=== PATIENT | female | born 1955 | race African-American/Black ===

== ENCOUNTER 2017-05-17 08:24 | Inpatient (IN) ==
--- NOTE | 2017-05-17 09:33 | History and Physical Update ---
History and Physical Update - History and Physical H&P was reviewed, the patient examined and there: are no changes in the patients condition since last H&P was completed.
[2017-05-17] MEDS: LACTATED RINGERS 1,000 ML IV SCH ×3 (09:47→17:18)
[2017-05-17] MEDS ORDERED: ceFAZolin 1,000 MG VIAL ONE (10:00)
[2017-05-17] MEDS ORDERED: SODIUM CHLORIDE 0.9% 100 ML IV ONE (10:00)
[2017-05-17] MEDS ORDERED: ROPIVACAINE 0.5% 30 ML VIAL ONE (10:16)
[2017-05-17] MEDS ORDERED: MIDAZOLAM 2 MG/2 ML VIAL ONE (10:41)
[2017-05-17] MEDS ORDERED: fentaNYL 100 MCG/2 ML VIAL ONE (10:42)
[2017-05-17] MEDS ORDERED: GENTAMICIN 80 MG/2 ML VIAL ONE ×2 (12:04→13:50)
[2017-05-17] MEDS ORDERED: PROPOFOL 200 MG/20 ML VIAL IV ONE (12:48)
[2017-05-17] MEDS ORDERED: PHENYLEPHRINE 1 MG/10 ML SYRINGE IV ONE (12:48)
[2017-05-17] MEDS ORDERED: HYDROCORTISONE 100 MG VIAL ONE (12:48)
[2017-05-17] MEDS ORDERED: PHENYLEPHRINE 50 MG/5 ML VIAL ONE (12:48)
[2017-05-17] MEDS ORDERED: LIDOCAINE 1% 5 ML VIAL ONE (12:48)
[2017-05-17] MEDS ORDERED: ONDANSETRON 4 MG/2 ML VIAL ONE (12:48)
[2017-05-17] MEDS ORDERED: TRANEXAMIC ACID 1,000 MG/10 ML VIAL IV ONE (15:31)
[2017-05-17] MEDS ORDERED: BACITRACIN OINT 0.9 GM PACK TOP ONE (15:32)
[2017-05-17] MEDS ORDERED: ALBUTEROL/IPRATROPIUM 3 ML NEB RESP TX PRN (15:46)
[2017-05-17] MEDS ORDERED: MORPHINE 2 MG/1 ML SYRINGE IV PRN (15:47)
[2017-05-17] MEDS: HYDROmorphone 2 MG/1 ML VIAL IV PRN ×3 (15:55→16:05)
[2017-05-17] MEDS ORDERED: HYDROmorphone 2 MG/1 ML VIAL ONE (15:56)
--- NOTE | 2017-05-17 16:01 | Operative Note ---
Date of procedure: 05/17/17 Procedure: DIAGNOSIS: Left hindfoot arthrosis, pes planus deformity and instability. Achilles tendon contracture PROCEDURE: Left triple arthrodesis. Triple cut heel cord lengthening SURGEON: Ilene ANESTHESIA: General and popliteal block PROCEDURE and FINDINGS: After adequate anesthesia was induced, her left lower exam was prepped and draped in usual sterile fashion. The limb was exsanguinated with Esmarch. Tourniquet was inflated to 300 mmHg. Estimated tourniquet time was 90 minutes. A longitudinal incision was made in line with the tip of her fibula and fourth ray. Skin, subcutaneous tissue was incised. Extensor digitorum brevis was elevated from the sinus tarsi. Contents of the sinus tarsi were excised. Longitudinal capsulotomy was made at the calcaneocuboid joint and extended through the subtalar joint.. The subtalar and calcaneocuboid joint joints were exposed, denuded of cartilage and subchondral bone using curettes, rongeurs and a bur. The lateral half of the talonavicular joint was exposed. She had hard sclerotic bone. A bur was used to denude but back down to bleeding cancellus bone. A medial incision was made exposing the medial half of the talonavicular joint. Cancellus bone was exposed. Pins were introduced sequentially. The calcaneus was positioned in slight valgus. The subtalar joint was stabilized with 2 6.5 partially-threaded , cannulated screws introduced through the heel. The talonavicular and calcaneocuboid joints were secured with 2 4.0 partially-threaded, cancellus, cannulated screws each. Image intensification was used multiple planes to foreign exchange trader adequacy of pin and screw placement. The joints were packed with normal saline soaked, cancellus allograft bone chips. The wounds were irrigated, closed deep with 0 Vicryl and superficially with 3-0 Vicryl. Nylon was used to close skin. The patient still had a residual Achilles tendon contracture. A triple cut, Achilles tendon lengthening was performed with 3 cuts with two laterally and one medially. Skin was closed with nylon. Bacitracin, sterile dressings and short leg splint with stirrups was applied. She was extubated and transferred recovery room in stable condition. Surgeon / Physician: Selwyn Odom Jr. Discharge Plan - Discharge Medications No Action Multivit-Min/FA/Lycopen/Lutein [Centrum Silver Tablet] 1 tablet PO DAILY Sucralfate Tab [Carafate Tab] 1 gm PO BIDAC Ergocalciferol (Vitamin D2) [Vitamin D2] 400 unit PO BID Clopidogrel [Plavix] 75 mg PO DAILY Omeprazole [Prilosec] 20 mg PO BID Folic Acid Tab 400 mcg PO DAILY Albuterol/Ipratropium Neb [Duoneb] 3 ml RESP TX QID PRN PRN Reason: Shortness Of Breath/Wheezing Duloxetine HCl [Cymbalta] 60 mg PO DAILY Furosemide 20 mg PO DAILY Calcium Carbonate/Vitamin D3 [Calcium 500 + Vit D Caplet] 1 each PO BID Metoprolol Tartrate 25 mg PO BID Beclomethasone 80 Mcg Inhaler [Qvar 80 Mcg] 80 mcg INH BID cycloSPORINE OPH EMUL [Restasis] 1 drop BOTH EYES Q12HR Magnesium Chloride [Mag Delay] 128 mg PO BID Spironolactone [Spironolactone] 25 mg PO BID Tocilizumab [Actemra] 0.9 ml SUBCUT TU Topiramate [Topamax] 100 mg PO BID Cholestyramine/Aspartame [Questran Light] 4 gm PO BID Gabapentin [Gabapentin] 300 mg PO BEDTIME predniSONE TAB [PredniSONE] 9 mg PO DAILY Colestipol [Colestid] 2 gm PO BID Acyclovir [Acyclovir Cap/Tab] 400 mg PO BID - Follow Up or Referral - Forms/Instructions
[2017-05-17] MEDS ORDERED: SODIUM CHLORIDE 0.9% 250 ML IV ONE (16:06)
[2017-05-17] MEDS ORDERED: ePHEDrine 50 MG/ML AMP ONE (16:06)
[2017-05-17] MEDS ORDERED: SEVOFLURANE 1 UNIT/15 MINUTE INH ONE (16:06)
[2017-05-17] MEDS ORDERED: ONDANSETRON 4 MG/2 ML VIAL IV PRN (16:07)
[2017-05-17] MEDS ORDERED: LACTATED RINGERS 1,000 ML IV SCH (16:30)
--- NOTE | 2017-05-17 16:57 | Anesthesia Post-Op ---
Anesthesia Post OP - Post Ansesthetic Evaluation Patient seen in post op: Yes Resp: within normal limits CV: within normal limits Mental: within normal limits Temp: within normal limits [id number]: within normal limits Nausea and Vomiting: within normal limits Pain: within normal limits
--- NOTE | 2017-05-17 17:17 | XRay Report ---
XR foot 3V LT Indication: Intraoperative C-arm fluoroscopy. Comparison: None. Technique: A total of 11 images were obtained intraoperatively using C-arm fluoroscopy. Findings: Images were reviewed and deemed satisfactory by the operative physician. Total fluoroscopy time was 27 seconds. Impression: 1. C-arm usage as detailed. 05/17/2017 5:14 PM PROCEDURE INTERPRETED AT [facility] DEPARTMENT OF RADIOLOGY Final Report Signed by: Dr. Israel Elliott
[2017-05-17] MEDS: SUCRALFATE 1 GM TABLET PO SCH (17:37)
[2017-05-17] MEDS: COLESTIPOL 1 GM TABLET PO SCH (20:54)
[2017-05-17] MEDS: GABAPENTIN 300 MG CAPSULE PO SCH (20:55)
[2017-05-17] MEDS: MAGNESIUM CHLORIDE 64 MG TABLET PO SCH (20:55)
[2017-05-17] MEDS: ACYCLOVIR 200 MG CAPSULE PO SCH (20:55)
[2017-05-17] MEDS: TOPIRAMATE 100 MG TABLET PO SCH (20:55)
[2017-05-17] MEDS: CALCIUM (CARBONATE)/VITAMIN D 500 MG-200 UNIT TABLET PO SCH (20:55)
[2017-05-17] MEDS: PANTOPRAZOLE 40 MG TABLET PO SCH (20:56)
[2017-05-17] MEDS: cycloSPORINE OPH EMUL 1 VIAL BOTH EYES SCH (20:56)
[2017-05-17] MEDS: CHOLECALCIFEROL 400 UNIT TABLET PO SCH (20:56)
[2017-05-17] MEDS: CHOLESTYRAMINE/ASPARTAME 4 GM PACK PO SCH (20:57)
[2017-05-17] MEDS: SPIRONOLACTONE 25 MG TABLET PO SCH (20:58)
[2017-05-17] MEDS: METOPROLOL TARTRATE 25 MG TABLET PO SCH (20:59)
[2017-05-17] MEDS: BECLOMETHASONE 80 MCG/PUFF INHALER 8.7 GM INH SCH (20:59)
[2017-05-18] MEDS: LACTATED RINGERS 1,000 ML IV SCH (03:12)
[2017-05-18] MEDS: ONDANSETRON 4 MG/2 ML VIAL IV PRN ×3 (03:56→20:35)
[2017-05-18 05:42] LABS: Basophils % 0.5 % (0.0-0.8); Eosinophils # 0.1 10*3/uL (0.0-0.87); Eosinophils % 0.9 % (0.00-10.9); Hematocrit 35.5 VOL% (35.7-47.0); Hemoglobin 11.6 GM/DL (12.0-16.0); Immature Granulocytes % 0.3 %; Immature Granulocytes Absolute 0.02 #; Lymphocytes # 1.7 10*3/uL (1.4-4.0); Lymphocytes % 28.7 % (21.3-54.2); Mean Corpuscular HGB Conc 32.7 GM/DL (32-36); Mean Corpuscular Hemoglobin 34 PG (27-34); Mean Corpuscular Volume 103.2 FL (87-102); Mean Platelet Volume 8.9 FL (9.6-12.0); Monocytes # 0.8 10*3/uL (0.11-0.8); Monocytes % 14.1 % (1.7-12.7); Neutrophils # 3.2 10*3/uL (1.4-7.4); Neutrophils % 55.5 % (38.7-73.9); Platelet Count 198 T/CUMM (130-400); Red Blood Count 3.44 MC/CUMM (3.8-5.5); Red Cell Distribution Width 13.4 % (9.3-17.3); White Blood Count 5.8 T/CUMM (4-12)
[2017-05-18 06:18] LABS: Calcium 8.4 MG/DL (8.5-10.1); Potassium 3.8 MMOL/L (3.5-5.1)
--- NOTE | 2017-05-18 08:26 | Internal Medicine Consult Note ---
Assessment and Plan (1) HTN (hypertension) Status: Chronic Assessment and plan: 62-year-old female admitted to acute care * Status post left triple arthrodesis. Patient is doing well with surgery. Treatment per Dr. Odom * Hypertension. Blood pressure is stable * Status post CVA. Continue current treatment * Rheumatoid arthritis. Stable. She is being tapered off prednisone * Depression. Continue current treatment * GERD. Stable * I will follow her for medical problems Current Visit: No Qualifiers: Hypertension type: essential hypertension Qualified Code(s): I10 - Essential (primary) hypertension (2) GERD (gastroesophageal reflux disease) Status: Chronic Current Visit: No (3) Lupus Status: Chronic Current Visit: No (4) Rheumatoid arthritis Status: Chronic Current Visit: No (5) Sleep apnea in adult Status: Chronic Current Visit: No History of Present Illness - Data of Consult Patient: known to practice within the last 3 years - Consult Narrative Reason for consult: Medical management History of present illness: Ms. Sellers is a 62 year old female with history of multiple medical problems including essential hypertension, CHF, gastroesophageal reflux disease, migraine , obstructive sleep apnea, rheumatoid arthritis, lupus, chronic back and cervical spine arthritis who has been admitted to acute care after undergoing left foot triple arthrodesis. She is doing fairly well after surgery. Her main complaint is the pain in her foot. She denies any chest pain or shortness of breath. She denies any nausea vomiting or diarrhea. She denies any fever or chills. She lives alone at home and had a health care aide. Patient is a non- smoker CC: Selwyn Odom Jr., - Home Medications and Allergies Home Medications: Home Medications Medication Instructions Recorded Confirmed Type Clopidogrel [Plavix] 75 mg PO DAILY 09/13/15 05/17/17 History Ergocalciferol (Vitamin D2) 400 unit PO BID 09/13/15 05/17/17 History [Vitamin D2] Multivit-Min/FA/Lycopen/Lutein 1 tablet PO DAILY 09/13/15 05/17/17 History [Centrum Silver Tablet] Omeprazole [Prilosec] 20 mg PO BID 09/13/15 05/17/17 History Sucralfate Tab [Carafate Tab] 1 gm PO BIDAC 09/13/15 05/17/17 History Albuterol/Ipratropium Neb [Duoneb] 3 ml RESP TX QID PRN 11/13/15 05/17/17 History Calcium Carbonate/Vitamin D3 1 each PO BID 11/13/15 05/17/17 History [Calcium 500 + Vit D Caplet] Duloxetine HCl [Cymbalta] 60 mg PO DAILY 11/13/15 05/17/17 History Folic Acid Tab 400 mcg PO DAILY 11/13/15 05/17/17 History Furosemide 20 mg PO DAILY 11/13/15 05/17/17 History Metoprolol Tartrate 25 mg PO BID 11/13/15 05/17/17 History Beclomethasone 80 Mcg Inhaler 80 mcg INH BID 12/25/15 05/17/17 History [Qvar 80 Mcg] cycloSPORINE OPH EMUL [Restasis] 1 drop BOTH EYES Q12HR 12/25/15 05/17/17 History Magnesium Chloride [Mag Delay] 128 mg PO BID 12/31/15 05/17/17 History Acyclovir [Acyclovir Cap/Tab] 400 mg PO BID 12/22/16 05/17/17 History Cholestyramine/Aspartame [Questran 4 gm PO BID 12/22/16 05/17/17 History Light] Colestipol [Colestid] 2 gm PO BID 12/22/16 05/17/17 History Gabapentin [Gabapentin] 200 mg PO BEDTIME 12/22/16 05/17/17 History Spironolactone [Spironolactone] 25 mg PO BID 12/22/16 05/17/17 History Tocilizumab [Actemra] 0.9 ml SUBCUT TU 12/22/16 05/17/17 History Topiramate [Topamax] 100 mg PO BID 12/22/16 05/17/17 History Cetirizine HCl [ZyrTEC Cap] 10 mg PO DAILY 05/17/17 05/17/17 History Levocetirizine Dihydrochloride 5 mg PO BEDTIME 05/17/17 05/17/17 History [Xyzal] Melatonin/Pyridoxine HCl (B6) 1 each PO BEDTIME PRN 05/17/17 05/17/17 History [Melatonin 3 mg Tablet] guaiFENesin ER TAB [Mucinex] 600 mg PO BID PRN 05/17/17 05/17/17 History predniSONE TAB [PredniSONE] 9 mg PO DAILY 05/17/17 05/17/17 History Allergies/Adverse Reactions: Allergies Allergy/AdvReac Type Severity Reaction Status Date / Time azathioprine [From Imuran] Allergy Mild RASH Verified 05/17/17 08:43 Hydroxychloroquine Allergy Mild RASH Verified 05/17/17 08:43 [From Plaquenil] methotrexate Allergy Mild RASH Verified 05/17/17 08:43 naproxen Allergy Mild RASH Verified 05/17/17 08:43 niacin Allergy Mild RASH Verified 05/17/17 08:43 Sulfadiazine Allergy Mild RASH Verified 05/17/17 08:43 sulfamethoxazole Allergy Mild RASH Verified 05/17/17 08:43 [From Bactrim] sumatriptan [From Treximet] Allergy Mild RASH Verified 05/17/17 08:43 trimethoprim [From Bactrim] Allergy Mild RASH Verified 05/17/17 08:43 12 point system: reviewed and no additional remarkable complaints except as stated (As mentioned in HPI) Medical,Surgical,& Family Hx - Medical History Cardio: History of: Aneurysm, Cardiac Dysrhythmia, Cerebrovascular Disease, CHF , Hypertension, Cardiovascular Problems (DR ZAMARRIPA IN PAST.) No history of: Congenital Heart Disease, CAD, [place], Pacemaker, PVD, Valvular Heart Disease Psychological: History of: Depression Neurology: History of: Cerebrovascular Accident, Migraine (OCCASIONAL), TIA ( 2012 DR HART.) No history of: Brain Aneurysm, Cerebral Hemorrhage, Cerebral Palsy, Dementia , Multiple Sclerosis, Parkinson's Disease, Peripheral Neuropathy, Seizures, Vertigo, Neurologocal Cancer HEENT: History of: Ear Problem (PASCUA YAQUI AND EAR PAIN), Eye Problem (GLASSES), Dental Problems (UPPER PARTIAL) Endocrine: History of: Diabetes Mellitus (NIDDM) (PT HAS LOW BLOOD SUGAR), Dyslipidemia Rheumatology: History of;: Rheumatoid Arthritis, Systemic Lupus Erythematosus, Rheumatological Problems Respiratory: History of: Asthma, COPD (DR POPE.), Intubation, Obstructive Sleep Apnea (cpap, has not been using lately. PT USES 2L OXYGEN AT NIGHT.), Respiratory Problems (FLU VAC-YES; PNEU VAC- YES.) Renal: History of: Renal Problems (kidney infaction DR CANDACE PARKER) Genitourinary: History of: Bladder Problem (INCONTIENCE.), Recurring Urinary Tract Infections Gastrointestinal: History of: Diverticulitis/ Diverticulosis, GERD, Pancreatitis , Polyps (?), GI Problems (CONSTIPATION AND DIARRHEA) Musculoskeletal: History of: Back/Neck Problems (NECK AND CHRONIC BACK PAIN. NECK DR TINEO INJ 04/2017.), Herniated Disk, Osteoporosis Hematology: History of: Anemia Other: History of: Miscellaneous Medical Problems (EXT WEAKNESS.) - Surgical History Cardiac Surgeries: Sugical HX of: Cardiac Catheterization Patient Denies: Femoral-Popliteal Bypass Graft, Cardiac Surgery, Carotid Endarterectomy, Internal Defibrillator, Vascular Access Devices Thoracic Surgeries: Patient denies;: Organ Transplant, Lobectomy Neurologic Surgeries: Patient denies: Brain Aneurysm, Cerebral Hemorrhage, Neurologic Surgery HEENT Surgeries: Surgical HX of: Eye Surgery (CATARACT SURERY) Patient denies: Carotid Endarterectomy, Tonsilectomy & Adenoidectomy Abdominal Surgeries: Surgical HX of: Abdominal Surgery, Appendectomy, Cholecystectomy, Colonoscopy, EGD Patient denies: Splenectomy Reproductive Surgeries: Patient denies;: Genitourinary Surgery Orthopedic Surgeries: Surgical HX of;: Orthopedic Surgery (NECK SURGERY 10 YRS AGO. RT CARPAL TUNNEL.) - Family History Family History: Reports;: Family Cancer, Family Diabetes, Family Heart Disease, Family Hypertension, Family Stroke Denies;: Family Anesthesia Reaction, Family Psychiatric Problems - Social History Smoking Status: Never smoker Frequency of Alcohol Use: None Type of Drug Use: None Marital Status: Lives With:: Alone Functional capacity: uses cane/walker Exam (Progress Note) - Constitutional Vitals: Period Temp Pulse Resp BP Sys/Viveros Pulse Ox Last 24 Hr 97.0 F-98.1 F 74-94 16-20 92-149/49-110 98-100 Exam: Examination: GENERAL: NAD. HEENT: PERRLA. EOMI. Mucous membranes are moist. NECK: Neck is supple. No JVD. No carotid bruit. No thyromegaly. CVS: Regular rate and rhythm. S1 and S2 are normal. RESPIRATORY: Lungs are clear. No rales or rhonchi. ABDOMEN: Soft and nontender. Bowel sounds are present. No hepatosplenomegaly. 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 Cranial nerves II through XII are grossly intact. 3-4/5 SKIN: Warm and dry. MSK: No obvious deformity. Results - Labs CBC & BMP: 05/18/17 05:13 05/18/17 05:13 Lab Results: I have reviewed the past 24 hour labs
--- NOTE | 2017-05-18 08:53 | Orthopedic Progress Note ---
Orthopedics - Subjective Interval history: Ms. Sellers is uncomfortable this morning. She is just received IV pain medicine. She states that the block seems to have worn off about midnight last night. Her splint shows some slight serosanguineous drainage. It has been overwrapped. Capillary refills less than 2 seconds. Plan: Encourage the use of pain medicine and elevation. We will start physical therapy. Stop IV fluids. Discharge planning anticipating swing bed placement at [facility]. Exam - Constitutional Vitals: Period Temp Pulse Resp BP Sys/Viveros Pulse Ox Last 24 Hr 97.0 F-98.1 F 74-94 16-20 92-149/49-110 98-100 Results - Labs CBC & BMP: 05/18/17 05:13 05/18/17 05:13 Quality Measures - VTE Contraindication to Pharmacological VTE Prophylaxis: Already on Theraputic Agent , No Prophylaxis Needed
[2017-05-18] MEDS: FOLIC ACID 0.4 MG TABLET PO SCH (09:02)
[2017-05-18] MEDS: PANTOPRAZOLE 40 MG TABLET PO SCH ×2 (09:02→20:23)
[2017-05-18] MEDS: FUROSEMIDE 20 MG TABLET PO SCH (09:03)
[2017-05-18] MEDS: SUCRALFATE 1 GM TABLET PO SCH ×2 (09:03→15:37)
[2017-05-18] MEDS: TOPIRAMATE 100 MG TABLET PO SCH ×2 (09:03→20:23)
[2017-05-18] MEDS: DULoxetine 30 MG CAPSULE PO SCH (09:04)
[2017-05-18] MEDS: SPIRONOLACTONE 25 MG TABLET PO SCH ×2 (09:04→20:23)
[2017-05-18] MEDS: METOPROLOL TARTRATE 25 MG TABLET PO SCH ×2 (09:04→20:23)
[2017-05-18] MEDS: MULTIVITAMIN (CENTRUM) TABLET PO SCH (09:05)
[2017-05-18] MEDS: CHOLECALCIFEROL 400 UNIT TABLET PO SCH ×2 (09:05→20:24)
[2017-05-18] MEDS: ACYCLOVIR 200 MG CAPSULE PO SCH ×2 (09:05→20:22)
[2017-05-18] MEDS: COLESTIPOL 1 GM TABLET PO SCH ×2 (09:06→20:23)
[2017-05-18] MEDS: CALCIUM (CARBONATE)/VITAMIN D 500 MG-200 UNIT TABLET PO SCH ×2 (09:06→20:23)
[2017-05-18] MEDS: CHOLESTYRAMINE/ASPARTAME 4 GM PACK PO SCH ×2 (09:12→20:24)
[2017-05-18] MEDS: BECLOMETHASONE 80 MCG/PUFF INHALER 8.7 GM INH SCH ×2 (09:19→20:28)
[2017-05-18] MEDS: cycloSPORINE OPH EMUL 1 VIAL BOTH EYES SCH ×2 (09:21→20:27)
[2017-05-18] MEDS: MAGNESIUM CHLORIDE 64 MG TABLET PO SCH ×2 (10:20→20:23)
[2017-05-18] MEDS: MORPHINE 2 MG/1 ML SYRINGE IV PRN ×2 (10:21→15:20)
[2017-05-18] MEDS: predniSONE 1 MG TABLET PO SCH (12:35)
[2017-05-18] MEDS: predniSONE 5 MG TABLET PO SCH (12:35)
[2017-05-18] MEDS: traMADol 50 MG TABLET PO PRN (12:35)
[2017-05-18] MEDS: GABAPENTIN 300 MG CAPSULE PO SCH (20:22)
[2017-05-18] MEDS: ACETAMINOPHEN 325 MG TABLET PO PRN (20:33)
--- NOTE | 2017-05-19 07:08 | Internal Med Progress Note ---
Assessment and Plan (1) HTN (hypertension) Status: Chronic Assessment and plan: 62-year-old female admitted to acute care * Status post left triple arthrodesis. Patient is doing well with surgery. * Hypertension. Blood pressure is stable * Status post CVA. Continue current treatment * Rheumatoid arthritis. Stable. She is being tapered off prednisone * Depression. Continue current treatment * GERD. Stable * Dysuria. Will check urinalysis * Patient to go to swing bed after acute care Current Visit: No Qualifiers: Hypertension type: essential hypertension Qualified Code(s): I10 - Essential (primary) hypertension (2) GERD (gastroesophageal reflux disease) Status: Chronic Current Visit: No (3) Lupus Status: Chronic Current Visit: No (4) Rheumatoid arthritis Status: Chronic Current Visit: No (5) Sleep apnea in adult Status: Chronic Current Visit: No Internal Medicine - PN: Subj Interval history: Her pain is better controlled. She was up during the night with increased frequency and urgency. She denies any chest pain or shortness of breath Exam (Progress Note) - Constitutional Vitals: Period Temp Pulse Resp BP Sys/Viveros Pulse Ox Last 24 Hr 97.2 F-99.4 F 71-105 17-20 132-154/76-90 96-100 Exam: Examination: GENERAL: NAD. HEENT: PERRLA. EOMI. NECK: Neck is supple. CVS: Regular rate and rhythm. S1 and S2 are normal. RESPIRATORY: Lungs are clear. ABDOMEN: Soft and nontender. 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 Motor strength 3-4/5 SKIN: Warm and dry. MSK: No obvious deformity. Results - Labs CBC & BMP: 05/18/17 05:13 05/18/17 05:13 Lab Results: I have reviewed the past 24 hour labs Quality Measures - VTE Contraindication to Pharmacological VTE Prophylaxis: Already on Theraputic Agent , No Prophylaxis Needed
--- NOTE | 2017-05-19 07:52 | Orthopedic Progress Note ---
Orthopedics - Subjective Interval history: Ms. Sellers' pain is better controlled this morning. She has a urinalysis pending for increased urinary frequency. Splint is intact. She can flex and extend her toes. Capillary refills less than 2 seconds. Sensations intact to light touch to her toes. Plan: Continue physical therapy. Swing bed placement when bed available. Exam - Constitutional Vitals: Period Temp Pulse Resp BP Sys/Viveros Pulse Ox Last 24 Hr 97.2 F-99.4 F 71-105 17-20 109-154/75-90 96-100 Results - Labs CBC & BMP: 05/18/17 05:13 05/18/17 05:13 Quality Measures - VTE Contraindication to Pharmacological VTE Prophylaxis: Already on Theraputic Agent , No Prophylaxis Needed
[2017-05-19] MEDS: BECLOMETHASONE 80 MCG/PUFF INHALER 8.7 GM INH SCH ×2 (10:00→20:58)
[2017-05-19] MEDS: cycloSPORINE OPH EMUL 1 VIAL BOTH EYES SCH ×2 (11:23→21:01)
[2017-05-19] MEDS: ONDANSETRON 4 MG/2 ML VIAL IV PRN (11:31)
[2017-05-19] MEDS: MAGNESIUM HYDROXIDE SUSP 30 ML UDCUP PO PRN ×2 (11:31→17:49)
[2017-05-19] MEDS: CHOLESTYRAMINE/ASPARTAME 4 GM PACK PO SCH ×2 (12:00→21:21)
[2017-05-19] MEDS: ACETAMINOPHEN 325 MG TABLET PO PRN ×2 (13:18→21:20)
[2017-05-19] MEDS: COLESTIPOL 1 GM TABLET PO SCH ×2 (13:21→20:58)
[2017-05-19] MEDS: MAGNESIUM CHLORIDE 64 MG TABLET PO SCH ×2 (13:22→21:00)
[2017-05-19] MEDS: ACYCLOVIR 200 MG CAPSULE PO SCH ×2 (13:24→21:00)
[2017-05-19] MEDS: DULoxetine 30 MG CAPSULE PO SCH (13:31)
[2017-05-19] MEDS: CLOPIDOGREL 75 MG TABLET PO SCH (13:32)
[2017-05-19] MEDS: CHOLECALCIFEROL 400 UNIT TABLET PO SCH ×2 (13:32→21:00)
[2017-05-19] MEDS: MULTIVITAMIN (CENTRUM) TABLET PO SCH (13:32)
[2017-05-19] MEDS: FOLIC ACID 0.4 MG TABLET PO SCH (13:33)
[2017-05-19] MEDS: TOPIRAMATE 100 MG TABLET PO SCH ×2 (13:34→20:58)
[2017-05-19] MEDS: SUCRALFATE 1 GM TABLET PO SCH ×2 (13:35→17:49)
[2017-05-19] MEDS: FUROSEMIDE 20 MG TABLET PO SCH (13:35)
[2017-05-19] MEDS: CALCIUM (CARBONATE)/VITAMIN D 500 MG-200 UNIT TABLET PO SCH ×2 (13:36→21:00)
[2017-05-19] MEDS: predniSONE 5 MG TABLET PO SCH (13:37)
[2017-05-19] MEDS: PANTOPRAZOLE 40 MG TABLET PO SCH ×2 (13:37→21:00)
[2017-05-19] MEDS: SPIRONOLACTONE 25 MG TABLET PO SCH ×2 (13:37→21:00)
[2017-05-19] MEDS: predniSONE 1 MG TABLET PO SCH (13:38)
[2017-05-19] MEDS: METOPROLOL TARTRATE 25 MG TABLET PO SCH ×2 (13:50→20:58)
[2017-05-19 16:17] LABS: Apearance,Urine CLEAR (Clear); Bilirubin,Urine Negative (Negative); Blood, Urine Negative (Negative); Glucose,Urine (UA) Negative (Negative); Hyaline Casts,Urine 2 /LPF (0-3); Ketones,Urine Negative (Negative); Mucus,Urine Occasional /LPF (Occasional); Nitrite,Urine Negative (Negative); Protein,Urine Negative; RBC,Urine <1 /HPF (0-4); Squamous Epithelial Cell,Urine Occasional /HPF (0-10); Urine Color Yellow (Yellow); Urine Specific Gravity 1.006 (1.001-1.035); Urine Urobilinogen < 2.0 EU/DL (0.2-1.0); WBC,Urine 2 /HPF (0-6)
[2017-05-19] MEDS ORDERED: BISACODYL 10 MG SUPP RECTAL PRN (18:55)
[2017-05-19] MEDS: GABAPENTIN 300 MG CAPSULE PO SCH (20:58)
--- NOTE | 2017-05-20 08:15 | Orthopedic Progress Note ---
Orthopedics - Subjective Interval history: She is somnolent. # days postop left foot and ankle surgery. Nurses report she is awaiting placement Lab stable. V/S stable. dressing and splint clean and dry. Rec: Continue same orthopaedic treatment plan Exam - Constitutional Vitals: Period Temp Pulse Resp BP Sys/Viveros Pulse Ox Last 24 Hr 97.9 F-99.2 F 92-123 18-22 101-119/60-86 93-100 Results - Labs CBC & BMP: 05/18/17 05:13 05/18/17 05:13 Quality Measures - VTE Contraindication to Pharmacological VTE Prophylaxis: Already on Theraputic Agent , No Prophylaxis Needed
--- NOTE | 2017-05-20 08:32 | Family Practice Progress Note ---
Family Practice - PN: Subj Interval history: Medicine consult: Patient seen and examined on the third floor, Does not give any complaints today, overall feeling better. No fever, nausea, vomiting, chest pain, shortness of breath, headaches or dizziness. No overnight events reported by the nurse. Is status post left foot triple arthrodesis. Awaiting swing bed placement. Exam (Progress Note) - Constitutional Vitals: Period Temp Pulse Resp BP Sys/Viveros Pulse Ox Last 24 Hr 97.9 F-99.2 F 92-123 18-22 101-119/60-86 93-100 Exam: GENERAL APPEARANCE: alert and oriented, pleasant, in no acute distress, lying in the bed HEENT: Normal EYES: extraocular movement intact (EOMI), conjunctiva clear, normal. NECK/THYROID: neck supple, full range of motion, no cervical lymphadenopathy, no thyromegaly. HEART: regular rate and rhythm, no murmurs, rubs, gallops. LUNGS: clear to auscultation bilaterally, no wheezes, rales, rhonchi. ABDOMEN: soft, nontender, nondistended, no organomegaly , bowel sounds present. EXTREMITIES: Dressing over left foot present. NEUROLOGIC: alert and oriented, cranial nerves 2-12 grossly intact, Results - Labs CBC & BMP: 05/18/17 05:13 05/18/17 05:13 Lab Results: I have reviewed the past 24 hour labs Assessment and Plan (1) Arthrosis of left foot Status: Chronic Assessment and plan: Status post left triple arthrodesis surgery, pain controlled, Follow recommendations of orthopedics, awaiting swing bed. 2. Hypertension, stable. 3. Rheumatoid arthritis, stable. 4. Lupus, stable, 5. GERD, stable on Protonix Current Visit: Yes (2) HTN (hypertension) Status: Chronic Current Visit: Yes Qualifiers: Hypertension type: essential hypertension Qualified Code(s): I10 - Essential (primary) hypertension (3) Lupus Status: Chronic Current Visit: Yes (4) GERD (gastroesophageal reflux disease) Status: Chronic Current Visit: Yes (5) Rheumatoid arthritis Status: Chronic Current Visit: Yes (6) Sleep apnea in adult Status: Chronic Current Visit: Yes Quality Measures - VTE Contraindication to Pharmacological VTE Prophylaxis: Already on Theraputic Agent , No Prophylaxis Needed
[2017-05-20] MEDS: CHOLESTYRAMINE/ASPARTAME 4 GM PACK PO SCH ×2 (11:07→21:13)
[2017-05-20] MEDS: predniSONE 1 MG TABLET PO SCH (11:07)
[2017-05-20] MEDS: COLESTIPOL 1 GM TABLET PO SCH ×2 (11:08→21:12)
[2017-05-20] MEDS: CLOPIDOGREL 75 MG TABLET PO SCH (11:09)
[2017-05-20] MEDS: MAGNESIUM CHLORIDE 64 MG TABLET PO SCH ×2 (11:09→21:13)
[2017-05-20] MEDS: SPIRONOLACTONE 25 MG TABLET PO SCH ×2 (11:10→21:13)
[2017-05-20] MEDS: FUROSEMIDE 20 MG TABLET PO SCH (11:10)
[2017-05-20] MEDS: CALCIUM (CARBONATE)/VITAMIN D 500 MG-200 UNIT TABLET PO SCH ×2 (11:10→21:13)
[2017-05-20] MEDS: TOPIRAMATE 100 MG TABLET PO SCH ×2 (11:11→21:12)
[2017-05-20] MEDS: cycloSPORINE OPH EMUL 1 VIAL BOTH EYES SCH ×2 (11:11→21:17)
[2017-05-20] MEDS: PANTOPRAZOLE 40 MG TABLET PO SCH ×2 (11:11→21:13)
[2017-05-20] MEDS: DULoxetine 30 MG CAPSULE PO SCH (11:13)
[2017-05-20] MEDS: ACYCLOVIR 200 MG CAPSULE PO SCH ×2 (11:13→21:12)
[2017-05-20] MEDS: MULTIVITAMIN (CENTRUM) TABLET PO SCH (11:13)
[2017-05-20] MEDS: CHOLECALCIFEROL 400 UNIT TABLET PO SCH ×2 (11:14→21:12)
[2017-05-20] MEDS: predniSONE 5 MG TABLET PO SCH (11:14)
[2017-05-20] MEDS: SUCRALFATE 1 GM TABLET PO SCH ×2 (11:14→17:06)
[2017-05-20] MEDS: FOLIC ACID 0.4 MG TABLET PO SCH (11:14)
[2017-05-20] MEDS: BECLOMETHASONE 80 MCG/PUFF INHALER 8.7 GM INH SCH ×2 (11:17→21:14)
[2017-05-20] MEDS: METOPROLOL TARTRATE 25 MG TABLET PO SCH ×2 (11:18→21:19)
[2017-05-20] MEDS: ACETAMINOPHEN 325 MG TABLET PO PRN ×2 (14:18→21:11)
[2017-05-20] MEDS: GABAPENTIN 300 MG CAPSULE PO SCH (21:13)
[2017-05-21] MEDS: METOPROLOL TARTRATE 25 MG TABLET PO SCH ×2 (08:25→20:43)
[2017-05-21] MEDS: CHOLESTYRAMINE/ASPARTAME 4 GM PACK PO SCH ×2 (08:39→20:44)
[2017-05-21] MEDS: CHOLECALCIFEROL 400 UNIT TABLET PO SCH ×2 (08:40→20:42)
[2017-05-21] MEDS: ACETAMINOPHEN 325 MG TABLET PO PRN ×2 (08:40→20:42)
[2017-05-21] MEDS: ACYCLOVIR 200 MG CAPSULE PO SCH ×2 (08:40→20:44)
[2017-05-21] MEDS: PANTOPRAZOLE 40 MG TABLET PO SCH ×2 (08:40→20:44)
[2017-05-21] MEDS: FOLIC ACID 0.4 MG TABLET PO SCH (08:40)
[2017-05-21] MEDS: CALCIUM (CARBONATE)/VITAMIN D 500 MG-200 UNIT TABLET PO SCH ×2 (08:40→20:43)
[2017-05-21] MEDS: predniSONE 1 MG TABLET PO SCH (08:40)
[2017-05-21] MEDS: COLESTIPOL 1 GM TABLET PO SCH ×2 (08:41→20:42)
[2017-05-21] MEDS: DULoxetine 30 MG CAPSULE PO SCH (08:41)
[2017-05-21] MEDS: MAGNESIUM CHLORIDE 64 MG TABLET PO SCH ×2 (08:42→20:43)
[2017-05-21] MEDS: SPIRONOLACTONE 25 MG TABLET PO SCH ×2 (08:42→20:42)
[2017-05-21] MEDS: SUCRALFATE 1 GM TABLET PO SCH ×2 (08:42→16:47)
[2017-05-21] MEDS: TOPIRAMATE 100 MG TABLET PO SCH ×2 (08:42→20:44)
[2017-05-21] MEDS: predniSONE 5 MG TABLET PO SCH (08:42)
[2017-05-21] MEDS: MULTIVITAMIN (CENTRUM) TABLET PO SCH (08:42)
[2017-05-21] MEDS: FUROSEMIDE 20 MG TABLET PO SCH (08:42)
[2017-05-21] MEDS: CLOPIDOGREL 75 MG TABLET PO SCH (08:42)
[2017-05-21] MEDS: cycloSPORINE OPH EMUL 1 VIAL BOTH EYES SCH ×2 (08:55→20:46)
[2017-05-21] MEDS: BECLOMETHASONE 80 MCG/PUFF INHALER 8.7 GM INH SCH ×2 (08:55→20:46)
--- NOTE | 2017-05-21 09:17 | Family Practice Progress Note ---
Family Practice - PN: Subj Interval history: Medicine consult: Patient seen and examined on the third floor, overall feeling better. Occasionally feels pain in the leg and back No fever, nausea, vomiting, chest pain, shortness of breath, headaches or dizziness. No overnight events reported by the nurse. Is status post left foot triple arthrodesis. Awaiting swing bed placement. Exam (Progress Note) - Constitutional Vitals: Period Temp Pulse Resp BP Sys/Viveros Pulse Ox Last 24 Hr 97.1 F-98.6 F 87-113 16-20 86-109/61-78 99-100 Exam: GENERAL APPEARANCE: alert and oriented, pleasant, in no acute distress, lying in the bed HEENT: Normal EYES: extraocular movement intact (EOMI), conjunctiva clear, normal. NECK/THYROID: neck supple, full range of motion, no cervical lymphadenopathy, no thyromegaly. HEART: regular rate and rhythm, no murmurs, rubs, gallops. LUNGS: clear to auscultation bilaterally, no wheezes, rales, rhonchi. ABDOMEN: soft, nontender, nondistended, no organomegaly , bowel sounds present. EXTREMITIES: Dressing over left foot present. NEUROLOGIC: alert and oriented, cranial nerves 2-12 grossly intact, Results - Labs CBC & BMP: 05/18/17 05:13 05/18/17 05:13 Lab Results: I have reviewed the past 24 hour labs Assessment and Plan (1) Arthrosis of left foot Status: Chronic Assessment and plan: Status post left triple arthrodesis surgery, pain controlled, Follow recommendations of orthopedics, awaiting swing bed. 2. Hypertension, stable. 3. Rheumatoid arthritis, stable. 4. Lupus, stable, 5. GERD, stable on Protonix Current Visit: Yes (2) HTN (hypertension) Status: Chronic Current Visit: Yes Qualifiers: Hypertension type: essential hypertension Qualified Code(s): I10 - Essential (primary) hypertension (3) Lupus Status: Chronic Current Visit: Yes (4) GERD (gastroesophageal reflux disease) Status: Chronic Current Visit: Yes (5) Rheumatoid arthritis Status: Chronic Current Visit: Yes (6) Sleep apnea in adult Status: Chronic Current Visit: Yes Quality Measures - VTE Contraindication to Pharmacological VTE Prophylaxis: Already on Theraputic Agent , No Prophylaxis Needed
--- NOTE | 2017-05-21 10:31 | Orthopedic Progress Note ---
Orthopedics - Subjective Interval history: This lady is 4 days postoperative foot and ankle surgery. She is alert oriented and stable. She is not able to care for herself and arrangements are being made to transfer her to swing bed unit probably Monday Exam - Constitutional Vitals: Period Temp Pulse Resp BP Sys/Viveros Pulse Ox Last 24 Hr 97.1 F-98.6 F 87-113 16-20 86-109/61-78 99-100 Results - Labs CBC & BMP: 05/18/17 05:13 05/18/17 05:13 Quality Measures - VTE Contraindication to Pharmacological VTE Prophylaxis: Already on Theraputic Agent , No Prophylaxis Needed
[2017-05-21] MEDS: traMADol 50 MG TABLET PO PRN (14:26)
[2017-05-21] MEDS: GABAPENTIN 300 MG CAPSULE PO SCH (20:42)
--- NOTE | 2017-05-22 06:37 | Discharge Summary ---
Hospital Course - Hospital Course Hospital Course: Ms. Sellers was admitted after undergoing a left foot triple arthrodesis and Achilles tendon lengthening. She received perioperative DVT prophylaxis and physical therapy. The patient has significant difficulty taking care of herself at home. She was transferred to [facility] in stable condition. Discharge Plan - Discharge Data Disposition: Disch/Xfer to Snf Discharge Diet: advance to your usual diet - Discharge Medications New traMADol TAB [Ultram] 100 mg PO Q6H PRN tablet PRN Reason: Pain Continue Multivit-Min/FA/Lycopen/Lutein [Centrum Silver Tablet] 1 tablet PO DAILY Sucralfate Tab [Carafate Tab] 1 gm PO BIDAC Ergocalciferol (Vitamin D2) [Vitamin D2] 400 unit PO BID Clopidogrel [Plavix] 75 mg PO DAILY Omeprazole [Prilosec] 20 mg PO BID Folic Acid Tab 400 mcg PO DAILY Albuterol/Ipratropium Neb [Duoneb] 3 ml RESP TX QID PRN PRN Reason: Shortness Of Breath/Wheezing Duloxetine HCl [Cymbalta] 60 mg PO DAILY Furosemide 20 mg PO DAILY Calcium Carbonate/Vitamin D3 [Calcium 500 + Vit D Caplet] 1 each PO BID Metoprolol Tartrate 25 mg PO BID Beclomethasone 80 Mcg Inhaler [Qvar 80 Mcg] 80 mcg INH BID cycloSPORINE OPH EMUL [Restasis] 1 drop BOTH EYES Q12HR Magnesium Chloride [Mag Delay] 128 mg PO BID Spironolactone 25 mg PO BID Topiramate [Topamax] 100 mg PO BID Cholestyramine/Aspartame [Questran Light] 4 gm PO BID Gabapentin 200 mg PO BEDTIME predniSONE TAB [PredniSONE] 9 mg PO DAILY guaiFENesin ER TAB [Mucinex] 600 mg PO BID PRN PRN Reason: Congestion Colestipol [Colestid] 2 gm PO BID Acyclovir [Acyclovir Cap/Tab] 400 mg PO BID Cetirizine HCl [ZyrTEC Cap] 10 mg PO DAILY Melatonin/Pyridoxine HCl (B6) [Melatonin 3 mg Tablet] 1 each PO BEDTIME PRN PRN Reason: sleep aid Discontinued Tocilizumab [Actemra] 0.9 ml SUBCUT TU Levocetirizine Dihydrochloride [Xyzal] 5 mg PO BEDTIME - Follow Up or Referral - Forms/Instructions Additional Discharge Instructions: Resume Xyzal and Actemra on June 05, 2017. Follow-up appointment in 10-14 days. Keep splint clean, dry and intact. Elevate 6 inches over heart level. Strict nonweightbearing left lower extremity. Exam - Constitutional Vitals: Period Temp Pulse Resp BP Sys/Viveros Pulse Ox Last 24 Hr 97.1 F-98.4 F 90-98 16-18 86-108/58-78 98-100 DS: Provider Date of admission: 05/17/17 15:47 Attending physician on admission: Selwyn Odom Jr., Consults: 05/17/17 15:47 Consult to Physical Therapy [CONS] Routine Reason for Physical Therapy: Evaluate and Treat Consult Comment: reyna llcoral 05/17/17 15:49 Consult to Case Mgmt/Social Srvs [CONS] Routine Reason for Case Mgmt/Social Srvs: Home Health Rehab Equipment Consult Comment: swing bed Consult to Occupational Therapy [CONS] Routine Reason for Occupational Therapy: Evaluate and Treat 05/17/17 15:50 Consult to Physician [CONS] Routine Comment: 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 Bourgeois saw Date Notified: 05/18/17 Time Notified: 08:09 Discharging clinician: Selwyn Odom Jr., Expected date of discharge: 05/22/17
[2017-05-22] MEDS: METOPROLOL TARTRATE 25 MG TABLET PO SCH (08:13)
--- NOTE | 2017-05-22 08:26 | Internal Med Progress Note ---
Assessment and Plan (1) HTN (hypertension) Status: Chronic Assessment and plan: 62-year-old female admitted to acute care * Status post left triple arthrodesis. She will require physical therapy and Occupational Therapy * Hypertension. Blood pressure is low at times. * Status post CVA. Continue current treatment * Rheumatoid arthritis. Stable. She is being tapered off prednisone * Depression. Continue current treatment * GERD. Stable Current Visit: Yes Qualifiers: Hypertension type: essential hypertension Qualified Code(s): I10 - Essential (primary) hypertension (2) GERD (gastroesophageal reflux disease) Status: Chronic Current Visit: Yes (3) Lupus Status: Chronic Current Visit: Yes (4) Rheumatoid arthritis Status: Chronic Current Visit: Yes (5) Sleep apnea in adult Status: Chronic Current Visit: Yes Internal Medicine - PN: Subj Interval history: She is feeling better this morning. She is ready to go to the swing bed. Patient will be nonweightbearing for 6 weeks Exam (Progress Note) - Constitutional Vitals: Period Temp Pulse Resp BP Sys/Viveros Pulse Ox Last 24 Hr 97.2 F-98.4 F 86-98 16-20 96-108/58-70 98-100 Exam: Examination: GENERAL: NAD. HEENT: PERRLA. EOMI. NECK: Neck is supple. CVS: Regular rate and rhythm. S1 and S2 are normal. RESPIRATORY: Lungs are clear. ABDOMEN: Soft and nontender. 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 Motor strength 3-4/5 SKIN: Warm and dry. MSK: No obvious deformity. Results - Labs CBC & BMP: 05/18/17 05:13 05/18/17 05:13 Lab Results: I have reviewed the past 24 hour labs Quality Measures - VTE Contraindication to Pharmacological VTE Prophylaxis: Already on Theraputic Agent , No Prophylaxis Needed
[2017-05-22] MEDS: predniSONE 1 MG TABLET PO SCH (09:27)
[2017-05-22] MEDS: MAGNESIUM CHLORIDE 64 MG TABLET PO SCH (09:28)
[2017-05-22] MEDS: ACYCLOVIR 200 MG CAPSULE PO SCH (09:28)
[2017-05-22] MEDS: CLOPIDOGREL 75 MG TABLET PO SCH (09:28)
[2017-05-22] MEDS: ACETAMINOPHEN 325 MG TABLET PO PRN (09:28)
[2017-05-22] MEDS: predniSONE 5 MG TABLET PO SCH (09:28)
[2017-05-22] MEDS: MULTIVITAMIN (CENTRUM) TABLET PO SCH (09:29)
[2017-05-22] MEDS: SPIRONOLACTONE 25 MG TABLET PO SCH (09:29)
[2017-05-22] MEDS: DULoxetine 30 MG CAPSULE PO SCH (09:29)
[2017-05-22] MEDS: SUCRALFATE 1 GM TABLET PO SCH (09:29)
[2017-05-22] MEDS: COLESTIPOL 1 GM TABLET PO SCH (09:29)
[2017-05-22] MEDS: CALCIUM (CARBONATE)/VITAMIN D 500 MG-200 UNIT TABLET PO SCH (09:29)
[2017-05-22] MEDS: TOPIRAMATE 100 MG TABLET PO SCH (09:29)
[2017-05-22] MEDS: PANTOPRAZOLE 40 MG TABLET PO SCH (09:29)
[2017-05-22] MEDS: FUROSEMIDE 20 MG TABLET PO SCH (09:29)
[2017-05-22] MEDS: FOLIC ACID 0.4 MG TABLET PO SCH (09:29)
[2017-05-22] MEDS: BECLOMETHASONE 80 MCG/PUFF INHALER 8.7 GM INH SCH (09:30)
[2017-05-22] MEDS: CHOLECALCIFEROL 400 UNIT TABLET PO SCH (09:30)
[2017-05-22] MEDS: CHOLESTYRAMINE/ASPARTAME 4 GM PACK PO SCH (09:30)
[2017-05-22 11:32] VITALS: BP 124/66
[2017-05-22] MEDS: cycloSPORINE OPH EMUL 1 VIAL BOTH EYES SCH (12:42)
[2017-05-22] MEDS: traMADol 50 MG TABLET PO PRN (12:45)
== END 2017-05-22 14:00 | disposition swing bed (61) | DRG 502 ==
LOC: N.OR 08:24 → N.SDSINP 08:27 → N.3E 15:47
PROVIDERS: ADMIT Orthopaedic Surgery; ATTEND Orthopaedic Surgery

== ENCOUNTER 2017-06-24 15:38 | Observation (INO) ==
--- NOTE | 2017-06-24 16:21 | Emergency Department Note ---
Arrival - Arrival Chief Complaint: Chest Pain Stated Complaint: Chest pain ED Nursing Triage Note: C/o having "weak spells" and left side chest pain-onset 3 days ago. States she has already seen Dr. Bourgeois for this, but that she was instructed to come to the ER over the weekend if she had any issues. Mode of Arrival: Wheelchair Limitations: No Limitations Source: Patient, RN Notes Reviewed Time Seen by Provider: 06/24/17 16:19 - History of Present Illness HPI Narrative: Patient is a 62-year-old black female routinely followed by Dr. Bourgeois who is seen today complaining of left-sided chest pain which began about 4 this morning. Patient complains of sharp chest pain associated with diaphoresis and nausea along with shortness of breath. Patient does have a history of lupus. She was seen at least 2 times this past week by Dr. Bourgeois the clinic and had a Holter monitor placed which was taken off this morning. Patient states that she has been having some weak spells. Onset (ago): hour(s) (12) Date of Last Menstrual Period: menopause Allergies/Adverse Reactions: Allergies Allergy/AdvReac Type Severity Reaction Status Date / Time azathioprine [From Imuran] Allergy Mild RASH Verified 05/17/17 08:43 Hydroxychloroquine Allergy Mild RASH Verified 05/17/17 08:43 [From Plaquenil] methotrexate Allergy Mild RASH Verified 05/17/17 08:43 naproxen Allergy Mild RASH Verified 05/17/17 08:43 niacin Allergy Mild RASH Verified 05/17/17 08:43 Sulfadiazine Allergy Mild RASH Verified 05/17/17 08:43 sulfamethoxazole Allergy Mild RASH Verified 05/17/17 08:43 [From Bactrim] sumatriptan [From Treximet] Allergy Mild RASH Verified 05/17/17 08:43 trimethoprim [From Bactrim] Allergy Mild RASH Verified 05/17/17 08:43 Shrimp Allergy Unknown Verified 05/18/17 11:11 Home Medications: Home Medications Medication Instructions Recorded Confirmed Type Clopidogrel [Plavix] 75 mg PO DAILY 09/13/15 05/22/17 History Ergocalciferol (Vitamin D2) 400 unit PO BID 09/13/15 05/22/17 History [Vitamin D2] Multivit-Min/FA/Lycopen/Lutein 1 tablet PO DAILY 09/13/15 05/22/17 History [Centrum Silver Tablet] Omeprazole [Prilosec] 20 mg PO BID 09/13/15 05/22/17 History Sucralfate Tab [Carafate Tab] 1 gm PO BIDAC 09/13/15 05/22/17 History Albuterol/Ipratropium Neb [Duoneb] 3 ml RESP TX QID PRN 11/13/15 05/22/17 History Calcium Carbonate/Vitamin D3 1 each PO BID 11/13/15 05/22/17 History [Calcium 500 + Vit D Caplet] Duloxetine HCl [Cymbalta] 60 mg PO DAILY 11/13/15 05/22/17 History Folic Acid Tab 400 mcg PO DAILY 11/13/15 05/22/17 History Furosemide 20 mg PO DAILY 11/13/15 05/22/17 History Metoprolol Tartrate 25 mg PO BID 11/13/15 05/22/17 History Beclomethasone 80 Mcg Inhaler 80 mcg INH BID 12/25/15 05/22/17 History [Qvar 80 Mcg] cycloSPORINE OPH EMUL [Restasis] 1 drop BOTH EYES Q12HR 12/25/15 05/22/17 History Magnesium Chloride [Mag Delay] 128 mg PO BID 12/31/15 05/22/17 History Acyclovir [Acyclovir Cap/Tab] 400 mg PO BID 12/22/16 05/22/17 History Cholestyramine/Aspartame [Questran 4 gm PO BID 12/22/16 05/22/17 History Light] Colestipol [Colestid] 2 gm PO BID 12/22/16 05/22/17 History Gabapentin 200 mg PO BEDTIME 12/22/16 05/22/17 History Spironolactone 25 mg PO BID 12/22/16 05/22/17 History Topiramate [Topamax] 100 mg PO BID 12/22/16 05/22/17 History Cetirizine HCl [ZyrTEC Cap] 10 mg PO DAILY 05/17/17 05/22/17 History Melatonin/Pyridoxine HCl (B6) 1 each PO BEDTIME PRN 05/17/17 05/22/17 History [Melatonin 3 mg Tablet] guaiFENesin ER TAB [Mucinex] 600 mg PO BID PRN 05/17/17 05/22/17 History traMADol TAB [Ultram] 100 mg PO Q6H PRN tablet 05/22/17 05/22/17 Rx predniSONE TAB [PredniSONE] 10 mg PO DAILY tablet 06/06/17 Rx Review of System - Review of System 12 point system: reviewed and no additional remarkable complaints except as stated - Review of System Constitutional: Absent: chills, fever Respiratory: Present: cough. Absent: respiratory distress, wheezing Cardiovascular: Present: chest pain, palpitations, dyspnea on exertion Gastrointestinal: Present: nausea. Absent: abdominal pain, vomiting Medical,Surgical,& Family Hx - Medical History Cardio: History of: Aneurysm, Cardiac Dysrhythmia, Cerebrovascular Disease, CHF , Hypertension, Cardiovascular Problems No history of: Congenital Heart Disease, CAD, [place], Pacemaker, PVD, Valvular Heart Disease Psychological: History of: Depression Neurology: History of: Cerebrovascular Accident, Migraine, TIA (2012 DR HART. ) No history of: Brain Aneurysm, Cerebral Hemorrhage, Cerebral Palsy, Dementia , Multiple Sclerosis, Parkinson's Disease, Peripheral Neuropathy, Seizures, Vertigo, Neurologocal Cancer HEENT: History of: Ear Problem ([place] AND EAR PAIN) Endocrine: History of: Dyslipidemia Rheumatology: History of;: Rheumatoid Arthritis, Systemic Lupus Erythematosus, Rheumatological Problems Respiratory: History of: Asthma, COPD (DR POPE.), Intubation, Obstructive Sleep Apnea (cpap, has not been using lately. PT USES 2L OXYGEN AT NIGHT.) Renal: History of: Renal Problems (kidney infaction DR CANDACE PARKER) Genitourinary: History of: Recurring Urinary Tract Infections Gastrointestinal: History of: GERD, Pancreatitis Musculoskeletal: History of: Osteoporosis - Surgical History Cardiac Surgeries: Sugical HX of: Cardiac Catheterization Patient Denies: Femoral-Popliteal Bypass Graft, Cardiac Surgery, Carotid Endarterectomy, Internal Defibrillator, Vascular Access Devices Thoracic Surgeries: Patient denies;: Organ Transplant, Lobectomy Neurologic Surgeries: Patient denies: Brain Aneurysm, Cerebral Hemorrhage, Neurologic Surgery HEENT Surgeries: Surgical HX of: Eye Surgery (CATARACT SURERY) Patient denies: Carotid Endarterectomy, Tonsilectomy & Adenoidectomy Abdominal Surgeries: Surgical HX of: Abdominal Surgery, Appendectomy, Cholecystectomy Patient denies: Splenectomy Reproductive Surgeries: Patient denies;: Genitourinary Surgery Orthopedic Surgeries: Surgical HX of;: Orthopedic Surgery (NECK SURGERY 10 YRS AGO. RT CARPAL TUNNEL.) - Family History Family History: Reports;: Family Cancer, Family Diabetes, Family Heart Disease, Family Hypertension, Family Stroke Denies;: Family Anesthesia Reaction, Family Psychiatric Problems - Social History Smoking Status: Never smoker Exam Vital Signs: Vital Signs Temperature 97.9 F 06/24/17 16:56 Pulse Rate 87 06/24/17 16:56 Respiratory Rate 18 06/24/17 16:56 Blood Pressure 98/58 06/24/17 16:56 O2 Sat by Pulse Oximetry 98 06/24/17 15:43 GENERAL: This is a well-nourished well-developed chronically ill-appearing black female in no apparent distress. VITAL SIGNS: Reviewed HEENT: Head is atraumatic and normocephalic. Pupils are equal round react to light. Extraocular movements are intact. Oropharynx is benign with moist mucous membranes. NECK: Neck is soft and supple without tenderness. There are no masses. There is no lymphadenopathy. LUNGS: Lungs are clear to auscultation. Chest rises symmetrically. There is no chest wall tenderness. CV: Heart is regular rate and rhythm without murmurs rubs or gallops. ABDOMEN: Abdomen is soft, nontender to palpation. There are no abdominal abnormal masses palpated. There is no organomegaly. Bowel sounds are present and active. SKIN: Skin is warm and dry. No rash. EXTREMITIES: Patient has full range of motion without tenderness. There is no pedal edema. NEUROLOGIC: Awake alert and oriented 4. Cranial nerves II through XII are intact. Motor is 5 over 5 in all extremities bilaterally. Course - Consultations Consultation #1: Discussed with Dr. Murphy environmental advisor for Dr. Bourgeois. Patient will be admitted to his service. Initial orders written for him. He will assume patient's care upon arrival to the [facility] Time: 17:14 Results - Labs CBC & BMP: 06/24/17 16:27 06/24/17 16:27 Lab Results: I have reviewed the patients labs Labs: Laboratory Tests 06/24/17 16:27 Troponin I < 0.015 - EKG EKG results: interpreted by ERMD - Impressions EKG: Normal sinus rhythm with a short [place], nonspecific ST-T wave changes, rate 85 - Diagnostic Findings Procedure: Chest x-ray: image reviewed by me (No infiltrates, no pleural effusions.) Disposition Clinical Impression: Chest pain, SLE (systemic lupus erythematosus) Case discussed with: patient Disposition: Still a Patient Condition: Stable Time of Disposition: 16:55
[2017-06-24 16:41] LABS: Basophils % 0.5 % (0.0-0.8); Eosinophils % 0.2 % (0.00-10.9); Hematocrit 40.6 VOL% (35.7-47.0); Immature Granulocytes % 0.5 %; Immature Granulocytes Absolute 0.02 #; Lymphocytes # 1.1 10*3/uL (1.4-4.0); Lymphocytes % 26.9 % (21.3-54.2); Mean Corpuscular HGB Conc 34.5 GM/DL (32-36); Mean Corpuscular Hemoglobin 35 PG (27-34); Mean Platelet Volume 8.7 FL (9.6-12.0); Monocytes # 0.3 10*3/uL (0.11-0.8); Monocytes % 6.2 % (1.7-12.7); Neutrophils # 2.8 10*3/uL (1.4-7.4); Neutrophils % 65.7 % (38.7-73.9); Platelet Count 285 T/CUMM (130-400); Red Blood Count 3.98 MC/CUMM (3.8-5.5); Red Cell Distribution Width 12.7 % (9.3-17.3); White Blood Count 4.2 T/CUMM (4-12)
--- NOTE | 2017-06-24 16:47 | XRay Report ---
2 view chest. Indication: Chest pain. Comparison: December 22, 2016. The heart is normal in size. There are rib fractures present bilaterally, which were seen on the previous study. Postsurgical changes are noted in the lower neck. No pneumothorax. No pleural effusion. No consolidation. Surgical clips in the right upper quadrant. Impression: Multiple previous rib fractures. No acute abnormality. PROCEDURE INTERPRETED AT [facility] DEPARTMENT OF RADIOLOGY Final Report Signed by: Dr. Shanae Phipps
[2017-06-24 16:51] LABS: PT Patient Result 10.3 SECS; Partial Thromboplastin Time 24.1 SECS (0-40)
[2017-06-24 17:00] LABS: Alanine Aminotransferase 41 U/L (13-56); Alkaline Phosphatase 57 U/L (45-117); Aspartate Amino Transferase 30 U/L (0-37); Bilirubin,Total < 0.39 MG/DL (0.2-1.0); Blood Urea Nitrogen 28 MG/DL (7-18); Glucose 126 MG/DL (74-106); Osmolality,Calculated 286.4 MOS/KG (273-304); Potassium 3.7 MMOL/L (3.5-5.1); Sodium 140 MMOL/L (136-145); Total Protein 7.3 G/DL (6.4-8.3)
[2017-06-24] MEDS ORDERED: MAGNESIUM SULF RIDER 2 GM in PREMIX 1 EACH IV PRN (18:11)
[2017-06-24] MEDS ORDERED: MAGNESIUM SULF RIDER 4 GM in PREMIX 1 EACH IV PRN (18:11)
[2017-06-24] MEDS: SODIUM CHLORIDE 0.9% 1,000 ML IV SCH (18:35)
[2017-06-24 19:02] LABS: Apearance,Urine CLEAR (Clear); Bilirubin,Urine Negative (Negative); Blood, Urine Negative (Negative); Glucose,Urine (UA) Negative (Negative); Ketones,Urine Negative (Negative); Mucus,Urine Occasional /LPF (Occasional); Nitrite,Urine Negative (Negative); Protein,Urine Negative; Squamous Epithelial Cell,Urine Occasional /HPF (0-10); Urine Color Straw (Yellow); Urine Specific Gravity 1.006 (1.001-1.035); Urine Urobilinogen < 2.0 EU/DL (0.2-1.0)
[2017-06-24 19:27] LABS: Barbiturates Screen,Urine Negative (Negative); Benzodiazepines Screen,Urine Negative (Negative); Cannabinoid Screen,Urine Negative (Negative); Opiate Screen,Urine Negative (Negative); Phencyclidine Screen,Urine Negative (Negative)
[2017-06-24] MEDS ORDERED: GABAPENTIN 100 MG CAPSULE PO SCH (21:00)
[2017-06-24] MEDS ORDERED: ALBUTEROL/IPRATROPIUM 3 ML NEB RESP TX PRN (21:17)
[2017-06-24] MEDS ORDERED: traMADol 50 MG TABLET PO PRN (21:17)
[2017-06-24] MEDS ORDERED: TOCILIZUMAB 162 MG SUBCUT SCH (21:30)
[2017-06-24] MEDS ORDERED: ENOXAPARIN 30 MG/0.3 ML SYRINGE SUBCUT SCH (21:30)
[2017-06-24] MEDS: METOPROLOL TARTRATE 25 MG TABLET PO SCH ×2 (22:22→22:31)
[2017-06-24] MEDS: PANTOPRAZOLE 40 MG TABLET PO SCH ×2 (22:22→22:31)
[2017-06-24] MEDS: METHENAMINE HIPPURATE 1 GM TABLET PO SCH ×2 (22:22→22:31)
[2017-06-24] MEDS: MAGNESIUM CHLORIDE 64 MG TABLET PO SCH ×2 (22:22→22:31)
[2017-06-24] MEDS: TOPIRAMATE 100 MG TABLET PO SCH (22:31)
[2017-06-24] MEDS: SUCRALFATE 1 GM TABLET PO SCH (22:31)
[2017-06-24] MEDS: CETIRIZINE 10 MG TABLET PO SCH (22:31)
[2017-06-24] MEDS: SPIRONOLACTONE 25 MG TABLET PO SCH (22:32)
[2017-06-24] MEDS: ACETAMINOPHEN 500 MG TABLET PO SCH (23:15)
[2017-06-24] MEDS: CHOLESTYRAMINE/ASPARTAME 4 GM PACK PO SCH (23:15)
[2017-06-24] MEDS: CALCIUM (CARBONATE)/VITAMIN D 500 MG-200 UNIT TABLET PO SCH (23:16)
[2017-06-24] MEDS: ACYCLOVIR 200 MG CAPSULE PO SCH (23:16)
[2017-06-24] MEDS: COLESTIPOL 1 GM TABLET PO SCH (23:17)
[2017-06-24] MEDS: CHOLECALCIFEROL 400 UNIT TABLET PO SCH (23:18)
[2017-06-24] MEDS: GABAPENTIN 300 MG CAPSULE PO SCH (23:58)
[2017-06-24] MEDS: CLOPIDOGREL 75 MG TABLET PO SCH (23:59)
[2017-06-24] MEDS: CENTRUM PO SCH (23:59)
[2017-06-24] MEDS: predniSONE 5 MG TABLET PO SCH (23:59)
[2017-06-24] MEDS: FOLIC ACID 0.4 MG TABLET PO SCH (23:59)
[2017-06-25] MEDS: cycloSPORINE OPH EMUL 1 VIAL BOTH EYES SCH ×3 (00:51→21:11)
--- NOTE | 2017-06-25 07:08 | EKG Report ---
Stationary ECG Study [facility] ER Test Date: 06/24/2017 3:47:27 PM Pat Name: DHARA GARCIA Department: Room: 245 Gender: F Quilter Fixer: : 1955 Requested by: Carlos Pittman Order Number: [id number] Reading MD: ELVIRA CELESTE Intervals [place] Rate: 85 P: 60 [place]: 113 QRS: 61 QRSD: 80 T: 56 QT: 362 QTc: 404 Interpretive Statements SINUS RHYTHM WITH SHORT [place] INTERVAL NONSPECIFIC T-WAVE ABNORMALITY Electronically Signed On 06-25-17 15:46:36 CDT by ELVIRA CELESTE [email or web address]
[2017-06-25] MEDS ORDERED: NON-FORMULARY MEDICATION (Fluticasone/Vilanterol [Breo Ellipta 200-25 Mcg Inh] 1 PUFF) INH SCH (09:00)
[2017-06-25] MEDS: SPIRONOLACTONE 25 MG TABLET PO SCH ×2 (09:58→21:09)
[2017-06-25] MEDS: POLYVINYL ALCOHOL 1.4% OPH SOLN 15 ML BOTTLE BOTH EYES SCH ×2 (09:58→21:09)
[2017-06-25] MEDS: BECLOMETHASONE 80 MCG/PUFF INHALER 8.7 GM INH SCH ×2 (09:58→21:16)
[2017-06-25] MEDS: COLESTIPOL 1 GM TABLET PO SCH ×2 (09:58→21:14)
[2017-06-25] MEDS: predniSONE 10 MG TABLET PO SCH (09:59)
[2017-06-25] MEDS: METOPROLOL TARTRATE 25 MG TABLET PO SCH ×2 (09:59→21:13)
[2017-06-25] MEDS: ACETAMINOPHEN 500 MG TABLET PO SCH ×2 (09:59→21:11)
[2017-06-25] MEDS: METHENAMINE HIPPURATE 1 GM TABLET PO SCH ×2 (09:59→21:13)
[2017-06-25] MEDS: PANTOPRAZOLE 40 MG TABLET PO SCH ×2 (09:59→21:17)
[2017-06-25] MEDS: CALCIUM (CARBONATE)/VITAMIN D 500 MG-200 UNIT TABLET PO SCH ×2 (10:00→21:28)
[2017-06-25] MEDS: FLUTICASONE 50 MCG NASAL SPRAY 16 GM BOTTLE BOTH NARES SCH (10:01)
[2017-06-25] MEDS: CHOLECALCIFEROL 400 UNIT TABLET PO SCH ×2 (10:01→21:16)
[2017-06-25] MEDS: CETIRIZINE 10 MG TABLET PO SCH ×2 (10:01→21:13)
[2017-06-25] MEDS: MAGNESIUM CHLORIDE 64 MG TABLET PO SCH ×2 (10:01→21:12)
[2017-06-25] MEDS: CHOLESTYRAMINE/ASPARTAME 4 GM PACK PO SCH ×2 (10:01→21:17)
[2017-06-25] MEDS: DULoxetine 30 MG CAPSULE PO SCH (10:02)
[2017-06-25] MEDS: FUROSEMIDE 20 MG TABLET PO SCH (10:02)
[2017-06-25] MEDS: ACYCLOVIR 200 MG CAPSULE PO SCH ×2 (10:03→21:10)
--- NOTE | 2017-06-25 10:06 | Family Practice History&Phys ---
Assessment and Plan (1) Chest pain Status: Acute Assessment and plan: 06/25/2017: This is a very atypical and her isoenzymes are negative. She is not having any chest pain this morning. Current Visit: Yes (2) SLE (systemic lupus erythematosus) Status: Acute Assessment and plan: 06/25/2017: Continuing on her current medicines which are very very numerous. Current Visit: Yes History of Present Illness Chief complaint: Atypical chest pain, shortness of breath, generalized weakness History of present illness: Ms. Sellers is a 62 year old female Came to the emergency room who has been having some "weak spells" over the last 4-5 days. She had seen her primary Dr. Dr. Bourgeois not and apparently was told if she had any further issues go to the emergency room. She came in yesterday with left-sided chest pain describing it as sharp. She admitted that she had been a little diaphoretic but states that she is always this way and had a little nausea as well. She does have some chronic shortness of breath which may have worsened a little bit, however she has a long history of lupus. History includes lupus as mentioned, CVA, vasculitis, myopathy, C. difficile colitis, asthma, previous syncopal episodes, chest pain, dehydration, rheumatoid arthritis, and urinary tract infections. At this time she is alert and oriented. She is able to sit up in bed. Not having any crow chest pains and her initial 2 sets of cardiac ulcers have been completely normal. I do not believe this is cardiac origin at this time, could be a lupus flare. Nonetheless I am going to have her admitted and put her on her current regular medicines, michelle hydration and have her primary doctor see her in the morning. Of note, her CBC is totally normal. INR is 1. Chemistry is normal including a creatinine of 1.1 and a normal glucose. Her liver function and enzymes are normal. Her urine is completely normal and toxicology screen is negative. In general she is a very pleasant lady to talk with. Home Medications Medication Instructions Recorded Confirmed Type Clopidogrel [Plavix] 75 mg PO BEDTIME 09/13/15 06/24/17 History Ergocalciferol (Vitamin D2) 400 unit PO BID 09/13/15 06/24/17 History [Vitamin D2] Multivit-Min/FA/Lycopen/Lutein 1 tablet PO BEDTIME 09/13/15 06/24/17 History [Centrum Silver Tablet] Omeprazole [Prilosec] 20 mg PO BID 09/13/15 06/24/17 History Sucralfate Tab [Carafate Tab] 1 gm PO BIDAC 09/13/15 06/24/17 History Albuterol/Ipratropium Neb [Duoneb] 3 ml RESP TX QID PRN 11/13/15 06/24/17 History Calcium Carbonate/Vitamin D3 1 each PO BID 11/13/15 06/24/17 History [Calcium 500 + Vit D Caplet] Duloxetine HCl [Cymbalta] 60 mg PO DAILY 11/13/15 06/24/17 History Folic Acid Tab 400 mcg PO BEDTIME 11/13/15 06/24/17 History Furosemide 20 mg PO DAILY 11/13/15 06/24/17 History Metoprolol Tartrate 25 mg PO BID 11/13/15 06/24/17 History Beclomethasone 80 Mcg Inhaler 80 mcg INH BID 12/25/15 06/24/17 History [Qvar 80 Mcg] cycloSPORINE OPH EMUL [Restasis] 1 drop BOTH EYES Q12HR 12/25/15 06/24/17 History Magnesium Chloride [Mag Delay] 128 mg PO BID 12/31/15 06/24/17 History Acyclovir [Acyclovir Cap/Tab] 400 mg PO BID 12/22/16 06/24/17 History Cholestyramine/Aspartame [Questran 4 gm PO BID 12/22/16 06/24/17 History Light] Colestipol [Colestid] 2 gm PO BID 12/22/16 06/24/17 History Gabapentin 300 mg PO BEDTIME 12/22/16 06/24/17 History Spironolactone 25 mg PO BID 12/22/16 06/24/17 History Topiramate [Topamax] 100 mg PO BID 12/22/16 06/24/17 History Cetirizine HCl [ZyrTEC Cap] 10 mg PO DAILY 05/17/17 06/24/17 History guaiFENesin ER TAB [Mucinex] 600 mg PO BID 05/17/17 06/24/17 History traMADol TAB [Ultram] 100 mg PO Q6H PRN tablet 05/22/17 06/24/17 Rx predniSONE TAB [PredniSONE] 10 mg PO DAILY tablet 06/06/17 06/24/17 Rx Acetaminophen 1,000 mg PO BID 06/24/17 06/24/17 History Fluticasone 50 Mcg Nasal [place] 2 spray BOTH NARES DAILY 06/24/17 06/24/17 History [Flonase Nasal [place]] Fluticasone/Vilanterol [Breo 1 puff INH DAILY 06/24/17 06/24/17 History Ellipta 200-25 Mcg INH] Levocetirizine Dihydrochloride 5 mg PO BEDTIME 06/24/17 06/24/17 History [Xyzal] Methenamine Hippurate [Hiprex] 1 gm PO BID 06/24/17 06/24/17 History Polyvinyl Alcohol [Artificial 1 drop BOTH EYES BID 06/24/17 06/24/17 History Tears] Tocilizumab [Actemra] 162 mg SUBCUT Q7D 06/24/17 06/24/17 History prednisoLONE TAB [prednisoLONE Tab] 5 mg PO BEDTIME 06/24/17 06/24/17 History Allergies Allergy/AdvReac Type Severity Reaction Status Date / Time azathioprine [From Imuran] Allergy Mild RASH Verified 05/17/17 08:43 Hydroxychloroquine Allergy Mild RASH Verified 05/17/17 08:43 [From Plaquenil] methotrexate Allergy Mild RASH Verified 05/17/17 08:43 naproxen Allergy Mild RASH Verified 05/17/17 08:43 niacin Allergy Mild RASH Verified 05/17/17 08:43 Sulfadiazine Allergy Mild RASH Verified 05/17/17 08:43 sulfamethoxazole Allergy Mild RASH Verified 05/17/17 08:43 [From Bactrim] sumatriptan [From Treximet] Allergy Mild RASH Verified 05/17/17 08:43 trimethoprim [From Bactrim] Allergy Mild RASH Verified 05/17/17 08:43 Shrimp Allergy Unknown Verified 05/18/17 11:11 12 point system: reviewed and no additional remarkable complaints except as stated (That mentioned in the history and physical) Medical,Surgical,& Family Hx - Medical History Cardio: History of: Cardiac Dysrhythmia, Cerebrovascular Disease, CHF, Hypertension, Cardiovascular Problems No history of: Aneurysm, Congenital Heart Disease, CAD, [place], Pacemaker, PVD, Valvular Heart Disease Psychological: History of: Depression Neurology: History of: Cerebrovascular Accident (2 mini strokes 2012), Migraine , TIA (2013 DR HART.) No history of: Brain Aneurysm, Cerebral Hemorrhage, Cerebral Palsy, Dementia , Multiple Sclerosis, Parkinson's Disease, Peripheral Neuropathy, Seizures, Vertigo, Neurologocal Cancer HEENT: History of: Ear Problem ([place] AND EAR PAIN) Endocrine: History of: Dyslipidemia Rheumatology: History of;: Rheumatoid Arthritis, Systemic Lupus Erythematosus, Rheumatological Problems Respiratory: History of: Asthma, COPD (DR POPE.), Obstructive Sleep Apnea ( cpap, has not been using lately. PT USES 2L OXYGEN AT NIGHT.), Pneumonia No history of: Intubation, Pulmonary Embolism Renal: History of: Renal Problems (kidney infaction DR CANDACE PARKER) Genitourinary: History of: Bladder Problem, Recurring Urinary Tract Infections Gastrointestinal: History of: Clostridium Difficile, Diverticulitis/ Diverticulosis, GERD, Pancreatitis Musculoskeletal: History of: Back/Neck Problems, Osteoporosis - Surgical History Cardiac Surgeries: Sugical HX of: Cardiac Catheterization Patient Denies: Femoral-Popliteal Bypass Graft, Cardiac Surgery, Carotid Endarterectomy, Internal Defibrillator, Vascular Access Devices Thoracic Surgeries: Patient denies;: Organ Transplant, Lobectomy Neurologic Surgeries: Patient denies: Brain Aneurysm, Cerebral Hemorrhage, Neurologic Surgery HEENT Surgeries: Surgical HX of: Eye Surgery (CATARACT SURERY) Patient denies: Carotid Endarterectomy, Tonsilectomy & Adenoidectomy Abdominal Surgeries: Surgical HX of: Abdominal Surgery, Appendectomy, Cholecystectomy, Colonoscopy, EGD Patient denies: Splenectomy Reproductive Surgeries: Patient denies;: Genitourinary Surgery Orthopedic Surgeries: Surgical HX of;: Orthopedic Surgery (NECK SURGERY 10 YRS AGO. RT CARPAL TUNNEL.) - Family History Family History: Reports;: Family Cancer, Family Diabetes, Family Heart Disease, Family Hypertension, Family Stroke Denies;: Family Anesthesia Reaction, Family Psychiatric Problems - Social History Smoking Status: Never smoker Frequency of Alcohol Use: None Exam - Constitutional Vitals: Period Temp Pulse Resp BP Sys/Viveros Pulse Ox Last 24 Hr 96.8 F-98 F 73-92 16-22 96-127/54-85 95-100 Exam: On general he somewhat small lady. Is very pleasant, oriented and alert. HEENT neck is supple trachea midline Cardiovascular rate is regular at present no gallop or rub there is 1 out of 6 systolic ejection murmur Abdomen soft patient does not have any significant tenderness. Extremities no complaints of significant pain present Results - Labs CBC & BMP: 06/24/17 16:27 06/24/17 16:27 Quality Measures - Stroke Symptom Onset Unknown: No
[2017-06-25] MEDS: TOPIRAMATE 100 MG TABLET PO SCH ×2 (10:11→21:09)
[2017-06-25] MEDS: SUCRALFATE 1 GM TABLET PO SCH ×2 (10:11→16:57)
[2017-06-25] MEDS: SODIUM CHLORIDE 0.9% 1,000 ML IV SCH ×4 (10:50→19:44)
--- NOTE | 2017-06-25 12:41 | Cardiology Consult Note ---
Assessment and Plan (1) Abdominal pain Status: Acute Assessment and plan: 62-year-old black female, history of SLE, RA, obesity, TIA. Admitted with left- sided chest pain, epigastric pain, resolved with GI regimen. No ACS, pulmonary hypertension or cardiomyopathy on prior evaluation. -The chest pain is likely from GI origin. Her borderline repol changes are chronic. -The indication for clopidogrel is unclear. She had no CAD on LHC, no evidence of ischemic lesion on MRI, when she had TIA/suspected CVA. Recommend to follow- up with neurology, if this is still indicated. -Blood pressure, heart rate are controlled. -She was going to see Dr. Frye, recommend set a follow-up with him in the clinic. -Recurrent presyncope. Obtain the results of the Holter from Dr. Bourgeois's office and forward it to [facility]. I doubt this is hypoglycemia, as her symptoms happen with normal blood sugar. Not suggestive of orthostatic or vasovagal origin. If noninvasive testing unremarkable, we can consider an ILR. I will sign off, please call for questions. Current Visit: No (2) Vasculitis Status: Chronic Current Visit: No History of Present Illness - Data of Consult Patient: new to practice Consult date: 06/25/17 - Consult Narrative Reason for consult: CP History of present illness: Ms. Sellers is a 62 year old BF, who was followed by Dr. Buchanan. She was admitted with chest pain, which started at night, woke her up, initially it was left-sided below her breast, pressure-like, then epigastric sharp. This lasted for a few hours and resolved, when she got her usual GI regimen. Cardiac biomarkers normal, EKG with borderline nonspecific repol changes, no significant change of prior EKG. History of SLE, for which she is receiving active treatment with prednisone and immunosuppressant. She had chest pain in the past, which was evaluated by Dr. Buchanan, she had cardiac catheterization in 2013, which showed normal systolic function, no CAD. Normal pulmonary pressuress. Since then, she underwent yearly stress tests, which she was told were normal. She had several spells of presyncope, usually preceded by shakiness, weakness, mostly in the morning. She thinks that this is due to low blood sugar, however , when they checked it it was usually in the 70s-90s. No history of diabetes or documented severe hypoglycemia. 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 She was wearing a Holter monitor yesterday. She had suspected TIAs around 2012, was seen by Dr. Rivera, MRI did not show evidence of acute disease. She is now feeling better. No chest pain, she still feels some indigestion. No leg swelling, shortness of breath, chest pain right now. CC: Jimmy Bourgeois MD - Home Medications and Allergies Home Medications: Home Medications Medication Instructions Recorded Confirmed Type Clopidogrel [Plavix] 75 mg PO BEDTIME 09/13/15 06/24/17 History Ergocalciferol (Vitamin D2) 400 unit PO BID 09/13/15 06/24/17 History [Vitamin D2] Multivit-Min/FA/Lycopen/Lutein 1 tablet PO BEDTIME 09/13/15 06/24/17 History [Centrum Silver Tablet] Omeprazole [Prilosec] 20 mg PO BID 09/13/15 06/24/17 History Sucralfate Tab [Carafate Tab] 1 gm PO BIDAC 09/13/15 06/24/17 History Albuterol/Ipratropium Neb [Duoneb] 3 ml RESP TX QID PRN 11/13/15 06/24/17 History Calcium Carbonate/Vitamin D3 1 each PO BID 11/13/15 06/24/17 History [Calcium 500 + Vit D Caplet] Duloxetine HCl [Cymbalta] 60 mg PO DAILY 11/13/15 06/24/17 History Folic Acid Tab 400 mcg PO BEDTIME 11/13/15 06/24/17 History Furosemide 20 mg PO DAILY 11/13/15 06/24/17 History Metoprolol Tartrate 25 mg PO BID 11/13/15 06/24/17 History Beclomethasone 80 Mcg Inhaler 80 mcg INH BID 12/25/15 06/24/17 History [Qvar 80 Mcg] cycloSPORINE OPH EMUL [Restasis] 1 drop BOTH EYES Q12HR 12/25/15 06/24/17 History Magnesium Chloride [Mag Delay] 128 mg PO BID 12/31/15 06/24/17 History Acyclovir [Acyclovir Cap/Tab] 400 mg PO BID 12/22/16 06/24/17 History Cholestyramine/Aspartame [Questran 4 gm PO BID 12/22/16 06/24/17 History Light] Colestipol [Colestid] 2 gm PO BID 12/22/16 06/24/17 History Gabapentin 300 mg PO BEDTIME 12/22/16 06/24/17 History Spironolactone 25 mg PO BID 12/22/16 06/24/17 History Topiramate [Topamax] 100 mg PO BID 12/22/16 06/24/17 History Cetirizine HCl [ZyrTEC Cap] 10 mg PO DAILY 05/17/17 06/24/17 History guaiFENesin ER TAB [Mucinex] 600 mg PO BID 05/17/17 06/24/17 History traMADol TAB [Ultram] 100 mg PO Q6H PRN tablet 05/22/17 06/24/17 Rx predniSONE TAB [PredniSONE] 10 mg PO DAILY tablet 06/06/17 06/24/17 Rx Acetaminophen 1,000 mg PO BID 06/24/17 06/24/17 History Fluticasone 50 Mcg Nasal [place] 2 spray BOTH NARES DAILY 06/24/17 06/24/17 History [Flonase Nasal [place]] Fluticasone/Vilanterol [Breo 1 puff INH DAILY 06/24/17 06/24/17 History Ellipta 200-25 Mcg INH] Levocetirizine Dihydrochloride 5 mg PO BEDTIME 06/24/17 06/24/17 History [Xyzal] Methenamine Hippurate [Hiprex] 1 gm PO BID 06/24/17 06/24/17 History Polyvinyl Alcohol [Artificial 1 drop BOTH EYES BID 06/24/17 06/24/17 History Tears] Tocilizumab [Actemra] 162 mg SUBCUT Q7D 06/24/17 06/24/17 History prednisoLONE TAB [prednisoLONE Tab] 5 mg PO BEDTIME 06/24/17 06/24/17 History Allergies/Adverse Reactions: Allergies Allergy/AdvReac Type Severity Reaction Status Date / Time azathioprine [From Imuran] Allergy Mild RASH Verified 05/17/17 08:43 Hydroxychloroquine Allergy Mild RASH Verified 05/17/17 08:43 [From Plaquenil] methotrexate Allergy Mild RASH Verified 05/17/17 08:43 naproxen Allergy Mild RASH Verified 05/17/17 08:43 niacin Allergy Mild RASH Verified 05/17/17 08:43 Sulfadiazine Allergy Mild RASH Verified 05/17/17 08:43 sulfamethoxazole Allergy Mild RASH Verified 05/17/17 08:43 [From Bactrim] sumatriptan [From Treximet] Allergy Mild RASH Verified 05/17/17 08:43 trimethoprim [From Bactrim] Allergy Mild RASH Verified 05/17/17 08:43 Shrimp Allergy Unknown Verified 05/18/17 11:11 12 point system: reviewed and no additional remarkable complaints except as stated Medical,Surgical,& Family Hx - Medical History Cardio: History of: Cardiac Dysrhythmia, Cerebrovascular Disease, CHF, Hypertension, Cardiovascular Problems No history of: Aneurysm, Congenital Heart Disease, CAD, MS, Pacemaker, PVD, Valvular Heart Disease Psychological: History of: Depression Neurology: History of: Cerebrovascular Accident (2 mini strokes 2012), Migraine , TIA (2012 DR HART.) No history of: Brain Aneurysm, Cerebral Hemorrhage, Cerebral Palsy, Dementia , Multiple Sclerosis, Parkinson's Disease, Peripheral Neuropathy, Seizures, Vertigo, Neurologocal Cancer HEENT: History of: Ear Problem ([place] AND EAR PAIN) Endocrine: History of: Dyslipidemia Rheumatology: History of;: Rheumatoid Arthritis, Systemic Lupus Erythematosus, Rheumatological Problems Respiratory: History of: Asthma, COPD (DR POPE.), Obstructive Sleep Apnea ( cpap, has not been using lately. PT USES 2L OXYGEN AT NIGHT.), Pneumonia No history of: Intubation, Pulmonary Embolism Renal: History of: Renal Problems (kidney infaction DR CANDACE PARKER) Genitourinary: History of: Bladder Problem, Recurring Urinary Tract Infections Gastrointestinal: History of: Clostridium Difficile, Diverticulitis/ Diverticulosis, GERD, Pancreatitis Musculoskeletal: History of: Back/Neck Problems, Osteoporosis - Surgical History Cardiac Surgeries: Sugical HX of: Cardiac Catheterization Patient Denies: Femoral-Popliteal Bypass Graft, Cardiac Surgery, Carotid Endarterectomy, Internal Defibrillator, Vascular Access Devices Thoracic Surgeries: Patient denies;: Organ Transplant, Lobectomy Neurologic Surgeries: Patient denies: Brain Aneurysm, Cerebral Hemorrhage, Neurologic Surgery HEENT Surgeries: Surgical HX of: Eye Surgery (CATARACT SURERY) Patient denies: Carotid Endarterectomy, Tonsilectomy & Adenoidectomy Abdominal Surgeries: Surgical HX of: Abdominal Surgery, Appendectomy, Cholecystectomy, Colonoscopy, EGD Patient denies: Splenectomy Reproductive Surgeries: Patient denies;: Genitourinary Surgery Orthopedic Surgeries: Surgical HX of;: Orthopedic Surgery (NECK SURGERY 10 YRS AGO. RT CARPAL TUNNEL.) - Family History Family History: Reports;: Family Cancer, Family Diabetes, Family Heart Disease, Family Hypertension, Family Stroke Denies;: Family Anesthesia Reaction, Family Psychiatric Problems - Social History Smoking Status: Never smoker Frequency of Alcohol Use: None Physical Examination Vital Signs Temp Pulse Resp BP Pulse Ox 97.9 F 87 18 98/58 98 06/24/17 15:43 06/24/17 15:43 06/24/17 15:43 06/24/17 15:43 06/24/17 15:43 General: Present: No Apparent Distress, Other (Obese) HEENT: Present: Normocephaly, Mucus Membranes Moist Neck: Present: No JVD/HJR Cardiac: Present: Reg Rate and Rhythm, S1/S2 Lungs: Present: Clear Ascult./Percussion, Normal Breath Sounds, No Wheeze, Rales , Rhonchi Neuro: Present: Grossly Intact Abdomen: Present: Soft, Active Bowel Sounds Skin: Present: Clear, Black. Absent: Rash Musculoskeletal: Present: No Pain, Normal Range of Motion Gait: Present: Normal Gait Extremities: Present: No Clubbing, No Cyanosis, No Edema Result/EKG - Labs CBC & BMP: 06/24/17 16:27 06/24/17 16:27 Lab Results: I have reviewed the past 24 hour labs Labs: Laboratory Results - last 24 hr 06/24/17 06/24/17 06/24/17 16:20 16:27 16:27 WBC 4.2 RBC 3.98 Hgb 14.0 Hct 40.6 MCV 102.0 MCH 35 H MCHC 34.5 RDW 12.7 Plt Count 285 MPV 8.7 L Neut % (Auto) 65.7 Lymph % (Auto) 26.9 [place] % (Auto) 6.2 Eos % (Auto) 0.2 Baso % (Auto) 0.5 Neut # (Auto) 2.8 Lymph # (Auto) 1.1 L [place] # (Auto) 0.3 Eos # (Auto) 0.0 Baso # (Auto) 0.0 Immature Gran % 0.5 Nucleated RBC % 0.0 Immature Gran # 0.02 Nucleated RBCs # 0.00 Immature Plt Fraction 0.0 INR PT Patient/Control Mix Circ Anticoag PTT Sodium 140 Potassium 3.7 Chloride 110 H Carbon Dioxide 19 L Anion Gap 14.7 BUN 28 H Creatinine 1.10 H GFR Calculation 54 BUN/Creatinine Ratio 25.00 H Glucose 126 H POC Glucose Calculated Osmolality 286.4 Calcium 9.0 Magnesium Total Bilirubin < 0.39 AST 30 ALT 41 Alkaline Phosphatase 57 Troponin I Total Protein 7.3 Albumin 4.0 Globulin 3.3 Albumin/Globulin Ratio 1.2 Urine Color Straw Urine Appearance Clear Urine pH 5.0 Ur Specific [place] 1.006 Urine Protein Negative Urine Glucose (UA) Negative Urine Ketones Negative Urine Blood Negative Urine Nitrate Negative Urine Bilirubin Negative Urine Urobilinogen < 2.0 H Urine Leukocytes Negative Ur Squamous Epith Cells Occasional Urine Mucus Occasional Ur Culture Indicated? Not indicated Urine Opiates Screen Ur Barbiturates Screen Ur Phencyclidine Scrn U Amphetamine/Methamph U Benzodiazepines Scrn U Cocaine Metab Screen U Cannabinoids Screen 06/24/17 06/24/17 06/24/17 16:27 16:27 16:27 WBC RBC Hgb Hct MCV MCH MCHC RDW Plt Count MPV Neut % (Auto) Lymph % (Auto) [place] % (Auto) Eos % (Auto) Baso % (Auto) Neut # (Auto) Lymph # (Auto) [place] # (Auto) Eos # (Auto) Baso # (Auto) Immature Gran % Nucleated RBC % Immature Gran # Nucleated RBCs # Immature Plt Fraction INR 1.0 PT Patient/Control Mix 10.3 Circ Anticoag PTT 24.1 Sodium Potassium Chloride Carbon Dioxide Anion Gap BUN Creatinine GFR Calculation BUN/Creatinine Ratio Glucose POC Glucose Calculated Osmolality Calcium Magnesium 2.2 Total Bilirubin AST ALT Alkaline Phosphatase Troponin I < 0.015 Total Protein Albumin Globulin Albumin/Globulin Ratio Urine Color Urine Appearance Urine pH Ur Specific [place] Urine Protein Urine Glucose (UA) Urine Ketones Urine Blood Urine Nitrate Urine Bilirubin Urine Urobilinogen Urine Leukocytes Ur Squamous Epith Cells Urine Mucus Ur Culture Indicated? Urine Opiates Screen Ur Barbiturates Screen Ur Phencyclidine Scrn U Amphetamine/Methamph U Benzodiazepines Scrn U Cocaine Metab Screen U Cannabinoids Screen 06/24/17 06/24/17 06/24/17 18:16 19:23 20:34 WBC RBC Hgb Hct MCV MCH MCHC RDW Plt Count MPV Neut % (Auto) Lymph % (Auto) [place] % (Auto) Eos % (Auto) Baso % (Auto) Neut # (Auto) Lymph # (Auto) [place] # (Auto) Eos # (Auto) Baso # (Auto) Immature Gran % Nucleated RBC % Immature Gran # Nucleated RBCs # Immature Plt Fraction INR PT Patient/Control Mix Circ Anticoag PTT Sodium Potassium Chloride Carbon Dioxide Anion Gap BUN Creatinine GFR Calculation BUN/Creatinine Ratio Glucose POC Glucose 137 H Calculated Osmolality Calcium Magnesium Total Bilirubin AST ALT Alkaline Phosphatase Troponin I < 0.015 Total Protein Albumin Globulin Albumin/Globulin Ratio Urine Color Urine Appearance Urine pH Ur Specific [place] Urine Protein Urine Glucose (UA) Urine Ketones Urine Blood Urine Nitrate Urine Bilirubin Urine Urobilinogen Urine Leukocytes Ur Squamous Epith Cells Urine Mucus Ur Culture Indicated? Urine Opiates Screen Negative Ur Barbiturates Screen Negative Ur Phencyclidine Scrn Negative U Amphetamine/Methamph Negative U Benzodiazepines Scrn Negative U Cocaine Metab Screen Negative U Cannabinoids Screen Negative 06/24/17 22:36 WBC RBC Hgb Hct MCV MCH MCHC RDW Plt Count MPV Neut % (Auto) Lymph % (Auto) [place] % (Auto) Eos % (Auto) Baso % (Auto) Neut # (Auto) Lymph # (Auto) [place] # (Auto) Eos # (Auto) Baso # (Auto) Immature Gran % Nucleated RBC % Immature Gran # Nucleated RBCs # Immature Plt Fraction INR PT Patient/Control Mix Circ Anticoag PTT Sodium Potassium Chloride Carbon Dioxide Anion Gap BUN Creatinine GFR Calculation BUN/Creatinine Ratio Glucose POC Glucose Calculated Osmolality Calcium Magnesium Total Bilirubin AST ALT Alkaline Phosphatase Troponin I < 0.015 Total Protein Albumin Globulin Albumin/Globulin Ratio Urine Color Urine Appearance Urine pH Ur Specific [place] Urine Protein Urine Glucose (UA) Urine Ketones Urine Blood Urine Nitrate Urine Bilirubin Urine Urobilinogen Urine Leukocytes Ur Squamous Epith Cells Urine Mucus Ur Culture Indicated? Urine Opiates Screen Ur Barbiturates Screen Ur Phencyclidine Scrn U Amphetamine/Methamph U Benzodiazepines Scrn U Cocaine Metab Screen U Cannabinoids Screen - EKG EKG results: interpreted by me Quality Measures - Stroke Symptom Onset Unknown: No
[2017-06-25] MEDS: CENTRUM PO SCH (21:13)
[2017-06-25] MEDS: GABAPENTIN 300 MG CAPSULE PO SCH (21:14)
[2017-06-25] MEDS: FOLIC ACID 0.4 MG TABLET PO SCH (21:15)
[2017-06-25] MEDS: CLOPIDOGREL 75 MG TABLET PO SCH (21:15)
[2017-06-25] MEDS: predniSONE 5 MG TABLET PO SCH (21:28)
[2017-06-26] MEDS: SODIUM CHLORIDE 0.9% 1,000 ML IV SCH (03:45)
--- NOTE | 2017-06-26 08:51 | Internal Med Progress Note ---
Assessment and Plan (1) Chest pain Status: Acute Assessment and plan: 62-year-old female admitted to acute care * Chest pain. Noncardiac. Will evaluate for GI origin. * Hypertension. Blood pressure is stable * Lupus. Continue current treatment * Weak spells. Etiology is unclear. * She will continue prednisone for now. * Will check labs today. Holter is pending. Current Visit: Yes (2) SLE (systemic lupus erythematosus) Status: Acute Current Visit: Yes Internal Medicine - PN: Subj Interval history: Patient seen and examined. Her chart was reviewed. She feels better this morning. She has not had any further episodes of chest pain. She denies any nausea or vomiting. She denies any fever or chills. She is still having venous episodes in which she becomes clammy and feels she is going to pass out. Exam (Progress Note) - Constitutional Vitals: Period Temp Pulse Resp BP Sys/Viveros Pulse Ox Last 24 Hr 97.1 F-98.5 F 65-83 18-20 100-132/70-79 93-98 Exam: Examination: GENERAL: NAD. HEENT: PERRLA. EOMI. NECK: Neck is supple. CVS: Regular rate and rhythm. S1 and S2 are normal. RESPIRATORY: Lungs are clear. No rales or rhonchi. ABDOMEN: Soft and nontender. Bowel sounds are present. No hepatosplenomegaly. EXT: No edema. Splint on the left lower extremity. PORCELAIN WAXER: Patient is awake, alert and oriented to time place and person. Cranial nerves II through XII are grossly intact. Motor strength is 3-4 over SKIN: Warm and dry. MSK: No obvious deformity. Results - Labs CBC & BMP: 06/24/17 16:27 06/24/17 16:27 Quality Measures - Stroke Symptom Onset Unknown: No
[2017-06-26] MEDS ORDERED: SODIUM CHLORIDE 0.9% 1,000 ML IV SCH (09:00)
[2017-06-26] MEDS: SUCRALFATE 1 GM TABLET PO SCH (09:08)
[2017-06-26] MEDS: FLUTICASONE 50 MCG NASAL SPRAY 16 GM BOTTLE BOTH NARES SCH (09:08)
[2017-06-26] MEDS: BECLOMETHASONE 80 MCG/PUFF INHALER 8.7 GM INH SCH (09:09)
[2017-06-26] MEDS: cycloSPORINE OPH EMUL 1 VIAL BOTH EYES SCH (09:09)
[2017-06-26 09:29] LABS: Basophils % 0.8 % (0.0-0.8); Eosinophils # 0.1 10*3/uL (0.0-0.87); Eosinophils % 1.5 % (0.00-10.9); Hematocrit 38.6 VOL% (35.7-47.0); Hemoglobin 12.8 GM/DL (12.0-16.0); Immature Granulocytes % 0.5 %; Immature Granulocytes Absolute 0.02 #; Lymphocytes # 1.5 10*3/uL (1.4-4.0); Lymphocytes % 36.9 % (21.3-54.2); Mean Corpuscular HGB Conc 33.2 GM/DL (32-36); Mean Corpuscular Hemoglobin 34 PG (27-34); Mean Corpuscular Volume 103.8 FL (87-102); Mean Platelet Volume 8.9 FL (9.6-12.0); Monocytes # 0.5 10*3/uL (0.11-0.8); Monocytes % 12.9 % (1.7-12.7); Neutrophils # 1.9 10*3/uL (1.4-7.4); Neutrophils % 47.4 % (38.7-73.9); Platelet Count 239 T/CUMM (130-400); Red Blood Count 3.72 MC/CUMM (3.8-5.5)
[2017-06-26 09:55] LABS: Blood Urea Nitrogen 15 MG/DL (7-18); Calcium 8.7 MG/DL (8.5-10.1); Glucose 84 MG/DL (74-106); Osmolality,Calculated 287.7 MOS/KG (273-304); Potassium 3.8 MMOL/L (3.5-5.1); Sodium 145 MMOL/L (136-145)
[2017-06-26] MEDS: METOPROLOL TARTRATE 25 MG TABLET PO SCH (10:41)
[2017-06-26] MEDS: COLESTIPOL 1 GM TABLET PO SCH (10:42)
[2017-06-26] MEDS: SPIRONOLACTONE 25 MG TABLET PO SCH (10:42)
[2017-06-26] MEDS: DULoxetine 30 MG CAPSULE PO SCH (10:43)
[2017-06-26] MEDS: METHENAMINE HIPPURATE 1 GM TABLET PO SCH (10:43)
[2017-06-26] MEDS: FUROSEMIDE 20 MG TABLET PO SCH (10:43)
[2017-06-26] MEDS: PANTOPRAZOLE 40 MG TABLET PO SCH (10:44)
[2017-06-26] MEDS: predniSONE 10 MG TABLET PO SCH (10:44)
[2017-06-26] MEDS: CALCIUM (CARBONATE)/VITAMIN D 500 MG-200 UNIT TABLET PO SCH (10:44)
[2017-06-26] MEDS: CHOLESTYRAMINE/ASPARTAME 4 GM PACK PO SCH (10:45)
[2017-06-26] MEDS: TOPIRAMATE 100 MG TABLET PO SCH (10:45)
[2017-06-26] MEDS: MAGNESIUM CHLORIDE 64 MG TABLET PO SCH (10:45)
[2017-06-26] MEDS: ACETAMINOPHEN 500 MG TABLET PO SCH (10:46)
[2017-06-26] MEDS: ACYCLOVIR 200 MG CAPSULE PO SCH (10:47)
[2017-06-26] MEDS: CHOLECALCIFEROL 400 UNIT TABLET PO SCH (10:48)
[2017-06-26] MEDS: CETIRIZINE 10 MG TABLET PO SCH (10:48)
[2017-06-26] MEDS: POLYVINYL ALCOHOL 1.4% OPH SOLN 15 ML BOTTLE BOTH EYES SCH (10:53)
[2017-06-26 11:04] LABS: Sedimentation Rate-Westergren 6 MM/HR (0-30)
[2017-06-26 11:36] VITALS: BP 131/79
--- NOTE | 2017-06-26 12:42 | Discharge Summary ---
Hospital Course - Hospital Course Hospital Course: Patient is 62-year-old female with multiple medical problems including lupus, rheumatoid arthritis, hypertension, history of TIA, migraine headaches, chronic steroid therapy who was admitted with chest pain. It was sharp and appeared to be atypical in nature. Patient was seen in consultation by cardiology who thought the pain was noncardiac. Her enzymes were negative. Patient was given IV fluids. She has been having these episodes in which she feels she is going to pass out her Holter monitor has been pending. Her monitor did not show any arrhythmia. It was felt that she may require an EGD. Patient has been on Plavix which will be discontinued. She will be set up for an EGD per Dr. Ibrahim. She will be discharged to home today. I will see her on next scheduled appointment Diagnosis - Discharge Diagnosis (1) Chest pain Status: Acute (2) SLE (systemic lupus erythematosus) Status: Acute Specialty Discharge - Follow Up or Referrals Follow up with: Kurtis Ibrahim MD [Physician] - 06/30/17 10:30 am (REPORT TO ADMISSIONS DEPT IN THE EMERGENCY ROOM AT 9:45 A.M. DO NOT TAKE IRON PILLS FOR 3 DAYS AND YOUR PLAVIX (BLOOD THINNER) FOR 5 DAYS. DO NOT EAT OR DRINK ANYTHING AFTER MIDNIGHT THURS.) Discharge Plan - Discharge Data Disposition: Disch To Home/Self Care Condition at Discharge: Stable Discharge Diet: advance to your usual diet Activity: resume usual activities as tolerated - Discharge Medications New predniSONE TAB [PredniSONE] 5 mg PO BEDTIME tablet Continue Multivit-Min/FA/Lycopen/Lutein [Centrum Silver Tablet] 1 tablet PO BEDTIME Sucralfate Tab [Carafate Tab] 1 gm PO BIDAC Ergocalciferol (Vitamin D2) [Vitamin D2] 400 unit PO BID Omeprazole [Prilosec] 20 mg PO BID Folic Acid Tab 400 mcg PO BEDTIME Albuterol/Ipratropium Neb [Duoneb] 3 ml RESP TX QID PRN PRN Reason: Shortness Of Breath/Wheezing Duloxetine HCl [Cymbalta] 60 mg PO DAILY Furosemide 20 mg PO DAILY Calcium Carbonate/Vitamin D3 [Calcium 500 + Vit D Caplet] 1 each PO BID Metoprolol Tartrate 25 mg PO BID Beclomethasone 80 Mcg Inhaler [Qvar 80 Mcg] 80 mcg INH BID cycloSPORINE OPH EMUL [Restasis] 1 drop BOTH EYES Q12HR Magnesium Chloride [Mag Delay] 128 mg PO BID Spironolactone 25 mg PO BID Topiramate [Topamax] 100 mg PO BID Cholestyramine/Aspartame [Questran Light] 4 gm PO BID Gabapentin 300 mg PO BEDTIME guaiFENesin ER TAB [Mucinex] 600 mg PO BID Polyvinyl Alcohol [Artificial Tears] 1 drop BOTH EYES BID Fluticasone 50 Mcg Nasal [place] [Flonase Nasal [place]] 2 spray BOTH NARES DAILY Tocilizumab [Actemra] 162 mg SUBCUT Q7D Methenamine Hippurate [Hiprex] 1 gm PO BID Fluticasone/Vilanterol [Breo Ellipta 200-25 Mcg INH] 1 puff INH DAILY Colestipol [Colestid] 2 gm PO BID Acyclovir [Acyclovir Cap/Tab] 400 mg PO BID Cetirizine HCl [ZyrTEC Cap] 10 mg PO DAILY traMADol TAB [Ultram] 100 mg PO Q6H PRN tablet PRN Reason: Pain Acetaminophen 1,000 mg PO BID Levocetirizine Dihydrochloride [Xyzal] 5 mg PO BEDTIME prednisoLONE TAB [prednisoLONE Tab] 5 mg PO BEDTIME predniSONE TAB [PredniSONE] 10 mg PO DAILY tablet Discontinued Clopidogrel [Plavix] 75 mg PO BEDTIME - Follow Up or Referral Follow Up: Kurtis Ibrahim MD [Physician] - 06/30/17 10:30 am (REPORT TO ADMISSIONS DEPT IN THE EMERGENCY ROOM AT 9:45 A.M. DO NOT TAKE IRON PILLS FOR 3 DAYS AND YOUR PLAVIX (BLOOD THINNER) FOR 5 DAYS. DO NOT EAT OR DRINK ANYTHING AFTER MIDNIGHT THURS.) - Forms/Instructions Additional Discharge Instructions: Keep next scheduled appointment at the office Exam - Constitutional Vitals: Period Temp Pulse Resp BP Sys/Viveros Pulse Ox Last 24 Hr 97.1 F-98.5 F 65-83 18-20 110-132/74-79 95-99 Exam: Examination: GENERAL: NAD. HEENT: PERRLA. EOMI. NECK: Neck is supple. CVS: Regular rate and rhythm. S1 and S2 are normal. RESPIRATORY: Lungs are clear. No rales or rhonchi. ABDOMEN: Soft and nontender. Bowel sounds are present. No hepatosplenomegaly. EXT: No edema. Splint on the left lower extremity. IMPORT COORDINATOR: Patient is awake, alert and oriented to time place and person. Cranial nerves II through XII are grossly intact. Motor strength is 3-4 over SKIN: Warm and dry. MSK: No obvious deformity. Discharge Results Procedures and tests throughout hospitalization: Pending Orders 06/26/17 09:15 Blood Culture Routine Labs on day of discharge: Labs from last 24 hours 06/26/17 06/26/17 09:16 09:16 WBC 4.0 RBC 3.72 L Hgb 12.8 Hct 38.6 MCV 103.8 H MCH 34 MCHC 33.2 RDW 13.0 Plt Count 239 MPV 8.9 L Neut % (Auto) 47.4 Lymph % (Auto) 36.9 [place] % (Auto) 12.9 H Eos % (Auto) 1.5 Baso % (Auto) 0.8 Neut # (Auto) 1.9 Lymph # (Auto) 1.5 [place] # (Auto) 0.5 Eos # (Auto) 0.1 Baso # (Auto) 0.0 Immature Gran % 0.5 Nucleated RBC % 0.0 Immature Gran # 0.02 Nucleated RBCs # 0.00 Immature Plt Fraction 0.0 ESR [place] 6 Sodium 145 Potassium 3.8 Chloride 114 H Carbon Dioxide 22 Anion Gap 12.8 BUN 15 Creatinine 0.70 GFR Calculation 95 BUN/Creatinine Ratio 21.00 H Glucose 84 Calculated Osmolality 287.7 Calcium 8.7 C-Reactive Protein < 0.29 DS: Provider Date of admission: 06/24/17 17:15 Primary care physician: . No PCP Attending physician on admission: Jimmy Bourgeois MD Consults: 06/24/17 18:11 Consult to Physician [CONS] Routine Comment: chest pain Consulting Provider: Beto Russell Person Notified: [email or web address] Date Notified: 06/25/17 Time Notified: 08:24 Consult Notification Comment: will see pt 06/25/17 08:23 Consult to Physician [CONS] Routine Comment: Consulting Provider: 06/26/17 08:39 Consult to Physician [CONS] Routine Comment: Possible EGD today Consulting Provider: Kurtis Ibrahim 06/26/17 08:44 Consult to Physician [CONS] Routine Comment: Right ear pain Consulting Provider: Devonte Yap Person Notified: [email or web address] Discharging clinician: Jimmy Bourgeois MD
== END 2017-06-26 13:53 | disposition home or self-care (01) ==
LOC: N.EDINP 15:38 → N.ED 15:38 → N.EDINP 17:57 → N.2E 18:08
PROVIDERS: ADMIT Internal Medicine; ATTEND Internal Medicine

== ENCOUNTER 2018-01-02 05:49 | Inpatient (IN) ==
[2018-01-02] MEDS ORDERED: IPRATROPIUM 500 MCG/2.5 ML NEB RESP TX ONE (06:00)
[2018-01-02] MEDS ORDERED: ceFAZolin 1,000 MG in SYRINGE 1 EACH IV ONE (06:00)
[2018-01-02] MEDS ORDERED: ALBUTEROL 2.5 MG/3 ML NEB RESP TX ONE (06:00)
[2018-01-02] MEDS ORDERED: FAMOTIDINE 20 MG TABLET PO ONE (06:00)
[2018-01-02] MEDS ORDERED: DIAZEPAM 5 MG TABLET PO ONE (06:00)
[2018-01-02] MEDS: LACTATED RINGERS 1,000 ML IV SCH ×2 (08:05→22:57)
[2018-01-02] MEDS ORDERED: ceFAZolin 1,000 MG VIAL ONE (08:20)
[2018-01-02] MEDS ORDERED: FAMOTIDINE 20 MG TABLET ONE (08:21)
[2018-01-02] MEDS ORDERED: DIAZEPAM 5 MG TABLET ONE (08:21)
[2018-01-02] MEDS ORDERED: POLYVINYL ALCOHOL 1.4% OPH SOLN 15 ML BOTTLE BOTH EYES PRN (08:35)
[2018-01-02] MEDS ORDERED: METHOCARBAMOL 750 MG TABLET PO PRN (08:35)
[2018-01-02] MEDS ORDERED: ALBUTEROL/IPRATROPIUM 3 ML NEB RESP TX PRN (08:35)
[2018-01-02] MEDS ORDERED: MECLIZINE 25 MG TABLET PO PRN (08:35)
[2018-01-02] MEDS ORDERED: MAGNESIUM HYDROXIDE SUSP 30 ML UDCUP PO PRN (08:38)
[2018-01-02] MEDS ORDERED: MORPHINE 2 MG/1 ML SYRINGE IV PRN ×2 (08:40)
[2018-01-02] MEDS ORDERED: ONDANSETRON 4 MG/2 ML VIAL IV PRN (08:40)
[2018-01-02] MEDS ORDERED: LACTATED RINGERS 1,000 ML IV SCH (09:00)
[2018-01-02] MEDS ORDERED: GENTAMICIN 80 MG/2 ML VIAL ONE (09:30)
[2018-01-02] MEDS ORDERED: ROPIVACAINE 0.5% 30 ML VIAL ONE ×2 (10:25→10:59)
[2018-01-02] MEDS ORDERED: BACITRACIN OINT 0.9 GM PACK TOP ONE (10:34)
[2018-01-02] MEDS ORDERED: MIDAZOLAM 2 MG/2 ML VIAL ONE (11:00)
[2018-01-02] MEDS ORDERED: SEVOFLURANE 1 UNIT/15 MINUTE INH ONE (11:00)
[2018-01-02] MEDS ORDERED: PROPOFOL 200 MG/20 ML VIAL IV ONE (11:00)
[2018-01-02] MEDS ORDERED: ONDANSETRON 4 MG/2 ML VIAL ONE (11:01)
[2018-01-02] MEDS ORDERED: fentaNYL 100 MCG/2 ML VIAL ONE (11:01)
[2018-01-02] MEDS: IPRATROPIUM 500 MCG/2.5 ML NEB RESP TX SCH (11:15)
[2018-01-02] MEDS: GABAPENTIN 100 MG CAPSULE PO SCH ×2 (12:52→21:11)
[2018-01-02] MEDS: predniSONE 10 MG TABLET PO SCH ×2 (12:52→21:11)
[2018-01-02] MEDS: SPIRONOLACTONE 25 MG TABLET PO SCH ×2 (12:52→21:12)
[2018-01-02] MEDS: OXYBUTYNIN 5 MG TABLET PO SCH ×2 (12:52→21:13)
[2018-01-02] MEDS: MAGNESIUM CHLORIDE 64 MG TABLET PO SCH ×2 (12:53→21:11)
[2018-01-02] MEDS: PANTOPRAZOLE 40 MG TABLET PO SCH (12:53)
[2018-01-02] MEDS: ACYCLOVIR 800 MG TABLET PO SCH ×2 (12:53→21:22)
[2018-01-02] MEDS: cycloSPORINE OPH EMUL 1 VIAL BOTH EYES SCH ×2 (12:53→21:19)
[2018-01-02] MEDS: METOPROLOL TARTRATE 25 MG TABLET PO SCH ×2 (12:54→21:13)
[2018-01-02] MEDS: CALCIUM (CARBONATE)/VITAMIN D 500 MG-200 UNIT TABLET PO SCH ×2 (12:54→21:12)
[2018-01-02] MEDS: CHOLECALCIFEROL 400 UNIT TABLET PO SCH ×2 (12:54→21:11)
[2018-01-02] MEDS: DULoxetine 30 MG CAPSULE PO SCH ×2 (12:54→21:12)
[2018-01-02] MEDS: CETIRIZINE 10 MG TABLET PO SCH ×2 (12:54→21:12)
[2018-01-02] MEDS: ACETAMINOPHEN 325 MG TABLET PO PRN (14:37)
[2018-01-02] MEDS: ceFAZolin 1,000 MG in SYRINGE 1 EACH IV SCH ×2 (14:38→22:36)
[2018-01-02] MEDS: SUCRALFATE 1 GM TABLET PO SCH (16:56)
[2018-01-02] MEDS: KETOROLAC 15 MG/1 ML VIAL IV PRN (18:07)
[2018-01-02] MEDS: FOLIC ACID 0.4 MG TABLET PO SCH (21:13)
[2018-01-03 04:52] LABS: Basophils % 0.3 % (0.0-0.8); Eosinophils % 0.3 % (0.00-10.9); Hematocrit 38.3 VOL% (35.7-47.0); Hemoglobin 11.9 GM/DL (12.0-16.0); Immature Granulocytes % 0.9 %; Immature Granulocytes Absolute 0.06 #; Lymphocytes # 0.6 10*3/uL (1.4-4.0); Lymphocytes % 9.5 % (21.3-54.2); Mean Corpuscular HGB Conc 31.1 GM/DL (32-36); Mean Corpuscular Hemoglobin 33 PG (27-34); Mean Corpuscular Volume 106.7 FL (87-102); Mean Platelet Volume 8.7 FL (9.6-12.0); Monocytes # 0.6 10*3/uL (0.11-0.8); Monocytes % 8.2 % (1.7-12.7); Neutrophils # 5.4 10*3/uL (1.4-7.4); Neutrophils % 80.8 % (38.7-73.9); Platelet Count 210 T/CUMM (130-400); Red Blood Count 3.59 MC/CUMM (3.8-5.5); Red Cell Distribution Width 13.7 % (9.3-17.3); White Blood Count 6.7 T/CUMM (4-12)
[2018-01-03 05:21] LABS: Calcium 8.7 MG/DL (8.5-10.1); Osmolality,Calculated 287.8 MOS/KG (273-304); Potassium 4.1 MMOL/L (3.5-5.1)
[2018-01-03] MEDS ORDERED: methylPREDNISolone SOD SUC 40 MG/1 ML VIAL IV ONE (08:30)
[2018-01-03] MEDS: CHOLESTYRAMINE/ASPARTAME 4 GM PACK PO SCH (08:37)
[2018-01-03] MEDS: ACETAMINOPHEN 325 MG TABLET PO PRN ×2 (08:37→23:59)
[2018-01-03] MEDS: GABAPENTIN 100 MG CAPSULE PO SCH (08:38)
[2018-01-03] MEDS: COLESTIPOL 1 GM TABLET PO SCH (08:39)
[2018-01-03] MEDS: ACYCLOVIR 800 MG TABLET PO SCH (08:39)
[2018-01-03] MEDS: PANTOPRAZOLE 40 MG TABLET PO SCH (08:39)
[2018-01-03] MEDS: CALCIUM (CARBONATE)/VITAMIN D 500 MG-200 UNIT TABLET PO SCH (08:39)
[2018-01-03] MEDS: SUCRALFATE 1 GM TABLET PO SCH ×2 (08:39→16:46)
[2018-01-03] MEDS: MAGNESIUM CHLORIDE 64 MG TABLET PO SCH (08:39)
[2018-01-03] MEDS: CHOLECALCIFEROL 400 UNIT TABLET PO SCH (08:39)
[2018-01-03] MEDS: predniSONE 10 MG TABLET PO SCH (08:39)
[2018-01-03] MEDS: MULTIVITAMIN (CENTRUM) TABLET PO SCH (08:40)
[2018-01-03] MEDS: CLOPIDOGREL 75 MG TABLET PO SCH ×2 (08:40→08:43)
[2018-01-03] MEDS: FUROSEMIDE 40 MG TABLET PO SCH (08:40)
[2018-01-03] MEDS: METOPROLOL TARTRATE 25 MG TABLET PO SCH (08:40)
[2018-01-03] MEDS: OXYBUTYNIN 5 MG TABLET PO SCH (08:40)
[2018-01-03] MEDS: SPIRONOLACTONE 25 MG TABLET PO SCH (08:40)
[2018-01-03] MEDS: DULoxetine 30 MG CAPSULE PO SCH (08:40)
[2018-01-03] MEDS: ASPIRIN EC 81 MG TABLET PO SCH (08:41)
[2018-01-03] MEDS: cycloSPORINE OPH EMUL 1 VIAL BOTH EYES SCH (09:10)
[2018-01-03] MEDS: IPRATROPIUM 500 MCG/2.5 ML NEB RESP TX SCH (11:03)
[2018-01-04] MEDS: predniSONE 10 MG TABLET PO SCH ×3 (00:01→23:07)
[2018-01-04] MEDS: GABAPENTIN 100 MG CAPSULE PO SCH ×3 (00:02→23:04)
[2018-01-04] MEDS: FOLIC ACID 0.4 MG TABLET PO SCH ×2 (00:03→23:07)
[2018-01-04] MEDS: CHOLECALCIFEROL 400 UNIT TABLET PO SCH ×3 (00:03→23:04)
[2018-01-04] MEDS: MAGNESIUM CHLORIDE 64 MG TABLET PO SCH ×3 (00:03→23:06)
[2018-01-04] MEDS: COLESTIPOL 1 GM TABLET PO SCH ×3 (00:04→23:03)
[2018-01-04] MEDS: CALCIUM (CARBONATE)/VITAMIN D 500 MG-200 UNIT TABLET PO SCH ×3 (00:04→23:06)
[2018-01-04] MEDS: MULTIVITAMIN (CENTRUM) TABLET PO SCH ×2 (00:04→23:04)
[2018-01-04] MEDS: ACYCLOVIR 800 MG TABLET PO SCH ×3 (00:04→23:04)
[2018-01-04] MEDS: OXYBUTYNIN 5 MG TABLET PO SCH ×3 (00:05→23:12)
[2018-01-04] MEDS: SPIRONOLACTONE 25 MG TABLET PO SCH ×3 (00:05→23:07)
[2018-01-04] MEDS: cycloSPORINE OPH EMUL 1 VIAL BOTH EYES SCH ×2 (00:05→09:15)
[2018-01-04] MEDS: CHOLESTYRAMINE/ASPARTAME 4 GM PACK PO SCH ×2 (00:05→09:16)
[2018-01-04] MEDS: METOPROLOL TARTRATE 25 MG TABLET PO SCH ×3 (00:05→23:07)
[2018-01-04] MEDS: IPRATROPIUM 500 MCG/2.5 ML NEB RESP TX SCH (06:53)
[2018-01-04] MEDS: CLOPIDOGREL 75 MG TABLET PO SCH (09:13)
[2018-01-04] MEDS: SUCRALFATE 1 GM TABLET PO SCH ×2 (09:14→16:27)
[2018-01-04] MEDS: DIVALPROEX 250 MG TABLET PO SCH (09:14)
[2018-01-04] MEDS: FUROSEMIDE 40 MG TABLET PO SCH (09:14)
[2018-01-04] MEDS: DULoxetine 30 MG CAPSULE PO SCH ×3 (09:14→23:06)
[2018-01-04] MEDS: PANTOPRAZOLE 40 MG TABLET PO SCH (09:15)
[2018-01-04] MEDS: ASPIRIN EC 81 MG TABLET PO SCH (09:15)
[2018-01-04] MEDS: ACETAMINOPHEN 325 MG TABLET PO PRN ×2 (09:38→23:08)
[2018-01-04] MEDS: HYDROCORTISONE 2.5% RECTAL CREAM 30 GM TUBE TOP SCH (23:00)
[2018-01-04] MEDS: DIVALPROEX ER 500 MG TABLET PO SCH ×2 (23:06)
[2018-01-04] MEDS: CETIRIZINE 10 MG TABLET PO SCH ×2 (23:08)
[2018-01-04] MEDS: KETOROLAC 15 MG/1 ML VIAL IV PRN (23:52)
[2018-01-05] MEDS: cycloSPORINE OPH EMUL 1 VIAL BOTH EYES SCH ×2 (00:17→09:32)
[2018-01-05] MEDS: CHOLESTYRAMINE/ASPARTAME 4 GM PACK PO SCH ×2 (00:17→09:23)
[2018-01-05] MEDS: IPRATROPIUM 500 MCG/2.5 ML NEB RESP TX SCH (06:50)
[2018-01-05 08:02] VITALS: BP 126/79
[2018-01-05] MEDS: CHOLECALCIFEROL 400 UNIT TABLET PO SCH (09:18)
[2018-01-05] MEDS: DIVALPROEX 250 MG TABLET PO SCH (09:18)
[2018-01-05] MEDS: CLOPIDOGREL 75 MG TABLET PO SCH (09:18)
[2018-01-05] MEDS: CALCIUM (CARBONATE)/VITAMIN D 500 MG-200 UNIT TABLET PO SCH (09:18)
[2018-01-05] MEDS: COLESTIPOL 1 GM TABLET PO SCH (09:18)
[2018-01-05] MEDS: GABAPENTIN 100 MG CAPSULE PO SCH (09:19)
[2018-01-05] MEDS: DULoxetine 30 MG CAPSULE PO SCH (09:19)
[2018-01-05] MEDS: ACYCLOVIR 800 MG TABLET PO SCH (09:19)
[2018-01-05] MEDS: SPIRONOLACTONE 25 MG TABLET PO SCH (09:20)
[2018-01-05] MEDS: OXYBUTYNIN 5 MG TABLET PO SCH (09:20)
[2018-01-05] MEDS: SUCRALFATE 1 GM TABLET PO SCH (09:20)
[2018-01-05] MEDS: FUROSEMIDE 40 MG TABLET PO SCH (09:21)
[2018-01-05] MEDS: ASPIRIN EC 81 MG TABLET PO SCH (09:21)
[2018-01-05] MEDS: PANTOPRAZOLE 40 MG TABLET PO SCH (09:21)
[2018-01-05] MEDS: MAGNESIUM CHLORIDE 64 MG TABLET PO SCH (09:21)
[2018-01-05] MEDS: predniSONE 10 MG TABLET PO SCH (09:21)
[2018-01-05] MEDS: METOPROLOL TARTRATE 25 MG TABLET PO SCH (09:21)
[2018-01-05] MEDS: HYDROCORTISONE 2.5% RECTAL CREAM 30 GM TUBE TOP SCH (09:32)
[2018-01-05] MEDS ORDERED: MORPHINE 4 MG/1 ML VIAL IV PRN ×2 (11:26→11:27)
== END 2018-01-05 10:55 | disposition swing bed (61) | DRG 497 ==
LOC: N.OR 05:49 → N.SDSINP 05:50 → N.3E 09:19
PROVIDERS: ADMIT Orthopaedic Surgery; ATTEND Orthopaedic Surgery

== ENCOUNTER 2018-04-15 16:02 | Inpatient (IN) ==
[2018-04-19 10:25] VITALS: BP 110/78
== END 2018-04-19 10:20 | DRG 372 ==
LOC: EDUNIT# → EDBD → N.EDINP 16:02 → N.ED 16:02 → N.EDINP 18:59 → N.5E 19:11
PROVIDERS: ADMIT Internal Medicine; ATTEND Internal Medicine

== ENCOUNTER 2018-05-28 20:22 | Inpatient (IN) ==
[2018-05-28 21:27] LABS: Basophils % 0.5 % (0.0-0.8); Eosinophils # 0.1 10*3/uL (0.0-0.87); Eosinophils % 1.4 % (0.00-10.9); Hematocrit 36.4 VOL% (35.7-47.0); Hemoglobin 12.1 GM/DL (12.0-16.0); Immature Granulocytes % 0.3 %; Immature Granulocytes Absolute 0.02 #; Lymphocytes # 1.9 10*3/uL (1.4-4.0); Lymphocytes % 29.3 % (21.3-54.2); Mean Corpuscular HGB Conc 33.2 GM/DL (32-36); Mean Corpuscular Hemoglobin 34 PG (27-34); Mean Corpuscular Volume 101.1 FL (87-102); Monocytes # 0.9 10*3/uL (0.11-0.8); Neutrophils # 3.5 10*3/uL (1.4-7.4); Neutrophils % 54.5 % (38.7-73.9); Platelet Count 247 T/CUMM (130-400); Red Cell Distribution Width 12.5 % (9.3-17.3); White Blood Count 6.5 T/CUMM (4-12)
[2018-05-28 21:43] LABS: PT Patient Result 10.1 SECS; Partial Thromboplastin Time 22.9 SECS (0-40)
[2018-05-28 22:09] LABS: Alanine Aminotransferase 27 U/L (13-56); Albumin 3.8 G/DL (3.4-5.0); Alkaline Phosphatase 109 U/L (45-117); Aspartate Amino Transferase 20 U/L (0-37); Bilirubin,Total < 0.39 MG/DL (0.2-1.0); Blood Urea Nitrogen 22 MG/DL (7-18); Calcium 9.4 MG/DL (8.5-10.1); Glucose 115 MG/DL (74-106); Osmolality,Calculated 278.7 MOS/KG (273-304); Potassium 3.4 MMOL/L (3.5-5.1); Sodium 138 MMOL/L (136-145)
[2018-05-28] MEDS ORDERED: ACETAMINOPHEN 500 MG TABLET PO PRN (22:42)
[2018-05-28] MEDS ORDERED: ONDANSETRON 4 MG/2 ML VIAL IV PRN (22:42)
[2018-05-29 00:16] LABS: Apearance,Urine Slightly Hazy (Clear); Bacteria,Urine Few /HPF (Few); Bilirubin,Urine Negative (Negative); Blood, Urine Negative (Negative); Glucose,Urine (UA) Negative (Negative); Hyaline Casts,Urine 1 /LPF (0-3); Ketones,Urine Negative (Negative); Nitrite,Urine Positive (Negative); Protein,Urine Negative; RBC,Urine 1 /HPF (0-4); Squamous Epithelial Cell,Urine Occasional /HPF (0-10); Urine Color Yellow (Yellow); Urine Specific Gravity 1.004 (1.001-1.035); Urine Urobilinogen < 2.0 EU/DL (0.2-1.0); WBC,Urine 88 /HPF (0-6)
[2018-05-29] MEDS: ALBUTEROL/IPRATROPIUM 3 ML NEB RESP TX SCH ×4 (01:12→18:59)
[2018-05-29] MEDS ORDERED: DULoxetine 30 MG CAPSULE PO SCH (09:00)
[2018-05-29] MEDS ORDERED: PANTOPRAZOLE 40 MG TABLET PO SCH (09:00)
[2018-05-29] MEDS ORDERED: ASPIRIN EC 81 MG TABLET PO SCH (09:00)
[2018-05-29] MEDS ORDERED: levETIRAcetam 500 MG TABLET PO SCH (09:00)
[2018-05-29] MEDS ORDERED: SPIRONOLACTONE 25 MG TABLET PO SCH (09:00)
[2018-05-29] MEDS ORDERED: CYCLOBENZAPRINE 10 MG TABLET PO PRN (09:47)
[2018-05-29] MEDS ORDERED: ACETAMINOPHEN 500 MG TABLET PO PRN (09:47)
[2018-05-29] MEDS: NITROFURANTOIN MACRO/MONO 100 MG CAPSULE PO SCH ×2 (10:14→21:22)
[2018-05-29] MEDS: METOPROLOL TARTRATE 25 MG TABLET PO SCH ×2 (10:15→21:24)
[2018-05-29] MEDS: GABAPENTIN 400 MG CAPSULE PO SCH ×3 (10:15→21:24)
[2018-05-29] MEDS: CHOLESTYRAMINE 4 GM PACK PO SCH ×2 (10:15→23:53)
[2018-05-29] MEDS: predniSONE 10 MG TABLET PO SCH (10:15)
[2018-05-29] MEDS: DICYCLOMINE 10 MG CAPSULE PO SCH ×2 (11:32→16:47)
[2018-05-29] MEDS: FUROSEMIDE 40 MG TABLET PO SCH (15:09)
[2018-05-29] MEDS: SPIRONOLACTONE 25 MG TABLET PO SCH (15:13)
[2018-05-29] MEDS: POTASSIUM CHLORIDE 10 MEQ TABLET PO SCH ×2 (15:14→21:24)
[2018-05-29] MEDS: CLOPIDOGREL 75 MG TABLET PO SCH (16:47)
[2018-05-29] MEDS: PANTOPRAZOLE 40 MG TABLET PO SCH (16:47)
[2018-05-29] MEDS: CETIRIZINE 10 MG TABLET PO SCH (21:21)
[2018-05-29] MEDS: DULoxetine 30 MG CAPSULE PO SCH (21:21)
[2018-05-29] MEDS: CALCIUM (CARBONATE)/VITAMIN D 500 MG-200 UNIT TABLET PO SCH (21:22)
[2018-05-29] MEDS: MAGNESIUM CHLORIDE 64 MG TABLET PO SCH (21:22)
[2018-05-29] MEDS: CHOLECALCIFEROL 400 UNIT TABLET PO SCH (21:23)
[2018-05-29] MEDS: levETIRAcetam 500 MG TABLET PO SCH (21:23)
[2018-05-29] MEDS: MULTIVITAMIN (CENTRUM) TABLET PO SCH (21:23)
[2018-05-29] MEDS: TOPIRAMATE 200 MG TABLET PO SCH (21:32)
[2018-05-30] MEDS: ALBUTEROL/IPRATROPIUM 3 ML NEB RESP TX SCH ×4 (00:32→19:42)
[2018-05-30 05:33] LABS: Basophils % 0.8 % (0.0-0.8); Eosinophils # 0.1 10*3/uL (0.0-0.87); Eosinophils % 2.2 % (0.00-10.9); Hematocrit 38.2 VOL% (35.7-47.0); Hemoglobin 12.1 GM/DL (12.0-16.0); Immature Granulocytes % 0.3 %; Immature Granulocytes Absolute 0.01 #; Lymphocytes # 1.3 10*3/uL (1.4-4.0); Lymphocytes % 36.4 % (21.3-54.2); Mean Corpuscular HGB Conc 31.7 GM/DL (32-36); Mean Corpuscular Hemoglobin 33 PG (27-34); Mean Corpuscular Volume 105.5 FL (87-102); Mean Platelet Volume 9.2 FL (9.6-12.0); Monocytes # 0.8 10*3/uL (0.11-0.8); Monocytes % 21.4 % (1.7-12.7); Neutrophils # 1.4 10*3/uL (1.4-7.4); Neutrophils % 38.9 % (38.7-73.9); Platelet Count 238 T/CUMM (130-400); Red Blood Count 3.62 MC/CUMM (3.8-5.5); Red Cell Distribution Width 12.6 % (9.3-17.3); White Blood Count 3.6 T/CUMM (4-12)
[2018-05-30 05:45] LABS: Calcium 10.3 MG/DL (8.5-10.1); Osmolality,Calculated 289.7 MOS/KG (273-304); Potassium 3.7 MMOL/L (3.5-5.1)
[2018-05-30 05:50] LABS: Albumin 3.7 G/DL (3.4-5.0); Bilirubin,Total 0.7 MG/DL (0.2-1.0); Calcium 10.2 MG/DL (8.5-10.1); Total Protein 6.6 G/DL (6.4-8.3)
[2018-05-30 05:51] LABS: Osmolality,Calculated 288.7 MOS/KG (273-304); Potassium 3.7 MMOL/L (3.5-5.1)
[2018-05-30 06:04] LABS: Band Neutrophils 1 % (0-10); Eosinophils 4 % (0-10); Hypochromasia 1+; Lymphocytes 39 % (20-55); Platelet Estimate Adequate; Segmented Neutrophils 42 % (50-85); Total Cells Counted 100
[2018-05-30 06:05] LABS: Atypical Lymphocytes Few
[2018-05-30] MEDS ORDERED: ALBUTEROL/IPRATROPIUM 3 ML NEB RESP TX SCH (07:00)
[2018-05-30] MEDS: CHOLESTYRAMINE 4 GM PACK PO SCH ×2 (09:38→22:35)
[2018-05-30] MEDS: NITROFURANTOIN MACRO/MONO 100 MG CAPSULE PO SCH ×2 (09:39→21:59)
[2018-05-30] MEDS: FUROSEMIDE 40 MG TABLET PO SCH (09:39)
[2018-05-30] MEDS: DULoxetine 30 MG CAPSULE PO SCH ×2 (09:39→21:58)
[2018-05-30] MEDS: levETIRAcetam 500 MG TABLET PO SCH ×2 (09:39→21:58)
[2018-05-30] MEDS: MAGNESIUM CHLORIDE 64 MG TABLET PO SCH ×2 (09:40→21:58)
[2018-05-30] MEDS: TOPIRAMATE 200 MG TABLET PO SCH ×2 (09:40→21:59)
[2018-05-30] MEDS: POTASSIUM CHLORIDE 10 MEQ TABLET PO SCH ×3 (09:40→22:00)
[2018-05-30] MEDS: FOLIC ACID 1 MG TABLET PO SCH (09:40)
[2018-05-30] MEDS: GABAPENTIN 400 MG CAPSULE PO SCH ×3 (09:40→21:58)
[2018-05-30] MEDS: DICYCLOMINE 10 MG CAPSULE PO SCH ×3 (09:40→16:41)
[2018-05-30] MEDS: SPIRONOLACTONE 25 MG TABLET PO SCH ×2 (09:41→14:00)
[2018-05-30] MEDS: PANTOPRAZOLE 40 MG TABLET PO SCH ×2 (09:41→16:41)
[2018-05-30] MEDS: ASPIRIN EC 81 MG TABLET PO SCH (09:41)
[2018-05-30] MEDS: METOPROLOL TARTRATE 25 MG TABLET PO SCH ×2 (09:41→21:59)
[2018-05-30] MEDS: CHOLECALCIFEROL 400 UNIT TABLET PO SCH ×2 (09:41→21:59)
[2018-05-30] MEDS: predniSONE 10 MG TABLET PO SCH (09:41)
[2018-05-30] MEDS: CALCIUM (CARBONATE)/VITAMIN D 500 MG-200 UNIT TABLET PO SCH ×2 (09:41→21:59)
[2018-05-30] MEDS: CLOPIDOGREL 75 MG TABLET PO SCH (09:59)
[2018-05-30] MEDS ORDERED: CLOPIDOGREL 75 MG TABLET PO SCH ×2 (21:00)
[2018-05-30] MEDS: MULTIVITAMIN (CENTRUM) TABLET PO SCH (21:58)
[2018-05-30] MEDS: CETIRIZINE 10 MG TABLET PO SCH (22:00)
[2018-05-31] MEDS: ALBUTEROL/IPRATROPIUM 3 ML NEB RESP TX SCH ×2 (00:51→07:36)
[2018-05-31] MEDS ORDERED: TUBERCULIN SKIN TEST 0.1 ML SYRINGE INTRADERM ONE (07:02)
[2018-05-31 08:35] VITALS: BP 99/70
[2018-05-31] MEDS: CHOLESTYRAMINE 4 GM PACK PO SCH (08:45)
[2018-05-31] MEDS ORDERED: NEOMYCIN/POLYMYXIN/HC OTIC SOLN 10 ML BOTTLE RIGHT EAR SCH (09:00)
[2018-05-31] MEDS: DICYCLOMINE 10 MG CAPSULE PO SCH (10:32)
[2018-05-31] MEDS: levETIRAcetam 500 MG TABLET PO SCH (10:32)
[2018-05-31] MEDS: GABAPENTIN 400 MG CAPSULE PO SCH (10:33)
[2018-05-31] MEDS: MAGNESIUM CHLORIDE 64 MG TABLET PO SCH (10:33)
[2018-05-31] MEDS: predniSONE 10 MG TABLET PO SCH (10:33)
[2018-05-31] MEDS: CHOLECALCIFEROL 400 UNIT TABLET PO SCH (10:33)
[2018-05-31] MEDS: DULoxetine 30 MG CAPSULE PO SCH (10:33)
[2018-05-31] MEDS: TOPIRAMATE 200 MG TABLET PO SCH (10:33)
[2018-05-31] MEDS: PANTOPRAZOLE 40 MG TABLET PO SCH (10:33)
[2018-05-31] MEDS: NITROFURANTOIN MACRO/MONO 100 MG CAPSULE PO SCH (10:33)
[2018-05-31] MEDS: SPIRONOLACTONE 25 MG TABLET PO SCH (10:33)
[2018-05-31] MEDS: CALCIUM (CARBONATE)/VITAMIN D 500 MG-200 UNIT TABLET PO SCH (10:34)
[2018-05-31] MEDS: ASPIRIN EC 81 MG TABLET PO SCH (10:34)
[2018-05-31] MEDS: FOLIC ACID 1 MG TABLET PO SCH (10:34)
[2018-05-31] MEDS: METOPROLOL TARTRATE 25 MG TABLET PO SCH (10:34)
[2018-05-31] MEDS: FUROSEMIDE 40 MG TABLET PO SCH (10:34)
[2018-05-31] MEDS: POTASSIUM CHLORIDE 10 MEQ TABLET PO SCH (10:34)
== END 2018-05-31 11:11 | DRG 69 ==
LOC: EDBD → EDUNIT# → N.ED 20:22 → N.EDINP 22:41 → N.4E 23:34
PROVIDERS: ADMIT Internal Medicine; ATTEND Internal Medicine

== ENCOUNTER 2019-01-02 11:24 | Inpatient (IN) ==
[2019-01-02] MEDS ORDERED: SODIUM CHLORIDE 0.9% 500 ML IV STA (12:20)
[2019-01-02 13:49] LABS: Basophils % 0.4 % (0.0-0.8); Eosinophils % 0.1 % (0.00-10.9); Hematocrit 36.6 VOL% (35.7-47.0); Hemoglobin 11.4 GM/DL (12.0-16.0); Immature Granulocytes % 2.2 %; Immature Granulocytes Absolute 0.22 #; Lymphocytes # 0.7 10*3/uL (1.4-4.0); Lymphocytes % 6.9 % (21.3-54.2); Mean Corpuscular HGB Conc 31.1 GM/DL (32-36); Mean Corpuscular Hemoglobin 33 PG (27-34); Mean Corpuscular Volume 104.3 FL (87-102); Mean Platelet Volume 8.7 FL (9.6-12.0); Monocytes # 0.5 10*3/uL (0.11-0.8); Monocytes % 5.5 % (1.7-12.7); Neutrophils # 8.3 10*3/uL (1.4-7.4); Neutrophils % 84.9 % (38.7-73.9); Platelet Count 246 T/CUMM (130-400); Red Blood Count 3.51 MC/CUMM (3.8-5.5); Red Cell Distribution Width 14.2 % (9.3-17.3); White Blood Count 9.8 T/CUMM (4-12)
[2019-01-02 14:03] LABS: Calcium 8.6 MG/DL (8.5-10.1); Osmolality,Calculated 282.5 MOS/KG (273-304); Potassium 3.4 MMOL/L (3.5-5.1)
[2019-01-02] MEDS ORDERED: ONDANSETRON 4 MG/2 ML VIAL IV PRN (18:29)
[2019-01-02] MEDS ORDERED: ACETAMINOPHEN 325 MG TABLET PO PRN (18:29)
[2019-01-02] MEDS ORDERED: POTASSIUM CHLORIDE 20 MEQ TABLET PO ONE (18:47)
[2019-01-02] MEDS ORDERED: ASPIRIN EC 81 MG TABLET PO SCH (18:49)
[2019-01-02] MEDS ORDERED: IPRATROPIUM 500 MCG/2.5 ML NEB RESP TX PRN (18:50)
[2019-01-02] MEDS ORDERED: TOCILIZUMAB 162 MG SUBCUT SCH (19:00)
[2019-01-02] MEDS ORDERED: MAGNESIUM SULF RIDER 2 GM in PREMIX 1 EACH IV PRN (19:20)
[2019-01-02] MEDS ORDERED: MAGNESIUM SULF RIDER 4 GM in PREMIX 1 EACH IV PRN (19:20)
[2019-01-02 19:35] LABS: Troponin I 0.173 NG/ML (0.00-0.045)
[2019-01-02] MEDS: oxyCODONE/ACETAMINOPHEN 5-325 MG TABLET PO PRN ×2 (20:23→22:39)
[2019-01-02] MEDS: DULoxetine 30 MG CAPSULE PO SCH (20:25)
[2019-01-02] MEDS: PANTOPRAZOLE 40 MG TABLET PO SCH (20:26)
[2019-01-02] MEDS: GABAPENTIN 400 MG CAPSULE PO SCH (20:26)
[2019-01-02] MEDS: levETIRAcetam 500 MG TABLET PO SCH (20:27)
[2019-01-02] MEDS: COLESTIPOL 1 GM TABLET PO SCH (20:27)
[2019-01-02] MEDS: TERAZOSIN 1 MG CAPSULE PO SCH (20:27)
[2019-01-02] MEDS: METOPROLOL TARTRATE 25 MG TABLET PO SCH (20:28)
[2019-01-02] MEDS: CALCIUM (CARBONATE)/VITAMIN D 600 MG-400 UNIT TABLET PO SCH (20:28)
[2019-01-02] MEDS: DOCUSATE SODIUM 100 MG CAPSULE PO SCH (20:29)
[2019-01-02] MEDS: SPIRONOLACTONE 25 MG TABLET PO SCH (20:29)
[2019-01-02] MEDS: TRIAMCINOLONE 0.1% CREAM 15 GM TUBE TOP SCH (20:30)
[2019-01-02] MEDS: WHITE PETROLATUM 30 GM TUBE TOP SCH (20:30)
[2019-01-02] MEDS: ACETAMINOPHEN 500 MG TABLET PO SCH (20:30)
[2019-01-02] MEDS: ENOXAPARIN 40 MG/0.4 ML SYRINGE SUBCUT SCH (20:30)
[2019-01-02] MEDS: SODIUM CHLORIDE 0.9% 1,000 ML IV SCH (20:50)
[2019-01-02] MEDS ORDERED: predniSONE 10 MG TABLET PO ONE (21:00)
[2019-01-02] MEDS ORDERED: BETHANECHOL 25 MG TABLET PO SCH (21:00)
[2019-01-02] MEDS: MAGNESIUM CHLORIDE 64 MG TABLET PO SCH (22:35)
[2019-01-02 22:36] LABS: Amorphous Crystals,Urine Occasional /HPF (Few); Apearance,Urine Slightly Hazy (Clear); Bilirubin,Urine Negative (Negative); Blood, Urine Negative (Negative); Glucose,Urine (UA) Negative (Negative); Ketones,Urine Negative (Negative); Nitrite,Urine Positive (Negative); Protein,Urine Negative; RBC,Urine 8 /HPF (0-4); Squamous Epithelial Cell,Urine Occasional /HPF (0-10); Urine Color Yellow (Yellow); Urine Urobilinogen < 2.0 EU/DL (0.2-1.0); WBC,Urine 36 /HPF (0-6)
[2019-01-02] MEDS: CHOLECALCIFEROL 1,000 UNIT TABLET PO SCH (22:36)
[2019-01-02] MEDS: METOPROLOL TARTRATE 5 MG/5 ML VIAL IV PRN (22:37)
[2019-01-02] MEDS: DICYCLOMINE 20 MG TABLET PO SCH (22:37)
[2019-01-03 04:49] LABS: Basophils % 0.4 % (0.0-0.8); Eosinophils % 0.2 % (0.00-10.9); Hematocrit 34.4 VOL% (35.7-47.0); Hemoglobin 10.7 GM/DL (12.0-16.0); Immature Granulocytes % 2.5 %; Immature Granulocytes Absolute 0.14 #; Lymphocytes # 0.6 10*3/uL (1.4-4.0); Lymphocytes % 10.6 % (21.3-54.2); Mean Corpuscular HGB Conc 31.1 GM/DL (32-36); Mean Corpuscular Hemoglobin 32 PG (27-34); Mean Corpuscular Volume 103.9 FL (87-102); Mean Platelet Volume 8.6 FL (9.6-12.0); Monocytes # 0.4 10*3/uL (0.11-0.8); Monocytes % 7.2 % (1.7-12.7); Neutrophils # 4.4 10*3/uL (1.4-7.4); Neutrophils % 79.1 % (38.7-73.9); Platelet Count 216 T/CUMM (130-400); Red Blood Count 3.31 MC/CUMM (3.8-5.5); Red Cell Distribution Width 14.4 % (9.3-17.3); White Blood Count 5.6 T/CUMM (4-12)
[2019-01-03 05:15] LABS: Blood Urea Nitrogen 21 MG/DL (7-18); Calcium 8.9 MG/DL (8.5-10.1); Glucose 123 MG/DL (74-106); Osmolality,Calculated 280.5 MOS/KG (273-304); Potassium 4.3 MMOL/L (3.5-5.1); Sodium 139 MMOL/L (136-145)
[2019-01-03 05:17] LABS: Troponin I 0.085 NG/ML (0.00-0.045)
[2019-01-03] MEDS: PANTOPRAZOLE 40 MG TABLET PO SCH ×3 (06:23→22:00)
[2019-01-03] MEDS ORDERED: POLYETHYLENE GLYCOL POWDER 17 GM PACK PO SCH (07:00)
[2019-01-03] MEDS ORDERED: predniSONE 5 MG TABLET PO SCH (09:00)
[2019-01-03 09:39] LABS: Folate > 24.0 NG/ML (5.4-24.0); Vitamin B12 646 PG/ML (211-911)
[2019-01-03] MEDS: FOLIC ACID 1 MG TABLET PO SCH (11:52)
[2019-01-03] MEDS: MULTIVITAMIN (CENTRUM) TABLET PO SCH (11:52)
[2019-01-03] MEDS: SPIRONOLACTONE 25 MG TABLET PO SCH ×2 (11:52→21:57)
[2019-01-03] MEDS: ASPIRIN EC 81 MG TABLET PO SCH (11:52)
[2019-01-03] MEDS: DICYCLOMINE 20 MG TABLET PO SCH ×3 (11:52→21:59)
[2019-01-03] MEDS: DOCUSATE SODIUM 100 MG CAPSULE PO SCH (11:53)
[2019-01-03] MEDS: CALCIUM (CARBONATE)/VITAMIN D 600 MG-400 UNIT TABLET PO SCH ×2 (11:53→21:59)
[2019-01-03] MEDS: COLESTIPOL 1 GM TABLET PO SCH ×2 (11:54→21:58)
[2019-01-03] MEDS: DULoxetine 30 MG CAPSULE PO SCH ×2 (11:54→21:58)
[2019-01-03] MEDS: OXYBUTYNIN XL 15 MG TABLET PO SCH (11:54)
[2019-01-03] MEDS: METOPROLOL TARTRATE 25 MG TABLET PO SCH ×2 (11:55→22:34)
[2019-01-03] MEDS: GABAPENTIN 400 MG CAPSULE PO SCH ×3 (11:55→22:01)
[2019-01-03] MEDS: levETIRAcetam 500 MG TABLET PO SCH ×2 (11:55→21:59)
[2019-01-03] MEDS: TRIAMCINOLONE 0.1% CREAM 15 GM TUBE TOP SCH ×2 (11:55→22:01)
[2019-01-03] MEDS: predniSONE 5 MG TABLET PO SCH (11:55)
[2019-01-03] MEDS: MAGNESIUM CHLORIDE 64 MG TABLET PO SCH ×2 (11:56→21:58)
[2019-01-03] MEDS: CHOLECALCIFEROL 1,000 UNIT TABLET PO SCH ×2 (11:57→21:57)
[2019-01-03] MEDS: ACETAMINOPHEN 500 MG TABLET PO SCH ×3 (11:57→22:01)
[2019-01-03] MEDS: WHITE PETROLATUM 30 GM TUBE TOP SCH ×2 (11:58→22:02)
[2019-01-03] MEDS: SODIUM CHLORIDE 0.9% 1,000 ML IV SCH ×2 (15:33→17:34)
[2019-01-03] MEDS: ENOXAPARIN 40 MG/0.4 ML SYRINGE SUBCUT SCH (21:57)
[2019-01-03] MEDS: TERAZOSIN 1 MG CAPSULE PO SCH (21:59)
[2019-01-03] MEDS: OXYBUTYNIN XL 5 MG TABLET PO SCH (22:05)
[2019-01-04] MEDS: SPIRONOLACTONE 25 MG TABLET PO SCH ×3 (00:55→21:48)
[2019-01-04 05:41] LABS: Calcium 7.7 MG/DL (8.5-10.1); Osmolality,Calculated 287.7 MOS/KG (273-304); Potassium 3.1 MMOL/L (3.5-5.1)
[2019-01-04] MEDS: PANTOPRAZOLE 40 MG TABLET PO SCH ×3 (05:41→21:49)
[2019-01-04 05:47] LABS: Risk Ratio 3.55
[2019-01-04] MEDS: SODIUM CHLORIDE 0.9% 1,000 ML IV SCH ×2 (06:16→13:39)
[2019-01-04] MEDS ORDERED: POTASSIUM CHLORIDE RIDER 10 MEQ in PREMIX 1 EACH IV PRN (07:45)
[2019-01-04 08:34] LABS: Albumin 2.7 G/DL (3.4-5.0); Bilirubin,Total 0.4 MG/DL (0.2-1.0); Osmolality,Calculated 277.4 MOS/KG (273-304); Potassium 3.6 MMOL/L (3.5-5.1); Total Protein 6.4 G/DL (6.4-8.3)
[2019-01-04] MEDS: MAGNESIUM CHLORIDE 64 MG TABLET PO SCH ×2 (08:55→21:48)
[2019-01-04] MEDS: CHOLECALCIFEROL 1,000 UNIT TABLET PO SCH ×2 (08:57→21:48)
[2019-01-04] MEDS: DICYCLOMINE 20 MG TABLET PO SCH ×3 (08:57→21:55)
[2019-01-04] MEDS: FOLIC ACID 1 MG TABLET PO SCH (08:57)
[2019-01-04] MEDS: POTASSIUM CHLORIDE 20 MEQ TABLET PO PRN ×4 (08:57→15:06)
[2019-01-04] MEDS: COLESTIPOL 1 GM TABLET PO SCH ×2 (08:58→21:49)
[2019-01-04] MEDS: OXYBUTYNIN XL 15 MG TABLET PO SCH (08:58)
[2019-01-04] MEDS: ASPIRIN EC 81 MG TABLET PO SCH (08:59)
[2019-01-04] MEDS: oxyCODONE/ACETAMINOPHEN 5-325 MG TABLET PO PRN (09:00)
[2019-01-04] MEDS ORDERED: COLESTIPOL 1 GM TABLET PO SCH (09:00)
[2019-01-04] MEDS ORDERED: METOPROLOL TARTRATE 50 MG TABLET PO SCH ×2 (09:00→21:18)
[2019-01-04] MEDS: GABAPENTIN 400 MG CAPSULE PO SCH ×3 (09:01→21:49)
[2019-01-04] MEDS: MULTIVITAMIN (CENTRUM) TABLET PO SCH (09:01)
[2019-01-04] MEDS: CALCIUM (CARBONATE)/VITAMIN D 600 MG-400 UNIT TABLET PO SCH ×2 (09:01→21:53)
[2019-01-04] MEDS: DULoxetine 30 MG CAPSULE PO SCH ×2 (09:01→21:53)
[2019-01-04] MEDS: predniSONE 5 MG TABLET PO SCH (09:01)
[2019-01-04] MEDS: levETIRAcetam 500 MG TABLET PO SCH ×2 (09:02→21:49)
[2019-01-04] MEDS: WHITE PETROLATUM 30 GM TUBE TOP SCH ×2 (09:02→21:53)
[2019-01-04] MEDS: ACETAMINOPHEN 500 MG TABLET PO SCH ×3 (09:02→21:52)
[2019-01-04] MEDS: TRIAMCINOLONE 0.1% CREAM 15 GM TUBE TOP SCH ×2 (09:02→21:53)
[2019-01-04] MEDS: NEOMYCIN/POLYMYXIN/HC OTIC SOLN 10 ML BOTTLE LEFT EAR SCH ×4 (10:04→21:53)
[2019-01-04] MEDS: TERAZOSIN 1 MG CAPSULE PO SCH (21:49)
[2019-01-04] MEDS: SIMVASTATIN 10 MG TABLET PO SCH (21:50)
[2019-01-04] MEDS: OXYBUTYNIN XL 5 MG TABLET PO SCH (21:52)
[2019-01-04] MEDS: ENOXAPARIN 40 MG/0.4 ML SYRINGE SUBCUT SCH (21:53)
[2019-01-04] MEDS: BISOPROLOL 5 MG TABLET PO SCH (21:57)
[2019-01-05] MEDS: oxyCODONE/ACETAMINOPHEN 5-325 MG TABLET PO PRN ×2 (00:34→13:12)
[2019-01-05] MEDS: SODIUM CHLORIDE 0.9% 1,000 ML IV SCH ×2 (03:30→17:04)
[2019-01-05] MEDS: PANTOPRAZOLE 40 MG TABLET PO SCH ×3 (06:17→20:43)
[2019-01-05] MEDS: BISOPROLOL 5 MG TABLET PO SCH ×2 (09:10→20:44)
[2019-01-05] MEDS: CALCIUM (CARBONATE)/VITAMIN D 600 MG-400 UNIT TABLET PO SCH ×2 (09:12→20:44)
[2019-01-05] MEDS: FOLIC ACID 1 MG TABLET PO SCH (09:13)
[2019-01-05] MEDS: SPIRONOLACTONE 25 MG TABLET PO SCH ×2 (09:13→20:42)
[2019-01-05] MEDS: levETIRAcetam 500 MG TABLET PO SCH ×2 (09:13→20:43)
[2019-01-05] MEDS: CHOLECALCIFEROL 1,000 UNIT TABLET PO SCH ×2 (09:13→20:44)
[2019-01-05] MEDS: predniSONE 5 MG TABLET PO SCH (09:14)
[2019-01-05] MEDS: ACETAMINOPHEN 500 MG TABLET PO SCH ×3 (09:14→20:43)
[2019-01-05] MEDS: COLESTIPOL 1 GM TABLET PO SCH ×2 (09:14→20:44)
[2019-01-05] MEDS: MULTIVITAMIN (CENTRUM) TABLET PO SCH (09:14)
[2019-01-05] MEDS: MAGNESIUM CHLORIDE 64 MG TABLET PO SCH ×2 (09:16→20:43)
[2019-01-05] MEDS: DULoxetine 30 MG CAPSULE PO SCH ×2 (09:16→20:43)
[2019-01-05] MEDS: GABAPENTIN 400 MG CAPSULE PO SCH ×3 (09:16→20:43)
[2019-01-05] MEDS: ASPIRIN EC 81 MG TABLET PO SCH (09:16)
[2019-01-05] MEDS: NEOMYCIN/POLYMYXIN/HC OTIC SOLN 10 ML BOTTLE LEFT EAR SCH ×4 (09:17→20:50)
[2019-01-05] MEDS: TRIAMCINOLONE 0.1% CREAM 15 GM TUBE TOP SCH ×2 (09:19→20:50)
[2019-01-05] MEDS: POLYETHYLENE GLYCOL POWDER 17 GM PACK PO PRN (09:29)
[2019-01-05] MEDS: OXYBUTYNIN XL 15 MG TABLET PO SCH (09:30)
[2019-01-05] MEDS: WHITE PETROLATUM 30 GM TUBE TOP SCH ×2 (09:32→20:50)
[2019-01-05] MEDS: DICYCLOMINE 20 MG TABLET PO SCH ×3 (09:33→20:45)
[2019-01-05] MEDS: OXYBUTYNIN XL 5 MG TABLET PO SCH (20:43)
[2019-01-05] MEDS: TERAZOSIN 1 MG CAPSULE PO SCH (20:44)
[2019-01-05] MEDS: SIMVASTATIN 10 MG TABLET PO SCH (20:45)
[2019-01-05] MEDS: ENOXAPARIN 40 MG/0.4 ML SYRINGE SUBCUT SCH (20:48)
[2019-01-06] MEDS: oxyCODONE/ACETAMINOPHEN 5-325 MG TABLET PO PRN ×2 (01:39→16:52)
[2019-01-06 05:00] LABS: Calcium 9.3 MG/DL (8.5-10.1); Osmolality,Calculated 277.4 MOS/KG (273-304); Potassium 4.1 MMOL/L (3.5-5.1)
[2019-01-06] MEDS: PANTOPRAZOLE 40 MG TABLET PO SCH ×3 (05:50→20:56)
[2019-01-06] MEDS: SODIUM CHLORIDE 0.9% 1,000 ML IV SCH ×2 (08:24→21:01)
[2019-01-06] MEDS: CHOLECALCIFEROL 1,000 UNIT TABLET PO SCH ×2 (08:25→20:55)
[2019-01-06] MEDS: COLESTIPOL 1 GM TABLET PO SCH ×2 (08:25→20:56)
[2019-01-06] MEDS: OXYBUTYNIN XL 15 MG TABLET PO SCH (08:25)
[2019-01-06] MEDS: DULoxetine 30 MG CAPSULE PO SCH ×2 (08:25→20:55)
[2019-01-06] MEDS: BISOPROLOL 5 MG TABLET PO SCH ×2 (08:25→20:55)
[2019-01-06] MEDS: MAGNESIUM CHLORIDE 64 MG TABLET PO SCH ×2 (08:25→20:55)
[2019-01-06] MEDS: levETIRAcetam 500 MG TABLET PO SCH ×2 (08:26→20:54)
[2019-01-06] MEDS: FOLIC ACID 1 MG TABLET PO SCH (08:26)
[2019-01-06] MEDS: predniSONE 5 MG TABLET PO SCH (08:26)
[2019-01-06] MEDS: CALCIUM (CARBONATE)/VITAMIN D 600 MG-400 UNIT TABLET PO SCH ×2 (08:26→20:56)
[2019-01-06] MEDS: GABAPENTIN 400 MG CAPSULE PO SCH ×3 (08:26→20:56)
[2019-01-06] MEDS: ACETAMINOPHEN 500 MG TABLET PO SCH ×3 (08:26→20:54)
[2019-01-06] MEDS: MULTIVITAMIN (CENTRUM) TABLET PO SCH (08:26)
[2019-01-06] MEDS: SPIRONOLACTONE 25 MG TABLET PO SCH ×2 (08:27→20:57)
[2019-01-06] MEDS: WHITE PETROLATUM 30 GM TUBE TOP SCH ×2 (08:27→20:58)
[2019-01-06] MEDS: ASPIRIN EC 81 MG TABLET PO SCH (08:27)
[2019-01-06] MEDS: NEOMYCIN/POLYMYXIN/HC OTIC SOLN 10 ML BOTTLE LEFT EAR SCH ×4 (08:27→20:57)
[2019-01-06] MEDS: TRIAMCINOLONE 0.1% CREAM 15 GM TUBE TOP SCH ×2 (08:32→20:57)
[2019-01-06] MEDS: DICYCLOMINE 20 MG TABLET PO SCH ×3 (08:36→20:58)
[2019-01-06] MEDS ORDERED: KETOROLAC 30 MG/1 ML VIAL IV ONE (09:52)
[2019-01-06] MEDS: POLYETHYLENE GLYCOL POWDER 17 GM PACK PO PRN (13:28)
[2019-01-06] MEDS: ENOXAPARIN 40 MG/0.4 ML SYRINGE SUBCUT SCH (20:54)
[2019-01-06] MEDS: TERAZOSIN 1 MG CAPSULE PO SCH (20:56)
[2019-01-06] MEDS: SIMVASTATIN 10 MG TABLET PO SCH (20:56)
[2019-01-06] MEDS: OXYBUTYNIN XL 5 MG TABLET PO SCH (20:57)
[2019-01-07] MEDS: oxyCODONE/ACETAMINOPHEN 5-325 MG TABLET PO PRN (02:21)
[2019-01-07] MEDS: PANTOPRAZOLE 40 MG TABLET PO SCH ×2 (05:48→19:46)
[2019-01-07] MEDS: CALCIUM (CARBONATE)/VITAMIN D 600 MG-400 UNIT TABLET PO SCH ×2 (08:43→21:57)
[2019-01-07] MEDS: GABAPENTIN 400 MG CAPSULE PO SCH ×3 (08:43→22:00)
[2019-01-07] MEDS: DULoxetine 30 MG CAPSULE PO SCH ×2 (08:43→21:58)
[2019-01-07] MEDS: FOLIC ACID 1 MG TABLET PO SCH (08:43)
[2019-01-07] MEDS: COLESTIPOL 1 GM TABLET PO SCH (08:43)
[2019-01-07] MEDS: CHOLECALCIFEROL 1,000 UNIT TABLET PO SCH ×2 (08:44→22:01)
[2019-01-07] MEDS: MULTIVITAMIN (CENTRUM) TABLET PO SCH (08:44)
[2019-01-07] MEDS: MAGNESIUM CHLORIDE 64 MG TABLET PO SCH ×2 (08:44→22:00)
[2019-01-07] MEDS: BISOPROLOL 5 MG TABLET PO SCH ×2 (08:45→11:04)
[2019-01-07] MEDS: ACETAMINOPHEN 500 MG TABLET PO SCH ×3 (08:45→22:00)
[2019-01-07] MEDS: OXYBUTYNIN XL 15 MG TABLET PO SCH (08:46)
[2019-01-07] MEDS: levETIRAcetam 500 MG TABLET PO SCH ×2 (08:47→21:59)
[2019-01-07] MEDS: SPIRONOLACTONE 25 MG TABLET PO SCH (08:47)
[2019-01-07] MEDS: DICYCLOMINE 20 MG TABLET PO SCH ×2 (08:48→14:53)
[2019-01-07] MEDS: ASPIRIN EC 81 MG TABLET PO SCH (08:48)
[2019-01-07] MEDS: TRIAMCINOLONE 0.1% CREAM 15 GM TUBE TOP SCH ×2 (08:51→21:59)
[2019-01-07] MEDS: WHITE PETROLATUM 30 GM TUBE TOP SCH ×2 (08:51→21:59)
[2019-01-07] MEDS: NEOMYCIN/POLYMYXIN/HC OTIC SOLN 10 ML BOTTLE LEFT EAR SCH ×4 (08:51→21:58)
[2019-01-07] MEDS: METOPROLOL TARTRATE 5 MG/5 ML VIAL IV PRN (08:56)
[2019-01-07] MEDS ORDERED: VERAPAMIL 120 MG TABLET PO SCH (09:02)
[2019-01-07] MEDS: POLYETHYLENE GLYCOL POWDER 17 GM PACK PO PRN (09:43)
[2019-01-07] MEDS: predniSONE 5 MG TABLET PO SCH (09:48)
[2019-01-07] MEDS ORDERED: BISACODYL 10 MG SUPP RECTAL ONE (10:13)
[2019-01-07] MEDS ORDERED: COLESTIPOL 1 GM TABLET PO PRN (13:39)
[2019-01-07] MEDS: SODIUM CHLORIDE 0.9% 1,000 ML IV SCH (17:08)
[2019-01-07] MEDS: TERAZOSIN 1 MG CAPSULE PO SCH (21:58)
[2019-01-07] MEDS: OXYBUTYNIN XL 5 MG TABLET PO SCH (21:58)
[2019-01-07] MEDS: ENOXAPARIN 40 MG/0.4 ML SYRINGE SUBCUT SCH (22:00)
[2019-01-07] MEDS: SIMVASTATIN 10 MG TABLET PO SCH (22:02)
[2019-01-07] MEDS ORDERED: SODIUM CHLORIDE 0.9% 500 ML IV ONE (23:47)
[2019-01-07] MEDS ORDERED: MORPHINE 4 MG/1 ML VIAL IV ONE (23:48)
[2019-01-08 00:46] LABS: Troponin I 0.016 NG/ML (0.00-0.045)
[2019-01-08] MEDS: BISOPROLOL 5 MG TABLET PO SCH ×2 (04:49→08:48)
[2019-01-08] MEDS: SPIRONOLACTONE 25 MG TABLET PO SCH ×3 (04:49→22:48)
[2019-01-08] MEDS: DICYCLOMINE 20 MG TABLET PO SCH ×4 (04:49→22:29)
[2019-01-08] MEDS: SODIUM CHLORIDE 0.9% 1,000 ML IV SCH ×2 (04:50→09:41)
[2019-01-08 05:39] LABS: Basophils % 0.5 % (0.0-0.8); Eosinophils % 0.5 % (0.00-10.9); Hemoglobin 10.2 GM/DL (12.0-16.0); Immature Granulocytes % 2.4 %; Immature Granulocytes Absolute 0.13 #; Lymphocytes # 1.3 10*3/uL (1.4-4.0); Lymphocytes % 23.2 % (21.3-54.2); Mean Corpuscular HGB Conc 30.9 GM/DL (32-36); Mean Corpuscular Hemoglobin 32 PG (27-34); Mean Corpuscular Volume 103.8 FL (87-102); Mean Platelet Volume 8.7 FL (9.6-12.0); Monocytes # 0.7 10*3/uL (0.11-0.8); Monocytes % 12.2 % (1.7-12.7); Neutrophils # 3.4 10*3/uL (1.4-7.4); Neutrophils % 61.2 % (38.7-73.9); Platelet Count 270 T/CUMM (130-400); Red Blood Count 3.18 MC/CUMM (3.8-5.5); Red Cell Distribution Width 14.1 % (9.3-17.3); White Blood Count 5.5 T/CUMM (4-12)
[2019-01-08 05:51] LABS: Calcium 8.9 MG/DL (8.5-10.1); Osmolality,Calculated 283.8 MOS/KG (273-304); Potassium 3.7 MMOL/L (3.5-5.1)
[2019-01-08] MEDS: PANTOPRAZOLE 40 MG TABLET PO SCH ×2 (07:14→19:28)
[2019-01-08] MEDS: CHOLECALCIFEROL 1,000 UNIT TABLET PO SCH ×2 (08:47→22:37)
[2019-01-08] MEDS: FOLIC ACID 1 MG TABLET PO SCH (08:47)
[2019-01-08] MEDS: DULoxetine 30 MG CAPSULE PO SCH ×2 (08:47→22:30)
[2019-01-08] MEDS: MAGNESIUM CHLORIDE 64 MG TABLET PO SCH ×2 (08:47→22:33)
[2019-01-08] MEDS: CALCIUM (CARBONATE)/VITAMIN D 600 MG-400 UNIT TABLET PO SCH ×2 (08:47→22:29)
[2019-01-08] MEDS: OXYBUTYNIN XL 15 MG TABLET PO SCH (08:48)
[2019-01-08] MEDS: MULTIVITAMIN (CENTRUM) TABLET PO SCH (08:49)
[2019-01-08] MEDS: predniSONE 5 MG TABLET PO SCH (08:49)
[2019-01-08] MEDS: ASPIRIN EC 81 MG TABLET PO SCH (08:49)
[2019-01-08] MEDS: GABAPENTIN 400 MG CAPSULE PO SCH ×3 (08:49→22:32)
[2019-01-08] MEDS: levETIRAcetam 500 MG TABLET PO SCH ×2 (08:49→22:31)
[2019-01-08] MEDS: oxyCODONE/ACETAMINOPHEN 5-325 MG TABLET PO PRN ×2 (08:50→22:34)
[2019-01-08] MEDS: NEOMYCIN/POLYMYXIN/HC OTIC SOLN 10 ML BOTTLE LEFT EAR SCH ×4 (08:51→22:30)
[2019-01-08] MEDS: TRIAMCINOLONE 0.1% CREAM 15 GM TUBE TOP SCH ×2 (08:51→22:31)
[2019-01-08] MEDS: WHITE PETROLATUM 30 GM TUBE TOP SCH ×2 (08:51→22:34)
[2019-01-08] MEDS: ACETAMINOPHEN 500 MG TABLET PO SCH ×3 (08:52→22:33)
[2019-01-08] MEDS: POLYETHYLENE GLYCOL POWDER 17 GM PACK PO PRN (09:44)
[2019-01-08] MEDS: PROPRANOLOL 20 MG TABLET PO SCH (18:13)
[2019-01-08] MEDS: OXYBUTYNIN XL 5 MG TABLET PO SCH (22:31)
[2019-01-08] MEDS: TERAZOSIN 1 MG CAPSULE PO SCH (22:31)
[2019-01-08] MEDS: ENOXAPARIN 40 MG/0.4 ML SYRINGE SUBCUT SCH (22:32)
[2019-01-08] MEDS: SIMVASTATIN 10 MG TABLET PO SCH (22:34)
[2019-01-09] MEDS: PROPRANOLOL 20 MG TABLET PO SCH ×3 (00:50→12:12)
[2019-01-09] MEDS: SODIUM CHLORIDE 0.9% 1,000 ML IV SCH (03:00)
[2019-01-09 04:28] LABS: Basophils % 0.4 % (0.0-0.8); Eosinophils % 0.7 % (0.00-10.9); Hematocrit 31.9 VOL% (35.7-47.0); Hemoglobin 9.9 GM/DL (12.0-16.0); Immature Granulocytes % 2.2 %; Immature Granulocytes Absolute 0.12 #; Lymphocytes # 1.2 10*3/uL (1.4-4.0); Lymphocytes % 21.1 % (21.3-54.2); Mean Corpuscular Hemoglobin 32 PG (27-34); Mean Corpuscular Volume 103.6 FL (87-102); Mean Platelet Volume 8.4 FL (9.6-12.0); Monocytes # 0.6 10*3/uL (0.11-0.8); Monocytes % 11.5 % (1.7-12.7); Neutrophils # 3.6 10*3/uL (1.4-7.4); Neutrophils % 64.1 % (38.7-73.9); Platelet Count 262 T/CUMM (130-400); Red Blood Count 3.08 MC/CUMM (3.8-5.5); Red Cell Distribution Width 13.7 % (9.3-17.3); White Blood Count 5.6 T/CUMM (4-12)
[2019-01-09 04:53] LABS: Calcium 8.7 MG/DL (8.5-10.1); Potassium 3.7 MMOL/L (3.5-5.1)
[2019-01-09] MEDS: PANTOPRAZOLE 40 MG TABLET PO SCH (06:30)
[2019-01-09 08:20] VITALS: BP 113/73
[2019-01-09] MEDS: FOLIC ACID 1 MG TABLET PO SCH (09:23)
[2019-01-09] MEDS: DULoxetine 30 MG CAPSULE PO SCH (09:23)
[2019-01-09] MEDS: CHOLECALCIFEROL 1,000 UNIT TABLET PO SCH (09:24)
[2019-01-09] MEDS: levETIRAcetam 500 MG TABLET PO SCH (09:25)
[2019-01-09] MEDS: ACETAMINOPHEN 500 MG TABLET PO SCH (09:25)
[2019-01-09] MEDS: MAGNESIUM CHLORIDE 64 MG TABLET PO SCH (09:25)
[2019-01-09] MEDS: GABAPENTIN 400 MG CAPSULE PO SCH (09:26)
[2019-01-09] MEDS: ASPIRIN EC 81 MG TABLET PO SCH (09:26)
[2019-01-09] MEDS: SPIRONOLACTONE 25 MG TABLET PO SCH (09:26)
[2019-01-09] MEDS: MULTIVITAMIN (CENTRUM) TABLET PO SCH (09:26)
[2019-01-09] MEDS: predniSONE 5 MG TABLET PO SCH (09:26)
[2019-01-09] MEDS: WHITE PETROLATUM 30 GM TUBE TOP SCH (09:27)
[2019-01-09] MEDS: NEOMYCIN/POLYMYXIN/HC OTIC SOLN 10 ML BOTTLE LEFT EAR SCH (09:28)
[2019-01-09] MEDS: OXYBUTYNIN XL 15 MG TABLET PO SCH (09:33)
[2019-01-09] MEDS: TRIAMCINOLONE 0.1% CREAM 15 GM TUBE TOP SCH (09:33)
[2019-01-09] MEDS: CALCIUM (CARBONATE)/VITAMIN D 600 MG-400 UNIT TABLET PO SCH (09:33)
[2019-01-09] MEDS: DICYCLOMINE 20 MG TABLET PO SCH (09:33)
== END 2019-01-09 12:15 | DRG 309 ==
LOC: EDBD → EDUNIT# → N.EDINP 11:24 → N.ED 11:24 → N.TELEN 18:01
PROVIDERS: ADMIT Internal Medicine; ATTEND Internal Medicine

== ENCOUNTER 2019-03-20 19:47 | Inpatient (IN) ==
[2019-03-20] MEDS ORDERED: SODIUM CHLORIDE 0.9% 500 ML IV STA (20:16)
[2019-03-20] MEDS ORDERED: ONDANSETRON 4 MG/2 ML VIAL IV STA (20:16)
[2019-03-20 20:34] LABS: PT Patient Result 11.2 SECS
[2019-03-20 20:49] LABS: Alanine Aminotransferase 34 U/L (13-56); Albumin 3.4 G/DL (3.4-5.0); Alkaline Phosphatase 74 U/L (45-117); Aspartate Amino Transferase 29 U/L (0-37); Blood Urea Nitrogen 17 MG/DL (7-18); Calcium 8.9 MG/DL (8.5-10.1); Glucose 126 MG/DL (74-106); Total Protein 6.4 G/DL (6.4-8.3); Troponin I < 0.015 NG/ML (0.00-0.045)
[2019-03-20 21:18] LABS: Basophils % 0.3 % (0.0-0.8); Eosinophils % 0.3 % (0.00-10.9); Hematocrit 44.2 VOL% (35.7-47.0); Hemoglobin 13.7 GM/DL (12.0-16.0); Immature Granulocytes % 0.8 %; Immature Granulocytes Absolute 0.06 #; Lymphocytes # 0.6 10*3/uL (1.4-4.0); Lymphocytes % 8.3 % (21.3-54.2); Mean Corpuscular Volume 101.4 FL (87-102); Mean Platelet Volume 9.2 FL (9.6-12.0); Monocytes % 4.5 % (1.7-12.7); Neutrophils % 85.8 % (38.7-73.9); Platelet Count 144 T/CUMM (130-400); Red Blood Count 4.36 MC/CUMM (3.8-5.5); Red Cell Distribution Width 14.8 % (9.3-17.3); White Blood Count 7.8 T/CUMM (4-12)
[2019-03-20 22:17] LABS: Apearance,Urine CLEAR (Clear); Bacteria,Urine Few /HPF (Few); Bilirubin,Urine Negative (Negative); Blood, Urine Negative (Negative); Glucose,Urine (UA) Negative (Negative); Hyaline Casts,Urine 1 /LPF (0-3); Ketones,Urine Negative (Negative); Mucus,Urine Occasional /LPF (Occasional); Nitrite,Urine Positive (Negative); Protein,Urine Negative; Urine Color Yellow (Yellow); Urine Urobilinogen < 2.0 EU/DL (0.2-1.0); WBC,Urine 4 /HPF (0-6)
[2019-03-20] MEDS ORDERED: cefTRIAXone 1,000 MG in SODIUM CHLORIDE 0.9% 100 ML IV STA (22:27)
[2019-03-21] MEDS ORDERED: MORPHINE 4 MG/1 ML VIAL IV PRN (01:23)
[2019-03-21] MEDS ORDERED: LACTULOSE 20 GM/30 ML UDCUP PO PRN (01:23)
[2019-03-21] MEDS: SODIUM CHLORIDE 0.9% 1,000 ML IV SCH ×3 (02:10→18:10)
[2019-03-21] MEDS: ONDANSETRON 4 MG/2 ML VIAL IV PRN (02:28)
[2019-03-21 06:03] LABS: Basophils % 0.3 % (0.0-0.8); Eosinophils % 0.4 % (0.00-10.9); Hematocrit 39.8 VOL% (35.7-47.0); Hemoglobin 12.5 GM/DL (12.0-16.0); Immature Granulocytes Absolute 0.21 #; Lymphocytes # 0.8 10*3/uL (1.4-4.0); Lymphocytes % 7.9 % (21.3-54.2); Mean Corpuscular HGB Conc 31.4 GM/DL (32-36); Mean Corpuscular Volume 100.3 FL (87-102); Mean Platelet Volume 8.6 FL (9.6-12.0); Neutrophils % 83.4 % (38.7-73.9); Platelet Count 183 T/CUMM (130-400); Red Blood Count 3.97 MC/CUMM (3.8-5.5); White Blood Count 10.4 T/CUMM (4-12)
[2019-03-21 07:03] LABS: Albumin 2.9 G/DL (3.4-5.0); Bilirubin,Total 0.4 MG/DL (0.2-1.0); Calcium 8.7 MG/DL (8.5-10.1); Osmolality,Calculated 276.7 MOS/KG (273-304); Total Protein 5.8 G/DL (6.4-8.3)
[2019-03-21] MEDS ORDERED: IPRATROPIUM 500 MCG/2.5 ML NEB RESP TX PRN (07:54)
[2019-03-21] MEDS ORDERED: TOCILIZUMAB 162 MG SUBCUT SCH (08:00)
[2019-03-21] MEDS ORDERED: ONDANSETRON ODT 4 MG TABLET PO PRN (08:25)
[2019-03-21] MEDS ORDERED: PANTOPRAZOLE 40 MG TABLET PO SCH ×2 (09:00→20:00)
[2019-03-21] MEDS ORDERED: LEFLUNOMIDE 20 MG PO SCH (09:00)
[2019-03-21] MEDS ORDERED: OXYBUTYNIN XL 15 MG TABLET PO SCH (09:00)
[2019-03-21] MEDS: GABAPENTIN 100 MG CAPSULE PO SCH ×3 (09:07→20:20)
[2019-03-21] MEDS: DULoxetine 30 MG CAPSULE PO SCH ×2 (09:08→20:19)
[2019-03-21] MEDS: FOLIC ACID 1 MG TABLET PO SCH (09:09)
[2019-03-21] MEDS: MULTIVITAMIN (CENTRUM) TABLET PO SCH (09:09)
[2019-03-21] MEDS: DOCUSATE SODIUM 100 MG CAPSULE PO SCH ×2 (09:09→20:19)
[2019-03-21] MEDS: MAGNESIUM CHLORIDE 64 MG TABLET PO SCH ×2 (09:09→20:20)
[2019-03-21] MEDS: CHOLECALCIFEROL 1,000 UNIT TABLET PO SCH ×2 (09:09→20:20)
[2019-03-21] MEDS: CALCIUM (CARBONATE)/VITAMIN D 600 MG-400 UNIT TABLET PO SCH ×2 (09:10→20:19)
[2019-03-21] MEDS: TOPIRAMATE 200 MG TABLET PO SCH ×2 (09:10→20:20)
[2019-03-21] MEDS: levETIRAcetam 250 MG TABLET PO SCH ×2 (09:10→20:20)
[2019-03-21] MEDS: SPIRONOLACTONE 25 MG TABLET PO SCH ×2 (09:11→20:19)
[2019-03-21] MEDS: ACETAMINOPHEN 500 MG TABLET PO SCH ×3 (09:11→20:20)
[2019-03-21] MEDS: DICYCLOMINE 20 MG TABLET PO SCH ×3 (09:11→20:19)
[2019-03-21] MEDS: FLUTICASONE 50 MCG NASAL SPRAY 16 GM BOTTLE BOTH NARES SCH (09:12)
[2019-03-21] MEDS: POLYETHYLENE GLYCOL POWDER 17 GM PACK PO SCH (09:12)
[2019-03-21] MEDS: LORATADINE 10 MG TABLET PO SCH (09:12)
[2019-03-21] MEDS: predniSONE 10 MG TABLET PO SCH ×2 (09:12→20:20)
[2019-03-21] MEDS: POTASSIUM CHLORIDE 20 MEQ TABLET PO PRN (09:15)
[2019-03-21] MEDS: FAMOTIDINE 20 MG TABLET PO SCH (09:35)
[2019-03-21] MEDS: WHITE PETROLATUM 30 GM TUBE TOP SCH ×2 (09:35→20:20)
[2019-03-21] MEDS: TRIAMCINOLONE 0.1% CREAM 15 GM TUBE TOP SCH ×2 (09:35→20:20)
[2019-03-21] MEDS: PROPRANOLOL 10 MG TABLET PO SCH ×2 (12:38→18:10)
[2019-03-21] MEDS: OXYBUTYNIN 5 MG TABLET PO SCH ×2 (14:38→20:20)
[2019-03-21] MEDS ORDERED: SODIUM CHLORIDE 0.9% 250 ML IV ONE (17:08)
[2019-03-21] MEDS: methylPREDNISolone SOD SUC 40 MG/1 ML VIAL IV SCH (17:47)
[2019-03-21] MEDS: cefTRIAXone 1,000 MG in SYRINGE 1 EACH IV SCH (20:17)
[2019-03-21] MEDS: SIMVASTATIN 10 MG TABLET PO SCH (20:21)
[2019-03-21] MEDS ORDERED: OXYBUTYNIN XL 5 MG TABLET PO SCH (21:00)
[2019-03-22] MEDS: PROPRANOLOL 10 MG TABLET PO SCH ×4 (01:03→17:26)
[2019-03-22] MEDS: methylPREDNISolone SOD SUC 40 MG/1 ML VIAL IV SCH ×2 (01:18→09:38)
[2019-03-22] MEDS: SODIUM CHLORIDE 0.9% 1,000 ML IV SCH ×2 (02:10→09:33)
[2019-03-22 04:53] LABS: Basophils # 0.1 10*3/uL (0.0-0.2); Basophils % 0.4 % (0.0-0.8); Hematocrit 35.7 VOL% (35.7-47.0); Hemoglobin 11.2 GM/DL (12.0-16.0); Immature Granulocytes % 1.6 %; Immature Granulocytes Absolute 0.21 #; Lymphocytes # 0.3 10*3/uL (1.4-4.0); Lymphocytes % 2.4 % (21.3-54.2); Mean Corpuscular HGB Conc 31.4 GM/DL (32-36); Mean Corpuscular Volume 100.8 FL (87-102); Mean Platelet Volume 8.4 FL (9.6-12.0); Monocytes % 2.3 % (1.7-12.7); Neutrophils % 93.3 % (38.7-73.9); Platelet Count 165 T/CUMM (130-400); Red Blood Count 3.54 MC/CUMM (3.8-5.5); Red Cell Distribution Width 14.9 % (9.3-17.3); White Blood Count 13.2 T/CUMM (4-12)
[2019-03-22 05:23] LABS: Calcium 8.8 MG/DL (8.5-10.1); Osmolality,Calculated 287.8 MOS/KG (273-304)
[2019-03-22 05:51] LABS: Band Neutrophils 5 % (0-10); Lymphocytes 1 % (20-55); Platelet Estimate Adequate; Segmented Neutrophils 92 % (50-85); Total Cells Counted 100
[2019-03-22 05:52] LABS: Polychromasia Few
[2019-03-22] MEDS: TRIAMCINOLONE 0.1% CREAM 15 GM TUBE TOP SCH ×2 (09:33→23:00)
[2019-03-22] MEDS: FLUTICASONE 50 MCG NASAL SPRAY 16 GM BOTTLE BOTH NARES SCH (09:33)
[2019-03-22] MEDS: WHITE PETROLATUM 30 GM TUBE TOP SCH ×2 (09:33→23:00)
[2019-03-22] MEDS: NYSTATIN 500,000 UNIT/5 ML UDCUP SWISH/SWAL SCH ×4 (09:34→22:08)
[2019-03-22] MEDS: levETIRAcetam 250 MG TABLET PO SCH ×2 (09:34→22:09)
[2019-03-22] MEDS: CHOLECALCIFEROL 1,000 UNIT TABLET PO SCH ×2 (09:35→22:08)
[2019-03-22] MEDS: MULTIVITAMIN (CENTRUM) TABLET PO SCH (09:35)
[2019-03-22] MEDS: GABAPENTIN 100 MG CAPSULE PO SCH ×3 (09:35→22:09)
[2019-03-22] MEDS: MAGNESIUM CHLORIDE 64 MG TABLET PO SCH ×2 (09:36→22:10)
[2019-03-22] MEDS: TOPIRAMATE 200 MG TABLET PO SCH ×2 (09:36→22:10)
[2019-03-22] MEDS: SPIRONOLACTONE 25 MG TABLET PO SCH ×2 (09:36→22:09)
[2019-03-22] MEDS: FAMOTIDINE 20 MG TABLET PO SCH (09:36)
[2019-03-22] MEDS: CALCIUM (CARBONATE)/VITAMIN D 600 MG-400 UNIT TABLET PO SCH ×2 (09:36→22:08)
[2019-03-22] MEDS: FOLIC ACID 1 MG TABLET PO SCH (09:36)
[2019-03-22] MEDS: DULoxetine 30 MG CAPSULE PO SCH ×2 (09:36→22:08)
[2019-03-22] MEDS: LORATADINE 10 MG TABLET PO SCH (09:37)
[2019-03-22] MEDS: DICYCLOMINE 20 MG TABLET PO SCH ×3 (09:37→22:09)
[2019-03-22] MEDS: predniSONE 10 MG TABLET PO SCH ×2 (09:37→22:10)
[2019-03-22] MEDS: DOCUSATE SODIUM 100 MG CAPSULE PO SCH ×2 (09:37→22:10)
[2019-03-22] MEDS: OXYBUTYNIN 5 MG TABLET PO SCH ×3 (09:37→22:09)
[2019-03-22] MEDS: ACETAMINOPHEN 500 MG TABLET PO SCH ×3 (09:37→22:10)
[2019-03-22] MEDS: LEVOFLOXACIN INJ 500 MG in PREMIX 1 EACH IV SCH (09:38)
[2019-03-22] MEDS: POLYETHYLENE GLYCOL POWDER 17 GM PACK PO SCH (09:38)
[2019-03-22] MEDS: cefTRIAXone 1,000 MG in SYRINGE 1 EACH IV SCH (22:07)
[2019-03-22] MEDS: SIMVASTATIN 10 MG TABLET PO SCH (22:09)
[2019-03-23] MEDS: PROPRANOLOL 10 MG TABLET PO SCH ×4 (00:55→17:41)
[2019-03-23] MEDS: SODIUM CHLORIDE 0.9% 1,000 ML IV SCH ×2 (00:58→14:51)
[2019-03-23 05:17] LABS: Basophils % 0.2 % (0.0-0.8); Hematocrit 31.5 VOL% (35.7-47.0); Hemoglobin 9.9 GM/DL (12.0-16.0); Immature Granulocytes % 1.2 %; Immature Granulocytes Absolute 0.15 #; Lymphocytes # 0.3 10*3/uL (1.4-4.0); Lymphocytes % 2.5 % (21.3-54.2); Mean Corpuscular HGB Conc 31.4 GM/DL (32-36); Mean Corpuscular Volume 100.3 FL (87-102); Mean Platelet Volume 9.1 FL (9.6-12.0); Monocytes % 5.3 % (1.7-12.7); Neutrophils % 90.8 % (38.7-73.9); Platelet Count 158 T/CUMM (130-400); Red Blood Count 3.14 MC/CUMM (3.8-5.5); White Blood Count 12.8 T/CUMM (4-12)
[2019-03-23 05:46] LABS: Calcium 9.3 MG/DL (8.5-10.1); Osmolality,Calculated 293.4 MOS/KG (273-304)
[2019-03-23 05:59] LABS: Band Neutrophils 6 % (0-10); Lymphocytes 3 % (20-55); Platelet Estimate Adequate; Segmented Neutrophils 85 % (50-85); Total Cells Counted 100
[2019-03-23] MEDS: NYSTATIN 500,000 UNIT/5 ML UDCUP SWISH/SWAL SCH ×4 (08:25→21:25)
[2019-03-23] MEDS: predniSONE 10 MG TABLET PO SCH ×2 (08:26→21:24)
[2019-03-23] MEDS: ACETAMINOPHEN 500 MG TABLET PO SCH ×3 (08:26→21:24)
[2019-03-23] MEDS: SPIRONOLACTONE 25 MG TABLET PO SCH ×2 (08:26→21:24)
[2019-03-23] MEDS: GABAPENTIN 100 MG CAPSULE PO SCH ×3 (08:26→21:23)
[2019-03-23] MEDS: MAGNESIUM CHLORIDE 64 MG TABLET PO SCH ×2 (08:27→21:24)
[2019-03-23] MEDS: CALCIUM (CARBONATE)/VITAMIN D 600 MG-400 UNIT TABLET PO SCH ×2 (08:27→21:24)
[2019-03-23] MEDS: OXYBUTYNIN 5 MG TABLET PO SCH ×3 (08:27→21:24)
[2019-03-23] MEDS: FOLIC ACID 1 MG TABLET PO SCH (08:27)
[2019-03-23] MEDS: DICYCLOMINE 20 MG TABLET PO SCH ×3 (08:27→21:24)
[2019-03-23] MEDS: FAMOTIDINE 20 MG TABLET PO SCH (08:27)
[2019-03-23] MEDS: DOCUSATE SODIUM 100 MG CAPSULE PO SCH ×2 (08:27→21:24)
[2019-03-23] MEDS: levETIRAcetam 250 MG TABLET PO SCH ×2 (08:27→21:24)
[2019-03-23] MEDS: LORATADINE 10 MG TABLET PO SCH (08:27)
[2019-03-23] MEDS: DULoxetine 30 MG CAPSULE PO SCH ×2 (08:27→21:24)
[2019-03-23] MEDS: POLYETHYLENE GLYCOL POWDER 17 GM PACK PO SCH (08:28)
[2019-03-23] MEDS: TRIAMCINOLONE 0.1% CREAM 15 GM TUBE TOP SCH ×2 (08:28→21:25)
[2019-03-23] MEDS: TOPIRAMATE 200 MG TABLET PO SCH ×2 (08:28→21:24)
[2019-03-23] MEDS: MULTIVITAMIN (CENTRUM) TABLET PO SCH (08:28)
[2019-03-23] MEDS: WHITE PETROLATUM 30 GM TUBE TOP SCH ×2 (08:28→21:25)
[2019-03-23] MEDS: FLUTICASONE 50 MCG NASAL SPRAY 16 GM BOTTLE BOTH NARES SCH (08:28)
[2019-03-23] MEDS: CHOLECALCIFEROL 1,000 UNIT TABLET PO SCH ×2 (08:28→21:23)
[2019-03-23] MEDS: LEVOFLOXACIN INJ 500 MG in PREMIX 1 EACH IV SCH (08:29)
[2019-03-23] MEDS ORDERED: ALBUTEROL 2.5 MG/3 ML NEB RESP TX PRN (09:25)
[2019-03-23] MEDS: ALBUTEROL 2.5 MG/3 ML NEB RESP TX SCH ×2 (14:16→19:15)
[2019-03-23] MEDS: SIMVASTATIN 10 MG TABLET PO SCH (21:23)
[2019-03-23] MEDS: cefTRIAXone 1,000 MG in SYRINGE 1 EACH IV SCH (21:25)
[2019-03-24] MEDS: DICYCLOMINE 20 MG TABLET PO SCH ×4 (00:17→21:55)
[2019-03-24] MEDS: CALCIUM (CARBONATE)/VITAMIN D 600 MG-400 UNIT TABLET PO SCH ×3 (00:17→21:54)
[2019-03-24] MEDS: DOCUSATE SODIUM 100 MG CAPSULE PO SCH ×3 (00:17→21:54)
[2019-03-24] MEDS: SPIRONOLACTONE 25 MG TABLET PO SCH ×3 (00:17→21:53)
[2019-03-24] MEDS: MAGNESIUM CHLORIDE 64 MG TABLET PO SCH ×3 (00:18→21:53)
[2019-03-24] MEDS: OXYBUTYNIN 5 MG TABLET PO SCH ×4 (00:18→21:55)
[2019-03-24] MEDS: GABAPENTIN 100 MG CAPSULE PO SCH ×4 (00:18→21:54)
[2019-03-24] MEDS: TOPIRAMATE 200 MG TABLET PO SCH ×3 (00:18→21:55)
[2019-03-24] MEDS: predniSONE 10 MG TABLET PO SCH ×3 (00:18→21:54)
[2019-03-24] MEDS: levETIRAcetam 250 MG TABLET PO SCH ×3 (00:18→21:59)
[2019-03-24] MEDS: DULoxetine 30 MG CAPSULE PO SCH ×3 (00:18→21:54)
[2019-03-24] MEDS: NYSTATIN 500,000 UNIT/5 ML UDCUP SWISH/SWAL SCH ×5 (00:18→21:54)
[2019-03-24] MEDS: ACETAMINOPHEN 500 MG TABLET PO SCH ×4 (00:19→21:55)
[2019-03-24] MEDS: SIMVASTATIN 10 MG TABLET PO SCH ×2 (00:19→21:54)
[2019-03-24] MEDS: CHOLECALCIFEROL 1,000 UNIT TABLET PO SCH ×3 (00:19→21:54)
[2019-03-24] MEDS: PROPRANOLOL 10 MG TABLET PO SCH ×5 (00:20→23:37)
[2019-03-24] MEDS: ALBUTEROL 2.5 MG/3 ML NEB RESP TX SCH ×4 (00:42→19:41)
[2019-03-24] MEDS: SODIUM CHLORIDE 0.9% 1,000 ML IV SCH ×2 (06:24→21:59)
[2019-03-24] MEDS: TRIAMCINOLONE 0.1% CREAM 15 GM TUBE TOP SCH ×2 (09:08→21:56)
[2019-03-24] MEDS: FLUTICASONE 50 MCG NASAL SPRAY 16 GM BOTTLE BOTH NARES SCH (09:08)
[2019-03-24] MEDS: WHITE PETROLATUM 30 GM TUBE TOP SCH ×2 (09:08→21:56)
[2019-03-24] MEDS: POLYETHYLENE GLYCOL POWDER 17 GM PACK PO SCH (09:09)
[2019-03-24] MEDS: FOLIC ACID 1 MG TABLET PO SCH (09:10)
[2019-03-24] MEDS: FAMOTIDINE 20 MG TABLET PO SCH (09:10)
[2019-03-24] MEDS: POTASSIUM CHLORIDE 20 MEQ TABLET PO PRN ×3 (09:10→14:34)
[2019-03-24] MEDS: LORATADINE 10 MG TABLET PO SCH (09:11)
[2019-03-24] MEDS: MULTIVITAMIN (CENTRUM) TABLET PO SCH (09:11)
[2019-03-24] MEDS: LEVOFLOXACIN INJ 500 MG in PREMIX 1 EACH IV SCH (09:12)
[2019-03-24] MEDS: oxyCODONE/ACETAMINOPHEN 5-325 MG TABLET PO PRN (18:29)
[2019-03-24] MEDS: cefTRIAXone 1,000 MG in SYRINGE 1 EACH IV SCH (22:04)
[2019-03-25] MEDS: ALBUTEROL 2.5 MG/3 ML NEB RESP TX SCH ×4 (01:02→19:45)
[2019-03-25] MEDS: LEVOFLOXACIN INJ 500 MG in PREMIX 1 EACH IV SCH (08:23)
[2019-03-25] MEDS: TOPIRAMATE 200 MG TABLET PO SCH ×2 (08:29→21:21)
[2019-03-25] MEDS: CHOLECALCIFEROL 1,000 UNIT TABLET PO SCH ×2 (08:29→21:21)
[2019-03-25] MEDS: MAGNESIUM CHLORIDE 64 MG TABLET PO SCH ×2 (08:29→21:21)
[2019-03-25] MEDS: GABAPENTIN 100 MG CAPSULE PO SCH ×3 (08:30→21:22)
[2019-03-25] MEDS: FOLIC ACID 1 MG TABLET PO SCH (08:30)
[2019-03-25] MEDS: DICYCLOMINE 20 MG TABLET PO SCH ×3 (08:30→21:22)
[2019-03-25] MEDS: LORATADINE 10 MG TABLET PO SCH (08:30)
[2019-03-25] MEDS: FAMOTIDINE 20 MG TABLET PO SCH (08:30)
[2019-03-25] MEDS: SPIRONOLACTONE 25 MG TABLET PO SCH ×2 (08:30→21:22)
[2019-03-25] MEDS: NYSTATIN 500,000 UNIT/5 ML UDCUP SWISH/SWAL SCH ×4 (08:30→21:22)
[2019-03-25] MEDS: COLESTIPOL 1 GM TABLET PO PRN (08:30)
[2019-03-25] MEDS: predniSONE 10 MG TABLET PO SCH ×2 (08:30→21:21)
[2019-03-25] MEDS: POLYETHYLENE GLYCOL POWDER 17 GM PACK PO SCH (08:31)
[2019-03-25] MEDS: CALCIUM (CARBONATE)/VITAMIN D 600 MG-400 UNIT TABLET PO SCH ×2 (08:31→21:21)
[2019-03-25] MEDS: DULoxetine 30 MG CAPSULE PO SCH ×2 (08:31→21:21)
[2019-03-25] MEDS: MULTIVITAMIN (CENTRUM) TABLET PO SCH (08:31)
[2019-03-25] MEDS: OXYBUTYNIN 5 MG TABLET PO SCH ×3 (08:32→21:22)
[2019-03-25] MEDS: TRIAMCINOLONE 0.1% CREAM 15 GM TUBE TOP SCH ×2 (08:32→21:32)
[2019-03-25] MEDS: WHITE PETROLATUM 30 GM TUBE TOP SCH ×2 (08:32→21:32)
[2019-03-25] MEDS: FLUTICASONE 50 MCG NASAL SPRAY 16 GM BOTTLE BOTH NARES SCH (08:32)
[2019-03-25] MEDS: DOCUSATE SODIUM 100 MG CAPSULE PO SCH ×2 (08:32→21:20)
[2019-03-25] MEDS: levETIRAcetam 250 MG TABLET PO SCH ×2 (08:51→21:22)
[2019-03-25] MEDS: ACETAMINOPHEN 500 MG TABLET PO SCH ×3 (08:51→21:22)
[2019-03-25] MEDS: PROPRANOLOL 10 MG TABLET PO SCH ×3 (08:52→17:22)
[2019-03-25 11:45] LABS: Basophils % 0.3 % (0.0-0.8); Eosinophils % 0.7 % (0.00-10.9); Hematocrit 41.2 VOL% (35.7-47.0); Hemoglobin 12.8 GM/DL (12.0-16.0); Immature Granulocytes % 0.8 %; Immature Granulocytes Absolute 0.05 #; Lymphocytes # 0.7 10*3/uL (1.4-4.0); Lymphocytes % 10.7 % (21.3-54.2); Mean Corpuscular HGB Conc 31.1 GM/DL (32-36); Mean Platelet Volume 8.8 FL (9.6-12.0); Monocytes % 11.4 % (1.7-12.7); Neutrophils % 76.1 % (38.7-73.9); Platelet Count 213 T/CUMM (130-400); Red Blood Count 4.08 MC/CUMM (3.8-5.5); Red Cell Distribution Width 14.9 % (9.3-17.3); White Blood Count 6.1 T/CUMM (4-12)
[2019-03-25] MEDS: SODIUM CHLORIDE 0.9% 1,000 ML IV SCH (11:48)
[2019-03-25 12:06] LABS: Calcium 10.5 MG/DL (8.5-10.1); Osmolality,Calculated 279.3 MOS/KG (273-304)
[2019-03-25] MEDS: NEOMYCIN/POLYMYXIN/HC OTIC SOLN 10 ML BOTTLE RIGHT EAR SCH ×2 (14:20→21:32)
[2019-03-25] MEDS: POTASSIUM CHLORIDE 20 MEQ TABLET PO PRN (19:06)
[2019-03-25] MEDS: SIMVASTATIN 10 MG TABLET PO SCH (21:21)
[2019-03-25] MEDS: oxyCODONE/ACETAMINOPHEN 5-325 MG TABLET PO PRN (21:22)
[2019-03-25] MEDS: cefTRIAXone 1,000 MG in SYRINGE 1 EACH IV SCH (21:27)
[2019-03-26] MEDS: PROPRANOLOL 10 MG TABLET PO SCH ×2 (00:09→05:54)
[2019-03-26] MEDS: ALBUTEROL 2.5 MG/3 ML NEB RESP TX SCH ×4 (00:50→19:27)
[2019-03-26 04:43] LABS: Calcium 11.4 MG/DL (8.5-10.1); Osmolality,Calculated 280.4 MOS/KG (273-304)
[2019-03-26 04:49] LABS: Basophils % 0.3 % (0.0-0.8); Eosinophils % 0.4 % (0.00-10.9); Hematocrit 41.9 VOL% (35.7-47.0); Hemoglobin 13.5 GM/DL (12.0-16.0); Immature Granulocytes % 1.5 %; Immature Granulocytes Absolute 0.14 #; Lymphocytes # 0.7 10*3/uL (1.4-4.0); Lymphocytes % 7.3 % (21.3-54.2); Mean Corpuscular HGB Conc 32.2 GM/DL (32-36); Mean Corpuscular Volume 98.6 FL (87-102); Mean Platelet Volume 9.4 FL (9.6-12.0); Monocytes % 9.1 % (1.7-12.7); Neutrophils % 81.4 % (38.7-73.9); Platelet Count 252 T/CUMM (130-400); Red Blood Count 4.25 MC/CUMM (3.8-5.5); Red Cell Distribution Width 14.9 % (9.3-17.3); White Blood Count 9.1 T/CUMM (4-12)
[2019-03-26] MEDS: oxyCODONE/ACETAMINOPHEN 5-325 MG TABLET PO PRN (05:54)
[2019-03-26] MEDS: LEVOFLOXACIN INJ 500 MG in PREMIX 1 EACH IV SCH (09:30)
[2019-03-26] MEDS: DOCUSATE SODIUM 100 MG CAPSULE PO SCH ×2 (09:31→21:39)
[2019-03-26] MEDS: NYSTATIN 500,000 UNIT/5 ML UDCUP SWISH/SWAL SCH ×4 (09:31→21:36)
[2019-03-26] MEDS: POLYETHYLENE GLYCOL POWDER 17 GM PACK PO SCH (09:31)
[2019-03-26] MEDS: FOLIC ACID 1 MG TABLET PO SCH (09:31)
[2019-03-26] MEDS: DULoxetine 30 MG CAPSULE PO SCH ×2 (09:31→21:39)
[2019-03-26] MEDS: levETIRAcetam 250 MG TABLET PO SCH ×2 (09:31→21:40)
[2019-03-26] MEDS: CHOLECALCIFEROL 1,000 UNIT TABLET PO SCH ×2 (09:32→21:37)
[2019-03-26] MEDS: MAGNESIUM CHLORIDE 64 MG TABLET PO SCH ×2 (09:32→21:40)
[2019-03-26] MEDS: DICYCLOMINE 20 MG TABLET PO SCH ×3 (09:32→21:39)
[2019-03-26] MEDS: FAMOTIDINE 20 MG TABLET PO SCH (09:32)
[2019-03-26] MEDS: GABAPENTIN 100 MG CAPSULE PO SCH ×3 (09:32→21:39)
[2019-03-26] MEDS: TOPIRAMATE 200 MG TABLET PO SCH ×2 (09:32→21:40)
[2019-03-26] MEDS: MULTIVITAMIN (CENTRUM) TABLET PO SCH (09:33)
[2019-03-26] MEDS: LORATADINE 10 MG TABLET PO SCH (09:33)
[2019-03-26] MEDS: ASPIRIN EC 81 MG TABLET PO SCH (09:33)
[2019-03-26] MEDS: SPIRONOLACTONE 25 MG TABLET PO SCH ×2 (09:33→21:39)
[2019-03-26] MEDS: predniSONE 10 MG TABLET PO SCH ×2 (09:33→21:40)
[2019-03-26] MEDS: NEOMYCIN/POLYMYXIN/HC OTIC SOLN 10 ML BOTTLE RIGHT EAR SCH ×3 (09:36→21:43)
[2019-03-26] MEDS: TRIAMCINOLONE 0.1% CREAM 15 GM TUBE TOP SCH ×2 (09:36→21:43)
[2019-03-26] MEDS: FLUTICASONE 50 MCG NASAL SPRAY 16 GM BOTTLE BOTH NARES SCH (09:36)
[2019-03-26] MEDS: WHITE PETROLATUM 30 GM TUBE TOP SCH ×2 (09:36→21:43)
[2019-03-26] MEDS: OXYBUTYNIN 5 MG TABLET PO SCH ×3 (09:37→21:39)
[2019-03-26] MEDS: ACETAMINOPHEN 500 MG TABLET PO SCH ×3 (09:50→21:39)
[2019-03-26] MEDS: SODIUM CHLORIDE 0.9% 1,000 ML IV SCH (09:50)
[2019-03-26] MEDS: PROPRANOLOL 40 MG TABLET PO SCH ×3 (14:04→21:37)
[2019-03-26] MEDS: cefTRIAXone 1,000 MG in SYRINGE 1 EACH IV SCH (21:35)
[2019-03-26] MEDS: SIMVASTATIN 10 MG TABLET PO SCH (21:40)
[2019-03-26] MEDS ORDERED: ALUMINUM/MAGNES/SIMETH MAX STR 30 ML UDCUP PO PRN (22:30)
[2019-03-27] MEDS: ALBUTEROL 2.5 MG/3 ML NEB RESP TX SCH ×4 (01:50→19:10)
[2019-03-27 05:13] LABS: Calcium 9.8 MG/DL (8.5-10.1); Osmolality,Calculated 284.3 MOS/KG (273-304)
[2019-03-27] MEDS ORDERED: DEXTROSE 10% 0 ML IV ONE (05:24)
[2019-03-27] MEDS: POLYETHYLENE GLYCOL POWDER 17 GM PACK PO SCH (09:23)
[2019-03-27] MEDS: LEVOFLOXACIN INJ 500 MG in PREMIX 1 EACH IV SCH (09:23)
[2019-03-27] MEDS: FLUTICASONE 50 MCG NASAL SPRAY 16 GM BOTTLE BOTH NARES SCH (09:23)
[2019-03-27] MEDS: SPIRONOLACTONE 25 MG TABLET PO SCH (09:24)
[2019-03-27] MEDS: levETIRAcetam 250 MG TABLET PO SCH (09:25)
[2019-03-27] MEDS: CHOLECALCIFEROL 1,000 UNIT TABLET PO SCH (09:25)
[2019-03-27] MEDS: NYSTATIN 500,000 UNIT/5 ML UDCUP SWISH/SWAL SCH ×3 (09:25→17:12)
[2019-03-27] MEDS: DULoxetine 30 MG CAPSULE PO SCH (09:26)
[2019-03-27] MEDS: predniSONE 10 MG TABLET PO SCH (09:26)
[2019-03-27] MEDS: FOLIC ACID 1 MG TABLET PO SCH (09:26)
[2019-03-27] MEDS: OXYBUTYNIN 5 MG TABLET PO SCH ×2 (09:28→14:20)
[2019-03-27] MEDS: GABAPENTIN 100 MG CAPSULE PO SCH ×2 (09:28→14:20)
[2019-03-27] MEDS: DICYCLOMINE 20 MG TABLET PO SCH ×2 (09:31→14:20)
[2019-03-27] MEDS: PROPRANOLOL 40 MG TABLET PO SCH ×3 (09:31→17:12)
[2019-03-27] MEDS: TOPIRAMATE 200 MG TABLET PO SCH (09:31)
[2019-03-27] MEDS: ASPIRIN EC 81 MG TABLET PO SCH (09:31)
[2019-03-27] MEDS: ACETAMINOPHEN 500 MG TABLET PO SCH ×2 (09:31→14:20)
[2019-03-27] MEDS: MULTIVITAMIN (CENTRUM) TABLET PO SCH (09:31)
[2019-03-27] MEDS: MAGNESIUM CHLORIDE 64 MG TABLET PO SCH (09:31)
[2019-03-27] MEDS: FAMOTIDINE 20 MG TABLET PO SCH (09:32)
[2019-03-27] MEDS: DOCUSATE SODIUM 100 MG CAPSULE PO SCH (09:32)
[2019-03-27] MEDS: LORATADINE 10 MG TABLET PO SCH (09:32)
[2019-03-27] MEDS: WHITE PETROLATUM 30 GM TUBE TOP SCH (09:34)
[2019-03-27] MEDS: NEOMYCIN/POLYMYXIN/HC OTIC SOLN 10 ML BOTTLE RIGHT EAR SCH ×2 (09:34→14:23)
[2019-03-27] MEDS: TRIAMCINOLONE 0.1% CREAM 15 GM TUBE TOP SCH (09:34)
[2019-03-27] MEDS: cefTRIAXone 1,000 MG in SYRINGE 1 EACH IV SCH (23:20)
[2019-03-28] MEDS: ALBUTEROL 2.5 MG/3 ML NEB RESP TX SCH ×4 (01:28→19:03)
[2019-03-28] MEDS: SPIRONOLACTONE 25 MG TABLET PO SCH ×3 (03:38→21:51)
[2019-03-28] MEDS: DICYCLOMINE 20 MG TABLET PO SCH ×4 (03:38→21:51)
[2019-03-28] MEDS: NEOMYCIN/POLYMYXIN/HC OTIC SOLN 10 ML BOTTLE RIGHT EAR SCH ×4 (03:39→22:00)
[2019-03-28] MEDS: OXYBUTYNIN 5 MG TABLET PO SCH ×4 (03:39→21:52)
[2019-03-28] MEDS: DULoxetine 30 MG CAPSULE PO SCH ×3 (03:39→21:52)
[2019-03-28] MEDS: predniSONE 10 MG TABLET PO SCH ×3 (03:39→21:51)
[2019-03-28] MEDS: DOCUSATE SODIUM 100 MG CAPSULE PO SCH ×3 (03:39→21:52)
[2019-03-28] MEDS: levETIRAcetam 250 MG TABLET PO SCH ×3 (03:39→21:51)
[2019-03-28] MEDS: MAGNESIUM CHLORIDE 64 MG TABLET PO SCH ×3 (03:39→21:52)
[2019-03-28] MEDS: NYSTATIN 500,000 UNIT/5 ML UDCUP SWISH/SWAL SCH ×5 (03:39→21:52)
[2019-03-28] MEDS: GABAPENTIN 100 MG CAPSULE PO SCH ×4 (03:39→21:52)
[2019-03-28] MEDS: TRIAMCINOLONE 0.1% CREAM 15 GM TUBE TOP SCH ×3 (03:39→22:09)
[2019-03-28] MEDS: PROPRANOLOL 40 MG TABLET PO SCH ×5 (03:39→21:52)
[2019-03-28] MEDS: CHOLECALCIFEROL 1,000 UNIT TABLET PO SCH ×3 (03:40→21:52)
[2019-03-28] MEDS: TOPIRAMATE 200 MG TABLET PO SCH ×3 (03:40→21:51)
[2019-03-28] MEDS: SIMVASTATIN 10 MG TABLET PO SCH ×2 (03:40→21:51)
[2019-03-28] MEDS: ACETAMINOPHEN 500 MG TABLET PO SCH ×4 (03:40→21:51)
[2019-03-28] MEDS: WHITE PETROLATUM 30 GM TUBE TOP SCH ×3 (03:40→22:09)
[2019-03-28] MEDS: MULTIVITAMIN (CENTRUM) TABLET PO SCH (09:36)
[2019-03-28] MEDS: LORATADINE 10 MG TABLET PO SCH (09:36)
[2019-03-28] MEDS: ASPIRIN EC 81 MG TABLET PO SCH (09:39)
[2019-03-28] MEDS: FOLIC ACID 1 MG TABLET PO SCH (09:39)
[2019-03-28] MEDS: POLYETHYLENE GLYCOL POWDER 17 GM PACK PO SCH (09:40)
[2019-03-28] MEDS: LEVOFLOXACIN INJ 500 MG in PREMIX 1 EACH IV SCH (09:40)
[2019-03-28] MEDS: FAMOTIDINE 20 MG TABLET PO SCH (09:40)
[2019-03-28] MEDS: FLUTICASONE 50 MCG NASAL SPRAY 16 GM BOTTLE BOTH NARES SCH (09:41)
[2019-03-28] MEDS: ONDANSETRON 4 MG/2 ML VIAL IV PRN (11:34)
[2019-03-28] MEDS: SODIUM CHLORIDE 0.9% 1,000 ML IV SCH (14:10)
[2019-03-28 19:06] LABS: Total Protein,Body Fluid 4.6 G/DL
[2019-03-28] MEDS: cefTRIAXone 1,000 MG in SYRINGE 1 EACH IV SCH (21:52)
[2019-03-29] MEDS: ALBUTEROL 2.5 MG/3 ML NEB RESP TX SCH ×4 (00:42→18:48)
[2019-03-29 04:53] LABS: Basophils # 0.1 10*3/uL (0.0-0.2); Basophils % 0.4 % (0.0-0.8); Eosinophils % 0.1 % (0.00-10.9); Hematocrit 39.9 VOL% (35.7-47.0); Hemoglobin 12.4 GM/DL (12.0-16.0); Immature Granulocytes % 1.5 %; Lymphocytes # 0.5 10*3/uL (1.4-4.0); Lymphocytes % 3.7 % (21.3-54.2); Mean Corpuscular HGB Conc 31.1 GM/DL (32-36); Mean Corpuscular Volume 100.8 FL (87-102); Mean Platelet Volume 8.9 FL (9.6-12.0); Monocytes % 2.1 % (1.7-12.7); Neutrophils % 92.2 % (38.7-73.9); Platelet Count 256 T/CUMM (130-400); Red Blood Count 3.96 MC/CUMM (3.8-5.5); Red Cell Distribution Width 15.3 % (9.3-17.3); White Blood Count 13.5 T/CUMM (4-12)
[2019-03-29 05:18] LABS: Band Neutrophils 3 % (0-10); Hypochromasia 1+; Lymphocytes 4 % (20-55); Platelet Estimate Adequate; Segmented Neutrophils 88 % (50-85); Total Cells Counted 100
[2019-03-29 05:27] LABS: Calcium 9.1 MG/DL (8.5-10.1); Osmolality,Calculated 280.4 MOS/KG (273-304)
[2019-03-29] MEDS: MAGNESIUM CHLORIDE 64 MG TABLET PO SCH ×2 (08:22→21:27)
[2019-03-29] MEDS: CHOLECALCIFEROL 1,000 UNIT TABLET PO SCH ×2 (08:23→21:27)
[2019-03-29] MEDS: TOPIRAMATE 200 MG TABLET PO SCH ×2 (08:23→21:27)
[2019-03-29] MEDS: ACETAMINOPHEN 500 MG TABLET PO SCH ×3 (08:24→21:30)
[2019-03-29] MEDS: GABAPENTIN 100 MG CAPSULE PO SCH ×3 (08:24→21:28)
[2019-03-29] MEDS: ASPIRIN EC 81 MG TABLET PO SCH (08:24)
[2019-03-29] MEDS: COLESTIPOL 1 GM TABLET PO PRN (08:24)
[2019-03-29] MEDS: DULoxetine 30 MG CAPSULE PO SCH ×2 (08:24→21:27)
[2019-03-29] MEDS: predniSONE 10 MG TABLET PO SCH ×2 (08:25→21:30)
[2019-03-29] MEDS: LORATADINE 10 MG TABLET PO SCH (08:25)
[2019-03-29] MEDS: SPIRONOLACTONE 25 MG TABLET PO SCH ×2 (08:25→21:30)
[2019-03-29] MEDS: MULTIVITAMIN (CENTRUM) TABLET PO SCH (08:25)
[2019-03-29] MEDS: DOCUSATE SODIUM 100 MG CAPSULE PO SCH (08:25)
[2019-03-29] MEDS: POTASSIUM CHLORIDE 20 MEQ TABLET PO PRN (08:25)
[2019-03-29] MEDS: NYSTATIN 500,000 UNIT/5 ML UDCUP SWISH/SWAL SCH ×4 (08:25→21:30)
[2019-03-29] MEDS: PROPRANOLOL 40 MG TABLET PO SCH ×4 (08:26→21:26)
[2019-03-29] MEDS: DICYCLOMINE 20 MG TABLET PO SCH ×3 (08:26→21:30)
[2019-03-29] MEDS: OXYBUTYNIN 5 MG TABLET PO SCH ×3 (08:26→21:28)
[2019-03-29] MEDS: FAMOTIDINE 20 MG TABLET PO SCH (08:26)
[2019-03-29] MEDS: POLYETHYLENE GLYCOL POWDER 17 GM PACK PO SCH (08:26)
[2019-03-29] MEDS: FOLIC ACID 1 MG TABLET PO SCH (08:27)
[2019-03-29] MEDS: FLUTICASONE 50 MCG NASAL SPRAY 16 GM BOTTLE BOTH NARES SCH (08:27)
[2019-03-29] MEDS: LEVOFLOXACIN INJ 500 MG in PREMIX 1 EACH IV SCH (08:27)
[2019-03-29] MEDS: WHITE PETROLATUM 30 GM TUBE TOP SCH ×2 (08:28→21:35)
[2019-03-29] MEDS: NEOMYCIN/POLYMYXIN/HC OTIC SOLN 10 ML BOTTLE RIGHT EAR SCH ×3 (08:28→21:35)
[2019-03-29] MEDS: TRIAMCINOLONE 0.1% CREAM 15 GM TUBE TOP SCH ×2 (08:28→21:35)
[2019-03-29] MEDS: levETIRAcetam 250 MG TABLET PO SCH ×2 (09:03→21:28)
[2019-03-29] MEDS: CLINDAMYCIN INJ 900 MG in PREMIX 1 EACH IV SCH (18:28)
[2019-03-29] MEDS: SIMVASTATIN 10 MG TABLET PO SCH (21:29)
[2019-03-30] MEDS: DOCUSATE SODIUM 100 MG CAPSULE PO SCH ×3 (00:15→20:21)
[2019-03-30] MEDS: CLINDAMYCIN INJ 900 MG in PREMIX 1 EACH IV SCH ×3 (00:47→16:14)
[2019-03-30] MEDS: ALBUTEROL 2.5 MG/3 ML NEB RESP TX SCH ×4 (01:30→19:50)
[2019-03-30] MEDS: ASPIRIN EC 81 MG TABLET PO SCH (09:56)
[2019-03-30] MEDS: MULTIVITAMIN (CENTRUM) TABLET PO SCH (09:56)
[2019-03-30] MEDS: LORATADINE 10 MG TABLET PO SCH (09:56)
[2019-03-30] MEDS: DULoxetine 30 MG CAPSULE PO SCH ×2 (09:56→20:22)
[2019-03-30] MEDS: PROPRANOLOL 40 MG TABLET PO SCH ×4 (09:56→20:20)
[2019-03-30] MEDS: FOLIC ACID 1 MG TABLET PO SCH (09:56)
[2019-03-30] MEDS: GABAPENTIN 100 MG CAPSULE PO SCH ×3 (09:57→20:18)
[2019-03-30] MEDS: TOPIRAMATE 200 MG TABLET PO SCH ×2 (09:57→20:22)
[2019-03-30] MEDS: CHOLECALCIFEROL 1,000 UNIT TABLET PO SCH ×2 (09:57→20:21)
[2019-03-30] MEDS: DICYCLOMINE 20 MG TABLET PO SCH ×3 (09:57→20:21)
[2019-03-30] MEDS: MAGNESIUM CHLORIDE 64 MG TABLET PO SCH ×2 (09:57→20:21)
[2019-03-30] MEDS: FAMOTIDINE 20 MG TABLET PO SCH (09:57)
[2019-03-30] MEDS: predniSONE 10 MG TABLET PO SCH ×2 (09:57→20:22)
[2019-03-30] MEDS: SPIRONOLACTONE 25 MG TABLET PO SCH ×2 (09:57→20:22)
[2019-03-30] MEDS: NYSTATIN 500,000 UNIT/5 ML UDCUP SWISH/SWAL SCH ×4 (09:58→20:20)
[2019-03-30] MEDS: OXYBUTYNIN 5 MG TABLET PO SCH ×3 (09:58→20:21)
[2019-03-30] MEDS: FLUTICASONE 50 MCG NASAL SPRAY 16 GM BOTTLE BOTH NARES SCH (09:58)
[2019-03-30] MEDS: levETIRAcetam 250 MG TABLET PO SCH ×2 (09:58→20:20)
[2019-03-30] MEDS: TRIAMCINOLONE 0.1% CREAM 15 GM TUBE TOP SCH ×2 (09:59→20:23)
[2019-03-30] MEDS: NEOMYCIN/POLYMYXIN/HC OTIC SOLN 10 ML BOTTLE RIGHT EAR SCH ×3 (09:59→20:23)
[2019-03-30] MEDS: POLYETHYLENE GLYCOL POWDER 17 GM PACK PO SCH (09:59)
[2019-03-30] MEDS: WHITE PETROLATUM 30 GM TUBE TOP SCH ×2 (09:59→20:23)
[2019-03-30] MEDS: ACETAMINOPHEN 500 MG TABLET PO SCH ×3 (10:08→20:22)
[2019-03-30] MEDS: SIMVASTATIN 10 MG TABLET PO SCH (20:21)
[2019-03-31] MEDS: CLINDAMYCIN INJ 900 MG in PREMIX 1 EACH IV SCH ×3 (00:13→17:11)
[2019-03-31] MEDS: ALBUTEROL 2.5 MG/3 ML NEB RESP TX SCH ×4 (01:25→19:07)
[2019-03-31] MEDS: FAMOTIDINE 20 MG TABLET PO SCH (10:40)
[2019-03-31] MEDS: GABAPENTIN 100 MG CAPSULE PO SCH ×3 (10:40→20:46)
[2019-03-31] MEDS: DULoxetine 30 MG CAPSULE PO SCH ×2 (10:40→20:46)
[2019-03-31] MEDS: ACETAMINOPHEN 500 MG TABLET PO SCH ×3 (10:40→20:46)
[2019-03-31] MEDS: predniSONE 10 MG TABLET PO SCH ×2 (10:40→20:46)
[2019-03-31] MEDS: CHOLECALCIFEROL 1,000 UNIT TABLET PO SCH ×2 (10:40→20:46)
[2019-03-31] MEDS: levETIRAcetam 250 MG TABLET PO SCH ×2 (10:41→20:45)
[2019-03-31] MEDS: MAGNESIUM CHLORIDE 64 MG TABLET PO SCH ×2 (10:41→20:46)
[2019-03-31] MEDS: DOCUSATE SODIUM 100 MG CAPSULE PO SCH ×2 (10:41→20:46)
[2019-03-31] MEDS: ASPIRIN EC 81 MG TABLET PO SCH (10:41)
[2019-03-31] MEDS: SPIRONOLACTONE 25 MG TABLET PO SCH ×2 (10:41→20:46)
[2019-03-31] MEDS: FOLIC ACID 1 MG TABLET PO SCH (10:41)
[2019-03-31] MEDS: OXYBUTYNIN 5 MG TABLET PO SCH ×3 (10:41→20:46)
[2019-03-31] MEDS: POLYETHYLENE GLYCOL POWDER 17 GM PACK PO SCH (10:41)
[2019-03-31] MEDS: DICYCLOMINE 20 MG TABLET PO SCH ×3 (10:42→20:46)
[2019-03-31] MEDS: MULTIVITAMIN (CENTRUM) TABLET PO SCH (10:42)
[2019-03-31] MEDS: NYSTATIN 500,000 UNIT/5 ML UDCUP SWISH/SWAL SCH ×4 (10:42→20:45)
[2019-03-31] MEDS: TRIAMCINOLONE 0.1% CREAM 15 GM TUBE TOP SCH ×2 (10:42→20:47)
[2019-03-31] MEDS: LORATADINE 10 MG TABLET PO SCH (10:42)
[2019-03-31] MEDS: TOPIRAMATE 200 MG TABLET PO SCH ×2 (10:42→20:46)
[2019-03-31] MEDS: FLUTICASONE 50 MCG NASAL SPRAY 16 GM BOTTLE BOTH NARES SCH (10:43)
[2019-03-31] MEDS: NEOMYCIN/POLYMYXIN/HC OTIC SOLN 10 ML BOTTLE RIGHT EAR SCH ×3 (10:43→20:47)
[2019-03-31] MEDS: WHITE PETROLATUM 30 GM TUBE TOP SCH ×2 (10:44→20:46)
[2019-03-31] MEDS: PROPRANOLOL 40 MG TABLET PO SCH ×4 (10:48→20:45)
[2019-03-31] MEDS: SIMVASTATIN 10 MG TABLET PO SCH (20:46)
[2019-04-01] MEDS: ALBUTEROL 2.5 MG/3 ML NEB RESP TX SCH ×4 (00:06→19:13)
[2019-04-01] MEDS: CLINDAMYCIN INJ 900 MG in PREMIX 1 EACH IV SCH ×2 (00:45→11:26)
[2019-04-01 08:45] LABS: Basophils % 0.8 % (0.0-0.8); Eosinophils % 0.4 % (0.00-10.9); Hematocrit 39.8 VOL% (35.7-47.0); Hemoglobin 12.3 GM/DL (12.0-16.0); Immature Granulocytes % 4.9 %; Immature Granulocytes Absolute 0.25 #; Lymphocytes # 0.8 10*3/uL (1.4-4.0); Lymphocytes % 14.8 % (21.3-54.2); Mean Corpuscular HGB Conc 30.9 GM/DL (32-36); Mean Corpuscular Volume 99.7 FL (87-102); Mean Platelet Volume 8.3 FL (9.6-12.0); Monocytes % 14.8 % (1.7-12.7); Neutrophils % 64.3 % (38.7-73.9); Platelet Count 315 T/CUMM (130-400); Red Blood Count 3.99 MC/CUMM (3.8-5.5); Red Cell Distribution Width 15.2 % (9.3-17.3); White Blood Count 5.1 T/CUMM (4-12)
[2019-04-01] MEDS ORDERED: LEVOFLOXACIN INJ 500 MG in PREMIX 1 EACH IV SCH (09:00)
[2019-04-01 09:31] LABS: Calcium 9.5 MG/DL (8.5-10.1); Osmolality,Calculated 283.1 MOS/KG (273-304)
[2019-04-01] MEDS: FOLIC ACID 1 MG TABLET PO SCH (11:02)
[2019-04-01] MEDS: DULoxetine 30 MG CAPSULE PO SCH ×2 (11:03→23:41)
[2019-04-01] MEDS: TOPIRAMATE 200 MG TABLET PO SCH ×2 (11:03→23:44)
[2019-04-01] MEDS: PROPRANOLOL 40 MG TABLET PO SCH ×4 (11:03→23:42)
[2019-04-01] MEDS: COLESTIPOL 1 GM TABLET PO PRN ×2 (11:05→23:41)
[2019-04-01] MEDS: LORATADINE 10 MG TABLET PO SCH (11:05)
[2019-04-01] MEDS: POTASSIUM CHLORIDE 20 MEQ TABLET PO PRN (11:05)
[2019-04-01] MEDS: DICYCLOMINE 20 MG TABLET PO SCH ×3 (11:05→23:55)
[2019-04-01] MEDS: predniSONE 10 MG TABLET PO SCH ×2 (11:06→23:46)
[2019-04-01] MEDS: MULTIVITAMIN (CENTRUM) TABLET PO SCH (11:06)
[2019-04-01] MEDS: ASPIRIN EC 81 MG TABLET PO SCH (11:06)
[2019-04-01] MEDS: OXYBUTYNIN 5 MG TABLET PO SCH ×3 (11:06→23:48)
[2019-04-01] MEDS: FAMOTIDINE 20 MG TABLET PO SCH (11:06)
[2019-04-01] MEDS: DOCUSATE SODIUM 100 MG CAPSULE PO SCH ×2 (11:06→23:49)
[2019-04-01] MEDS: SPIRONOLACTONE 25 MG TABLET PO SCH ×2 (11:06→23:48)
[2019-04-01] MEDS: POLYETHYLENE GLYCOL POWDER 17 GM PACK PO SCH (11:07)
[2019-04-01] MEDS: NYSTATIN 500,000 UNIT/5 ML UDCUP SWISH/SWAL SCH ×4 (11:07→23:49)
[2019-04-01] MEDS: FLUTICASONE 50 MCG NASAL SPRAY 16 GM BOTTLE BOTH NARES SCH (11:08)
[2019-04-01] MEDS: levETIRAcetam 250 MG TABLET PO SCH ×2 (11:17→23:41)
[2019-04-01] MEDS: MAGNESIUM CHLORIDE 64 MG TABLET PO SCH ×2 (11:18→23:41)
[2019-04-01] MEDS: CHOLECALCIFEROL 1,000 UNIT TABLET PO SCH ×2 (11:18→23:40)
[2019-04-01] MEDS: ACETAMINOPHEN 325 MG TABLET PO PRN (11:18)
[2019-04-01] MEDS: WHITE PETROLATUM 30 GM TUBE TOP SCH ×2 (11:23→23:51)
[2019-04-01] MEDS: TRIAMCINOLONE 0.1% CREAM 15 GM TUBE TOP SCH ×2 (11:24→23:51)
[2019-04-01] MEDS: ACETAMINOPHEN 500 MG TABLET PO SCH ×3 (11:26→23:46)
[2019-04-01] MEDS: NEOMYCIN/POLYMYXIN/HC OTIC SOLN 10 ML BOTTLE RIGHT EAR SCH ×3 (11:28→23:50)
[2019-04-01] MEDS: GABAPENTIN 100 MG CAPSULE PO SCH ×3 (11:34→23:45)
[2019-04-01] MEDS: AMOXICILLIN/CLAV 875 MG TABLET PO SCH ×2 (11:34→23:42)
[2019-04-01] MEDS ORDERED: NITROFURANTOIN MACRO/MONO 100 MG CAPSULE PO SCH (21:00)
[2019-04-01] MEDS: SIMVASTATIN 10 MG TABLET PO SCH (23:45)
[2019-04-02] MEDS: ALBUTEROL 2.5 MG/3 ML NEB RESP TX SCH ×2 (01:20→07:16)
[2019-04-02 05:00] LABS: Basophils # 0.1 10*3/uL (0.0-0.2); Basophils % 0.7 % (0.0-0.8); Eosinophils % 0.4 % (0.00-10.9); Hematocrit 39.4 VOL% (35.7-47.0); Hemoglobin 12.4 GM/DL (12.0-16.0); Immature Granulocytes % 5.9 %; Immature Granulocytes Absolute 0.41 #; Lymphocytes % 14.7 % (21.3-54.2); Mean Corpuscular HGB Conc 31.5 GM/DL (32-36); Mean Platelet Volume 8.7 FL (9.6-12.0); Monocytes % 17.7 % (1.7-12.7); Neutrophils % 60.6 % (38.7-73.9); Platelet Count 341 T/CUMM (130-400); Red Cell Distribution Width 15.1 % (9.3-17.3); White Blood Count 6.9 T/CUMM (4-12)
[2019-04-02 05:33] LABS: Calcium 9.4 MG/DL (8.5-10.1); Osmolality,Calculated 280.4 MOS/KG (273-304)
[2019-04-02 06:02] LABS: Band Neutrophils 3 % (0-10); Eosinophils 1 % (0-10); Lymphocytes 23 % (20-55); Metamyelocytes 2 %; Segmented Neutrophils 66 % (50-85); Total Cells Counted 100
[2019-04-02 06:03] LABS: Anisocytosis 1+; Platelet Estimate Adequate
[2019-04-02 09:17] VITALS: BP 114/92
[2019-04-02] MEDS: ACETAMINOPHEN 325 MG TABLET PO PRN (09:42)
[2019-04-02] MEDS: ASPIRIN EC 81 MG TABLET PO SCH (09:43)
[2019-04-02] MEDS: GABAPENTIN 100 MG CAPSULE PO SCH (09:43)
[2019-04-02] MEDS: AMOXICILLIN/CLAV 875 MG TABLET PO SCH (09:43)
[2019-04-02] MEDS: DULoxetine 30 MG CAPSULE PO SCH (09:43)
[2019-04-02] MEDS: MULTIVITAMIN (CENTRUM) TABLET PO SCH (09:43)
[2019-04-02] MEDS: OXYBUTYNIN 5 MG TABLET PO SCH (09:43)
[2019-04-02] MEDS: CHOLECALCIFEROL 1,000 UNIT TABLET PO SCH (09:44)
[2019-04-02] MEDS: PROPRANOLOL 40 MG TABLET PO SCH (09:44)
[2019-04-02] MEDS: SPIRONOLACTONE 25 MG TABLET PO SCH (09:44)
[2019-04-02] MEDS: MAGNESIUM CHLORIDE 64 MG TABLET PO SCH (09:44)
[2019-04-02] MEDS: FOLIC ACID 1 MG TABLET PO SCH (09:44)
[2019-04-02] MEDS: FAMOTIDINE 20 MG TABLET PO SCH (09:44)
[2019-04-02] MEDS: TOPIRAMATE 200 MG TABLET PO SCH (09:44)
[2019-04-02] MEDS: DICYCLOMINE 20 MG TABLET PO SCH (09:45)
[2019-04-02] MEDS: LORATADINE 10 MG TABLET PO SCH (09:45)
[2019-04-02] MEDS: DOCUSATE SODIUM 100 MG CAPSULE PO SCH (09:45)
[2019-04-02] MEDS: POLYETHYLENE GLYCOL POWDER 17 GM PACK PO SCH (09:45)
[2019-04-02] MEDS: TRIAMCINOLONE 0.1% CREAM 15 GM TUBE TOP SCH (09:45)
[2019-04-02] MEDS: WHITE PETROLATUM 30 GM TUBE TOP SCH (09:45)
[2019-04-02] MEDS: NYSTATIN 500,000 UNIT/5 ML UDCUP SWISH/SWAL SCH (09:45)
[2019-04-02] MEDS: FLUTICASONE 50 MCG NASAL SPRAY 16 GM BOTTLE BOTH NARES SCH (09:46)
[2019-04-02] MEDS: NEOMYCIN/POLYMYXIN/HC OTIC SOLN 10 ML BOTTLE RIGHT EAR SCH (09:46)
[2019-04-02] MEDS: predniSONE 10 MG TABLET PO SCH (09:46)
[2019-04-02] MEDS: ACETAMINOPHEN 500 MG TABLET PO SCH (09:46)
[2019-04-02] MEDS: levETIRAcetam 250 MG TABLET PO SCH (10:08)
== END 2019-04-02 11:20 | DRG 689 ==
LOC: EDUNIT# → EDBD → N.ED 19:47 → N.EDINP 23:09 → N.2E 23:57
PROVIDERS: ADMIT Internal Medicine; ATTEND Internal Medicine
PROC: IRTHORA (2019-03-28 15:01)

== ENCOUNTER 2019-06-11 11:27 | Inpatient (IN) ==
[2019-06-11 12:34] LABS: Basophils % 0.4 % (0.0-0.8); Eosinophils # 0.1 10*3/uL (0.0-0.87); Eosinophils % 0.6 % (0.00-10.9); Hematocrit 39.1 VOL% (35.7-47.0); Hemoglobin 12.3 GM/DL (12.0-16.0); Lymphocytes # 1.5 10*3/uL (1.4-4.0); Lymphocytes % 14.1 % (21.3-54.2); Mean Corpuscular HGB Conc 31.5 GM/DL (32-36); Mean Corpuscular Volume 102.4 FL (87-102); Mean Platelet Volume 8.8 FL (9.6-12.0); Monocytes % 9.8 % (1.7-12.7); Neutrophils % 74.1 % (38.7-73.9); Platelet Count 302 T/CUMM (130-400); Red Blood Count 3.82 MC/CUMM (3.8-5.5); Red Cell Distribution Width 14.4 % (9.3-17.3); White Blood Count 10.4 T/CUMM (4-12)
[2019-06-11 12:54] LABS: Calcium 9.2 MG/DL (8.5-10.1); Osmolality,Calculated 280.5 MOS/KG (273-304)
[2019-06-11] MEDS ORDERED: ONDANSETRON 4 MG/2 ML VIAL IV PRN (13:50)
[2019-06-11] MEDS ORDERED: oxyCODONE/ACETAMINOPHEN 5-325 MG TABLET PO PRN (13:50)
[2019-06-11] MEDS ORDERED: BISACODYL 5 MG TABLET PO PRN (13:50)
[2019-06-11] MEDS ORDERED: ACETAMINOPHEN 325 MG TABLET PO PRN (13:50)
[2019-06-11] MEDS ORDERED: BUPIVACAINE 0.25% /EPI 10 ML VIAL ONE (14:17)
[2019-06-11] MEDS ORDERED: LIDOCAINE 1% 20 ML VIAL ONE (14:17)
[2019-06-11] MEDS: PIPERACILLIN/TAZOBACTAM 3,375 MG in SODIUM CHLORIDE 0.9% 100 ML IV SCH ×2 (14:35→21:58)
[2019-06-11] MEDS ORDERED: PROPOFOL 200 MG/20 ML VIAL IV ONE (15:35)
[2019-06-11] MEDS ORDERED: SEVOFLURANE 1 UNIT/15 MINUTE INH ONE (15:36)
[2019-06-11] MEDS ORDERED: IPRATROPIUM 500 MCG/2.5 ML NEB RESP TX PRN (17:06)
[2019-06-11] MEDS ORDERED: SIMVASTATIN 10 MG TABLET PO SCH (21:00)
[2019-06-11] MEDS ORDERED: OXYBUTYNIN XL 5 MG TABLET PO SCH (21:00)
[2019-06-11] MEDS: CHOLECALCIFEROL 1,000 UNIT TABLET PO SCH (21:43)
[2019-06-11] MEDS: DULoxetine 30 MG CAPSULE PO SCH (21:43)
[2019-06-11] MEDS: levETIRAcetam 500 MG TABLET PO SCH (21:43)
[2019-06-11] MEDS: METOPROLOL TARTRATE 25 MG TABLET PO SCH (21:44)
[2019-06-11] MEDS: GABAPENTIN 400 MG CAPSULE PO SCH (21:46)
[2019-06-11] MEDS: SPIRONOLACTONE 25 MG TABLET PO SCH (21:46)
[2019-06-11] MEDS: TOPIRAMATE 200 MG TABLET PO SCH (21:46)
[2019-06-12] MEDS: PIPERACILLIN/TAZOBACTAM 3,375 MG in SODIUM CHLORIDE 0.9% 100 ML IV SCH ×2 (06:10→15:29)
[2019-06-12] MEDS ORDERED: PANTOPRAZOLE 40 MG TABLET PO SCH ×2 (07:30→09:00)
[2019-06-12] MEDS ORDERED: ASPIRIN EC 81 MG TABLET PO SCH (09:00)
[2019-06-12] MEDS ORDERED: predniSONE 20 MG TABLET PO SCH (09:00)
[2019-06-12] MEDS: DULoxetine 30 MG CAPSULE PO SCH (09:27)
[2019-06-12] MEDS: CHOLECALCIFEROL 1,000 UNIT TABLET PO SCH (09:27)
[2019-06-12] MEDS: TOPIRAMATE 200 MG TABLET PO SCH (09:27)
[2019-06-12] MEDS: METOPROLOL TARTRATE 25 MG TABLET PO SCH (09:28)
[2019-06-12] MEDS: SPIRONOLACTONE 25 MG TABLET PO SCH (09:28)
[2019-06-12] MEDS: levETIRAcetam 500 MG TABLET PO SCH (09:28)
[2019-06-12] MEDS: GABAPENTIN 400 MG CAPSULE PO SCH (09:29)
[2019-06-12] MEDS ORDERED: SODIUM HYPOCHLORITE 0.25% IRRIG 473 ML BOTTLE TOP SCH (13:00)
[2019-06-12] MEDS ORDERED: oxyCODONE/ACETAMINOPHEN 5-325 MG TABLET PO PRN (14:18)
[2019-06-12 16:51] VITALS: BP 165/72
[2019-06-12] MEDS ORDERED: COLESTIPOL 1 GM TABLET PO SCH (20:00)
[2019-06-12] MEDS ORDERED: MAGNESIUM CHLORIDE 64 MG TABLET PO SCH (20:00)
[2019-06-13] MEDS ORDERED: FLUTICASONE 50 MCG NASAL SPRAY 16 GM BOTTLE BOTH NARES SCH (08:00)
[2019-06-13] MEDS ORDERED: CLOPIDOGREL 75 MG TABLET PO SCH (08:00)
== END 2019-06-12 17:08 | DRG 580 ==
LOC: EDUNIT# → EDBD → N.ED 11:27 → N.EDINP 13:50 → N.3E 16:23
PROVIDERS: ADMIT Student in an Organized Health Care Education/Training Program; ATTEND Student in an Organized Health Care Education/Training Program

== ENCOUNTER 2019-06-25 10:31 | Inpatient (IN) ==
[2019-06-25] MEDS ORDERED: SODIUM CHLORIDE 0.9% 500 ML IV STA (10:54)
[2019-06-25] MEDS ORDERED: DILTIAZEM 50 MG/10 ML VIAL IV STA (10:54)
[2019-06-25] MEDS ORDERED: dilTIAZem Drip 125 MG/125 ML PREMIX IV SCH (11:00)
[2019-06-25] MEDS ORDERED: DILTIAZEM 25 MG/5 ML VIAL IV ONE (11:00)
[2019-06-25 11:05] LABS: Basophils # 0.1 10*3/uL (0.0-0.2); Basophils % 0.8 % (0.0-0.8); Eosinophils # 0.1 10*3/uL (0.0-0.87); Eosinophils % 0.6 % (0.00-10.9); Hematocrit 38.8 VOL% (35.7-47.0); Hemoglobin 12.4 GM/DL (12.0-16.0); Immature Granulocytes % 1.2 %; Lymphocytes # 1.7 10*3/uL (1.4-4.0); Lymphocytes % 19.7 % (21.3-54.2); Mean Corpuscular Volume 100.8 FL (87-102); Mean Platelet Volume 8.9 FL (9.6-12.0); Monocytes % 9.8 % (1.7-12.7); Neutrophils % 67.9 % (38.7-73.9); Platelet Count 418 T/CUMM (130-400); Red Blood Count 3.85 MC/CUMM (3.8-5.5); Red Cell Distribution Width 14.6 % (9.3-17.3); White Blood Count 8.4 T/CUMM (4-12)
[2019-06-25 11:13] LABS: INR 0.9; Partial Thromboplastin Time < 21.0 SECS (20.8-36.0)
[2019-06-25 11:30] LABS: Albumin 3.1 G/DL (3.4-5.0); Bilirubin,Total 0.6 MG/DL (0.2-1.0); Calcium 9.5 MG/DL (8.5-10.1); Osmolality,Calculated 284.3 MOS/KG (273-304); Thyroid Stimulating Hormone 1.08 uIU/ml (0.358-3.74); Total Protein 6.4 G/DL (6.4-8.3)
[2019-06-25 12:09] LABS: Barbiturates Screen,Urine Negative (Negative); Benzodiazepines Screen,Urine Negative (Negative); Cannabinoid Screen,Urine Negative (Negative); Opiate Screen,Urine Positive (Negative); Phencyclidine Screen,Urine Negative (Negative)
[2019-06-25] MEDS ORDERED: ACETAMINOPHEN 325 MG TABLET PO PRN (12:19)
[2019-06-25] MEDS ORDERED: ONDANSETRON 4 MG/2 ML VIAL IV PRN (12:19)
[2019-06-25] MEDS: SODIUM CHLORIDE 0.9% 1,000 ML IV SCH (13:18)
[2019-06-25] MEDS ORDERED: IPRATROPIUM 500 MCG/2.5 ML NEB RESP TX PRN (13:47)
[2019-06-25] MEDS ORDERED: diphenhydrAMINE CAP 25 MG CAPSULE PO PRN (13:47)
[2019-06-25] MEDS ORDERED: POLYVINYL ALCOHOL 1.4% OPH SOLN 15 ML BOTTLE BOTH EYES PRN (13:47)
[2019-06-25] MEDS ORDERED: ALBUTEROL/IPRATROPIUM 3 ML NEB RESP TX PRN (13:47)
[2019-06-25] MEDS ORDERED: MENTHOL 5% TOP PRN (13:47)
[2019-06-25] MEDS ORDERED: MAGNESIUM SULF RIDER 2 GM in PREMIX 1 EACH IV PRN (13:53)
[2019-06-25] MEDS: POTASSIUM CHLORIDE 20 MEQ TABLET PO PRN ×4 (14:30→23:15)
[2019-06-25 15:36] LABS: Troponin I 0.016 NG/ML (0.00-0.045)
[2019-06-25] MEDS: METOPROLOL TARTRATE 25 MG TABLET PO SCH ×2 (16:15→23:11)
[2019-06-25] MEDS: PANTOPRAZOLE 40 MG TABLET PO SCH (16:55)
[2019-06-25 18:01] LABS: Troponin I 0.019 NG/ML (0.00-0.045)
[2019-06-25] MEDS ORDERED: CRAN VITC MANNOSE FOS BROMELN PO SCH (21:00)
[2019-06-25] MEDS ORDERED: DOCUSATE SODIUM 100 MG CAPSULE PO SCH (21:00)
[2019-06-25] MEDS: ACETAMINOPHEN 500 MG TABLET PO SCH (23:11)
[2019-06-25] MEDS: DOXYCYCLINE HYCLATE 100 MG CAPSULE PO SCH (23:11)
[2019-06-25] MEDS: GABAPENTIN 400 MG CAPSULE PO SCH (23:12)
[2019-06-25] MEDS: DULoxetine 30 MG CAPSULE PO SCH (23:12)
[2019-06-25] MEDS: levETIRAcetam 500 MG TABLET PO SCH (23:13)
[2019-06-25] MEDS: TOPIRAMATE 200 MG TABLET PO SCH (23:14)
[2019-06-25] MEDS: CHOLECALCIFEROL 1,000 UNIT TABLET PO SCH (23:14)
[2019-06-25] MEDS: MAGNESIUM CHLORIDE 64 MG TABLET PO SCH (23:14)
[2019-06-25] MEDS: COLESTIPOL 1 GM TABLET PO SCH (23:15)
[2019-06-25] MEDS: SPIRONOLACTONE 25 MG TABLET PO SCH (23:15)
[2019-06-25] MEDS: OXYBUTYNIN XL 5 MG TABLET PO SCH (23:15)
[2019-06-25] MEDS: SIMVASTATIN 10 MG TABLET PO SCH (23:15)
[2019-06-26 03:24] LABS: Apearance,Urine CLOUDY (Clear); Bilirubin,Urine Negative (Negative); Blood, Urine Small mg/dL (Negative); Glucose,Urine (UA) Negative (Negative); Ketones,Urine Negative (Negative); Mucus,Urine Occasional /LPF (Occasional); Nitrite,Urine Positive (Negative); Protein,Urine Negative; RBC,Urine 18 /HPF (0-4); Squamous Epithelial Cell,Urine Occasional /HPF (0-10); Urine Color Yellow (Yellow); Urine Urobilinogen < 2.0 EU/DL (0.2-1.0); WBC,Urine 222 /HPF (0-6)
[2019-06-26 05:39] LABS: Basophils # 0.1 10*3/uL (0.0-0.2); Basophils % 0.9 % (0.0-0.8); Eosinophils # 0.1 10*3/uL (0.0-0.87); Eosinophils % 0.9 % (0.00-10.9); Hematocrit 31.6 VOL% (35.7-47.0); Hemoglobin 9.5 GM/DL (12.0-16.0); Immature Granulocytes % 1.3 %; Immature Granulocytes Absolute 0.07 #; Lymphocytes # 1.8 10*3/uL (1.4-4.0); Lymphocytes % 32.7 % (21.3-54.2); Mean Corpuscular HGB Conc 30.1 GM/DL (32-36); Mean Corpuscular Volume 104.3 FL (87-102); Mean Platelet Volume 8.9 FL (9.6-12.0); Neutrophils % 44.2 % (38.7-73.9); Platelet Count 300 T/CUMM (130-400); Red Blood Count 3.03 MC/CUMM (3.8-5.5); Red Cell Distribution Width 14.6 % (9.3-17.3); White Blood Count 5.4 T/CUMM (4-12)
[2019-06-26 05:59] LABS: Calcium 8.3 MG/DL (8.5-10.1); Osmolality,Calculated 287.7 MOS/KG (273-304)
[2019-06-26 06:04] LABS: Troponin I 0.017 NG/ML (0.00-0.045)
[2019-06-26 06:09] LABS: Hypochromasia 1+; Lymphocytes 31 % (20-55); Ovalocytes Slight; Platelet Estimate Adequate; Segmented Neutrophils 56 % (50-85); Total Cells Counted 100
[2019-06-26] MEDS ORDERED: TOCILIZUMAB 162 MG SUBCUT SCH (08:00)
[2019-06-26] MEDS ORDERED: POLYETHYLENE GLYCOL POWDER 17 GM PACK PO SCH (09:00)
[2019-06-26] MEDS ORDERED: LEFLUNOMIDE 10 MG TABLET PO SCH (09:00)
[2019-06-26] MEDS ORDERED: PANTOPRAZOLE 40 MG TABLET PO SCH (09:00)
[2019-06-26] MEDS: NYSTATIN 500,000 UNIT/5 ML UDCUP SWISH/SWAL SCH ×4 (09:19→21:49)
[2019-06-26] MEDS: LORATADINE 10 MG TABLET PO SCH (09:20)
[2019-06-26] MEDS: SPIRONOLACTONE 25 MG TABLET PO SCH ×2 (09:20→21:53)
[2019-06-26] MEDS: DOXYCYCLINE HYCLATE 100 MG CAPSULE PO SCH ×2 (09:20→21:53)
[2019-06-26] MEDS: COLESTIPOL 1 GM TABLET PO SCH ×2 (09:20→21:53)
[2019-06-26] MEDS: CHOLECALCIFEROL 1,000 UNIT TABLET PO SCH ×2 (09:20→21:00)
[2019-06-26] MEDS: MULTIVITAMIN (CENTRUM) TABLET PO SCH (09:20)
[2019-06-26] MEDS: ASPIRIN EC 81 MG TABLET PO SCH (09:20)
[2019-06-26] MEDS: levETIRAcetam 500 MG TABLET PO SCH ×2 (09:21→21:48)
[2019-06-26] MEDS: TOPIRAMATE 200 MG TABLET PO SCH ×2 (09:21→21:52)
[2019-06-26] MEDS: CLOPIDOGREL 75 MG TABLET PO SCH (09:21)
[2019-06-26] MEDS: MAGNESIUM CHLORIDE 64 MG TABLET PO SCH ×2 (09:22→21:51)
[2019-06-26] MEDS: predniSONE 20 MG TABLET PO SCH (09:22)
[2019-06-26] MEDS: oxyCODONE/ACETAMINOPHEN 5-325 MG TABLET PO SCH (09:22)
[2019-06-26] MEDS: ACETAMINOPHEN 500 MG TABLET PO SCH ×2 (09:22→21:50)
[2019-06-26] MEDS: FOLIC ACID 1 MG TABLET PO SCH (09:22)
[2019-06-26] MEDS: DULoxetine 30 MG CAPSULE PO SCH ×2 (09:22→21:52)
[2019-06-26] MEDS: GABAPENTIN 400 MG CAPSULE PO SCH ×2 (09:22→21:49)
[2019-06-26] MEDS: PANTOPRAZOLE 40 MG TABLET PO SCH ×2 (09:23→16:03)
[2019-06-26] MEDS: OXYBUTYNIN XL 15 MG TABLET PO SCH (09:23)
[2019-06-26] MEDS: SODIUM HYPOCHLORITE 0.25% IRRIG 473 ML BOTTLE TOP SCH (09:24)
[2019-06-26] MEDS: METOPROLOL TARTRATE 25 MG TABLET PO SCH ×2 (09:24→21:47)
[2019-06-26] MEDS: FLUTICASONE 50 MCG NASAL SPRAY 16 GM BOTTLE BOTH NARES SCH (09:24)
[2019-06-26] MEDS: SODIUM CHLORIDE 0.9% 1,000 ML IV SCH (10:52)
[2019-06-26] MEDS: SIMVASTATIN 10 MG TABLET PO SCH (21:50)
[2019-06-26] MEDS: OXYBUTYNIN XL 5 MG TABLET PO SCH (21:51)
[2019-06-27] MEDS: SODIUM CHLORIDE 0.9% 1,000 ML IV SCH ×2 (03:05)
[2019-06-27 05:09] LABS: Basophils % 0.6 % (0.0-0.8); Eosinophils % 0.6 % (0.00-10.9); Hematocrit 30.6 VOL% (35.7-47.0); Hemoglobin 9.3 GM/DL (12.0-16.0); Immature Granulocytes % 0.8 %; Immature Granulocytes Absolute 0.04 #; Lymphocytes # 1.5 10*3/uL (1.4-4.0); Lymphocytes % 31.5 % (21.3-54.2); Mean Corpuscular HGB Conc 30.4 GM/DL (32-36); Mean Corpuscular Volume 104.1 FL (87-102); Monocytes % 15.5 % (1.7-12.7); Platelet Count 285 T/CUMM (130-400); Red Blood Count 2.94 MC/CUMM (3.8-5.5); Red Cell Distribution Width 14.7 % (9.3-17.3); White Blood Count 4.9 T/CUMM (4-12)
[2019-06-27 05:36] LABS: Calcium 8.7 MG/DL (8.5-10.1); Osmolality,Calculated 291.4 MOS/KG (273-304)
[2019-06-27] MEDS: TOPIRAMATE 200 MG TABLET PO SCH ×2 (09:21→23:44)
[2019-06-27] MEDS: GABAPENTIN 400 MG CAPSULE PO SCH ×2 (09:22→23:41)
[2019-06-27] MEDS: CLOPIDOGREL 75 MG TABLET PO SCH (09:22)
[2019-06-27] MEDS: FOLIC ACID 1 MG TABLET PO SCH (09:22)
[2019-06-27] MEDS: NYSTATIN 500,000 UNIT/5 ML UDCUP SWISH/SWAL SCH ×4 (09:22→23:55)
[2019-06-27] MEDS: SPIRONOLACTONE 25 MG TABLET PO SCH (09:22)
[2019-06-27] MEDS: oxyCODONE/ACETAMINOPHEN 5-325 MG TABLET PO SCH (09:22)
[2019-06-27] MEDS: ASPIRIN EC 81 MG TABLET PO SCH (09:23)
[2019-06-27] MEDS: DOXYCYCLINE HYCLATE 100 MG CAPSULE PO SCH ×2 (09:23→23:44)
[2019-06-27] MEDS: DULoxetine 30 MG CAPSULE PO SCH ×2 (09:23→23:40)
[2019-06-27] MEDS: CHOLECALCIFEROL 1,000 UNIT TABLET PO SCH ×2 (09:23→23:42)
[2019-06-27] MEDS: predniSONE 20 MG TABLET PO SCH (09:23)
[2019-06-27] MEDS: PANTOPRAZOLE 40 MG TABLET PO SCH ×2 (09:23→16:40)
[2019-06-27] MEDS: ACETAMINOPHEN 500 MG TABLET PO SCH ×2 (09:23→23:41)
[2019-06-27] MEDS: MULTIVITAMIN (CENTRUM) TABLET PO SCH (09:23)
[2019-06-27] MEDS: COLESTIPOL 1 GM TABLET PO SCH ×2 (09:23→23:46)
[2019-06-27] MEDS: LORATADINE 10 MG TABLET PO SCH (09:24)
[2019-06-27] MEDS: METOPROLOL TARTRATE 25 MG TABLET PO SCH (09:24)
[2019-06-27] MEDS: levETIRAcetam 500 MG TABLET PO SCH ×2 (10:15→23:54)
[2019-06-27] MEDS: MAGNESIUM CHLORIDE 64 MG TABLET PO SCH ×2 (10:17→23:45)
[2019-06-27] MEDS: FLUTICASONE 50 MCG NASAL SPRAY 16 GM BOTTLE BOTH NARES SCH (10:17)
[2019-06-27] MEDS: SODIUM HYPOCHLORITE 0.25% IRRIG 473 ML BOTTLE TOP SCH (10:17)
[2019-06-27] MEDS: OXYBUTYNIN XL 15 MG TABLET PO SCH (10:17)
[2019-06-27] MEDS: OXYBUTYNIN XL 5 MG TABLET PO SCH (23:40)
[2019-06-27] MEDS: SIMVASTATIN 10 MG TABLET PO SCH (23:43)
[2019-06-28] MEDS: METOPROLOL TARTRATE 25 MG TABLET PO SCH ×3 (00:26→22:49)
[2019-06-28] MEDS: SPIRONOLACTONE 25 MG TABLET PO SCH ×3 (00:26→22:49)
[2019-06-28] MEDS: SODIUM CHLORIDE 0.9% 1,000 ML IV SCH ×2 (00:55→20:32)
[2019-06-28 05:46] LABS: Basophils % 0.6 % (0.0-0.8); Eosinophils # 0.1 10*3/uL (0.0-0.87); Eosinophils % 1.1 % (0.00-10.9); Hematocrit 31.8 VOL% (35.7-47.0); Hemoglobin 9.8 GM/DL (12.0-16.0); Immature Granulocytes % 0.6 %; Immature Granulocytes Absolute 0.03 #; Lymphocytes % 37.3 % (21.3-54.2); Mean Corpuscular HGB Conc 30.8 GM/DL (32-36); Mean Corpuscular Volume 102.3 FL (87-102); Monocytes % 15.1 % (1.7-12.7); Neutrophils % 45.3 % (38.7-73.9); Platelet Count 286 T/CUMM (130-400); Red Blood Count 3.11 MC/CUMM (3.8-5.5); Red Cell Distribution Width 14.7 % (9.3-17.3); White Blood Count 5.4 T/CUMM (4-12)
[2019-06-28 06:12] LABS: Calcium 9.1 MG/DL (8.5-10.1); Osmolality,Calculated 286.7 MOS/KG (273-304)
[2019-06-28] MEDS: FOLIC ACID 1 MG TABLET PO SCH (09:03)
[2019-06-28] MEDS: TOPIRAMATE 200 MG TABLET PO SCH ×2 (09:03→22:47)
[2019-06-28] MEDS: CHOLECALCIFEROL 1,000 UNIT TABLET PO SCH ×2 (09:03→22:47)
[2019-06-28] MEDS: NYSTATIN 500,000 UNIT/5 ML UDCUP SWISH/SWAL SCH ×4 (09:03→22:46)
[2019-06-28] MEDS: CLOPIDOGREL 75 MG TABLET PO SCH (09:04)
[2019-06-28] MEDS: MAGNESIUM CHLORIDE 64 MG TABLET PO SCH ×2 (09:04→22:46)
[2019-06-28] MEDS: predniSONE 20 MG TABLET PO SCH (09:04)
[2019-06-28] MEDS: MULTIVITAMIN (CENTRUM) TABLET PO SCH (09:04)
[2019-06-28] MEDS: PANTOPRAZOLE 40 MG TABLET PO SCH ×2 (09:04→16:48)
[2019-06-28] MEDS: DOXYCYCLINE HYCLATE 100 MG CAPSULE PO SCH ×2 (09:04→22:46)
[2019-06-28] MEDS: DULoxetine 30 MG CAPSULE PO SCH ×2 (09:04→22:46)
[2019-06-28] MEDS: COLESTIPOL 1 GM TABLET PO SCH ×2 (09:04→22:47)
[2019-06-28] MEDS: ASPIRIN EC 81 MG TABLET PO SCH (09:05)
[2019-06-28] MEDS: GABAPENTIN 400 MG CAPSULE PO SCH ×2 (09:05→22:46)
[2019-06-28] MEDS: LORATADINE 10 MG TABLET PO SCH (09:05)
[2019-06-28] MEDS: ACETAMINOPHEN 500 MG TABLET PO SCH ×2 (09:06→22:50)
[2019-06-28] MEDS: levETIRAcetam 250 MG TABLET PO SCH ×2 (09:10→22:48)
[2019-06-28] MEDS: OXYBUTYNIN XL 15 MG TABLET PO SCH (09:10)
[2019-06-28] MEDS: oxyCODONE/ACETAMINOPHEN 5-325 MG TABLET PO SCH (09:20)
[2019-06-28] MEDS: SODIUM HYPOCHLORITE 0.25% IRRIG 473 ML BOTTLE TOP SCH (11:51)
[2019-06-28] MEDS: FLUTICASONE 50 MCG NASAL SPRAY 16 GM BOTTLE BOTH NARES SCH (11:51)
[2019-06-28] MEDS: TRIAMCINOLONE 0.1% CREAM 15 GM TUBE TOP SCH (11:51)
[2019-06-28] MEDS: OXYBUTYNIN XL 5 MG TABLET PO SCH (22:47)
[2019-06-28] MEDS: TRIAMCINOLONE 0.1% CREAM 80 GM TUBE TOP SCH (22:49)
[2019-06-28] MEDS: SIMVASTATIN 10 MG TABLET PO SCH (22:50)
[2019-06-29] MEDS: OXYBUTYNIN XL 15 MG TABLET PO SCH (10:01)
[2019-06-29] MEDS: MAGNESIUM CHLORIDE 64 MG TABLET PO SCH (10:01)
[2019-06-29] MEDS: ACETAMINOPHEN 500 MG TABLET PO SCH (10:01)
[2019-06-29] MEDS: CLOPIDOGREL 75 MG TABLET PO SCH (10:01)
[2019-06-29] MEDS: GABAPENTIN 400 MG CAPSULE PO SCH (10:02)
[2019-06-29] MEDS: ASPIRIN EC 81 MG TABLET PO SCH (10:02)
[2019-06-29] MEDS: TOPIRAMATE 200 MG TABLET PO SCH (10:02)
[2019-06-29] MEDS: CHOLECALCIFEROL 1,000 UNIT TABLET PO SCH (10:02)
[2019-06-29] MEDS: SPIRONOLACTONE 25 MG TABLET PO SCH (10:03)
[2019-06-29] MEDS: METOPROLOL TARTRATE 25 MG TABLET PO SCH (10:03)
[2019-06-29] MEDS: PANTOPRAZOLE 40 MG TABLET PO SCH (10:03)
[2019-06-29] MEDS: FOLIC ACID 1 MG TABLET PO SCH (10:03)
[2019-06-29] MEDS: predniSONE 20 MG TABLET PO SCH (10:04)
[2019-06-29] MEDS: DULoxetine 30 MG CAPSULE PO SCH (10:04)
[2019-06-29] MEDS: COLESTIPOL 1 GM TABLET PO SCH (10:05)
[2019-06-29] MEDS: NYSTATIN 500,000 UNIT/5 ML UDCUP SWISH/SWAL SCH ×2 (10:05→13:04)
[2019-06-29] MEDS: MULTIVITAMIN (CENTRUM) TABLET PO SCH (10:05)
[2019-06-29] MEDS: LORATADINE 10 MG TABLET PO SCH (10:05)
[2019-06-29] MEDS: DOXYCYCLINE HYCLATE 100 MG CAPSULE PO SCH (10:05)
[2019-06-29] MEDS: TRIAMCINOLONE 0.1% CREAM 80 GM TUBE TOP SCH (10:06)
[2019-06-29] MEDS: TRIAMCINOLONE 0.1% CREAM 15 GM TUBE TOP SCH (10:06)
[2019-06-29] MEDS: FLUTICASONE 50 MCG NASAL SPRAY 16 GM BOTTLE BOTH NARES SCH (10:06)
[2019-06-29] MEDS ORDERED: cefTRIAXone 1,000 MG in SYRINGE 1 EACH IV ONE (10:15)
[2019-06-29] MEDS: oxyCODONE/ACETAMINOPHEN 5-325 MG TABLET PO SCH (10:21)
[2019-06-29] MEDS: levETIRAcetam 250 MG TABLET PO SCH (10:54)
[2019-06-29 12:48] VITALS: BP 172/92
[2019-06-29] MEDS: SODIUM HYPOCHLORITE 0.25% IRRIG 473 ML BOTTLE TOP SCH (13:04)
[2019-06-29] MEDS ORDERED: CEFUROXIME 250 MG TABLET PO SCH (21:00)
== END 2019-06-29 15:30 | DRG 309 ==
LOC: N.ED 10:31 → N.EDINP 12:17 → N.TELES 13:16 → N.TELEN 13:42
PROVIDERS: ADMIT Internal Medicine; ATTEND Internal Medicine

== ENCOUNTER 2019-12-05 12:07 | Inpatient (IN) ==
[2019-12-05] MEDS ORDERED: SODIUM CHLORIDE 0.9% 500 ML IV STA (12:33)
[2019-12-05 13:45] LABS: Basophils # 0.1 10*3/uL (0.0-0.2); Basophils % 0.7 % (0.0-0.8); Eosinophils % 0.1 % (0.00-10.9); Hematocrit 39.7 VOL% (35.7-47.0); Hemoglobin 12.1 GM/DL (12.0-16.0); Immature Granulocytes % 4.9 %; Immature Granulocytes Absolute 0.48 #; Lymphocytes % 10.2 % (21.3-54.2); Mean Corpuscular HGB Conc 30.5 GM/DL (32-36); Mean Corpuscular Volume 95.7 FL (87-102); Mean Platelet Volume 9.3 FL (9.6-12.0); Monocytes % 12.5 % (1.7-12.7); Neutrophils % 71.6 % (38.7-73.9); Platelet Count 372 T/CUMM (130-400); Red Blood Count 4.15 MC/CUMM (3.8-5.5); Red Cell Distribution Width 17.2 % (9.3-17.3); White Blood Count 9.9 T/CUMM (4-12)
[2019-12-05 13:52] LABS: Apearance,Urine CLEAR (Clear); Bacteria,Urine Occasional /HPF (Few); Bilirubin,Urine Negative (Negative); Blood, Urine Negative (Negative); Glucose,Urine (UA) Negative (Negative); Ketones,Urine Negative (Negative); Nitrite,Urine Positive (Negative); Protein,Urine Negative; Squamous Epithelial Cell,Urine Occasional /HPF (0-10); Urine Color Yellow (Yellow); Urine Specific Gravity 1.006 (1.001-1.035); Urine Urobilinogen < 2.0 EU/DL (0.2-1.0); WBC,Urine 1 /HPF (0-6)
[2019-12-05 14:21] LABS: Alanine Aminotransferase 49 U/L (13-56); Albumin 3.3 G/DL (3.4-5.0); Alkaline Phosphatase 105 U/L (45-117); Aspartate Amino Transferase 30 U/L (0-37); Bilirubin,Total < 0.39 MG/DL (0.2-1.0); Blood Urea Nitrogen 24 MG/DL (7-18); Calcium 9.1 MG/DL (8.5-10.1); Estimated Glom Filtration Rate 78 ML/MIN; Glucose 94 MG/DL (74-106); Osmolality,Calculated 276.8 MOS/KG (273-304); Total Protein 7.6 G/DL (6.4-8.3)
[2019-12-05] MEDS ORDERED: cefTRIAXone 1,000 MG in SODIUM CHLORIDE 0.9% 100 ML IV STA (15:32)
[2019-12-05] MEDS ORDERED: ACETAMINOPHEN 325 MG TABLET PO PRN (17:38)
[2019-12-05] MEDS ORDERED: NITROGLYCERIN SL 0.4 MG TABLET SL PRN (17:38)
[2019-12-05] MEDS ORDERED: diphenhydrAMINE CAP 25 MG CAPSULE PO PRN (17:38)
[2019-12-05] MEDS ORDERED: CARBOXYMETHYLCELLULOSE 1% OPH SOLN BOTH EYES PRN (17:38)
[2019-12-05] MEDS ORDERED: IPRATROPIUM 500 MCG/2.5 ML NEB RESP TX PRN (17:38)
[2019-12-05] MEDS ORDERED: ONDANSETRON 4 MG/2 ML VIAL IV PRN (17:38)
[2019-12-05] MEDS ORDERED: ALBUTEROL/IPRATROPIUM 3 ML NEB RESP TX PRN (17:38)
[2019-12-05] MEDS: SODIUM CHLORIDE 0.9% 1,000 ML IV SCH (18:22)
[2019-12-05] MEDS ORDERED: SODIUM CHLORIDE 5% RIGHT EYE SCH (21:00)
[2019-12-05] MEDS: TRIAMCINOLONE 0.1% CREAM 15 GM TUBE TOP SCH (21:13)
[2019-12-05] MEDS: SODIUM CHLORIDE 5% OPH SOLN 15 ML BOTTLE BOTH EYES SCH (21:21)
[2019-12-05] MEDS: COLESTIPOL 1 GM TABLET PO SCH (21:23)
[2019-12-05] MEDS: ENOXAPARIN 40 MG/0.4 ML SYRINGE SUBCUT SCH (21:23)
[2019-12-05] MEDS: PANTOPRAZOLE 40 MG TABLET PO SCH (21:24)
[2019-12-05] MEDS: TERAZOSIN 1 MG CAPSULE PO SCH (21:24)
[2019-12-05] MEDS: BISOPROLOL 5 MG TABLET PO SCH (21:24)
[2019-12-05] MEDS: DULoxetine 30 MG CAPSULE PO SCH (21:26)
[2019-12-05] MEDS: CALCIUM (CARBONATE)/VITAMIN D 600 MG-400 UNIT TABLET PO SCH (21:26)
[2019-12-05] MEDS: CLOPIDOGREL 75 MG TABLET PO SCH (21:26)
[2019-12-05] MEDS: predniSONE 10 MG TABLET PO SCH (21:27)
[2019-12-05] MEDS: DOCUSATE SODIUM 100 MG CAPSULE PO SCH (21:27)
[2019-12-05] MEDS: POTASSIUM CHLORIDE 20 MEQ TABLET PO SCH (21:27)
[2019-12-05] MEDS: TOPIRAMATE 200 MG TABLET PO SCH (21:28)
[2019-12-05] MEDS: MAGNESIUM CHLORIDE 64 MG TABLET PO SCH (21:28)
[2019-12-05] MEDS: SPIRONOLACTONE 25 MG TABLET PO SCH (21:28)
[2019-12-05] MEDS: levETIRAcetam 500 MG TABLET PO SCH (21:30)
[2019-12-05] MEDS: GABAPENTIN 400 MG CAPSULE PO SCH (21:30)
[2019-12-05] MEDS: BETHANECHOL 25 MG TABLET PO SCH (21:30)
[2019-12-05] MEDS: CHOLECALCIFEROL 1,000 UNIT TABLET PO SCH (21:30)
[2019-12-05] MEDS: DICYCLOMINE 20 MG TABLET PO SCH (21:30)
[2019-12-05] MEDS: SIMVASTATIN 10 MG TABLET PO SCH (21:31)
[2019-12-05] MEDS: hydrOXYzine HCL 25 MG TABLET PO SCH (21:31)
[2019-12-05] MEDS: OXYBUTYNIN XL 5 MG TABLET PO SCH (21:32)
[2019-12-05] MEDS: ACETAMINOPHEN 500 MG TABLET PO SCH (21:37)
[2019-12-06] MEDS: SODIUM CHLORIDE 0.9% 1,000 ML IV SCH ×2 (03:14→15:20)
[2019-12-06] MEDS ORDERED: UPADACITINIB 15 MG PO SCH (08:00)
[2019-12-06] MEDS ORDERED: PANTOPRAZOLE 40 MG TABLET PO SCH (09:00)
[2019-12-06] MEDS ORDERED: LEFLUNOMIDE 10 MG TABLET PO SCH (09:00)
[2019-12-06] MEDS: levETIRAcetam 500 MG TABLET PO SCH ×2 (09:44→22:14)
[2019-12-06] MEDS: DICYCLOMINE 20 MG TABLET PO SCH ×3 (09:45→22:29)
[2019-12-06] MEDS: oxyCODONE/ACETAMINOPHEN 5-325 MG TABLET PO SCH (09:45)
[2019-12-06] MEDS: MULTIVITAMIN (CENTRUM) TABLET PO SCH (09:45)
[2019-12-06] MEDS: MULTIVITAMIN (BEROCCA) TABLET PO SCH (09:45)
[2019-12-06] MEDS: FUROSEMIDE 40 MG TABLET PO SCH (09:45)
[2019-12-06] MEDS: PANTOPRAZOLE 40 MG TABLET PO SCH ×2 (09:45→22:14)
[2019-12-06] MEDS: CLOPIDOGREL 75 MG TABLET PO SCH ×2 (09:45→22:11)
[2019-12-06] MEDS: DOCUSATE SODIUM 100 MG CAPSULE PO SCH ×2 (09:45→22:11)
[2019-12-06] MEDS: CHOLECALCIFEROL 1,000 UNIT TABLET PO SCH ×2 (09:45→22:10)
[2019-12-06] MEDS: DULoxetine 30 MG CAPSULE PO SCH ×2 (09:46→22:09)
[2019-12-06] MEDS: TOPIRAMATE 200 MG TABLET PO SCH ×2 (09:46→22:12)
[2019-12-06] MEDS: BISOPROLOL 5 MG TABLET PO SCH ×2 (09:46→22:12)
[2019-12-06] MEDS: COLESTIPOL 1 GM TABLET PO SCH ×2 (09:46→22:09)
[2019-12-06] MEDS: MAGNESIUM CHLORIDE 64 MG TABLET PO SCH ×2 (09:46→22:09)
[2019-12-06] MEDS: POTASSIUM CHLORIDE 20 MEQ TABLET PO SCH ×3 (09:47→22:14)
[2019-12-06] MEDS: predniSONE 10 MG TABLET PO SCH ×2 (09:47→22:10)
[2019-12-06] MEDS: GABAPENTIN 400 MG CAPSULE PO SCH ×3 (09:47→22:11)
[2019-12-06] MEDS: FOLIC ACID 1 MG TABLET PO SCH (09:47)
[2019-12-06] MEDS: LORATADINE 10 MG TABLET PO SCH (09:47)
[2019-12-06] MEDS: CALCIUM (CARBONATE)/VITAMIN D 600 MG-400 UNIT TABLET PO SCH ×2 (09:47→22:10)
[2019-12-06] MEDS: SPIRONOLACTONE 25 MG TABLET PO SCH ×2 (09:47→22:10)
[2019-12-06] MEDS: ASPIRIN EC 81 MG TABLET PO SCH (09:47)
[2019-12-06] MEDS: ACETAMINOPHEN 500 MG TABLET PO SCH ×3 (09:50→22:13)
[2019-12-06] MEDS: BETHANECHOL 25 MG TABLET PO SCH ×3 (09:50→22:12)
[2019-12-06] MEDS: SODIUM CHLORIDE 5% OPH SOLN 15 ML BOTTLE BOTH EYES SCH ×3 (09:54→22:15)
[2019-12-06] MEDS: TRIAMCINOLONE 0.1% CREAM 15 GM TUBE TOP SCH ×2 (09:55→22:16)
[2019-12-06] MEDS: OXYBUTYNIN XL 15 MG TABLET PO SCH (09:55)
[2019-12-06] MEDS: FLUTICASONE 50 MCG NASAL SPRAY 16 GM BOTTLE BOTH NARES SCH (09:55)
[2019-12-06] MEDS: POLYETHYLENE GLYCOL POWDER 17 GM PACK PO SCH (09:55)
[2019-12-06] MEDS: cefTRIAXone 1,000 MG in SYRINGE 1 EACH IV SCH (09:59)
[2019-12-06 10:08] LABS: Troponin I 0.026 NG/ML (0.00-0.045)
[2019-12-06] MEDS ORDERED: FLUCONAZOLE INJ 150 MG in IV BAG 1 EACH IV ONE (10:30)
[2019-12-06] MEDS: RANOLAZINE 500 MG TABLET PO SCH ×2 (10:53→22:14)
[2019-12-06] MEDS: SODIUM HYPOCHLORITE 0.25% IRRIG 473 ML BOTTLE TOP SCH (10:57)
[2019-12-06] MEDS: NYSTATIN 500,000 UNIT/5 ML UDCUP SWISH/SWAL SCH ×2 (14:43→22:11)
[2019-12-06] MEDS: ZINC OXIDE PASTE 113 GM TUBE TOP SCH ×2 (15:02→22:15)
[2019-12-06] MEDS: ENOXAPARIN 40 MG/0.4 ML SYRINGE SUBCUT SCH (22:08)
[2019-12-06] MEDS: hydrOXYzine HCL 25 MG TABLET PO SCH (22:12)
[2019-12-06] MEDS: OXYBUTYNIN XL 5 MG TABLET PO SCH (22:14)
[2019-12-06] MEDS: SIMVASTATIN 10 MG TABLET PO SCH (22:14)
[2019-12-06] MEDS: TERAZOSIN 1 MG CAPSULE PO SCH (22:17)
[2019-12-07] MEDS: SODIUM CHLORIDE 0.9% 1,000 ML IV SCH ×4 (01:26→17:46)
[2019-12-07 07:18] LABS: Calcium 8.9 MG/DL (8.5-10.1); Osmolality,Calculated 280.4 MOS/KG (273-304)
[2019-12-07] MEDS: cefTRIAXone 1,000 MG in SYRINGE 1 EACH IV SCH (09:06)
[2019-12-07] MEDS: COLESTIPOL 1 GM TABLET PO SCH ×2 (09:07→22:11)
[2019-12-07] MEDS: FLUTICASONE 50 MCG NASAL SPRAY 16 GM BOTTLE BOTH NARES SCH (09:07)
[2019-12-07] MEDS: BETHANECHOL 25 MG TABLET PO SCH ×3 (09:07→22:14)
[2019-12-07] MEDS: POTASSIUM CHLORIDE 20 MEQ TABLET PO SCH ×3 (09:07→22:17)
[2019-12-07] MEDS: BISOPROLOL 5 MG TABLET PO SCH ×2 (09:08→22:11)
[2019-12-07] MEDS: PANTOPRAZOLE 40 MG TABLET PO SCH ×2 (09:08→22:13)
[2019-12-07] MEDS: DULoxetine 30 MG CAPSULE PO SCH ×2 (09:08→22:10)
[2019-12-07] MEDS: oxyCODONE/ACETAMINOPHEN 5-325 MG TABLET PO SCH (09:09)
[2019-12-07] MEDS: POLYETHYLENE GLYCOL POWDER 17 GM PACK PO SCH (09:10)
[2019-12-07] MEDS: TRIAMCINOLONE 0.1% CREAM 15 GM TUBE TOP SCH ×2 (09:10→22:18)
[2019-12-07] MEDS: OXYBUTYNIN XL 15 MG TABLET PO SCH (09:10)
[2019-12-07] MEDS: SODIUM CHLORIDE 5% OPH SOLN 15 ML BOTTLE BOTH EYES SCH ×3 (09:10→22:18)
[2019-12-07] MEDS: GABAPENTIN 400 MG CAPSULE PO SCH ×3 (09:10→22:16)
[2019-12-07] MEDS: CALCIUM (CARBONATE)/VITAMIN D 600 MG-400 UNIT TABLET PO SCH ×2 (09:11→22:14)
[2019-12-07] MEDS: ASPIRIN EC 81 MG TABLET PO SCH (09:11)
[2019-12-07] MEDS: TOPIRAMATE 200 MG TABLET PO SCH ×2 (09:11→22:14)
[2019-12-07] MEDS: RANOLAZINE 500 MG TABLET PO SCH ×2 (09:11→22:13)
[2019-12-07] MEDS: levETIRAcetam 500 MG TABLET PO SCH ×2 (09:12→22:16)
[2019-12-07] MEDS: DOCUSATE SODIUM 100 MG CAPSULE PO SCH ×2 (09:12→22:13)
[2019-12-07] MEDS: MULTIVITAMIN (BEROCCA) TABLET PO SCH (09:12)
[2019-12-07] MEDS: FUROSEMIDE 40 MG TABLET PO SCH (09:13)
[2019-12-07] MEDS: MULTIVITAMIN (CENTRUM) TABLET PO SCH (09:14)
[2019-12-07] MEDS: FOLIC ACID 1 MG TABLET PO SCH (09:14)
[2019-12-07] MEDS: CLOPIDOGREL 75 MG TABLET PO SCH ×2 (09:14→22:15)
[2019-12-07] MEDS: MAGNESIUM CHLORIDE 64 MG TABLET PO SCH ×2 (09:14→22:14)
[2019-12-07] MEDS: DICYCLOMINE 20 MG TABLET PO SCH ×3 (09:14→22:15)
[2019-12-07] MEDS: CHOLECALCIFEROL 1,000 UNIT TABLET PO SCH ×2 (09:14→22:15)
[2019-12-07] MEDS: LORATADINE 10 MG TABLET PO SCH (09:15)
[2019-12-07] MEDS: methylPREDNISolone SOD SUC 40 MG/1 ML VIAL IV SCH (09:15)
[2019-12-07] MEDS: SPIRONOLACTONE 25 MG TABLET PO SCH ×2 (09:15→22:13)
[2019-12-07] MEDS: NYSTATIN 500,000 UNIT/5 ML UDCUP SWISH/SWAL SCH ×3 (09:15→22:17)
[2019-12-07] MEDS: ACETAMINOPHEN 500 MG TABLET PO SCH ×3 (09:15→22:10)
[2019-12-07] MEDS: SODIUM HYPOCHLORITE 0.25% IRRIG 473 ML BOTTLE TOP SCH (09:16)
[2019-12-07] MEDS: ZINC OXIDE PASTE 113 GM TUBE TOP SCH ×2 (09:16→22:19)
[2019-12-07] MEDS: predniSONE 10 MG TABLET PO SCH ×2 (09:20→22:12)
[2019-12-07 09:23] LABS: Basophils % 0.5 % (0.0-0.8); Eosinophils % 0.3 % (0.00-10.9); Hematocrit 32.4 VOL% (35.7-47.0); Hemoglobin 9.7 GM/DL (12.0-16.0); Immature Granulocytes % 5.9 %; Immature Granulocytes Absolute 0.37 #; Lymphocytes # 0.6 10*3/uL (1.4-4.0); Lymphocytes % 8.8 % (21.3-54.2); Mean Corpuscular HGB Conc 29.9 GM/DL (32-36); Mean Corpuscular Volume 99.4 FL (87-102); Mean Platelet Volume 9.4 FL (9.6-12.0); Monocytes % 7.2 % (1.7-12.7); Neutrophils % 77.3 % (38.7-73.9); Platelet Count 261 T/CUMM (130-400); Red Blood Count 3.26 MC/CUMM (3.8-5.5); Red Cell Distribution Width 17.3 % (9.3-17.3); White Blood Count 6.2 T/CUMM (4-12)
[2019-12-07 11:32] LABS: Band Neutrophils 7 % (0-10); Lymphocytes 3 % (20-55); Metamyelocytes 3 %; Myelocytes 2 %; Segmented Neutrophils 82 % (50-85); Total Cells Counted 100
[2019-12-07 11:33] LABS: Anisocytosis Slight; Ovalocytes Few; Schistocytes Slight; Tear Drop Cells Slight
[2019-12-07] MEDS: ENOXAPARIN 40 MG/0.4 ML SYRINGE SUBCUT SCH (22:09)
[2019-12-07] MEDS: hydrOXYzine HCL 25 MG TABLET PO SCH (22:12)
[2019-12-07] MEDS: OXYBUTYNIN XL 5 MG TABLET PO SCH (22:12)
[2019-12-07] MEDS: TERAZOSIN 1 MG CAPSULE PO SCH (22:13)
[2019-12-07] MEDS: SIMVASTATIN 10 MG TABLET PO SCH (22:15)
[2019-12-08] MEDS: SODIUM CHLORIDE 0.9% 1,000 ML IV SCH ×3 (03:23→22:00)
[2019-12-08] MEDS: SODIUM CHLORIDE 5% OPH SOLN 15 ML BOTTLE BOTH EYES SCH ×3 (09:58→22:00)
[2019-12-08] MEDS: ZINC OXIDE PASTE 113 GM TUBE TOP SCH ×2 (09:58→22:00)
[2019-12-08] MEDS: FLUTICASONE 50 MCG NASAL SPRAY 16 GM BOTTLE BOTH NARES SCH (09:59)
[2019-12-08] MEDS: DULoxetine 30 MG CAPSULE PO SCH ×2 (09:59→21:58)
[2019-12-08] MEDS: predniSONE 10 MG TABLET PO SCH ×2 (09:59→22:11)
[2019-12-08] MEDS: COLESTIPOL 1 GM TABLET PO SCH ×2 (10:00→21:57)
[2019-12-08] MEDS: methylPREDNISolone SOD SUC 40 MG/1 ML VIAL IV SCH (10:00)
[2019-12-08] MEDS: BISOPROLOL 5 MG TABLET PO SCH ×2 (10:00→22:11)
[2019-12-08] MEDS: DOCUSATE SODIUM 100 MG CAPSULE PO SCH ×2 (10:00→22:11)
[2019-12-08] MEDS: ASPIRIN EC 81 MG TABLET PO SCH (10:00)
[2019-12-08] MEDS: ACETAMINOPHEN 500 MG TABLET PO SCH ×3 (10:01→21:56)
[2019-12-08] MEDS: RANOLAZINE 500 MG TABLET PO SCH ×2 (10:01→21:58)
[2019-12-08] MEDS: POLYETHYLENE GLYCOL POWDER 17 GM PACK PO SCH (10:02)
[2019-12-08] MEDS: POTASSIUM CHLORIDE 20 MEQ TABLET PO SCH ×3 (10:02→21:57)
[2019-12-08] MEDS: NYSTATIN 500,000 UNIT/5 ML UDCUP SWISH/SWAL SCH ×3 (10:02→22:10)
[2019-12-08] MEDS: TOPIRAMATE 200 MG TABLET PO SCH ×2 (10:02→21:57)
[2019-12-08] MEDS: MULTIVITAMIN (CENTRUM) TABLET PO SCH (10:03)
[2019-12-08] MEDS: levETIRAcetam 500 MG TABLET PO SCH ×2 (10:03→21:59)
[2019-12-08] MEDS: MULTIVITAMIN (BEROCCA) TABLET PO SCH (10:03)
[2019-12-08] MEDS: SPIRONOLACTONE 25 MG TABLET PO SCH ×2 (10:03→21:58)
[2019-12-08] MEDS: CALCIUM (CARBONATE)/VITAMIN D 600 MG-400 UNIT TABLET PO SCH ×2 (10:03→21:58)
[2019-12-08] MEDS: MAGNESIUM CHLORIDE 64 MG TABLET PO SCH ×2 (10:04→21:57)
[2019-12-08] MEDS: FOLIC ACID 1 MG TABLET PO SCH (10:04)
[2019-12-08] MEDS: CLOPIDOGREL 75 MG TABLET PO SCH ×2 (10:04→21:57)
[2019-12-08] MEDS: BETHANECHOL 25 MG TABLET PO SCH ×3 (10:04→21:56)
[2019-12-08] MEDS: CHOLECALCIFEROL 1,000 UNIT TABLET PO SCH ×2 (10:04→22:12)
[2019-12-08] MEDS: LORATADINE 10 MG TABLET PO SCH (10:05)
[2019-12-08] MEDS: oxyCODONE/ACETAMINOPHEN 5-325 MG TABLET PO SCH (10:05)
[2019-12-08] MEDS: PANTOPRAZOLE 40 MG TABLET PO SCH ×2 (10:05→21:58)
[2019-12-08] MEDS: OXYBUTYNIN XL 15 MG TABLET PO SCH (10:05)
[2019-12-08] MEDS: GABAPENTIN 400 MG CAPSULE PO SCH ×3 (10:05→21:58)
[2019-12-08] MEDS: DICYCLOMINE 20 MG TABLET PO SCH ×3 (10:06→21:59)
[2019-12-08] MEDS: TRIAMCINOLONE 0.1% CREAM 15 GM TUBE TOP SCH ×2 (10:06→22:00)
[2019-12-08] MEDS: FUROSEMIDE 40 MG TABLET PO SCH (10:06)
[2019-12-08] MEDS: SODIUM HYPOCHLORITE 0.25% IRRIG 473 ML BOTTLE TOP SCH (10:06)
[2019-12-08] MEDS: cefTRIAXone 1,000 MG in SYRINGE 1 EACH IV SCH (10:07)
[2019-12-08] MEDS ORDERED: SKIN HEALING OINT (AQUAPHOR) 50 GM TUBE TOP PRN (15:57)
[2019-12-08] MEDS: TERAZOSIN 1 MG CAPSULE PO SCH (21:57)
[2019-12-08] MEDS: SIMVASTATIN 10 MG TABLET PO SCH (21:58)
[2019-12-08] MEDS: OXYBUTYNIN XL 5 MG TABLET PO SCH (21:58)
[2019-12-08] MEDS: hydrOXYzine HCL 25 MG TABLET PO SCH (21:59)
[2019-12-08] MEDS: ENOXAPARIN 40 MG/0.4 ML SYRINGE SUBCUT SCH (21:59)
[2019-12-09 09:05] LABS: Basophils % 0.5 % (0.0-0.8); Hematocrit 33.1 VOL% (35.7-47.0); Hemoglobin 10.2 GM/DL (12.0-16.0); Immature Granulocytes % 6.6 %; Immature Granulocytes Absolute 0.57 #; Lymphocytes # 0.7 10*3/uL (1.4-4.0); Lymphocytes % 7.9 % (21.3-54.2); Mean Corpuscular HGB Conc 30.8 GM/DL (32-36); Mean Corpuscular Volume 96.5 FL (87-102); Mean Platelet Volume 9.4 FL (9.6-12.0); Monocytes % 4.4 % (1.7-12.7); NRBC # 0.05 10*3/uL; Neutrophils % 80.6 % (38.7-73.9); Platelet Count 286 T/CUMM (130-400); Red Blood Count 3.43 MC/CUMM (3.8-5.5); Red Cell Distribution Width 17.6 % (9.3-17.3); White Blood Count 8.6 T/CUMM (4-12)
[2019-12-09 09:28] LABS: Band Neutrophils 1 % (0-10); Hypochromasia 1+; Lymphocytes 13 % (20-55); Ovalocytes Slight; Platelet Estimate Adequate; Segmented Neutrophils 82 % (50-85); Total Cells Counted 100
[2019-12-09 09:32] LABS: Alanine Aminotransferase 34 U/L (13-56); Albumin 2.8 G/DL (3.4-5.0); Alkaline Phosphatase 81 U/L (45-117); Aspartate Amino Transferase 20 U/L (0-37); Bilirubin,Total < 0.39 MG/DL (0.2-1.0); Blood Urea Nitrogen 20 MG/DL (7-18); Calcium 8.9 MG/DL (8.5-10.1); Estimated Glom Filtration Rate 69 ML/MIN; Glucose 145 MG/DL (74-106); Osmolality,Calculated 282.5 MOS/KG (273-304); Total Protein 6.5 G/DL (6.4-8.3)
[2019-12-09] MEDS: POLYETHYLENE GLYCOL POWDER 17 GM PACK PO SCH (09:45)
[2019-12-09] MEDS: NITROFURANTOIN MACRO/MONO 100 MG CAPSULE PO SCH ×2 (09:45→21:04)
[2019-12-09] MEDS: CALCIUM (CARBONATE)/VITAMIN D 600 MG-400 UNIT TABLET PO SCH ×2 (09:46→21:10)
[2019-12-09] MEDS: TOPIRAMATE 200 MG TABLET PO SCH ×2 (09:46→21:04)
[2019-12-09] MEDS: GABAPENTIN 400 MG CAPSULE PO SCH ×3 (09:46→21:06)
[2019-12-09] MEDS: MULTIVITAMIN (BEROCCA) TABLET PO SCH (09:46)
[2019-12-09] MEDS: POTASSIUM CHLORIDE 20 MEQ TABLET PO SCH ×3 (09:46→21:09)
[2019-12-09] MEDS: LEVOFLOXACIN 500 MG TABLET PO SCH (09:46)
[2019-12-09] MEDS: ASPIRIN EC 81 MG TABLET PO SCH (09:46)
[2019-12-09] MEDS: RANOLAZINE 500 MG TABLET PO SCH ×2 (09:46→21:06)
[2019-12-09] MEDS: COLESTIPOL 1 GM TABLET PO SCH ×2 (09:46→21:05)
[2019-12-09] MEDS: levETIRAcetam 500 MG TABLET PO SCH ×2 (09:47→21:05)
[2019-12-09] MEDS: DULoxetine 30 MG CAPSULE PO SCH ×2 (09:47→21:05)
[2019-12-09] MEDS: FOLIC ACID 1 MG TABLET PO SCH (09:48)
[2019-12-09] MEDS: CLOPIDOGREL 75 MG TABLET PO SCH ×2 (09:48→21:06)
[2019-12-09] MEDS: oxyCODONE/ACETAMINOPHEN 5-325 MG TABLET PO SCH (09:48)
[2019-12-09] MEDS: BISOPROLOL 5 MG TABLET PO SCH ×2 (09:49→21:03)
[2019-12-09] MEDS: NYSTATIN 500,000 UNIT/5 ML UDCUP SWISH/SWAL SCH ×3 (09:49→21:10)
[2019-12-09] MEDS: OXYBUTYNIN XL 15 MG TABLET PO SCH (09:49)
[2019-12-09] MEDS: BETHANECHOL 25 MG TABLET PO SCH ×3 (09:49→21:06)
[2019-12-09] MEDS: MULTIVITAMIN (CENTRUM) TABLET PO SCH (09:49)
[2019-12-09] MEDS: LORATADINE 10 MG TABLET PO SCH (09:49)
[2019-12-09] MEDS: DOCUSATE SODIUM 100 MG CAPSULE PO SCH ×2 (09:50→21:06)
[2019-12-09] MEDS: ACETAMINOPHEN 500 MG TABLET PO SCH ×3 (09:50→21:09)
[2019-12-09] MEDS: MAGNESIUM CHLORIDE 64 MG TABLET PO SCH ×2 (09:50→20:54)
[2019-12-09] MEDS: SPIRONOLACTONE 25 MG TABLET PO SCH ×2 (09:51→21:05)
[2019-12-09] MEDS: PANTOPRAZOLE 40 MG TABLET PO SCH ×2 (09:51→21:10)
[2019-12-09] MEDS: DICYCLOMINE 20 MG TABLET PO SCH ×3 (09:51→21:04)
[2019-12-09] MEDS: predniSONE 10 MG TABLET PO SCH ×2 (09:51→21:09)
[2019-12-09] MEDS: CHOLECALCIFEROL 1,000 UNIT TABLET PO SCH ×2 (09:51→21:04)
[2019-12-09] MEDS: FUROSEMIDE 40 MG TABLET PO SCH (09:51)
[2019-12-09] MEDS: methylPREDNISolone SOD SUC 40 MG/1 ML VIAL IV SCH (09:52)
[2019-12-09] MEDS: SODIUM CHLORIDE 5% OPH SOLN 15 ML BOTTLE BOTH EYES SCH ×3 (09:52→23:15)
[2019-12-09] MEDS: TRIAMCINOLONE 0.1% CREAM 15 GM TUBE TOP SCH ×2 (09:53→23:15)
[2019-12-09] MEDS: FLUTICASONE 50 MCG NASAL SPRAY 16 GM BOTTLE BOTH NARES SCH (09:53)
[2019-12-09] MEDS: SODIUM HYPOCHLORITE 0.25% IRRIG 473 ML BOTTLE TOP SCH (09:53)
[2019-12-09] MEDS: ZINC OXIDE PASTE 113 GM TUBE TOP SCH ×2 (10:47→23:15)
[2019-12-09] MEDS: SODIUM CHLORIDE 0.9% 1,000 ML IV SCH ×2 (16:29→23:16)
[2019-12-09] MEDS: VANCOMYCIN INJ 1,000 MG in SODIUM CHLORIDE 0.9% 250 ML IV SCH (16:39)
[2019-12-09] MEDS: TERAZOSIN 1 MG CAPSULE PO SCH (21:06)
[2019-12-09] MEDS: OXYBUTYNIN XL 5 MG TABLET PO SCH (21:06)
[2019-12-09] MEDS: hydrOXYzine HCL 25 MG TABLET PO SCH (21:06)
[2019-12-09] MEDS: ENOXAPARIN 40 MG/0.4 ML SYRINGE SUBCUT SCH (21:10)
[2019-12-10] MEDS: SODIUM CHLORIDE 0.9% 1,000 ML IV SCH ×3 (02:52→18:24)
[2019-12-10] MEDS: LEVOFLOXACIN 500 MG TABLET PO SCH (09:13)
[2019-12-10] MEDS: DOCUSATE SODIUM 100 MG CAPSULE PO SCH ×2 (09:13→20:14)
[2019-12-10] MEDS: COLESTIPOL 1 GM TABLET PO SCH ×2 (09:13→20:12)
[2019-12-10] MEDS: ACETAMINOPHEN 500 MG TABLET PO SCH ×3 (09:13→20:15)
[2019-12-10] MEDS: POTASSIUM CHLORIDE 20 MEQ TABLET PO SCH ×3 (09:13→20:15)
[2019-12-10] MEDS: PANTOPRAZOLE 40 MG TABLET PO SCH ×2 (09:13→20:15)
[2019-12-10] MEDS: FUROSEMIDE 40 MG TABLET PO SCH (09:13)
[2019-12-10] MEDS: oxyCODONE/ACETAMINOPHEN 5-325 MG TABLET PO SCH (09:14)
[2019-12-10] MEDS: GABAPENTIN 400 MG CAPSULE PO SCH ×3 (09:14→20:15)
[2019-12-10] MEDS: NITROFURANTOIN MACRO/MONO 100 MG CAPSULE PO SCH ×2 (09:14→20:14)
[2019-12-10] MEDS: MAGNESIUM CHLORIDE 64 MG TABLET PO SCH ×2 (09:14→20:12)
[2019-12-10] MEDS: predniSONE 10 MG TABLET PO SCH ×2 (09:14→20:15)
[2019-12-10] MEDS: DULoxetine 30 MG CAPSULE PO SCH ×2 (09:14→20:13)
[2019-12-10] MEDS: RANOLAZINE 500 MG TABLET PO SCH ×2 (09:14→20:13)
[2019-12-10] MEDS: MULTIVITAMIN (BEROCCA) TABLET PO SCH (09:14)
[2019-12-10] MEDS: ASPIRIN EC 81 MG TABLET PO SCH (09:15)
[2019-12-10] MEDS: levETIRAcetam 500 MG TABLET PO SCH ×2 (09:15→20:15)
[2019-12-10] MEDS: OXYBUTYNIN XL 15 MG TABLET PO SCH (09:16)
[2019-12-10] MEDS: BISOPROLOL 5 MG TABLET PO SCH ×2 (09:16→20:13)
[2019-12-10] MEDS: TOPIRAMATE 200 MG TABLET PO SCH ×2 (09:16→20:12)
[2019-12-10] MEDS: POLYETHYLENE GLYCOL POWDER 17 GM PACK PO SCH (09:16)
[2019-12-10] MEDS: LORATADINE 10 MG TABLET PO SCH (09:17)
[2019-12-10] MEDS: NYSTATIN 500,000 UNIT/5 ML UDCUP SWISH/SWAL SCH ×3 (09:17→20:16)
[2019-12-10] MEDS: CLOPIDOGREL 75 MG TABLET PO SCH ×2 (09:17→20:12)
[2019-12-10] MEDS: SPIRONOLACTONE 25 MG TABLET PO SCH ×2 (09:17→20:15)
[2019-12-10] MEDS: MULTIVITAMIN (CENTRUM) TABLET PO SCH (09:17)
[2019-12-10] MEDS: CHOLECALCIFEROL 1,000 UNIT TABLET PO SCH ×2 (09:17→20:14)
[2019-12-10] MEDS: FOLIC ACID 1 MG TABLET PO SCH (09:17)
[2019-12-10] MEDS: FLUTICASONE 50 MCG NASAL SPRAY 16 GM BOTTLE BOTH NARES SCH (09:18)
[2019-12-10] MEDS: ZINC OXIDE PASTE 113 GM TUBE TOP SCH ×2 (09:18→20:28)
[2019-12-10] MEDS: DICYCLOMINE 20 MG TABLET PO SCH ×3 (09:18→20:15)
[2019-12-10] MEDS: SODIUM HYPOCHLORITE 0.25% IRRIG 473 ML BOTTLE TOP SCH (09:18)
[2019-12-10] MEDS: BETHANECHOL 25 MG TABLET PO SCH ×3 (09:18→20:15)
[2019-12-10] MEDS: CALCIUM (CARBONATE)/VITAMIN D 600 MG-400 UNIT TABLET PO SCH ×2 (09:18→20:15)
[2019-12-10] MEDS: methylPREDNISolone SOD SUC 40 MG/1 ML VIAL IV SCH (09:19)
[2019-12-10] MEDS: TRIAMCINOLONE 0.1% CREAM 15 GM TUBE TOP SCH ×2 (09:19→20:28)
[2019-12-10] MEDS: SODIUM CHLORIDE 5% OPH SOLN 15 ML BOTTLE BOTH EYES SCH ×3 (09:19→20:16)
[2019-12-10] MEDS: VANCOMYCIN INJ 1,000 MG in SODIUM CHLORIDE 0.9% 250 ML IV SCH (16:05)
[2019-12-10] MEDS ORDERED: NON-FORMULARY MEDICATION (Alendronate 70 MG) PO SCH (17:10)
[2019-12-10] MEDS: TERAZOSIN 1 MG CAPSULE PO SCH (20:13)
[2019-12-10] MEDS: hydrOXYzine HCL 25 MG TABLET PO SCH (20:14)
[2019-12-10] MEDS: OXYBUTYNIN XL 5 MG TABLET PO SCH (20:15)
[2019-12-10] MEDS: ENOXAPARIN 40 MG/0.4 ML SYRINGE SUBCUT SCH (20:16)
[2019-12-11] MEDS: SODIUM CHLORIDE 0.9% 1,000 ML IV SCH ×2 (00:59→06:33)
[2019-12-11 06:05] LABS: Basophils % 0.5 % (0.0-0.8); Eosinophils % 0.2 % (0.00-10.9); Hematocrit 32.6 VOL% (35.7-47.0); Hemoglobin 9.8 GM/DL (12.0-16.0); Immature Granulocytes % 8.8 %; Immature Granulocytes Absolute 0.51 #; Lymphocytes # 0.6 10*3/uL (1.4-4.0); Lymphocytes % 11.1 % (21.3-54.2); Mean Corpuscular HGB Conc 30.1 GM/DL (32-36); Mean Corpuscular Volume 99.1 FL (87-102); Mean Platelet Volume 8.8 FL (9.6-12.0); NRBC # 0.03 10*3/uL; Neutrophils % 67.4 % (38.7-73.9); Platelet Count 238 T/CUMM (130-400); Red Blood Count 3.29 MC/CUMM (3.8-5.5); Red Cell Distribution Width 17.9 % (9.3-17.3); White Blood Count 5.8 T/CUMM (4-12)
[2019-12-11 06:22] LABS: Calcium 8.9 MG/DL (8.5-10.1)
[2019-12-11 06:27] LABS: Band Neutrophils 2 % (0-10); Hypochromasia 1+; Lymphocytes 10 % (20-55); Metamyelocytes 1 %; Myelocytes 1 %; Ovalocytes Few; Segmented Neutrophils 72 % (50-85); Total Cells Counted 100
[2019-12-11 06:28] LABS: Anisocytosis 1+; Macrocytosis 1+; Polychromasia Slight
[2019-12-11] MEDS ORDERED: BISACODYL 10 MG SUPP RECTAL ONE (09:00)
[2019-12-11] MEDS: SPIRONOLACTONE 25 MG TABLET PO SCH ×2 (09:49→21:03)
[2019-12-11] MEDS: predniSONE 10 MG TABLET PO SCH ×2 (09:50→21:03)
[2019-12-11] MEDS: levETIRAcetam 500 MG TABLET PO SCH ×2 (09:50→21:02)
[2019-12-11] MEDS: CALCIUM (CARBONATE)/VITAMIN D 600 MG-400 UNIT TABLET PO SCH ×2 (09:50→21:03)
[2019-12-11] MEDS: RANOLAZINE 500 MG TABLET PO SCH ×2 (09:50→21:01)
[2019-12-11] MEDS: oxyCODONE/ACETAMINOPHEN 5-325 MG TABLET PO SCH (09:50)
[2019-12-11] MEDS: DOCUSATE SODIUM 100 MG CAPSULE PO SCH ×2 (09:51→21:01)
[2019-12-11] MEDS: LEVOFLOXACIN 500 MG TABLET PO SCH (09:51)
[2019-12-11] MEDS: NITROFURANTOIN MACRO/MONO 100 MG CAPSULE PO SCH ×2 (09:51→21:03)
[2019-12-11] MEDS: DICYCLOMINE 20 MG TABLET PO SCH ×3 (09:52→21:03)
[2019-12-11] MEDS: COLESTIPOL 1 GM TABLET PO SCH ×2 (09:52→21:00)
[2019-12-11] MEDS: FUROSEMIDE 40 MG TABLET PO SCH (09:52)
[2019-12-11] MEDS: ASPIRIN EC 81 MG TABLET PO SCH (09:52)
[2019-12-11] MEDS: TOPIRAMATE 200 MG TABLET PO SCH ×2 (09:52→21:01)
[2019-12-11] MEDS: ACETAMINOPHEN 500 MG TABLET PO SCH ×3 (09:52→21:03)
[2019-12-11] MEDS: POTASSIUM CHLORIDE 20 MEQ TABLET PO SCH ×3 (09:52→21:03)
[2019-12-11] MEDS: DULoxetine 30 MG CAPSULE PO SCH ×2 (09:52→21:01)
[2019-12-11] MEDS: MULTIVITAMIN (CENTRUM) TABLET PO SCH (09:52)
[2019-12-11] MEDS: BETHANECHOL 25 MG TABLET PO SCH ×3 (09:53→21:02)
[2019-12-11] MEDS: GABAPENTIN 400 MG CAPSULE PO SCH ×3 (09:53→21:03)
[2019-12-11] MEDS: MAGNESIUM CHLORIDE 64 MG TABLET PO SCH ×2 (09:53→22:07)
[2019-12-11] MEDS: LORATADINE 10 MG TABLET PO SCH (09:53)
[2019-12-11] MEDS: PANTOPRAZOLE 40 MG TABLET PO SCH ×2 (09:53→21:03)
[2019-12-11] MEDS: OXYBUTYNIN XL 15 MG TABLET PO SCH (09:53)
[2019-12-11] MEDS: CHOLECALCIFEROL 1,000 UNIT TABLET PO SCH ×2 (09:53→21:02)
[2019-12-11] MEDS: NYSTATIN 500,000 UNIT/5 ML UDCUP SWISH/SWAL SCH ×3 (09:53→21:01)
[2019-12-11] MEDS: FOLIC ACID 1 MG TABLET PO SCH (09:53)
[2019-12-11] MEDS: MULTIVITAMIN (BEROCCA) TABLET PO SCH (09:53)
[2019-12-11] MEDS: SODIUM CHLORIDE 5% OPH SOLN 15 ML BOTTLE BOTH EYES SCH ×3 (09:54→21:14)
[2019-12-11] MEDS: POLYETHYLENE GLYCOL POWDER 17 GM PACK PO SCH (09:54)
[2019-12-11] MEDS: CLOPIDOGREL 75 MG TABLET PO SCH ×2 (09:54→21:02)
[2019-12-11] MEDS: methylPREDNISolone SOD SUC 40 MG/1 ML VIAL IV SCH (09:54)
[2019-12-11] MEDS: TRIAMCINOLONE 0.1% CREAM 15 GM TUBE TOP SCH ×2 (09:55→22:07)
[2019-12-11] MEDS: SODIUM HYPOCHLORITE 0.25% IRRIG 473 ML BOTTLE TOP SCH (09:55)
[2019-12-11] MEDS: ZINC OXIDE PASTE 113 GM TUBE TOP SCH ×2 (09:55→21:14)
[2019-12-11] MEDS: FLUTICASONE 50 MCG NASAL SPRAY 16 GM BOTTLE BOTH NARES SCH (09:55)
[2019-12-11] MEDS: BISOPROLOL 5 MG TABLET PO SCH ×2 (09:55→21:01)
[2019-12-11] MEDS: VANCOMYCIN INJ 1,000 MG in SODIUM CHLORIDE 0.9% 250 ML IV SCH (16:28)
[2019-12-11] MEDS: ENOXAPARIN 40 MG/0.4 ML SYRINGE SUBCUT SCH (21:00)
[2019-12-11] MEDS: TERAZOSIN 1 MG CAPSULE PO SCH (21:01)
[2019-12-11] MEDS: OXYBUTYNIN XL 5 MG TABLET PO SCH (21:03)
[2019-12-11] MEDS: hydrOXYzine HCL 25 MG TABLET PO SCH (21:03)
[2019-12-12] MEDS ORDERED: VANCOMYCIN INJ 750 MG in SODIUM CHLORIDE 0.9% 250 ML IV SCH (05:00)
[2019-12-12 05:02] LABS: Basophils % 0.3 % (0.0-0.8); Hematocrit 34.7 VOL% (35.7-47.0); Hemoglobin 10.3 GM/DL (12.0-16.0); Immature Granulocytes % 6.7 %; Immature Granulocytes Absolute 0.44 #; Lymphocytes # 0.8 10*3/uL (1.4-4.0); Lymphocytes % 12.2 % (21.3-54.2); Mean Corpuscular HGB Conc 29.7 GM/DL (32-36); Mean Corpuscular Volume 98.6 FL (87-102); Mean Platelet Volume 9.2 FL (9.6-12.0); Monocytes % 11.3 % (1.7-12.7); NRBC # 0.03 10*3/uL; Neutrophils % 69.5 % (38.7-73.9); Platelet Count 286 T/CUMM (130-400); Red Blood Count 3.52 MC/CUMM (3.8-5.5); Red Cell Distribution Width 18.2 % (9.3-17.3); White Blood Count 6.5 T/CUMM (4-12)
[2019-12-12 05:23] LABS: Calcium 9.3 MG/DL (8.5-10.1); Osmolality,Calculated 278.8 MOS/KG (273-304)
[2019-12-12 05:35] LABS: Hypochromasia 1+; Lymphocytes 10 % (20-55); Macrocytosis 1+; Metamyelocytes 2 %; Myelocytes 2 %; Segmented Neutrophils 74 % (50-85); Total Cells Counted 100
[2019-12-12 05:36] LABS: Anisocytosis 1+; Ovalocytes Slight; Polychromasia Slight
[2019-12-12] MEDS ORDERED: methylPREDNISolone SOD SUC 40 MG/1 ML VIAL IV SCH (09:00)
[2019-12-12] MEDS: DICYCLOMINE 20 MG TABLET PO SCH ×2 (09:47→16:38)
[2019-12-12] MEDS: DULoxetine 30 MG CAPSULE PO SCH (09:47)
[2019-12-12] MEDS: COLESTIPOL 1 GM TABLET PO SCH (09:47)
[2019-12-12] MEDS: PANTOPRAZOLE 40 MG TABLET PO SCH (09:48)
[2019-12-12] MEDS: POTASSIUM CHLORIDE 20 MEQ TABLET PO SCH ×2 (09:48→16:38)
[2019-12-12] MEDS: MAGNESIUM CHLORIDE 64 MG TABLET PO SCH (09:48)
[2019-12-12] MEDS: MULTIVITAMIN (BEROCCA) TABLET PO SCH (09:48)
[2019-12-12] MEDS: CLOPIDOGREL 75 MG TABLET PO SCH (09:48)
[2019-12-12] MEDS: OXYBUTYNIN XL 15 MG TABLET PO SCH (09:51)
[2019-12-12] MEDS: CHOLECALCIFEROL 1,000 UNIT TABLET PO SCH (09:52)
[2019-12-12] MEDS: predniSONE 10 MG TABLET PO SCH (09:53)
[2019-12-12] MEDS: RANOLAZINE 500 MG TABLET PO SCH (09:53)
[2019-12-12] MEDS: BISOPROLOL 5 MG TABLET PO SCH (09:53)
[2019-12-12] MEDS: MULTIVITAMIN (CENTRUM) TABLET PO SCH (09:53)
[2019-12-12] MEDS: CALCIUM (CARBONATE)/VITAMIN D 600 MG-400 UNIT TABLET PO SCH (09:54)
[2019-12-12] MEDS: ASPIRIN EC 81 MG TABLET PO SCH (09:54)
[2019-12-12] MEDS: NITROFURANTOIN MACRO/MONO 100 MG CAPSULE PO SCH (09:54)
[2019-12-12] MEDS: NYSTATIN 500,000 UNIT/5 ML UDCUP SWISH/SWAL SCH ×2 (09:54→16:38)
[2019-12-12] MEDS: FOLIC ACID 1 MG TABLET PO SCH (09:54)
[2019-12-12] MEDS: BETHANECHOL 25 MG TABLET PO SCH ×2 (09:54→16:38)
[2019-12-12] MEDS: GABAPENTIN 400 MG CAPSULE PO SCH ×2 (09:54→16:38)
[2019-12-12] MEDS: DOCUSATE SODIUM 100 MG CAPSULE PO SCH (09:54)
[2019-12-12] MEDS: LORATADINE 10 MG TABLET PO SCH (09:54)
[2019-12-12] MEDS: LEVOFLOXACIN 500 MG TABLET PO SCH (09:54)
[2019-12-12] MEDS: SPIRONOLACTONE 25 MG TABLET PO SCH (09:54)
[2019-12-12] MEDS: TOPIRAMATE 200 MG TABLET PO SCH (09:54)
[2019-12-12] MEDS: ACETAMINOPHEN 500 MG TABLET PO SCH ×2 (09:54→16:38)
[2019-12-12] MEDS: SODIUM HYPOCHLORITE 0.25% IRRIG 473 ML BOTTLE TOP SCH (09:55)
[2019-12-12] MEDS: POLYETHYLENE GLYCOL POWDER 17 GM PACK PO SCH (09:55)
[2019-12-12] MEDS: TRIAMCINOLONE 0.1% CREAM 15 GM TUBE TOP SCH (09:55)
[2019-12-12] MEDS: ZINC OXIDE PASTE 113 GM TUBE TOP SCH (09:55)
[2019-12-12] MEDS: SODIUM CHLORIDE 5% OPH SOLN 15 ML BOTTLE BOTH EYES SCH ×2 (09:55→16:38)
[2019-12-12] MEDS: FLUTICASONE 50 MCG NASAL SPRAY 16 GM BOTTLE BOTH NARES SCH (09:55)
[2019-12-12] MEDS: oxyCODONE/ACETAMINOPHEN 5-325 MG TABLET PO SCH (09:56)
[2019-12-12] MEDS: methylPREDNISolone SOD SUC 40 MG/1 ML VIAL IV SCH (09:56)
[2019-12-12] MEDS: levETIRAcetam 500 MG TABLET PO SCH (10:07)
[2019-12-12] MEDS: FUROSEMIDE 40 MG TABLET PO SCH (10:25)
[2019-12-12 15:54] VITALS: BP 133/85
== END 2019-12-12 18:25 | DRG 593 ==
LOC: N.ED 12:07 → N.EDINP 15:49 → N.2E 16:40
PROVIDERS: ADMIT Internal Medicine; ATTEND Internal Medicine

== ENCOUNTER 2020-10-05 16:37 | Observation (INO) ==
[2020-10-05] MEDS ORDERED: TISSUE ADHESIVE 1 EACH APPLICATOR TOP ONE (17:04)
[2020-10-05 17:33] LABS: Basophils # 0.1 10*3/uL (0.0-0.2); Basophils % 0.5 % (0.0-0.8); Eosinophils % 0.1 % (0.00-10.9); Hematocrit 37.7 VOL% (35.7-47.0); Immature Granulocytes % 4.3 %; Immature Granulocytes Absolute 0.49 #; Lymphocytes # 1.9 10*3/uL (1.4-4.0); Lymphocytes % 16.7 % (21.3-54.2); Mean Corpuscular HGB Conc 31.8 GM/DL (32-36); Mean Corpuscular Volume 95.4 FL (87-102); Mean Platelet Volume 8.5 FL (9.6-12.0); Monocytes % 8.2 % (1.7-12.7); NRBC # 0.06 10*3/uL; Neutrophils % 70.2 % (38.7-73.9); Platelet Count 325 T/CUMM (130-400); Red Blood Count 3.95 MC/CUMM (3.8-5.5); Red Cell Distribution Width 16.1 % (9.3-17.3); White Blood Count 11.4 T/CUMM (4-12)
[2020-10-05 17:44] LABS: INR 0.9; Partial Thromboplastin Time 22.8 SECS (23.9-33.8)
[2020-10-05 21:22] LABS: Alanine Aminotransferase 38 U/L (13-56); Albumin 2.8 G/DL (3.4-5.0); Alkaline Phosphatase 75 U/L (45-117); Aspartate Amino Transferase 18 U/L (0-37); Bilirubin,Total < 0.39 MG/DL (0.2-1.0); Blood Urea Nitrogen 29 MG/DL (7-18); Calcium 8.8 MG/DL (8.5-10.1); Estimated Glom Filtration Rate 88 ML/MIN; Glucose 125 MG/DL (74-106); Osmolality,Calculated 287.3 MOS/KG (273-304); Total Protein 6.6 G/DL (6.4-8.3)
[2020-10-05] MEDS ORDERED: ONDANSETRON 4 MG/2 ML VIAL IV PRN (23:01)
[2020-10-05] MEDS ORDERED: POLYVINYL ALCOHOL 1.4% OPH SOLN 15 ML BOTTLE BOTH EYES PRN (23:01)
[2020-10-05] MEDS ORDERED: DEXTROSE 50% 25 GM/50 ML VIAL IV PRN (23:01)
[2020-10-05] MEDS ORDERED: MAGNESIUM HYDROXIDE SUSP 30 ML UDCUP PO PRN (23:01)
[2020-10-05] MEDS ORDERED: GLUCAGON 1 MG VIAL IM PRN (23:01)
[2020-10-05] MEDS ORDERED: oxyCODONE/ACETAMINOPHEN 5-325 MG TABLET PO PRN (23:01)
[2020-10-05] MEDS ORDERED: traMADol 50 MG TABLET PO PRN (23:01)
[2020-10-05] MEDS ORDERED: ALBUTEROL 2.5 MG/3 ML NEB RESP TX PRN (23:01)
[2020-10-05] MEDS ORDERED: ACETAMINOPHEN 325 MG TABLET PO PRN (23:01)
[2020-10-05] MEDS ORDERED: ONDANSETRON 4 MG TABLET PO PRN (23:01)
[2020-10-05] MEDS ORDERED: ALUMINUM/MAGNES/SIMETH MAX STR 30 ML UDCUP PO PRN (23:01)
[2020-10-05] MEDS ORDERED: LOPERAMIDE 2 MG CAPSULE PO PRN (23:01)
[2020-10-05] MEDS ORDERED: IPRATROPIUM 500 MCG/2.5 ML NEB RESP TX PRN (23:01)
[2020-10-05] MEDS ORDERED: NITROGLYCERIN SL 0.4 MG TABLET SL PRN (23:01)
[2020-10-05] MEDS: SODIUM CHLORIDE 0.9% 1,000 ML IV SCH (23:19)
[2020-10-05] MEDS: INSULIN REGULAR 100 UNIT/ML SUBCUT SCH (23:25)
[2020-10-06] MEDS: ALBUTEROL/IPRATROPIUM 3 ML NEB RESP TX SCH ×4 (00:11→19:14)
[2020-10-06 05:44] LABS: Basophils # 0.1 10*3/uL (0.0-0.2); Basophils % 0.8 % (0.0-0.8); Eosinophils % 0.3 % (0.00-10.9); Hematocrit 32.3 VOL% (35.7-47.0); Hemoglobin 9.8 GM/DL (12.0-16.0); Immature Granulocytes % 5.4 %; Immature Granulocytes Absolute 0.41 #; Lymphocytes # 1.9 10*3/uL (1.4-4.0); Lymphocytes % 24.7 % (21.3-54.2); Mean Corpuscular HGB Conc 30.3 GM/DL (32-36); Mean Corpuscular Volume 95.6 FL (87-102); Mean Platelet Volume 8.6 FL (9.6-12.0); Monocytes % 11.6 % (1.7-12.7); NRBC # 0.03 10*3/uL; Neutrophils % 57.2 % (38.7-73.9); Platelet Count 274 T/CUMM (130-400); Red Blood Count 3.38 MC/CUMM (3.8-5.5); Red Cell Distribution Width 15.9 % (9.3-17.3); White Blood Count 7.6 T/CUMM (4-12)
[2020-10-06 06:14] LABS: Band Neutrophils 1 % (0-10); Hypochromasia 1+; Lymphocytes 24 % (20-55); Microcytosis 1+; Platelet Estimate Adequate; Segmented Neutrophils 63 % (50-85); Total Cells Counted 100
[2020-10-06 06:15] LABS: Ovalocytes Slight
[2020-10-06] MEDS: INSULIN REGULAR 100 UNIT/ML SUBCUT SCH ×3 (07:09→19:09)
[2020-10-06] MEDS ORDERED: ceFAZolin 1,000 MG in SYRINGE 1 EACH IV ONE (08:02)
[2020-10-06] MEDS ORDERED: MULTIVITAMIN WITH MINERALS PO SCH (09:00)
[2020-10-06] MEDS ORDERED: THERA TEARS BOTH EYES SCH (09:00)
[2020-10-06] MEDS ORDERED: PANTOPRAZOLE 40 MG TABLET PO SCH (09:00)
[2020-10-06] MEDS ORDERED: BETHANECHOL 25 MG TABLET PO SCH (09:00)
[2020-10-06] MEDS ORDERED: LIDOCAINE 1% 20 ML VIAL ONE (09:07)
[2020-10-06] MEDS ORDERED: BUPIVACAINE MPF 0.25% 30 ML VIAL ONE (09:07)
[2020-10-06] MEDS ORDERED: MIDAZOLAM 2 MG/2 ML VIAL ONE (09:13)
[2020-10-06] MEDS ORDERED: propofoL 200 MG/20 ML VIAL IV ONE (09:13)
[2020-10-06] MEDS ORDERED: SODIUM CHLORIDE 0.9% 100 ML IV ONE (09:13)
[2020-10-06] MEDS ORDERED: fentaNYL 100 MCG/2 ML VIAL ONE (09:13)
[2020-10-06] MEDS ORDERED: ETOMIDATE 40 MG/20 ML VIAL IV ONE (09:13)
[2020-10-06] MEDS ORDERED: methylPREDNISolone SOD SUC 125 MG/2 ML VIAL ONE (09:58)
[2020-10-06] MEDS: POLYETHYLENE GLYCOL POWDER 17 GM PACK PO SCH (11:07)
[2020-10-06] MEDS: DULoxetine 30 MG CAPSULE PO SCH ×2 (11:07→20:38)
[2020-10-06] MEDS: COLESEVELAM 625 MG TABLET PO SCH ×3 (11:09→18:14)
[2020-10-06] MEDS: LEFLUNOMIDE 10 MG TABLET PO SCH (11:09)
[2020-10-06] MEDS: TOPIRAMATE 100 MG TABLET PO SCH ×2 (11:09→20:38)
[2020-10-06] MEDS: MAGNESIUM CHLORIDE 64 MG TABLET PO SCH ×2 (11:09→20:38)
[2020-10-06] MEDS: GABAPENTIN 400 MG CAPSULE PO SCH ×3 (11:09→20:38)
[2020-10-06] MEDS: PANTOPRAZOLE 40 MG TABLET PO SCH ×2 (11:10→20:38)
[2020-10-06] MEDS: CETIRIZINE 10 MG TABLET PO SCH (11:10)
[2020-10-06] MEDS: DICYCLOMINE 10 MG CAPSULE PO SCH ×2 (11:10→20:37)
[2020-10-06] MEDS: carvediloL 12.5 MG TABLET PO SCH ×2 (11:10→18:14)
[2020-10-06] MEDS: DOCUSATE SODIUM 100 MG CAPSULE PO SCH ×2 (11:10→20:37)
[2020-10-06] MEDS: MULTIVITAMIN (CENTRUM) TABLET PO SCH (11:10)
[2020-10-06] MEDS: levETIRAcetam 500 MG TABLET PO SCH (11:10)
[2020-10-06] MEDS: BISOPROLOL 5 MG TABLET PO SCH ×2 (11:10→20:38)
[2020-10-06] MEDS: ASPIRIN EC 81 MG TABLET PO SCH (11:10)
[2020-10-06] MEDS: FUROSEMIDE 40 MG TABLET PO SCH (11:11)
[2020-10-06] MEDS: SPIRONOLACTONE 25 MG TABLET PO SCH ×2 (11:11→20:37)
[2020-10-06] MEDS: predniSONE 10 MG TABLET PO SCH ×2 (11:11→18:14)
[2020-10-06] MEDS: ACETAMINOPHEN 500 MG TABLET PO SCH ×3 (11:11→20:38)
[2020-10-06] MEDS ORDERED: SIMVASTATIN 20 MG TABLET PO SCH (21:00)
[2020-10-06] MEDS ORDERED: [UNRECOGNIZED DRUG - OTHER] BOTH EYES SCH (21:00)
[2020-10-06] MEDS ORDERED: TERAZOSIN 1 MG CAPSULE PO SCH (21:00)
[2020-10-06] MEDS ORDERED: levETIRAcetam 500 MG TABLET PO SCH (21:00)
[2020-10-07] MEDS: ALBUTEROL/IPRATROPIUM 3 ML NEB RESP TX SCH ×3 (00:32→12:13)
[2020-10-07] MEDS: INSULIN REGULAR 100 UNIT/ML SUBCUT SCH ×3 (01:23→13:23)
[2020-10-07 05:39] LABS: Basophils % 0.1 % (0.0-0.8); Hemoglobin 9.2 GM/DL (12.0-16.0); Immature Granulocytes % 3.6 %; Immature Granulocytes Absolute 0.41 #; Lymphocytes # 1.5 10*3/uL (1.4-4.0); Lymphocytes % 12.6 % (21.3-54.2); Mean Corpuscular HGB Conc 30.7 GM/DL (32-36); Mean Corpuscular Volume 96.5 FL (87-102); Mean Platelet Volume 8.6 FL (9.6-12.0); Monocytes % 6.5 % (1.7-12.7); NRBC # 0.06 10*3/uL; Neutrophils % 77.2 % (38.7-73.9); Platelet Count 271 T/CUMM (130-400); Red Blood Count 3.11 MC/CUMM (3.8-5.5); White Blood Count 11.5 T/CUMM (4-12)
[2020-10-07 05:56] LABS: Calcium 8.3 MG/DL (8.5-10.1); Osmolality,Calculated 291.1 MOS/KG (273-304)
[2020-10-07] MEDS: POLYETHYLENE GLYCOL POWDER 17 GM PACK PO SCH (09:09)
[2020-10-07] MEDS: FUROSEMIDE 40 MG TABLET PO SCH (09:12)
[2020-10-07] MEDS: DOCUSATE SODIUM 100 MG CAPSULE PO SCH (09:12)
[2020-10-07] MEDS: MULTIVITAMIN (CENTRUM) TABLET PO SCH (09:12)
[2020-10-07] MEDS: SPIRONOLACTONE 25 MG TABLET PO SCH (09:12)
[2020-10-07] MEDS: carvediloL 12.5 MG TABLET PO SCH (09:12)
[2020-10-07] MEDS: MAGNESIUM CHLORIDE 64 MG TABLET PO SCH (09:12)
[2020-10-07] MEDS: levETIRAcetam 500 MG TABLET PO SCH (09:12)
[2020-10-07] MEDS: DULoxetine 30 MG CAPSULE PO SCH (09:12)
[2020-10-07] MEDS: ACETAMINOPHEN 500 MG TABLET PO SCH (09:12)
[2020-10-07] MEDS: PANTOPRAZOLE 40 MG TABLET PO SCH (09:12)
[2020-10-07] MEDS: predniSONE 10 MG TABLET PO SCH (09:12)
[2020-10-07] MEDS: CETIRIZINE 10 MG TABLET PO SCH (09:12)
[2020-10-07] MEDS: TOPIRAMATE 100 MG TABLET PO SCH (09:13)
[2020-10-07] MEDS: COLESEVELAM 625 MG TABLET PO SCH ×2 (09:13→13:39)
[2020-10-07] MEDS: LEFLUNOMIDE 10 MG TABLET PO SCH (09:13)
[2020-10-07] MEDS: BISOPROLOL 5 MG TABLET PO SCH (09:13)
[2020-10-07] MEDS: ASPIRIN EC 81 MG TABLET PO SCH (09:13)
[2020-10-07] MEDS: GABAPENTIN 400 MG CAPSULE PO SCH (09:13)
[2020-10-07] MEDS: DICYCLOMINE 10 MG CAPSULE PO SCH (09:13)
[2020-10-07] MEDS: SODIUM CHLORIDE 0.9% 1,000 ML IV SCH ×2 (10:10→10:25)
[2020-10-07 13:22] VITALS: BP 111/80
== END 2020-10-07 14:38 ==
LOC: EDUNIT# → EDBD → N.ED 16:37 → N.5E 16:37
PROVIDERS: ADMIT Internal Medicine; ATTEND Internal Medicine

== ENCOUNTER 2020-12-10 21:25 | Inpatient (IN) ==
[2020-12-10] MEDS ORDERED: FUROSEMIDE 40 MG/4 ML VIAL IV STA (21:47)
[2020-12-10] MEDS ORDERED: ONDANSETRON 4 MG/2 ML VIAL IV STA (21:47)
[2020-12-10] MEDS ORDERED: methylPREDNISolone SOD SUC 125 MG/2 ML VIAL IV STA (21:47)
[2020-12-10] MEDS ORDERED: DILTIAZEM 50 MG/10 ML VIAL IV STA (21:50)
[2020-12-10] MEDS ORDERED: MORPHINE 4 MG/1 ML VIAL IV STA (21:52)
[2020-12-10 22:05] LABS: Basophils # 0.1 10*3/uL (0.0-0.2); Basophils % 0.8 % (0.0-0.8); Eosinophils % 0.4 % (0.00-10.9); Hematocrit 34.8 VOL% (35.7-47.0); Hemoglobin 9.9 GM/DL (12.0-16.0); Immature Granulocytes Absolute 0.49 #; Lymphocytes # 2.5 10*3/uL (1.4-4.0); Lymphocytes % 25.2 % (21.3-54.2); Mean Corpuscular HGB Conc 28.4 GM/DL (32-36); Mean Corpuscular Volume 84.3 FL (87-102); Mean Platelet Volume 8.2 FL (9.6-12.0); Monocytes % 12.8 % (1.7-12.7); NRBC # 0.04 10*3/uL; Neutrophils % 55.8 % (38.7-73.9); Platelet Count 392 T/CUMM (130-400); Red Blood Count 4.13 MC/CUMM (3.8-5.5); Red Cell Distribution Width 23.1 % (9.3-17.3); White Blood Count 9.8 T/CUMM (4-12)
[2020-12-10 22:16] LABS: PT Patient Result 10.3 SECS (9.8-11.9)
[2020-12-10 22:25] LABS: Anisocytosis 1+; Elliptocytes 1+; Hypochromasia 1+
[2020-12-10 22:26] LABS: Polychromasia 1+; Schistocytes Few; Target Cells Few
[2020-12-10 22:27] LABS: Platelet Estimate Adequate; Tear Drop Cells Few
[2020-12-10 22:34] LABS: Alanine Aminotransferase 39 U/L (13-56); Albumin 3.2 G/DL (3.4-5.0); Alkaline Phosphatase 82 U/L (45-117); Amylase 71 U/L (25-115); Aspartate Amino Transferase 28 U/L (0-37); Bilirubin,Total < 0.39 MG/DL (0.2-1.0); Blood Urea Nitrogen 14 MG/DL (7-18); Calcium 9.4 MG/DL (8.5-10.1); Carbon Dioxide 24 MMOL/L (21-32); Estimated Glom Filtration Rate 74 ML/MIN; Glucose 125 MG/DL (74-106); Sodium 136 MMOL/L (136-145); Total Protein 7.2 G/DL (5.0-7.5)
[2020-12-10 22:35] LABS: Bacteria,Urine Moderate /HPF (Few); Bilirubin,Urine Negative (Negative); Blood, Urine Negative (Negative); Glucose,Urine (UA) Negative (Negative); Ketones,Urine Negative (Negative); Mucus,Urine Occasional /LPF (Occasional); Nitrite,Urine Positive (Negative); Protein,Urine Negative; RBC,Urine <1 /HPF (0-4); Squamous Epithelial Cell,Urine Occasional /HPF (0-10); Urine Appearance Slightly Hazy (Clear); Urine Color Yellow (Yellow); Urine Urobilinogen < 2.0 EU/DL (0.2-1.0); WBC,Urine 14 /HPF (0-6)
[2020-12-10] MEDS ORDERED: cefTRIAXone 1,000 MG in SODIUM CHLORIDE 0.9% 100 ML IV STA (22:52)
[2020-12-10] MEDS ORDERED: POTASSIUM CHLORIDE 20 MEQ TABLET PO STA (23:11)
[2020-12-10] MEDS ORDERED: ENOXAPARIN 100 MG/ML SYRINGE SUBCUT STA (23:39)
[2020-12-11] MEDS ORDERED: MORPHINE 4 MG/1 ML VIAL IV PRN (01:58)
[2020-12-11] MEDS ORDERED: ACETAMINOPHEN 325 MG TABLET PO PRN (01:58)
[2020-12-11] MEDS ORDERED: SODIUM CHLORIDE 0.9% 1,000 ML IV SCH (01:58)
[2020-12-11] MEDS ORDERED: DEXTROSE 50% 25 GM/50 ML VIAL IV PRN (01:58)
[2020-12-11] MEDS ORDERED: ONDANSETRON 4 MG/2 ML VIAL IV PRN (01:58)
[2020-12-11] MEDS ORDERED: GLUCAGON 1 MG VIAL IM PRN (01:58)
[2020-12-11] MEDS: INSULIN REGULAR 100 UNIT/ML SUBCUT SCH ×4 (02:00→17:04)
[2020-12-11 03:13] LABS: Troponin I 0.051 NG/ML (0.00-0.045)
[2020-12-11] MEDS: ALBUTEROL/IPRATROPIUM 3 ML NEB RESP TX SCH ×5 (03:33→23:00)
[2020-12-11 06:31] LABS: Albumin 3.2 G/DL (3.4-5.0); Bilirubin,Total 1.9 MG/DL (0.2-1.0); Calcium 9.4 MG/DL (8.5-10.1); Potassium 3.8 MMOL/L (3.5-5.1); Total Protein 7.4 G/DL (5.0-7.5)
[2020-12-11 06:36] LABS: Basophils % 0.4 % (0.0-0.8); Hematocrit 35.3 VOL% (35.7-47.0); Immature Granulocytes % 4.7 %; Immature Granulocytes Absolute 0.44 #; Lymphocytes # 0.7 10*3/uL (1.4-4.0); Lymphocytes % 7.6 % (21.3-54.2); Mean Corpuscular Volume 83.5 FL (87-102); Mean Platelet Volume 8.9 FL (9.6-12.0); Monocytes % 1.1 % (1.7-12.7); NRBC # 0.03 10*3/uL; Neutrophils % 86.2 % (38.7-73.9); Platelet Count 427 T/CUMM (130-400); Red Blood Count 4.23 MC/CUMM (3.8-5.5); Red Cell Distribution Width 23.2 % (9.3-17.3); White Blood Count 9.5 T/CUMM (4-12)
[2020-12-11 06:40] LABS: Hemoglobin 9.9 GM/DL (12.0-16.0)
[2020-12-11 06:46] LABS: Hypochromasia 1+
[2020-12-11 06:47] LABS: Microcytosis 1+; Ovalocytes Slight; Platelet Estimate Increased; Polychromasia Slight
[2020-12-11 06:49] LABS: Anisocytosis 1+; Poikilocytosis 1+
[2020-12-11] MEDS ORDERED: NITROGLYCERIN SL 0.4 MG TABLET SL PRN (07:08)
[2020-12-11] MEDS ORDERED: oxyCODONE/ACETAMINOPHEN 5-325 MG TABLET PO PRN (08:20)
[2020-12-11] MEDS ORDERED: ENOXAPARIN 80 MG/0.8 ML SYRINGE SUBCUT SCH (09:00)
[2020-12-11] MEDS: SPIRONOLACTONE 25 MG TABLET PO SCH ×2 (09:08→21:04)
[2020-12-11] MEDS: PANTOPRAZOLE 40 MG TABLET PO SCH (09:08)
[2020-12-11] MEDS: FUROSEMIDE 40 MG TABLET PO SCH (09:08)
[2020-12-11] MEDS: ASPIRIN EC 81 MG TABLET PO SCH (09:08)
[2020-12-11] MEDS: carvediloL 12.5 MG TABLET PO SCH ×2 (09:08→21:04)
[2020-12-11] MEDS: predniSONE 10 MG TABLET PO SCH ×2 (09:08→21:05)
[2020-12-11] MEDS: DOCUSATE SODIUM 100 MG CAPSULE PO SCH ×2 (09:08→21:04)
[2020-12-11] MEDS: levETIRAcetam 500 MG TABLET PO SCH (09:08)
[2020-12-11] MEDS ORDERED: METOPROLOL TARTRATE 5 MG/5 ML VIAL IV ONE (10:39)
[2020-12-11] MEDS: diphenhydrAMINE CAP 25 MG CAPSULE PO PRN (14:35)
[2020-12-11] MEDS: SODIUM HYPOCHLORITE 0.25% IRRIG 473 ML BOTTLE TOP SCH (18:28)
[2020-12-11] MEDS ORDERED: SIMVASTATIN 20 MG TABLET PO SCH (21:00)
[2020-12-11] MEDS ORDERED: levETIRAcetam 250 MG TABLET PO SCH (21:00)
[2020-12-11] MEDS ORDERED: TERAZOSIN 1 MG CAPSULE PO SCH (21:00)
[2020-12-11] MEDS: APIXABAN 5 MG TABLET PO SCH (21:04)
[2020-12-12] MEDS: INSULIN REGULAR 100 UNIT/ML SUBCUT SCH ×3 (00:05→14:33)
[2020-12-12] MEDS: ALBUTEROL/IPRATROPIUM 3 ML NEB RESP TX SCH ×3 (03:00→11:43)
[2020-12-12 05:45] LABS: Calcium 8.7 MG/DL (8.5-10.1); Osmolality,Calculated 282.5 MOS/KG (273-304); Potassium 3.3 MMOL/L (3.5-5.1)
[2020-12-12 05:46] LABS: Basophils % 0.2 % (0.0-0.8); Eosinophils % 0.1 % (0.00-10.9); Hematocrit 31.6 VOL% (35.7-47.0); Hemoglobin 9.2 GM/DL (12.0-16.0); Immature Granulocytes % 2.1 %; Immature Granulocytes Absolute 0.19 #; Lymphocytes # 1.4 10*3/uL (1.4-4.0); Lymphocytes % 15.4 % (21.3-54.2); Mean Corpuscular HGB Conc 29.1 GM/DL (32-36); Mean Corpuscular Volume 82.3 FL (87-102); Mean Platelet Volume 8.6 FL (9.6-12.0); Monocytes % 11.4 % (1.7-12.7); NRBC # 0.03 10*3/uL; Neutrophils % 70.8 % (38.7-73.9); Platelet Count 376 T/CUMM (130-400); Red Blood Count 3.84 MC/CUMM (3.8-5.5); Red Cell Distribution Width 23.1 % (9.3-17.3); White Blood Count 8.8 T/CUMM (4-12)
[2020-12-12 05:57] LABS: Hypochromasia 1+; Lymphocytes 15 % (20-55); Microcytosis 1+; Nucleated Red Blood Cells 1 (0-5); Platelet Estimate Adequate; Segmented Neutrophils 79 % (50-85); Total Cells Counted 100
[2020-12-12] MEDS: SPIRONOLACTONE 25 MG TABLET PO SCH (09:12)
[2020-12-12] MEDS: DOCUSATE SODIUM 100 MG CAPSULE PO SCH (09:12)
[2020-12-12] MEDS: levETIRAcetam 500 MG TABLET PO SCH (09:12)
[2020-12-12] MEDS: carvediloL 12.5 MG TABLET PO SCH (09:12)
[2020-12-12] MEDS: predniSONE 10 MG TABLET PO SCH (09:12)
[2020-12-12] MEDS: APIXABAN 5 MG TABLET PO SCH (09:12)
[2020-12-12] MEDS: FUROSEMIDE 40 MG TABLET PO SCH (09:12)
[2020-12-12] MEDS: ASPIRIN EC 81 MG TABLET PO SCH (09:13)
[2020-12-12] MEDS: PANTOPRAZOLE 40 MG TABLET PO SCH (09:13)
[2020-12-12] MEDS: diphenhydrAMINE CAP 25 MG CAPSULE PO PRN (09:18)
[2020-12-12 11:54] VITALS: BP 118/69
[2020-12-12] MEDS: SODIUM HYPOCHLORITE 0.25% IRRIG 473 ML BOTTLE TOP SCH (12:57)
[2020-12-18] MEDS ORDERED: APIXABAN 5 MG TABLET PO SCH ×2 (21:00)
== END 2020-12-12 14:34 | DRG 175 ==
LOC: EDUNIT# → EDBD → N.ED 21:25 → N.EDINP 23:44 → N.TELES 12-11 01:22
PROVIDERS: ADMIT Internal Medicine; ATTEND Internal Medicine

== ENCOUNTER 2021-01-27 20:18 | Observation (INO) ==
[2021-01-27] MEDS ORDERED: ONDANSETRON 4 MG/2 ML VIAL IV STA (21:22)
[2021-01-27] MEDS ORDERED: HYDROmorphone 2 MG/1 ML VIAL IV STA (21:22)
[2021-01-27] MEDS ORDERED: METHOCARBAMOL 1,000 MG/10 ML VIAL IV STA (21:22)
[2021-01-27 22:00] LABS: Red Cell Distribution Width 23.5 % (9.3-17.3)
[2021-01-27 22:02] LABS: Bacteria,Urine Moderate /HPF (Few); Bilirubin,Urine Negative (Negative); Blood, Urine Negative (Negative); Glucose,Urine (UA) Negative (Negative); Ketones,Urine Negative (Negative); Nitrite,Urine Positive (Negative); Protein,Urine Negative; Squamous Epithelial Cell,Urine Occasional /HPF (0-10); Urine Appearance CLEAR (Clear); Urine Color Yellow (Yellow); Urine Specific Gravity 1.011 (1.001-1.035); Urine Urobilinogen < 2.0 EU/DL (0.2-1.0); WBC,Urine 7 /HPF (0-6)
[2021-01-27] MEDS ORDERED: cefTRIAXone 1,000 MG in SODIUM CHLORIDE 0.9% 100 ML IV STA (22:05)
[2021-01-27 22:10] LABS: INR 1.1; PT Patient Result 12.1 SECS (9.8-11.9)
[2021-01-27 22:18] LABS: Basophils % 0.4 % (0.0-0.8); Eosinophils % 0.3 % (0.00-10.9); Immature Granulocytes % 2.9 %; Immature Granulocytes Absolute 0.32 #; Lymphocytes # 1.7 10*3/uL (1.4-4.0); Lymphocytes % 14.8 % (21.3-54.2); Mean Corpuscular HGB Conc 28.2 GM/DL (32-36); Mean Corpuscular Volume 85.2 FL (87-102); Mean Platelet Volume 8.6 FL (9.6-12.0); Neutrophils % 72.6 % (38.7-73.9); Platelet Count 368 T/CUMM (130-400); Red Blood Count 3.99 MC/CUMM (3.8-5.5); White Blood Count 11.2 T/CUMM (4-12)
[2021-01-27 22:21] LABS: Hemoglobin 9.6 GM/DL (12.0-16.0)
[2021-01-27 22:36] LABS: Alanine Aminotransferase 24 U/L (13-56); Albumin 2.9 G/DL (3.4-5.0); Alkaline Phosphatase 84 U/L (45-117); Aspartate Amino Transferase 17 U/L (0-37); Bilirubin,Total < 0.39 MG/DL (0.2-1.0); Blood Urea Nitrogen 19 MG/DL (7-18); Calcium 9.2 MG/DL (8.5-10.1); Carbon Dioxide 26 MMOL/L (21-32); Estimated Glom Filtration Rate 97 ML/MIN; Glucose 144 MG/DL (74-106); Osmolality,Calculated 281.5 MOS/KG (273-304); Potassium 4.1 MMOL/L (3.5-5.1); Sodium 139 MMOL/L (136-145); Total Protein 6.7 G/DL (6.4-8.2); Troponin I < 0.015 NG/ML (0.00-0.045)
[2021-01-28] MEDS ORDERED: ONDANSETRON 4 MG/2 ML VIAL IV PRN (01:30)
[2021-01-28] MEDS ORDERED: NON-FORMULARY MEDICATION (Menthol [Biofreeze (Menthol)] 4 % Gel) TOP PRN (01:30)
[2021-01-28] MEDS ORDERED: MORPHINE 4 MG/1 ML VIAL IV PRN (01:30)
[2021-01-28] MEDS ORDERED: SODIUM CHLORIDE 0.9% 1,000 ML IV SCH (01:30)
[2021-01-28] MEDS ORDERED: GLUCAGON 1 MG VIAL IM PRN (01:30)
[2021-01-28] MEDS ORDERED: ACETAMINOPHEN 325 MG TABLET PO PRN (01:30)
[2021-01-28] MEDS ORDERED: INSULIN REGULAR 100 UNIT/ML SUBCUT SCH (01:30)
[2021-01-28] MEDS ORDERED: DEXTROSE 50% 25 GM/50 ML VIAL IV PRN (01:30)
[2021-01-28] MEDS ORDERED: ONDANSETRON ODT 4 MG TABLET PO PRN (01:48)
[2021-01-28] MEDS ORDERED: CYCLOBENZAPRINE 10 MG TABLET PO PRN (01:52)
[2021-01-28] MEDS: ALBUTEROL/IPRATROPIUM 3 ML NEB RESP TX SCH ×4 (02:10→19:47)
[2021-01-28 02:58] LABS: Red Cell Distribution Width 23.7 % (9.3-17.3)
[2021-01-28] MEDS: oxyCODONE/ACETAMINOPHEN 5-325 MG TABLET PO SCH ×5 (03:00→17:49)
[2021-01-28 03:18] LABS: Alanine Aminotransferase 24 U/L (13-56); Alkaline Phosphatase 87 U/L (45-117); Aspartate Amino Transferase 16 U/L (0-37); Bilirubin,Total < 0.39 MG/DL (0.2-1.0); Blood Urea Nitrogen 19 MG/DL (7-18); Carbon Dioxide 25 MMOL/L (21-32); Estimated Glom Filtration Rate 100 ML/MIN; Glucose 136 MG/DL (74-106); HDL Cholesterol 83 MG/DL (40-60); Osmolality,Calculated 278.7 MOS/KG (273-304); Potassium 4.1 MMOL/L (3.5-5.1); Risk Ratio 2.34; Sodium 138 MMOL/L (136-145); Triglycerides 301 MG/DL (2-150); VLDL CHOLESTEROL 60.2 MG/DL
[2021-01-28 03:24] LABS: Basophils % 0.3 % (0.0-0.8); Eosinophils % 0.1 % (0.00-10.9); Hematocrit 36.5 VOL% (35.7-47.0); Immature Granulocytes % 3.9 %; Immature Granulocytes Absolute 0.39 #; Lymphocytes # 1.6 10*3/uL (1.4-4.0); Lymphocytes % 15.6 % (21.3-54.2); Mean Corpuscular HGB Conc 28.2 GM/DL (32-36); Mean Corpuscular Volume 85.9 FL (87-102); Mean Platelet Volume 8.7 FL (9.6-12.0); Monocytes % 6.9 % (1.7-12.7); Neutrophils % 73.2 % (38.7-73.9); Platelet Count 372 T/CUMM (130-400); Red Blood Count 4.25 MC/CUMM (3.8-5.5)
[2021-01-28 03:26] LABS: Hemoglobin 10.3 GM/DL (12.0-16.0)
[2021-01-28 04:26] VITALS: BP 155/94
[2021-01-28] MEDS: INSULIN REGULAR 100 UNIT/ML SUBCUT SCH ×3 (05:14→17:50)
[2021-01-28] MEDS: BETHANECHOL 10 MG TABLET PO SCH ×3 (08:05→20:31)
[2021-01-28] MEDS: MAGNESIUM CHLORIDE 64 MG TABLET PO SCH ×2 (08:05→20:32)
[2021-01-28] MEDS: COLESEVELAM 625 MG TABLET PO SCH ×3 (08:05→20:34)
[2021-01-28] MEDS: predniSONE 10 MG TABLET PO SCH ×2 (08:06→20:35)
[2021-01-28] MEDS: CARBOXYMETHYLCELLULOSE 1% OPH SOLN BOTH EYES SCH ×3 (08:06→20:34)
[2021-01-28] MEDS: DOCUSATE SODIUM 100 MG CAPSULE PO SCH ×2 (08:06→20:33)
[2021-01-28] MEDS: CALCIUM (CARBONATE)/VITAMIN D 600 MG-400 UNIT TABLET PO SCH ×2 (08:06→20:36)
[2021-01-28] MEDS: CETIRIZINE 10 MG TABLET PO SCH (08:07)
[2021-01-28] MEDS: DULoxetine 30 MG CAPSULE PO SCH (08:07)
[2021-01-28] MEDS: POLYETHYLENE GLYCOL POWDER 17 GM PACK PO SCH (08:07)
[2021-01-28] MEDS: PANTOPRAZOLE 40 MG TABLET PO SCH (08:07)
[2021-01-28] MEDS: MULTIVITAMIN (CENTRUM) TABLET PO SCH (08:07)
[2021-01-28] MEDS: GABAPENTIN 400 MG CAPSULE PO SCH ×3 (08:07→20:34)
[2021-01-28] MEDS: FUROSEMIDE 40 MG TABLET PO SCH (08:08)
[2021-01-28] MEDS: levETIRAcetam 500 MG TABLET PO SCH (08:08)
[2021-01-28] MEDS: TOPIRAMATE 100 MG TABLET PO SCH ×2 (08:08→20:33)
[2021-01-28] MEDS: carvediloL 12.5 MG TABLET PO SCH ×2 (08:08→20:36)
[2021-01-28] MEDS: CLOPIDOGREL 75 MG TABLET PO SCH (08:08)
[2021-01-28] MEDS: SPIRONOLACTONE 25 MG TABLET PO SCH ×2 (08:08→20:33)
[2021-01-28] MEDS: SODIUM HYPOCHLORITE 0.25% IRRIG 473 ML BOTTLE TOP SCH (08:48)
[2021-01-28] MEDS ORDERED: PANTOPRAZOLE 40 MG TABLET PO SCH (09:00)
[2021-01-28] MEDS: APIXABAN 5 MG TABLET PO SCH ×2 (09:17→20:33)
[2021-01-28] MEDS: LEFLUNOMIDE 10 MG TABLET PO SCH (09:17)
[2021-01-28] MEDS: DICYCLOMINE 10 MG CAPSULE PO SCH ×2 (09:17→20:32)
[2021-01-28] MEDS: VERAPAMIL SR 120 MG TABLET PO SCH (17:34)
[2021-01-28] MEDS ORDERED: OXYBUTYNIN XL 5 MG TABLET PO SCH (21:00)
[2021-01-28] MEDS ORDERED: SIMVASTATIN 40 MG TABLET PO SCH (21:00)
[2021-01-28] MEDS ORDERED: levETIRAcetam 500 MG TABLET PO SCH (21:00)
[2021-01-28] MEDS ORDERED: TERAZOSIN 1 MG CAPSULE PO SCH (21:00)
[2021-01-28] MEDS ORDERED: cefTRIAXone 1,000 MG in SODIUM CHLORIDE 0.9% 100 ML IV SCH (22:00)
[2021-01-29] MEDS: INSULIN REGULAR 100 UNIT/ML SUBCUT SCH ×2 (00:02→06:37)
[2021-01-29] MEDS: oxyCODONE/ACETAMINOPHEN 5-325 MG TABLET PO SCH ×2 (00:52→06:38)
[2021-01-29] MEDS: ALBUTEROL/IPRATROPIUM 3 ML NEB RESP TX SCH ×2 (01:51→07:15)
[2021-01-29 06:20] LABS: Calcium 9.7 MG/DL (8.5-10.1); Osmolality,Calculated 282.4 MOS/KG (273-304); Potassium 4.2 MMOL/L (3.5-5.1)
[2021-01-29 06:21] LABS: Basophils % 0.4 % (0.0-0.8); Eosinophils % 0.4 % (0.00-10.9); Hematocrit 34.4 VOL% (35.7-47.0); Hemoglobin 9.9 GM/DL (12.0-16.0); Immature Granulocytes % 3.6 %; Lymphocytes # 1.4 10*3/uL (1.4-4.0); Lymphocytes % 16.5 % (21.3-54.2); Mean Corpuscular HGB Conc 28.8 GM/DL (32-36); Mean Corpuscular Volume 84.9 FL (87-102); Mean Platelet Volume 9.1 FL (9.6-12.0); Monocytes % 8.3 % (1.7-12.7); NRBC # 0.02 10*3/uL; Neutrophils % 70.8 % (38.7-73.9); Platelet Count 363 T/CUMM (130-400); Red Blood Count 4.05 MC/CUMM (3.8-5.5); Red Cell Distribution Width 23.7 % (9.3-17.3); White Blood Count 8.2 T/CUMM (4-12)
[2021-01-29 06:31] LABS: Hypochromasia 1+; Microcytosis 1+; Ovalocytes Slight; Platelet Estimate Adequate
[2021-01-29] MEDS: POLYETHYLENE GLYCOL POWDER 17 GM PACK PO SCH (08:57)
[2021-01-29] MEDS: predniSONE 10 MG TABLET PO SCH (08:57)
[2021-01-29] MEDS: MAGNESIUM CHLORIDE 64 MG TABLET PO SCH (08:57)
[2021-01-29] MEDS: COLESEVELAM 625 MG TABLET PO SCH (08:57)
[2021-01-29] MEDS: BETHANECHOL 10 MG TABLET PO SCH (08:57)
[2021-01-29] MEDS: MULTIVITAMIN (CENTRUM) TABLET PO SCH (08:58)
[2021-01-29] MEDS: PANTOPRAZOLE 40 MG TABLET PO SCH (08:58)
[2021-01-29] MEDS: DULoxetine 30 MG CAPSULE PO SCH (08:58)
[2021-01-29] MEDS: CETIRIZINE 10 MG TABLET PO SCH (08:58)
[2021-01-29] MEDS: FUROSEMIDE 40 MG TABLET PO SCH (08:58)
[2021-01-29] MEDS: TOPIRAMATE 100 MG TABLET PO SCH (08:58)
[2021-01-29] MEDS: CALCIUM (CARBONATE)/VITAMIN D 600 MG-400 UNIT TABLET PO SCH (08:58)
[2021-01-29] MEDS: carvediloL 12.5 MG TABLET PO SCH (08:58)
[2021-01-29] MEDS: SPIRONOLACTONE 25 MG TABLET PO SCH (08:58)
[2021-01-29] MEDS: CLOPIDOGREL 75 MG TABLET PO SCH (08:58)
[2021-01-29] MEDS: levETIRAcetam 500 MG TABLET PO SCH (08:59)
[2021-01-29] MEDS: DOCUSATE SODIUM 100 MG CAPSULE PO SCH (08:59)
[2021-01-29] MEDS: VERAPAMIL SR 120 MG TABLET PO SCH (08:59)
[2021-01-29] MEDS: APIXABAN 5 MG TABLET PO SCH (08:59)
[2021-01-29] MEDS ORDERED: OXYBUTYNIN XL 15 MG TABLET PO SCH (09:00)
[2021-01-29] MEDS: GABAPENTIN 400 MG CAPSULE PO SCH (09:06)
[2021-01-29] MEDS: SODIUM HYPOCHLORITE 0.25% IRRIG 473 ML BOTTLE TOP SCH (09:06)
[2021-01-29] MEDS: DICYCLOMINE 10 MG CAPSULE PO SCH (09:06)
[2021-01-29] MEDS: LEFLUNOMIDE 10 MG TABLET PO SCH (09:06)
[2021-01-29] MEDS: CARBOXYMETHYLCELLULOSE 1% OPH SOLN BOTH EYES SCH (09:07)
== END 2021-01-29 11:40 ==
LOC: EDUNIT# → N.ED 20:18 → N.EDINP 20:18 → N.CC 01-28 00:44
PROVIDERS: ADMIT Internal Medicine; ATTEND Internal Medicine

== ENCOUNTER 2021-04-30 11:42 | Observation (INO) ==
[2021-04-30] MEDS ORDERED: ONDANSETRON 4 MG/2 ML VIAL IV ONE (12:56)
[2021-04-30] MEDS ORDERED: HYDROmorphone 2 MG/1 ML VIAL IV STA (12:56)
[2021-04-30 13:06] LABS: Basophils % 0.5 % (0.0-0.8); Eosinophils % 0.1 % (0.00-10.9); Hematocrit 42.4 VOL% (35.7-47.0); Hemoglobin 13.2 GM/DL (12.0-16.0); Immature Granulocytes % 5.1 %; Immature Granulocytes Absolute 0.38 #; Lymphocytes # 1.3 10*3/uL (1.4-4.0); Lymphocytes % 16.9 % (21.3-54.2); Mean Corpuscular HGB Conc 31.1 GM/DL (32-36); Mean Corpuscular Volume 93.2 FL (87-102); Mean Platelet Volume 8.8 FL (9.6-12.0); Monocytes % 10.5 % (1.7-12.7); Neutrophils % 66.9 % (38.7-73.9); Platelet Count 280 T/CUMM (130-400); Red Blood Count 4.55 MC/CUMM (3.8-5.5); Red Cell Distribution Width 18.5 % (9.3-17.3); White Blood Count 7.5 T/CUMM (4-12)
[2021-04-30 13:14] LABS: Alanine Aminotransferase 69 U/L (13-56); Albumin 3.3 G/DL (3.4-5.0); Alkaline Phosphatase 86 U/L (45-117); Aspartate Amino Transferase 39 U/L (0-37); Bilirubin,Total < 0.39 MG/DL (0.20-1.00); Blood Urea Nitrogen 19 MG/DL (7-18); Carbon Dioxide 25 MMOL/L (21-32); Estimated Glom Filtration Rate 79 ML/MIN; Glucose 129 MG/DL (74-106); Osmolality,Calculated 284.3 MOS/KG (273-304); Potassium 3.6 MMOL/L (3.5-5.1); Sodium 141 MMOL/L (136-145); Total Protein 7.4 G/DL (6.4-8.2)
[2021-04-30] MEDS ORDERED: LACTATED RINGERS 1,000 ML IV ONE (13:35)
[2021-04-30] MEDS ORDERED: ONDANSETRON 4 MG/2 ML VIAL IV PRN (14:17)
[2021-04-30] MEDS ORDERED: ACETAMINOPHEN 325 MG TABLET PO PRN (14:17)
[2021-04-30 14:48] LABS: Bilirubin,Urine Negative (Negative); Blood, Urine Negative (Negative); Glucose,Urine (UA) Negative (Negative); Ketones,Urine Negative (Negative); Mucus,Urine Occasional /LPF (Occasional); Nitrite,Urine Negative (Negative); Protein,Urine Negative; RBC,Urine <1 /HPF (0-4); Squamous Epithelial Cell,Urine Occasional /HPF (0-10); Urine Appearance CLEAR (Clear); Urine Color Colorless (Yellow); Urine Specific Gravity 1.017 (1.001-1.035); Urine Urobilinogen < 2.0 EU/DL (0.2-1.0)
[2021-04-30] MEDS ORDERED: METOCLOPRAMIDE 10 MG/2 ML VIAL IV STA (17:47)
[2021-04-30] MEDS: LACTATED RINGERS 1,000 ML IV SCH (18:00)
[2021-04-30] MEDS: DOCUSATE SODIUM 100 MG CAPSULE PO SCH (20:23)
[2021-04-30] MEDS: LACTULOSE 20 GM/30 ML UDCUP PO SCH (20:24)
[2021-05-01] MEDS: LACTATED RINGERS 1,000 ML IV SCH ×2 (03:26→17:22)
[2021-05-01] MEDS: LACTULOSE 20 GM/30 ML UDCUP PO SCH ×2 (08:41→21:34)
[2021-05-01] MEDS: LINACLOTIDE 145 MCG CAPSULE PO SCH (08:41)
[2021-05-01] MEDS: DOCUSATE SODIUM 100 MG CAPSULE PO SCH ×2 (08:42→21:34)
[2021-05-01] MEDS: PANTOPRAZOLE 40 MG TABLET PO SCH (08:42)
[2021-05-01] MEDS ORDERED: POLYETHYLENE GLYCOL POWDER 17 GM PACK PO PRN (08:43)
[2021-05-01] MEDS ORDERED: ALBUTEROL/IPRATROPIUM 3 ML NEB RESP TX PRN (08:43)
[2021-05-01] MEDS ORDERED: NITROGLYCERIN SL 0.4 MG TABLET SL PRN (08:43)
[2021-05-01] MEDS ORDERED: LEVOFLOXACIN 500 MG TABLET PO SCH (09:00)
[2021-05-01] MEDS ORDERED: PHENAZOPYRIDINE 95 MG TABLET PO PRN (09:21)
[2021-05-01] MEDS: SPIRONOLACTONE 25 MG TABLET PO SCH ×2 (10:34→21:36)
[2021-05-01] MEDS: busPIRone 5 MG TABLET PO SCH ×2 (10:35→21:36)
[2021-05-01] MEDS: carvediloL 12.5 MG TABLET PO SCH ×2 (10:35→21:35)
[2021-05-01] MEDS: VERAPAMIL SR 120 MG TABLET PO SCH (10:35)
[2021-05-01] MEDS: DULoxetine 30 MG CAPSULE PO SCH (10:35)
[2021-05-01] MEDS: APIXABAN 5 MG TABLET PO SCH ×2 (10:36→21:35)
[2021-05-01] MEDS: levETIRAcetam 500 MG TABLET PO SCH (10:36)
[2021-05-01] MEDS: FUROSEMIDE 40 MG TABLET PO SCH (10:36)
[2021-05-01] MEDS: OXYBUTYNIN XL 10 MG TABLET PO SCH ×2 (10:36→21:36)
[2021-05-01] MEDS: GABAPENTIN 400 MG CAPSULE PO SCH ×3 (10:36→21:35)
[2021-05-01] MEDS: TOPIRAMATE 100 MG TABLET PO SCH ×2 (10:37→21:36)
[2021-05-01] MEDS: predniSONE 10 MG TABLET PO SCH ×2 (10:37→21:35)
[2021-05-01] MEDS: CLOPIDOGREL 75 MG TABLET PO SCH (10:37)
[2021-05-01] MEDS: CETIRIZINE 10 MG TABLET PO SCH (10:38)
[2021-05-01] MEDS: LEVOFLOXACIN 500 MG TABLET PO SCH (10:38)
[2021-05-01] MEDS: LEFLUNOMIDE 10 MG TABLET PO SCH (10:38)
[2021-05-01] MEDS ORDERED: DEXTROSE 50% 25 GM/50 ML VIAL IV PRN (12:09)
[2021-05-01] MEDS ORDERED: GLUCAGON 1 MG VIAL IM PRN (12:09)
[2021-05-01] MEDS ORDERED: MELATONIN 3 MG TABLET PO SCH (21:00)
[2021-05-01] MEDS ORDERED: SIMVASTATIN 40 MG TABLET PO SCH (21:00)
[2021-05-01] MEDS ORDERED: TERAZOSIN 1 MG CAPSULE PO SCH (21:00)
[2021-05-01] MEDS ORDERED: levETIRAcetam 250 MG TABLET PO SCH (21:00)
[2021-05-01] MEDS: MAGNESIUM CHLORIDE 64 MG TABLET PO SCH (21:34)
[2021-05-02] MEDS: LACTATED RINGERS 1,000 ML IV SCH (05:35)
[2021-05-02] MEDS: LINACLOTIDE 145 MCG CAPSULE PO SCH (09:22)
[2021-05-02] MEDS: SPIRONOLACTONE 25 MG TABLET PO SCH (09:23)
[2021-05-02] MEDS: LEVOFLOXACIN 500 MG TABLET PO SCH (09:23)
[2021-05-02] MEDS: LEFLUNOMIDE 10 MG TABLET PO SCH (09:23)
[2021-05-02] MEDS: DOCUSATE SODIUM 100 MG CAPSULE PO SCH (09:24)
[2021-05-02] MEDS: DULoxetine 30 MG CAPSULE PO SCH (09:24)
[2021-05-02] MEDS: carvediloL 12.5 MG TABLET PO SCH (09:24)
[2021-05-02] MEDS: busPIRone 5 MG TABLET PO SCH (09:24)
[2021-05-02] MEDS: VERAPAMIL SR 120 MG TABLET PO SCH (09:24)
[2021-05-02] MEDS: LACTULOSE 20 GM/30 ML UDCUP PO SCH (09:24)
[2021-05-02] MEDS: GABAPENTIN 400 MG CAPSULE PO SCH (09:25)
[2021-05-02] MEDS: OXYBUTYNIN XL 10 MG TABLET PO SCH (09:25)
[2021-05-02] MEDS: APIXABAN 5 MG TABLET PO SCH (09:25)
[2021-05-02] MEDS: levETIRAcetam 500 MG TABLET PO SCH (09:25)
[2021-05-02] MEDS: FUROSEMIDE 40 MG TABLET PO SCH (09:25)
[2021-05-02] MEDS: CLOPIDOGREL 75 MG TABLET PO SCH (09:26)
[2021-05-02] MEDS: predniSONE 10 MG TABLET PO SCH (09:26)
[2021-05-02] MEDS: PANTOPRAZOLE 40 MG TABLET PO SCH (09:26)
[2021-05-02] MEDS: MAGNESIUM CHLORIDE 64 MG TABLET PO SCH (09:26)
[2021-05-02] MEDS: CETIRIZINE 10 MG TABLET PO SCH (09:27)
[2021-05-02] MEDS: TOPIRAMATE 100 MG TABLET PO SCH (09:27)
[2021-05-02 13:24] VITALS: BP 89/68
== END 2021-05-02 14:10 ==
LOC: N.EDINP 11:42 → N.ED 11:42 → N.3E 17:13
PROVIDERS: ADMIT Internal Medicine; ATTEND Internal Medicine

== ENCOUNTER 2021-07-08 12:56 | Inpatient (IN) ==
[2021-07-08 15:19] LABS: Basophils # 0.1 10*3/uL (0.0-0.2); Basophils % 0.8 % (0.0-0.8); Eosinophils % 0.4 % (0.00-10.9); Hematocrit 48.7 VOL% (35.7-47.0); Hemoglobin 15.1 GM/DL (12.0-16.0); Immature Granulocytes % 5.4 %; Lymphocytes # 1.5 10*3/uL (1.4-4.0); Lymphocytes % 16.2 % (21.3-54.2); Mean Corpuscular Volume 99.4 FL (87-102); Mean Platelet Volume 9.1 FL (9.6-12.0); Neutrophils % 68.2 % (38.7-73.9); Platelet Count 261 T/CUMM (130-400); Red Cell Distribution Width 15.3 % (9.3-17.3); White Blood Count 9.3 T/CUMM (4-12)
[2021-07-08 15:43] LABS: Alanine Aminotransferase 45 U/L (13-56); Albumin 3.5 G/DL (3.4-5.0); Alkaline Phosphatase 82 U/L (45-117); Aspartate Amino Transferase 31 U/L (0-37); Bilirubin,Total < 0.39 MG/DL (0.20-1.00); Blood Urea Nitrogen 16 MG/DL (7-18); Calcium 9.8 MG/DL (8.5-10.1); Carbon Dioxide 27 MMOL/L (21-32); Estimated Glom Filtration Rate 84 ML/MIN; Glucose 125 MG/DL (74-106); Osmolality,Calculated 276.7 MOS/KG (273-304); Potassium 3.5 MMOL/L (3.5-5.1); Sodium 138 MMOL/L (136-145); Total Protein 7.2 G/DL (6.4-8.2)
[2021-07-08 15:56] LABS: Bacteria,Urine Occasional /HPF (Few); Bilirubin,Urine Negative (Negative); Blood, Urine Negative (Negative); Glucose,Urine (UA) Negative (Negative); Ketones,Urine Negative (Negative); Mucus,Urine Occasional /LPF (Occasional); Nitrite,Urine Positive (Negative); Protein,Urine Negative; Squamous Epithelial Cell,Urine Occasional /HPF (0-10); Urine Appearance CLEAR (Clear); Urine Color Straw (Yellow); Urine Urobilinogen < 2.0 EU/DL (0.2-1.0)
[2021-07-08] MEDS ORDERED: SODIUM CHLORIDE 0.9% 1,950 ML IV ONE (16:21)
[2021-07-08] MEDS: PIPERACILLIN/TAZOBACTAM 3,375 MG in SODIUM CHLORIDE 0.9% 100 ML IV SCH (16:50)
[2021-07-08] MEDS ORDERED: ONDANSETRON 4 MG/2 ML VIAL IV PRN (16:51)
[2021-07-08] MEDS: VANCOMYCIN INJ 1,000 MG in SODIUM CHLORIDE 0.9% 250 ML IV SCH (17:20)
[2021-07-08] MEDS: ACETAMINOPHEN 325 MG TABLET PO PRN (22:14)
[2021-07-08] MEDS: DOCUSATE SODIUM 100 MG CAPSULE PO SCH (22:14)
[2021-07-09] MEDS: PIPERACILLIN/TAZOBACTAM 3,375 MG in SODIUM CHLORIDE 0.9% 100 ML IV SCH ×3 (00:29→17:26)
[2021-07-09] MEDS: VANCOMYCIN INJ 1,000 MG in SODIUM CHLORIDE 0.9% 250 ML IV SCH ×2 (04:07→18:14)
[2021-07-09 05:41] LABS: Basophils # 0.1 10*3/uL (0.0-0.2); Basophils % 0.9 % (0.0-0.8); Eosinophils % 0.4 % (0.00-10.9); Hemoglobin 13.1 GM/DL (12.0-16.0); Immature Granulocytes % 6.8 %; Immature Granulocytes Absolute 0.46 #; Lymphocytes # 1.3 10*3/uL (1.4-4.0); Lymphocytes % 19.3 % (21.3-54.2); Mean Corpuscular HGB Conc 30.5 GM/DL (32-36); Mean Corpuscular Volume 99.3 FL (87-102); Mean Platelet Volume 8.4 FL (9.6-12.0); Monocytes % 9.7 % (1.7-12.7); Neutrophils % 62.9 % (38.7-73.9); Platelet Count 246 T/CUMM (130-400); Red Blood Count 4.33 MC/CUMM (3.8-5.5); Red Cell Distribution Width 15.2 % (9.3-17.3); White Blood Count 6.8 T/CUMM (4-12)
[2021-07-09 06:14] LABS: Calcium 8.2 MG/DL (8.5-10.1); Potassium 2.7 MMOL/L (3.5-5.1)
[2021-07-09 06:20] LABS: Eosinophils 1 % (0-10); Lymphocytes 14 % (20-55); Platelet Estimate Adequate; Segmented Neutrophils 71 % (50-85); Total Cells Counted 100
[2021-07-09] MEDS: SODIUM CHLORIDE 0.9% 1,000 ML IV SCH ×2 (08:24→17:23)
[2021-07-09] MEDS: POTASSIUM CHLORIDE RIDER 10 MEQ/100 ML PREMIX IV PRN ×4 (08:24→14:26)
[2021-07-09] MEDS: PANTOPRAZOLE 40 MG TABLET PO SCH ×3 (08:29→18:14)
[2021-07-09] MEDS: DOCUSATE SODIUM 100 MG CAPSULE PO SCH ×3 (08:29→21:37)
[2021-07-09] MEDS ORDERED: NON-FORMULARY MEDICATION (Menthol [Biofreeze (Menthol)] 4 % Gel) TOP PRN (08:45)
[2021-07-09] MEDS ORDERED: NITROGLYCERIN SL 0.4 MG TABLET SL PRN (08:45)
[2021-07-09] MEDS: ACETAMINOPHEN 325 MG TABLET PO PRN (08:50)
[2021-07-09] MEDS ORDERED: PHENAZOPYRIDINE 95 MG TABLET PO PRN (09:38)
[2021-07-09] MEDS ORDERED: POLYVINYL ALCOHOL 1.4% OPH SOLN 15 ML BOTTLE BOTH EYES PRN (09:39)
[2021-07-09] MEDS: ASCORBIC ACID 500 MG TABLET PO SCH (10:12)
[2021-07-09] MEDS: APIXABAN 5 MG TABLET PO SCH ×2 (10:12→21:37)
[2021-07-09] MEDS: SPIRONOLACTONE 25 MG TABLET PO SCH ×2 (12:03→21:38)
[2021-07-09] MEDS: busPIRone 5 MG TABLET PO SCH ×2 (12:03→21:38)
[2021-07-09] MEDS: CALCIUM (CARBONATE)/VITAMIN D 600 MG-400 UNIT TABLET PO SCH ×2 (12:04→21:37)
[2021-07-09] MEDS: carvediloL 12.5 MG TABLET PO SCH ×2 (12:04→17:26)
[2021-07-09] MEDS: DULoxetine 30 MG CAPSULE PO SCH (12:04)
[2021-07-09] MEDS: VERAPAMIL SR 120 MG TABLET PO SCH (12:04)
[2021-07-09] MEDS: POLYETHYLENE GLYCOL POWDER 17 GM PACK PO SCH (12:05)
[2021-07-09] MEDS: FUROSEMIDE 40 MG TABLET PO SCH (12:05)
[2021-07-09] MEDS: levETIRAcetam 500 MG TABLET PO SCH (12:05)
[2021-07-09] MEDS: predniSONE 10 MG TABLET PO SCH ×2 (12:06→21:38)
[2021-07-09] MEDS: TOPIRAMATE 100 MG TABLET PO SCH ×2 (12:06→21:38)
[2021-07-09] MEDS: CLOPIDOGREL 75 MG TABLET PO SCH (12:06)
[2021-07-09] MEDS: COLESEVELAM 625 MG TABLET PO SCH ×2 (12:06→17:30)
[2021-07-09] MEDS: HYDROmorphone 2 MG/1 ML VIAL IM PRN (12:33)
[2021-07-09] MEDS: HYDROCORTISONE 100 MG VIAL IV SCH ×2 (14:25→21:39)
[2021-07-09] MEDS: BETHANECHOL 10 MG TABLET PO SCH ×2 (15:59→21:37)
[2021-07-09] MEDS: TERAZOSIN 1 MG CAPSULE PO SCH (21:37)
[2021-07-09] MEDS: MELATONIN 3 MG TABLET PO SCH (21:37)
[2021-07-09] MEDS: levETIRAcetam 250 MG TABLET PO SCH (21:37)
[2021-07-09] MEDS: MAGNESIUM CHLORIDE 64 MG TABLET PO SCH (21:38)
[2021-07-09] MEDS: SIMVASTATIN 40 MG TABLET PO SCH (21:38)
[2021-07-10] MEDS: PIPERACILLIN/TAZOBACTAM 3,375 MG in SODIUM CHLORIDE 0.9% 100 ML IV SCH ×2 (00:43→09:13)
[2021-07-10] MEDS: SODIUM CHLORIDE 0.9% 1,000 ML IV SCH ×3 (00:43→16:52)
[2021-07-10] MEDS: VANCOMYCIN INJ 1,000 MG in SODIUM CHLORIDE 0.9% 250 ML IV SCH (04:41)
[2021-07-10] MEDS: HYDROCORTISONE 100 MG VIAL IV SCH ×3 (04:42→21:00)
[2021-07-10] MEDS: HYDROmorphone 2 MG/1 ML VIAL IM PRN ×2 (05:34→15:01)
[2021-07-10] MEDS: PANTOPRAZOLE 40 MG TABLET PO SCH ×2 (06:14→18:08)
[2021-07-10] MEDS: APIXABAN 5 MG TABLET PO SCH ×2 (08:54→20:56)
[2021-07-10] MEDS: carvediloL 12.5 MG TABLET PO SCH ×2 (08:54→18:07)
[2021-07-10] MEDS: MULTIVITAMIN (CENTRUM) TABLET PO SCH (08:54)
[2021-07-10] MEDS: ZINC GLUCONATE 50 MG TABLET PO SCH (08:54)
[2021-07-10] MEDS: POLYETHYLENE GLYCOL POWDER 17 GM PACK PO SCH (08:54)
[2021-07-10] MEDS: COLESEVELAM 625 MG TABLET PO SCH ×3 (08:54→18:07)
[2021-07-10] MEDS: TOPIRAMATE 100 MG TABLET PO SCH ×2 (08:54→20:57)
[2021-07-10] MEDS: FUROSEMIDE 40 MG TABLET PO SCH (08:54)
[2021-07-10] MEDS: predniSONE 10 MG TABLET PO SCH ×2 (08:54→20:58)
[2021-07-10] MEDS: LINACLOTIDE 145 MCG CAPSULE PO SCH (08:54)
[2021-07-10] MEDS: DOCUSATE SODIUM 100 MG CAPSULE PO SCH ×2 (08:54→20:56)
[2021-07-10] MEDS: DULoxetine 30 MG CAPSULE PO SCH (08:54)
[2021-07-10] MEDS: CETIRIZINE 10 MG TABLET PO SCH (08:55)
[2021-07-10] MEDS: CALCIUM (CARBONATE)/VITAMIN D 600 MG-400 UNIT TABLET PO SCH ×2 (08:55→20:57)
[2021-07-10] MEDS: levETIRAcetam 500 MG TABLET PO SCH (08:55)
[2021-07-10] MEDS: ASCORBIC ACID 500 MG TABLET PO SCH (08:55)
[2021-07-10] MEDS: BETHANECHOL 10 MG TABLET PO SCH ×3 (08:55→20:57)
[2021-07-10] MEDS: busPIRone 5 MG TABLET PO SCH ×2 (08:55→20:59)
[2021-07-10] MEDS: MAGNESIUM CHLORIDE 64 MG TABLET PO SCH ×2 (08:56→20:57)
[2021-07-10] MEDS: SPIRONOLACTONE 25 MG TABLET PO SCH ×2 (08:56→20:56)
[2021-07-10] MEDS: CLOPIDOGREL 75 MG TABLET PO SCH (08:56)
[2021-07-10] MEDS: VERAPAMIL SR 120 MG TABLET PO SCH (08:56)
[2021-07-10] MEDS: POTASSIUM CHLORIDE RIDER 10 MEQ/100 ML PREMIX IV PRN ×5 (11:29→22:46)
[2021-07-10] MEDS: MEROPENEM 500 MG in SODIUM CHLORIDE 0.9% 100 ML IV SCH ×2 (16:52→21:35)
[2021-07-10 17:03] LABS: Calcium 8.7 MG/DL (8.5-10.1); Osmolality,Calculated 279.3 MOS/KG (273-304); Potassium 3.4 MMOL/L (3.5-5.1)
[2021-07-10] MEDS: SIMVASTATIN 40 MG TABLET PO SCH (20:56)
[2021-07-10] MEDS: MELATONIN 3 MG TABLET PO SCH (20:57)
[2021-07-10] MEDS: levETIRAcetam 250 MG TABLET PO SCH (20:59)
[2021-07-10] MEDS: TERAZOSIN 1 MG CAPSULE PO SCH (20:59)
[2021-07-11] MEDS: SODIUM CHLORIDE 0.9% 1,000 ML IV SCH ×4 (00:05→22:39)
[2021-07-11] MEDS: POTASSIUM CHLORIDE RIDER 10 MEQ/100 ML PREMIX IV PRN ×6 (00:05→10:36)
[2021-07-11] MEDS: HYDROCORTISONE 100 MG VIAL IV SCH ×3 (04:36→21:49)
[2021-07-11] MEDS: MEROPENEM 500 MG in SODIUM CHLORIDE 0.9% 100 ML IV SCH ×4 (04:36→22:40)
[2021-07-11 04:44] LABS: Basophils % 0.3 % (0.0-0.8); Eosinophils % 0.1 % (0.00-10.9); Hematocrit 41.1 VOL% (35.7-47.0); Hemoglobin 12.9 GM/DL (12.0-16.0); Immature Granulocytes % 1.7 %; Immature Granulocytes Absolute 0.13 #; Lymphocytes # 1.5 10*3/uL (1.4-4.0); Lymphocytes % 19.4 % (21.3-54.2); Mean Corpuscular HGB Conc 31.4 GM/DL (32-36); Mean Corpuscular Volume 96.9 FL (87-102); Mean Platelet Volume 8.5 FL (9.6-12.0); Monocytes % 10.7 % (1.7-12.7); Neutrophils % 67.8 % (38.7-73.9); Platelet Count 241 T/CUMM (130-400); Red Blood Count 4.24 MC/CUMM (3.8-5.5); White Blood Count 7.9 T/CUMM (4-12)
[2021-07-11 05:13] LABS: Alanine Aminotransferase 39 U/L (13-56); Albumin 2.7 G/DL (3.4-5.0); Alkaline Phosphatase 68 U/L (45-117); Aspartate Amino Transferase 27 U/L (0-37); Bilirubin,Total < 0.39 MG/DL (0.20-1.00); Blood Urea Nitrogen 3 MG/DL (7-18); Calcium 9.4 MG/DL (8.5-10.1); Carbon Dioxide 26 MMOL/L (21-32); Estimated Glom Filtration Rate 110 ML/MIN; Glucose 117 MG/DL (74-106); Osmolality,Calculated 285.7 MOS/KG (273-304); Sodium 145 MMOL/L (136-145); Total Protein 6.2 G/DL (6.4-8.2)
[2021-07-11] MEDS: PANTOPRAZOLE 40 MG TABLET PO SCH ×2 (05:37→17:45)
[2021-07-11] MEDS: VERAPAMIL SR 120 MG TABLET PO SCH (08:59)
[2021-07-11] MEDS: POLYETHYLENE GLYCOL POWDER 17 GM PACK PO SCH (08:59)
[2021-07-11] MEDS: DULoxetine 30 MG CAPSULE PO SCH (08:59)
[2021-07-11] MEDS: ZINC GLUCONATE 50 MG TABLET PO SCH (08:59)
[2021-07-11] MEDS: MULTIVITAMIN (CENTRUM) TABLET PO SCH (09:00)
[2021-07-11] MEDS: busPIRone 5 MG TABLET PO SCH ×2 (09:00→21:47)
[2021-07-11] MEDS: ASCORBIC ACID 500 MG TABLET PO SCH (09:00)
[2021-07-11] MEDS: BETHANECHOL 10 MG TABLET PO SCH ×3 (09:00→21:46)
[2021-07-11] MEDS: MAGNESIUM CHLORIDE 64 MG TABLET PO SCH ×2 (09:00→21:45)
[2021-07-11] MEDS: carvediloL 12.5 MG TABLET PO SCH ×2 (09:00→16:10)
[2021-07-11] MEDS: predniSONE 10 MG TABLET PO SCH ×2 (09:00→21:46)
[2021-07-11] MEDS: SPIRONOLACTONE 25 MG TABLET PO SCH ×2 (09:00→21:46)
[2021-07-11] MEDS: FUROSEMIDE 40 MG TABLET PO SCH (09:00)
[2021-07-11] MEDS: CALCIUM (CARBONATE)/VITAMIN D 600 MG-400 UNIT TABLET PO SCH ×2 (09:00→21:46)
[2021-07-11] MEDS: TOPIRAMATE 100 MG TABLET PO SCH ×2 (09:00→21:46)
[2021-07-11] MEDS: CETIRIZINE 10 MG TABLET PO SCH (09:00)
[2021-07-11] MEDS: CLOPIDOGREL 75 MG TABLET PO SCH (09:01)
[2021-07-11] MEDS: levETIRAcetam 500 MG TABLET PO SCH (09:01)
[2021-07-11] MEDS: DOCUSATE SODIUM 100 MG CAPSULE PO SCH ×2 (09:01→21:46)
[2021-07-11] MEDS: COLESEVELAM 625 MG TABLET PO SCH ×3 (09:03→16:12)
[2021-07-11] MEDS: APIXABAN 5 MG TABLET PO SCH ×2 (09:03→21:45)
[2021-07-11] MEDS: LINACLOTIDE 145 MCG CAPSULE PO SCH (09:03)
[2021-07-11] MEDS ORDERED: METOPROLOL TARTRATE 5 MG/5 ML VIAL IV ONE (13:02)
[2021-07-11] MEDS ORDERED: hydrALAZINE 20 MG/1 ML VIAL IV PRN (13:03)
[2021-07-11] MEDS: MELATONIN 3 MG TABLET PO SCH (21:45)
[2021-07-11] MEDS: levETIRAcetam 250 MG TABLET PO SCH (21:46)
[2021-07-11] MEDS: SIMVASTATIN 40 MG TABLET PO SCH (21:46)
[2021-07-11] MEDS: TERAZOSIN 1 MG CAPSULE PO SCH (21:47)
[2021-07-12] MEDS: MEROPENEM 500 MG in SODIUM CHLORIDE 0.9% 100 ML IV SCH ×4 (04:29→21:04)
[2021-07-12] MEDS: PANTOPRAZOLE 40 MG TABLET PO SCH ×2 (05:38→18:17)
[2021-07-12] MEDS: HYDROCORTISONE 100 MG VIAL IV SCH (05:40)
[2021-07-12] MEDS: APIXABAN 5 MG TABLET PO SCH ×2 (09:41→20:45)
[2021-07-12] MEDS: MAGNESIUM CHLORIDE 64 MG TABLET PO SCH ×2 (09:41→20:44)
[2021-07-12] MEDS: predniSONE 10 MG TABLET PO SCH ×2 (09:41→20:45)
[2021-07-12] MEDS: LINACLOTIDE 145 MCG CAPSULE PO SCH (09:41)
[2021-07-12] MEDS: COLESEVELAM 625 MG TABLET PO SCH ×3 (09:42→17:23)
[2021-07-12] MEDS: CETIRIZINE 10 MG TABLET PO SCH (09:42)
[2021-07-12] MEDS: FUROSEMIDE 40 MG TABLET PO SCH (09:42)
[2021-07-12] MEDS: busPIRone 5 MG TABLET PO SCH ×2 (09:42→20:44)
[2021-07-12] MEDS: SPIRONOLACTONE 25 MG TABLET PO SCH ×2 (09:43→20:44)
[2021-07-12] MEDS: levETIRAcetam 500 MG TABLET PO SCH (09:43)
[2021-07-12] MEDS: MULTIVITAMIN (CENTRUM) TABLET PO SCH (09:43)
[2021-07-12] MEDS: CALCIUM (CARBONATE)/VITAMIN D 600 MG-400 UNIT TABLET PO SCH ×2 (09:43→20:44)
[2021-07-12] MEDS: DOCUSATE SODIUM 100 MG CAPSULE PO SCH ×2 (09:43→20:45)
[2021-07-12] MEDS: CLOPIDOGREL 75 MG TABLET PO SCH (09:43)
[2021-07-12] MEDS: carvediloL 12.5 MG TABLET PO SCH ×2 (09:44→17:23)
[2021-07-12] MEDS: BETHANECHOL 10 MG TABLET PO SCH ×3 (09:45→20:46)
[2021-07-12] MEDS: VERAPAMIL SR 120 MG TABLET PO SCH (09:46)
[2021-07-12] MEDS: ASCORBIC ACID 500 MG TABLET PO SCH (09:46)
[2021-07-12] MEDS: ZINC GLUCONATE 50 MG TABLET PO SCH (09:46)
[2021-07-12] MEDS: POLYETHYLENE GLYCOL POWDER 17 GM PACK PO SCH (09:46)
[2021-07-12] MEDS: TOPIRAMATE 100 MG TABLET PO SCH ×2 (09:46→20:44)
[2021-07-12] MEDS: SODIUM CHLORIDE 0.9% 1,000 ML IV SCH ×3 (09:50→18:53)
[2021-07-12] MEDS: DULoxetine 30 MG CAPSULE PO SCH (10:19)
[2021-07-12] MEDS: ACETAMINOPHEN 325 MG TABLET PO PRN (17:24)
[2021-07-12] MEDS: SIMVASTATIN 40 MG TABLET PO SCH (20:45)
[2021-07-12] MEDS: levETIRAcetam 250 MG TABLET PO SCH (20:45)
[2021-07-12] MEDS: TERAZOSIN 1 MG CAPSULE PO SCH (20:45)
[2021-07-12] MEDS: MELATONIN 3 MG TABLET PO SCH (20:45)
[2021-07-13] MEDS: MEROPENEM 500 MG in SODIUM CHLORIDE 0.9% 100 ML IV SCH ×4 (03:28→22:16)
[2021-07-13] MEDS: SODIUM CHLORIDE 0.9% 1,000 ML IV SCH ×2 (05:00→15:32)
[2021-07-13] MEDS: PANTOPRAZOLE 40 MG TABLET PO SCH ×2 (05:47→18:21)
[2021-07-13 06:12] LABS: Basophils % 0.2 % (0.0-0.8); Eosinophils % 0.5 % (0.00-10.9); Hematocrit 40.5 VOL% (35.7-47.0); Hemoglobin 12.9 GM/DL (12.0-16.0); Immature Granulocytes Absolute 0.25 #; Lymphocytes # 1.3 10*3/uL (1.4-4.0); Lymphocytes % 16.3 % (21.3-54.2); Mean Corpuscular HGB Conc 31.9 GM/DL (32-36); Mean Corpuscular Volume 95.3 FL (87-102); Mean Platelet Volume 8.6 FL (9.6-12.0); Monocytes % 12.2 % (1.7-12.7); Neutrophils % 67.8 % (38.7-73.9); Platelet Count 210 T/CUMM (130-400); Red Blood Count 4.25 MC/CUMM (3.8-5.5); Red Cell Distribution Width 15.1 % (9.3-17.3); White Blood Count 8.2 T/CUMM (4-12)
[2021-07-13 06:30] LABS: Calcium 8.8 MG/DL (8.5-10.1); Osmolality,Calculated 284.7 MOS/KG (273-304)
[2021-07-13 06:35] LABS: Potassium 2.2 MMOL/L (3.5-5.1)
[2021-07-13] MEDS: POTASSIUM CHLORIDE RIDER 10 MEQ/100 ML PREMIX IV PRN ×6 (06:43→23:33)
[2021-07-13] MEDS: VERAPAMIL SR 120 MG TABLET PO SCH (10:55)
[2021-07-13] MEDS: DOCUSATE SODIUM 100 MG CAPSULE PO SCH ×2 (10:56→20:36)
[2021-07-13] MEDS: COLESEVELAM 625 MG TABLET PO SCH ×3 (10:56→17:15)
[2021-07-13] MEDS: DULoxetine 30 MG CAPSULE PO SCH (10:56)
[2021-07-13] MEDS: CLOPIDOGREL 75 MG TABLET PO SCH (10:56)
[2021-07-13] MEDS: ZINC GLUCONATE 50 MG TABLET PO SCH (10:56)
[2021-07-13] MEDS: MULTIVITAMIN (CENTRUM) TABLET PO SCH (10:57)
[2021-07-13] MEDS: FUROSEMIDE 40 MG TABLET PO SCH (10:57)
[2021-07-13] MEDS: TOPIRAMATE 100 MG TABLET PO SCH ×2 (10:57→20:35)
[2021-07-13] MEDS: CALCIUM (CARBONATE)/VITAMIN D 600 MG-400 UNIT TABLET PO SCH ×2 (10:57→20:35)
[2021-07-13] MEDS: MAGNESIUM CHLORIDE 64 MG TABLET PO SCH ×2 (10:57→20:55)
[2021-07-13] MEDS: carvediloL 12.5 MG TABLET PO SCH ×2 (10:57→17:15)
[2021-07-13] MEDS: predniSONE 10 MG TABLET PO SCH ×2 (10:57→20:36)
[2021-07-13] MEDS: busPIRone 5 MG TABLET PO SCH ×2 (10:57→20:35)
[2021-07-13] MEDS: APIXABAN 5 MG TABLET PO SCH ×2 (10:57→20:55)
[2021-07-13] MEDS: ASCORBIC ACID 500 MG TABLET PO SCH (10:58)
[2021-07-13] MEDS: LINACLOTIDE 145 MCG CAPSULE PO SCH (10:58)
[2021-07-13] MEDS: CETIRIZINE 10 MG TABLET PO SCH (10:58)
[2021-07-13] MEDS: SPIRONOLACTONE 25 MG TABLET PO SCH ×2 (10:58→20:55)
[2021-07-13] MEDS: BETHANECHOL 10 MG TABLET PO SCH ×3 (10:59→20:35)
[2021-07-13] MEDS: POLYETHYLENE GLYCOL POWDER 17 GM PACK PO SCH (11:01)
[2021-07-13] MEDS: levETIRAcetam 500 MG TABLET PO SCH (11:23)
[2021-07-13] MEDS: MELATONIN 3 MG TABLET PO SCH (20:35)
[2021-07-13] MEDS: SIMVASTATIN 40 MG TABLET PO SCH (20:35)
[2021-07-13] MEDS: TERAZOSIN 1 MG CAPSULE PO SCH (20:35)
[2021-07-13] MEDS: levETIRAcetam 250 MG TABLET PO SCH (20:36)
[2021-07-14] MEDS: SODIUM CHLORIDE 0.9% 1,000 ML IV SCH ×4 (00:51→20:30)
[2021-07-14] MEDS: MEROPENEM 500 MG in SODIUM CHLORIDE 0.9% 100 ML IV SCH ×4 (03:01→21:47)
[2021-07-14 04:29] LABS: Basophils % 0.3 % (0.0-0.8); Eosinophils % 0.1 % (0.00-10.9); Immature Granulocytes % 2.2 %; Lymphocytes # 1.2 10*3/uL (1.4-4.0); Lymphocytes % 13.4 % (21.3-54.2); Mean Corpuscular HGB Conc 31.6 GM/DL (32-36); Mean Corpuscular Volume 96.7 FL (87-102); Mean Platelet Volume 9.1 FL (9.6-12.0); Monocytes % 7.1 % (1.7-12.7); Neutrophils % 76.9 % (38.7-73.9); Platelet Count 186 T/CUMM (130-400); Red Blood Count 3.93 MC/CUMM (3.8-5.5); Red Cell Distribution Width 15.1 % (9.3-17.3); White Blood Count 9.1 T/CUMM (4-12)
[2021-07-14 05:00] LABS: Calcium 8.2 MG/DL (8.5-10.1); Osmolality,Calculated 284.7 MOS/KG (273-304)
[2021-07-14] MEDS: POTASSIUM CHLORIDE RIDER 10 MEQ/100 ML PREMIX IV PRN ×8 (05:22→19:22)
[2021-07-14] MEDS: PANTOPRAZOLE 40 MG TABLET PO SCH ×2 (05:32→18:10)
[2021-07-14] MEDS: LINACLOTIDE 145 MCG CAPSULE PO SCH (07:30)
[2021-07-14] MEDS: VERAPAMIL SR 120 MG TABLET PO SCH (10:08)
[2021-07-14] MEDS: COLESEVELAM 625 MG TABLET PO SCH ×3 (10:08→16:09)
[2021-07-14] MEDS: busPIRone 5 MG TABLET PO SCH ×2 (10:09→21:42)
[2021-07-14] MEDS: BETHANECHOL 10 MG TABLET PO SCH ×3 (10:09→21:40)
[2021-07-14] MEDS: CALCIUM (CARBONATE)/VITAMIN D 600 MG-400 UNIT TABLET PO SCH ×2 (10:09→21:43)
[2021-07-14] MEDS: DULoxetine 30 MG CAPSULE PO SCH (10:09)
[2021-07-14] MEDS: MULTIVITAMIN (CENTRUM) TABLET PO SCH (10:10)
[2021-07-14] MEDS: FUROSEMIDE 40 MG TABLET PO SCH (10:10)
[2021-07-14] MEDS: TOPIRAMATE 100 MG TABLET PO SCH ×2 (10:10→21:42)
[2021-07-14] MEDS: carvediloL 12.5 MG TABLET PO SCH ×2 (10:10→16:09)
[2021-07-14] MEDS: SPIRONOLACTONE 25 MG TABLET PO SCH ×2 (10:10→21:43)
[2021-07-14] MEDS: levETIRAcetam 500 MG TABLET PO SCH (10:12)
[2021-07-14] MEDS: predniSONE 10 MG TABLET PO SCH ×2 (10:12→21:42)
[2021-07-14] MEDS: CETIRIZINE 10 MG TABLET PO SCH (10:13)
[2021-07-14] MEDS: CLOPIDOGREL 75 MG TABLET PO SCH (10:13)
[2021-07-14] MEDS: DOCUSATE SODIUM 100 MG CAPSULE PO SCH ×2 (10:13→21:43)
[2021-07-14] MEDS: ZINC GLUCONATE 50 MG TABLET PO SCH (10:13)
[2021-07-14] MEDS: ASCORBIC ACID 500 MG TABLET PO SCH (10:13)
[2021-07-14] MEDS: POLYETHYLENE GLYCOL POWDER 17 GM PACK PO SCH (10:14)
[2021-07-14] MEDS: MAGNESIUM CHLORIDE 64 MG TABLET PO SCH ×2 (12:01→21:46)
[2021-07-14] MEDS: APIXABAN 5 MG TABLET PO SCH ×2 (12:01→21:42)
[2021-07-14] MEDS: levETIRAcetam 250 MG TABLET PO SCH (21:41)
[2021-07-14] MEDS: TERAZOSIN 1 MG CAPSULE PO SCH (21:41)
[2021-07-14] MEDS: SIMVASTATIN 40 MG TABLET PO SCH (21:42)
[2021-07-14] MEDS: MELATONIN 3 MG TABLET PO SCH (21:44)
[2021-07-15] MEDS: MEROPENEM 500 MG in SODIUM CHLORIDE 0.9% 100 ML IV SCH ×4 (04:06→22:20)
[2021-07-15] MEDS: SODIUM CHLORIDE 0.9% 1,000 ML IV SCH ×2 (06:20→22:09)
[2021-07-15] MEDS: PANTOPRAZOLE 40 MG TABLET PO SCH ×2 (06:20→17:51)
[2021-07-15] MEDS: LINACLOTIDE 145 MCG CAPSULE PO SCH ×2 (06:21→07:40)
[2021-07-15 06:41] LABS: Basophils # 0.1 10*3/uL (0.0-0.2); Basophils % 0.8 % (0.0-0.8); Eosinophils # 0.1 10*3/uL (0.0-0.87); Eosinophils % 0.5 % (0.00-10.9); Hemoglobin 12.7 GM/DL (12.0-16.0); Immature Granulocytes % 3.6 %; Immature Granulocytes Absolute 0.34 #; Lymphocytes # 1.6 10*3/uL (1.4-4.0); Lymphocytes % 17.5 % (21.3-54.2); Mean Corpuscular HGB Conc 32.6 GM/DL (32-36); Mean Corpuscular Volume 94.7 FL (87-102); Mean Platelet Volume 9.2 FL (9.6-12.0); Monocytes % 9.5 % (1.7-12.7); Neutrophils % 68.1 % (38.7-73.9); Platelet Count 198 T/CUMM (130-400); Red Blood Count 4.12 MC/CUMM (3.8-5.5); Red Cell Distribution Width 15.1 % (9.3-17.3); White Blood Count 9.3 T/CUMM (4-12)
[2021-07-15 07:01] LABS: Calcium 9.6 MG/DL (8.5-10.1); Osmolality,Calculated 283.7 MOS/KG (273-304); Potassium 3.3 MMOL/L (3.5-5.1)
[2021-07-15] MEDS: COLESEVELAM 625 MG TABLET PO SCH ×3 (08:04→17:15)
[2021-07-15] MEDS: POLYETHYLENE GLYCOL POWDER 17 GM PACK PO SCH (08:04)
[2021-07-15] MEDS: MAGNESIUM CHLORIDE 64 MG TABLET PO SCH ×2 (08:05→22:11)
[2021-07-15] MEDS: ZINC GLUCONATE 50 MG TABLET PO SCH (08:05)
[2021-07-15] MEDS: VERAPAMIL SR 120 MG TABLET PO SCH (08:05)
[2021-07-15] MEDS: DULoxetine 30 MG CAPSULE PO SCH (08:05)
[2021-07-15] MEDS: CALCIUM (CARBONATE)/VITAMIN D 600 MG-400 UNIT TABLET PO SCH ×2 (08:06→22:14)
[2021-07-15] MEDS: TOPIRAMATE 100 MG TABLET PO SCH ×2 (08:07→22:14)
[2021-07-15] MEDS: BETHANECHOL 10 MG TABLET PO SCH ×3 (08:07→22:12)
[2021-07-15] MEDS: ASCORBIC ACID 500 MG TABLET PO SCH (08:08)
[2021-07-15] MEDS: SPIRONOLACTONE 25 MG TABLET PO SCH ×2 (08:08→22:14)
[2021-07-15] MEDS: predniSONE 10 MG TABLET PO SCH ×2 (08:08→22:14)
[2021-07-15] MEDS: busPIRone 5 MG TABLET PO SCH ×2 (08:08→22:15)
[2021-07-15] MEDS: CLOPIDOGREL 75 MG TABLET PO SCH (08:09)
[2021-07-15] MEDS: FUROSEMIDE 40 MG TABLET PO SCH (08:09)
[2021-07-15] MEDS: DOCUSATE SODIUM 100 MG CAPSULE PO SCH ×2 (08:09→22:11)
[2021-07-15] MEDS: CETIRIZINE 10 MG TABLET PO SCH (08:09)
[2021-07-15] MEDS: APIXABAN 5 MG TABLET PO SCH ×2 (08:10→22:15)
[2021-07-15] MEDS: levETIRAcetam 500 MG TABLET PO SCH (08:10)
[2021-07-15] MEDS: MULTIVITAMIN (CENTRUM) TABLET PO SCH (08:10)
[2021-07-15] MEDS: carvediloL 12.5 MG TABLET PO SCH ×2 (08:10→17:15)
[2021-07-15] MEDS: POTASSIUM CHLORIDE 10 MEQ TABLET PO SCH ×2 (09:58→22:10)
[2021-07-15] MEDS: SODIUM HYPOCHLORITE 0.25% IRRIG 473 ML BOTTLE TOP SCH (11:08)
[2021-07-15] MEDS: TERAZOSIN 1 MG CAPSULE PO SCH (22:10)
[2021-07-15] MEDS: MELATONIN 3 MG TABLET PO SCH (22:11)
[2021-07-15] MEDS: SIMVASTATIN 40 MG TABLET PO SCH (22:13)
[2021-07-15] MEDS: levETIRAcetam 250 MG TABLET PO SCH (22:13)
[2021-07-16] MEDS: MEROPENEM 500 MG in SODIUM CHLORIDE 0.9% 100 ML IV SCH ×4 (03:27→22:28)
[2021-07-16 06:05] LABS: Calcium 8.7 MG/DL (8.5-10.1); Osmolality,Calculated 284.6 MOS/KG (273-304); Potassium 2.9 MMOL/L (3.5-5.1)
[2021-07-16] MEDS: POLYETHYLENE GLYCOL POWDER 17 GM PACK PO SCH (09:20)
[2021-07-16] MEDS: LINACLOTIDE 145 MCG CAPSULE PO SCH (09:20)
[2021-07-16] MEDS: BETHANECHOL 10 MG TABLET PO SCH ×3 (09:21→22:39)
[2021-07-16] MEDS: COLESEVELAM 625 MG TABLET PO SCH ×3 (09:21→17:15)
[2021-07-16] MEDS: ZINC GLUCONATE 50 MG TABLET PO SCH (09:21)
[2021-07-16] MEDS: CALCIUM (CARBONATE)/VITAMIN D 600 MG-400 UNIT TABLET PO SCH ×2 (09:21→22:42)
[2021-07-16] MEDS: DULoxetine 30 MG CAPSULE PO SCH (09:21)
[2021-07-16] MEDS: PANTOPRAZOLE 40 MG TABLET PO SCH ×2 (09:22→22:37)
[2021-07-16] MEDS: busPIRone 5 MG TABLET PO SCH ×2 (09:22→22:35)
[2021-07-16] MEDS: carvediloL 12.5 MG TABLET PO SCH ×2 (09:22→17:15)
[2021-07-16] MEDS: MULTIVITAMIN (CENTRUM) TABLET PO SCH (09:22)
[2021-07-16] MEDS: APIXABAN 5 MG TABLET PO SCH ×2 (09:22→22:37)
[2021-07-16] MEDS: CETIRIZINE 10 MG TABLET PO SCH (09:22)
[2021-07-16] MEDS: predniSONE 10 MG TABLET PO SCH ×2 (09:22→22:39)
[2021-07-16] MEDS: ASCORBIC ACID 500 MG TABLET PO SCH (09:22)
[2021-07-16] MEDS: levETIRAcetam 500 MG TABLET PO SCH (09:22)
[2021-07-16] MEDS: TOPIRAMATE 100 MG TABLET PO SCH ×2 (09:22→22:34)
[2021-07-16] MEDS: FUROSEMIDE 40 MG TABLET PO SCH (09:23)
[2021-07-16] MEDS: VERAPAMIL SR 120 MG TABLET PO SCH (09:23)
[2021-07-16] MEDS: SPIRONOLACTONE 25 MG TABLET PO SCH ×2 (09:23→22:35)
[2021-07-16] MEDS: CLOPIDOGREL 75 MG TABLET PO SCH (09:23)
[2021-07-16] MEDS: POTASSIUM CHLORIDE 10 MEQ TABLET PO SCH ×2 (09:23→22:42)
[2021-07-16] MEDS: MAGNESIUM CHLORIDE 64 MG TABLET PO SCH ×2 (09:23→22:43)
[2021-07-16] MEDS: DOCUSATE SODIUM 100 MG CAPSULE PO SCH ×2 (09:23→22:42)
[2021-07-16] MEDS: SODIUM HYPOCHLORITE 0.25% IRRIG 473 ML BOTTLE TOP SCH (09:24)
[2021-07-16] MEDS: POTASSIUM CHLORIDE RIDER 10 MEQ/100 ML PREMIX IV PRN ×2 (12:28→22:29)
[2021-07-16] MEDS ORDERED: POTASSIUM CHLORIDE INJ 50 MEQ in SODIUM CHLORIDE 0.9% 500 ML IV ONE (13:00)
[2021-07-16] MEDS: levETIRAcetam 250 MG TABLET PO SCH (22:37)
[2021-07-16] MEDS: SIMVASTATIN 40 MG TABLET PO SCH (22:42)
[2021-07-16] MEDS: TERAZOSIN 1 MG CAPSULE PO SCH (22:42)
[2021-07-16] MEDS: MELATONIN 3 MG TABLET PO SCH (22:42)
[2021-07-16] MEDS: ACETAMINOPHEN 325 MG TABLET PO PRN (22:51)
[2021-07-17] MEDS: POTASSIUM CHLORIDE RIDER 10 MEQ/100 ML PREMIX IV PRN (00:30)
[2021-07-17] MEDS: MEROPENEM 500 MG in SODIUM CHLORIDE 0.9% 100 ML IV SCH ×2 (04:03→10:38)
[2021-07-17] MEDS: SODIUM CHLORIDE 0.9% 1,000 ML IV SCH ×3 (04:04→11:21)
[2021-07-17] MEDS: ACETAMINOPHEN 325 MG TABLET PO PRN (04:43)
[2021-07-17] MEDS: PANTOPRAZOLE 40 MG TABLET PO SCH ×2 (04:44)
[2021-07-17 05:45] LABS: Calcium 9.2 MG/DL (8.5-10.1); Osmolality,Calculated 279.1 MOS/KG (273-304); Potassium 4.3 MMOL/L (3.5-5.1)
[2021-07-17 07:52] VITALS: BP 118/81
[2021-07-17] MEDS: MULTIVITAMIN (CENTRUM) TABLET PO SCH (09:45)
[2021-07-17] MEDS: DULoxetine 30 MG CAPSULE PO SCH (09:45)
[2021-07-17] MEDS: busPIRone 5 MG TABLET PO SCH (09:45)
[2021-07-17] MEDS: SPIRONOLACTONE 25 MG TABLET PO SCH (09:45)
[2021-07-17] MEDS: COLESEVELAM 625 MG TABLET PO SCH (09:45)
[2021-07-17] MEDS: POTASSIUM CHLORIDE 10 MEQ TABLET PO SCH (09:45)
[2021-07-17] MEDS: FUROSEMIDE 40 MG TABLET PO SCH (09:45)
[2021-07-17] MEDS: MAGNESIUM CHLORIDE 64 MG TABLET PO SCH (09:45)
[2021-07-17] MEDS: VERAPAMIL SR 120 MG TABLET PO SCH (09:45)
[2021-07-17] MEDS: POLYETHYLENE GLYCOL POWDER 17 GM PACK PO SCH (09:45)
[2021-07-17] MEDS: CETIRIZINE 10 MG TABLET PO SCH (09:45)
[2021-07-17] MEDS: DOCUSATE SODIUM 100 MG CAPSULE PO SCH (09:45)
[2021-07-17] MEDS: ASCORBIC ACID 500 MG TABLET PO SCH (09:45)
[2021-07-17] MEDS: TOPIRAMATE 100 MG TABLET PO SCH (09:46)
[2021-07-17] MEDS: predniSONE 10 MG TABLET PO SCH (09:46)
[2021-07-17] MEDS: CLOPIDOGREL 75 MG TABLET PO SCH (09:46)
[2021-07-17] MEDS: CALCIUM (CARBONATE)/VITAMIN D 600 MG-400 UNIT TABLET PO SCH (09:46)
[2021-07-17] MEDS: carvediloL 12.5 MG TABLET PO SCH (09:46)
[2021-07-17] MEDS: ZINC GLUCONATE 50 MG TABLET PO SCH (09:46)
[2021-07-17] MEDS: LINACLOTIDE 145 MCG CAPSULE PO SCH (09:54)
[2021-07-17] MEDS: APIXABAN 5 MG TABLET PO SCH (10:37)
[2021-07-17] MEDS: BETHANECHOL 10 MG TABLET PO SCH (10:37)
[2021-07-17] MEDS: levETIRAcetam 500 MG TABLET PO SCH (10:37)
[2021-07-17] MEDS: SODIUM HYPOCHLORITE 0.25% IRRIG 473 ML BOTTLE TOP SCH (10:39)
== END 2021-07-17 11:39 | DRG 689 ==
LOC: EDBD → EDUNIT# → N.EDINP 12:56 → N.ED 12:56 → N.5E 21:16
PROVIDERS: ADMIT Internal Medicine; ATTEND Internal Medicine